=== PATIENT | male | born 1940 | race Caucasian/White ===

== ENCOUNTER 2016-06-26 15:36 | Emergency (ER) | payer MEDICARE, OTHER ==
[2016-06-26] MEDS ORDERED: IBUPROFEN 600 MG TABLET PO ONE (15:44)
[2016-06-26] MEDS ORDERED: HYDROCODONE/ACETAMINOPHEN 5-325 MG TABLET PO ONE (15:44)
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
== END 2016-06-26 17:30 | disposition home or self-care (01) ==
LOC: ER 15:36
DX: S51.811A Laceration without foreign body of right forearm, initial encounter (principal); T20.10XA Burn of first degree of head, face, and neck, unspecified site, initial encounter; X03.8XXA Other exposure to controlled fire, not in building or structure, initial encounter; Y93.G2 Activity, grilling and smoking food; F17.200 Nicotine dependence, unspecified, uncomplicated; I48.91 Unspecified atrial fibrillation; I25.10 Atherosclerotic heart disease of native coronary artery without angina pectoris; I10 Essential (primary) hypertension; J45.909 Unspecified asthma, uncomplicated; J44.9 Chronic obstructive pulmonary disease, unspecified; K21.9 Gastro-esophageal reflux disease without esophagitis; Z86.14 Personal history of Methicillin resistant Staphylococcus aureus infection; Z98.84 Bariatric surgery status; Z96.643 Presence of artificial hip joint, bilateral
CPT/HCPCS: 99283; A9270 ×2

== ENCOUNTER 2017-06-29 17:25 | Emergency (ER) | payer MEDICARE, OTHER ==
--- NOTE | 2017-06-29 18:13 | RADIOLOGY REPORT (SQ) ---
EXAM DESCRIPTION: HIP LEFT AP/LATERAL COMPLETED DATE/TIME: 06/29/2017 6:05 pm REASON FOR STUDY: pain COMPARISON: None. NUMBER OF VIEWS: Two views. TECHNIQUE: AP pelvis and additional frog-leg view of the left hip. LIMITATIONS: None. FINDINGS: MINERALIZATION: Normal. LEFT HIP: Left hip arthroplasty good position. No acute abnormality is seen. No evidence of looseni ng. RIGHT HIP: Right hip arthroplasty in good position. PUBIS AND ISCHIUM: No fracture. PELVIS: No fracture. SACRUM: No fracture or dislocation. No worrisome bone lesions. LOWER LUMBAR SPINE: No fracture or dislocation. No worrisome bone lesions. No significant disc disea se. SOFT TISSUES: No findings. OTHER: No other significant finding. IMPRESSION: NEGATIVE STUDY OF THE LEFT HIP AND PELVIS. NO RADIOGRAPHIC EVIDENCE OF ACUTE INJURY. TECHNICAL DOCUMENTATION: JOB ID: [id number] [employer]- All Rights Reserved Reading location - IP/workstation name: [email or web address]
[2017-06-29] MEDS ORDERED: FENTANYL CITRATE INJ/PF 100 MCG/2 ML AMPUL IV ONE ×3 (18:29→23:32)
--- NOTE | 2017-06-29 19:26 | ER Document Report ---
ED General - General Chief Complaint: Hip Pain Stated Complaint: LEFT HIP PAIN Time Seen by Provider: 06/29/17 18:04 Mode of Arrival: Medic Information source: Patient Notes: 76-year-old male with a history of coronary artery disease,Chronic back pain, Congestive heart failure bilateral hip replacements, obesity presents via EMS from home with complaint of left hip pain. Patient states pain started 4 days prior to arrival. He states he awoke and had significant pain in the left hip and has been unable to ambulate since that time. He denies any recent falls or injury. His hip replacement was in 2013.He does report a history of MRSA that complicated the replacement.Patient currently denies any fever, chills, nausea, vomiting, chest pain or shortness of breath.He reports that he has been eating and drinking normally.Patient was in pain management for hip and back pain but is no longer. Denies home pain medication. Denies fever, leg weakness, inability to urinate and fecal incontinence. TRAVEL OUTSIDE OF THE [place] IN LAST 30 DAYS: No - Related Data Allergies/Adverse Reactions: No Known Allergies Allergy (Verified 08/28/15 20:17) Past Medical History - General Information source: Patient, Emergency Med Personnel - Social History Smoking Status: Unknown if Ever Smoked Cigarette use (# per day): No Chew tobacco use (# tins/day): No Frequency of alcohol use: None Drug Abuse: None Lives with: Family Family History: Reviewed & Not Pertinent Patient has suicidal ideation: No Patient has homicidal ideation: No - Past Medical History Cardiac Medical History: Reports: Hx Atrial Fibrillation, Hx Coronary Artery Disease, Hx Hypertension Denies: Hx Heart Attack Pulmonary Medical History: Reports: Hx Asthma, Hx Bronchitis, Hx COPD Denies: Hx Pneumonia, Hx Tuberculosis Neurological Medical History: Denies: Hx Cerebrovascular Accident, Hx Seizures Renal/ Medical History: Denies: Hx Peritoneal Dialysis GI Medical History: Reports: Hx Gastroesophageal Reflux Disease Musculoskeltal Medical History: Reports Hx Arthritis Infectious Medical History: Reports: Hx MRSA Past Surgical History: Reports: Hx Cardiac Surgery - 2 stents, Hx Coronary Stent - x2, Hx Gastric Bypass Surgery, Hx Herniorrhaphy - Ventral hernia in 2000 , Hx Orthopedic Surgery - bilateral total hip replacement - Immunizations Immunizations up to date: No Hx Diphtheria, Pertussis, Tetanus Vaccination: Yes Hx Pneumococcal Vaccination: 04/18/13 Review of Systems - Review of Systems Constitutional: denies: Chills, Fever EENT: No symptoms reported Cardiovascular: denies: Chest pain, Palpitations Respiratory: denies: Short of breath Gastrointestinal: denies: Abdominal pain, Diarrhea, Nausea, Vomiting Genitourinary: denies: Burning, Dysuria, Flank pain Male Genitourinary: No symptoms reported Musculoskeletal: Back pain, Joint pain, Muscle pain Physical Exam - Vital signs Vitals: Temp Pulse Resp BP Pulse Ox 98.6 F 90 22 H 127/62 H 95 06/29/17 17:48 06/29/17 17:48 06/29/17 17:48 06/29/17 17:48 06/29/17 17:48 Interpretation: Normal. No: Hypotensive, Tachycardic, Febrile - General General appearance: Appears well, Alert, Other - Morbidly obese - HEENT Mucous membranes: Dry - Cardiovascular Rhythm: Regular. No: Tachycardia Heart sounds: Normal auscultation Murmur: No Pulses: Normal: Radial, Dorsalis pedis - Back Back: Nontender. No: CVA tenderness - pain over the left sciatic notch, Vertebra tenderness - Extremities General upper extremity: Normal inspection, Nontender, Normal color, Normal ROM , Normal temperature General lower extremity: Normal inspection, Nontender, Normal color, Normal ROM , Normal strength, Normal temperature, Normal weight bearing. No: Edema, Stormy' s sign Hip: Tender - Patient has tenderness to palpation over the left greater trochanter. There is no skin changes, ecchymosis or signs of infection.Patient does have full range of motion with pain., Pain with ROM, Unable to bear weight. No: Deformity, Dislocation, Ecchymosis, Instability Thigh: Normal. No: Deformity Knee: Normal. No: Deformity Calf: Normal - Psychological Associated symptoms: Normal affect, Normal mood Course - Re-evaluation Re-evalutation: 06/29/17 22:[address] Bey who is currently declining admission. 06/30/17 00:10 76-year-old male with a history of chronic back pain presents to the emergency department with complaint of left hip pain that started 4 days prior to arrival. Upon arrival vitals were reviewed. Patient is afebrile, normotensive. Exam is significant for pain over the left greater trochanter and left sciatic notch. Patient has full range of motion. No crepitus. No erythema. Patient has no red flag symptoms. He has normal sensation and strength. He denies any urinary retention or fecal incontinence.X-ray of the hip was negative for dislocation or fracture. Because of the patient's pain out of proportion a CAT scan of the pelvis was obtained and this was also within normal limits. Patient received fentanyl for pain. Laboratory findings do show a mild JOHN which he did receive fluids for. He is currently drinking fluids as well. cbc shows no leukocytosis or anemia. Lactate normal. Patient will require ambulance transport home. He states that his son is not able to pick him up until the morning and he is unable to get home any other way. Laboratory 06/29/17 06/29/17 06/29/17 19:30 19:30 19:30 WBC 5.4 RBC 4.01 L Hgb 12.4 L Hct 36.8 L MCV 92 MCH 30.8 MCHC 33.6 RDW 14.7 H Plt Count 178 Seg Neutrophils % 72.7 Lymphocytes % 8.9 L Monocytes % 15.4 H Eosinophils % 2.5 Basophils % 0.5 Absolute Neutrophils 4.0 Absolute Lymphocytes 0.5 Absolute Monocytes 0.8 Absolute Eosinophils 0.1 Absolute Basophils 0.0 Sodium 135.7 L Potassium 4.7 Chloride 99 Carbon Dioxide 27 Anion Gap 10 BUN 33 H Creatinine 1.47 H Est GFR ( Amer) 57 L Est GFR (Non-Af Amer) 47 L Glucose 117 H Lactic Acid Calcium 8.9 Total Bilirubin 1.2 Direct Bilirubin 0.6 H Neonat Total Bilirubin Not Reportable Neonat Direct Bilirubin Not Reportable Neonat Indirect Bili Not Reportable AST 38 ALT 54 Alkaline Phosphatase 67 Creatine Kinase 378 H Total Protein 6.4 Albumin 3.6 06/29/17 20:35 WBC RBC Hgb Hct MCV MCH MCHC RDW Plt Count Seg Neutrophils % Lymphocytes % Monocytes % Eosinophils % Basophils % Absolute Neutrophils Absolute Lymphocytes Absolute Monocytes Absolute Eosinophils Absolute Basophils Sodium Potassium Chloride Carbon Dioxide Anion Gap BUN Creatinine Est GFR ( Amer) Est GFR (Non-Af Amer) Glucose Lactic Acid 1.0 Calcium Total Bilirubin Direct Bilirubin Neonat Total Bilirubin Neonat Direct Bilirubin Neonat Indirect Bili AST ALT Alkaline Phosphatase Creatine Kinase Total Protein Albumin Hip X-Ray 06/29/17 17:34 IMPRESSION: NEGATIVE STUDY OF THE LEFT HIP AND PELVIS. NO RADIOGRAPHIC EVIDENCE OF ACUTE INJURY. Pelvis CT 06/29/17 18:35 IMPRESSION: BILATERAL HIP PROSTHESES WHICH HAVE SATISFACTORY APPEARANCE. NO ACUTE OR SIGNIFICANT FINDINGS. 06/30/17 01:01 No transport available due to patient's weight. Next available transport will be at 8:30 in the morning. Patient requesting BiPAP as he uses it at home and knows his settings. 06/30/17 01:33 06/30/17 03:26 - Vital Signs Vital signs: Temp Pulse Resp BP Pulse Ox 99.6 F 90 20 120/60 92 06/30/17 01:33 06/29/17 17:48 06/30/17 02:00 06/30/17 02:00 06/30/17 02:01 - Laboratory Result Diagrams: 06/29/17 19:30 06/29/17 19:30 Laboratory results interpreted by me: 06/29/17 06/29/17 06/29/17 19:30 19:30 19:30 RBC 4.01 L Hgb 12.4 L Hct 36.8 L RDW 14.7 H Lymphocytes % 8.9 L Monocytes % 15.4 H Sodium 135.7 L BUN 33 H Creatinine 1.47 H Est GFR ( Amer) 57 L Est GFR (Non-Af Amer) 47 L Glucose 117 H Direct Bilirubin 0.6 H Creatine Kinase 378 H Urine Blood 06/29/17 21:05 RBC Hgb Hct RDW Lymphocytes % Monocytes % Sodium BUN Creatinine Est GFR ( Amer) Est GFR (Non-Af Amer) Glucose Direct Bilirubin Creatine Kinase Urine Blood SMALL H Discharge - Discharge Clinical Impression: Left hip pain, Sciatic leg pain, Dehydration, mild Disposition: HOME, SELF-CARE Instructions: Leg Pain Nonspecific ([facility]), Sciatica ([facility]) Prescriptions: Oxycodone HCl/Acetaminophen [Percocet 5-325 mg Tablet] 1 tab PO Q4H PRN #10 tab PRN Reason: Pain Scale Of 4 Referrals: WAI MOULTON MD [Primary Care Provider] - Follow up tomorrow
[2017-06-29 19:53] LABS: ABSOLUTE EOSINOPHILS # (AUTO) 0.1 10^3/uL (0.0-0.6); ABSOLUTE LYMPHOCYTES (AUTO) 0.5 10^3/uL (0.5-4.7); ABSOLUTE MONOCYTES (AUTO) 0.8 10^3/uL (0.1-1.4); BASOPHILS % (AUTO) 0.5 % (0-2); EOSINOPHILS % (AUTO) 2.5 % (0-6); HEMATOCRIT 36.8 % (37.9-51.0); HEMOGLOBIN 12.4 g/dL (13.5-17.0); LYMPHOCYTES % (AUTO) 8.9 % (13-45); MEAN CORPUSCULAR HEMOGLOBIN 30.8 pg (27.0-33.4); MEAN CORPUSCULAR HGB CONC 33.6 g/dL (32.0-36.0); MEAN CORPUSCULAR VOLUME 92 fl (80-97); MONOCYTES % (AUTO) 15.4 % (3-13); PLATELET COUNT 178 10^3/uL (150-450); RED BLOOD COUNT 4.01 10^6/uL (4.35-5.55); RED CELL DISTRIBUTION WIDTH 14.7 % (11.5-14.0); SEGMENTED NEUTROPHILS % (AUTO) 72.7 % (42-78); TOTAL CELLS COUNTED % (AUTO) 100 %; WHITE BLOOD COUNT 5.4 10^3/uL (4.0-10.5)
[2017-06-29 20:15] LABS: ALANINE AMINOTRANSFERASE 54 U/L (21-72); ALBUMIN 3.6 g/dL (3.5-5.0); ALKALINE PHOSPHATASE 67 U/L (38-126); ANION GAP 10 (5-19); ASPARTATE AMINO TRANSFERASE 38 U/L (17-59); BILIRUBIN,DIRECT 0.6 mg/dL (0.0-0.4); BILIRUBIN,TOTAL 1.2 mg/dL (0.2-1.3); BLOOD UREA NITROGEN 33 mg/dL (7-20); CALCIUM 8.9 mg/dL (8.4-10.2); CARBON DIOXIDE 27 mmol/L (22-30); CHLORIDE 99 mmol/L (98-107); GLUCOSE 117 mg/dL (75-110); POTASSIUM 4.7 mmol/L (3.6-5.0); SODIUM 135.7 mmol/L (137-145); TOTAL PROTEIN 6.4 g/dL (6.3-8.2)
--- NOTE | 2017-06-29 21:15 | RADIOLOGY REPORT (SQ) ---
EXAM DESCRIPTION: CT PELVIS WITHOUT COMPLETED DATE/TIME: 06/29/2017 8:58 pm REASON FOR STUDY: left hip pain unable to walk MRSA history w replac COMPARISON: X-ray dated 06/29/2017. TECHNIQUE: CT scan of the pelvis performed without intravenous or oral contrast. Images reviewed wi th soft tissue and bone windows. Reconstructed coronal and sagittal MPR images reviewed. All images stored on PACS. All CT scanners at this facility use dose modulation, iterative reconstruction, and/or weight based d osing when appropriate to reduce radiation dose to as low as reasonably achievable (ALARA). [facility]: Dose Right [facility]: CareDose [facility]: Dose Right [facility]: Teradose 4D [facility]: Smart [employer] RADIATION DOSE: CT Rad equipment meets quality standard of care and radiation dose reduction techniq ues were employed. CTDIvol: 27.7 mGy. DLP: 1128 mGy-cm. mGy. LIMITATIONS: None. FINDINGS: PELVIC BONES: No acute fracture. No worrisome bone lesions. VISUALIZED SPINE: No acute findings. HIP(S): Bilateral hip prostheses. No abnormal appearance. No fracture of the existing bone. No worr isome bone lesions. PELVIC SOFT TISSUES: No significant findings. EXTRAPELVIC SOFT TISSUES: No significant findings. OTHER: No other significant finding. IMPRESSION: BILATERAL HIP PROSTHESES WHICH HAVE SATISFACTORY APPEARANCE. NO ACUTE OR SIGNIFICANT FI NDINGS. TECHNICAL DOCUMENTATION: JOB ID: [id number] Quality ID # [id number]: Final reports with documentation of one or more dose reduction techniques (e.g., Au tomated exposure control, adjustment of the mA and/or kV according to patient size, use of iterative reconstruction technique) 2010 [employer] All Rights Reserved Reading location - IP/workstation name: [email or web address]
[2017-06-29] MEDS ORDERED: NORMAL SALINE 500 ML IV ONE (22:10)
[2017-06-30] MEDS ORDERED: ACETAMINOPHEN 325 MG TABLET PO PRN (01:29)
[2017-06-30] MEDS ORDERED: FENTANYL CITRATE INJ/PF 100 MCG/2 ML AMPUL IV PRN (01:31)
[2017-06-30 02:38] LABS: APPEARANCE,URINE TURBID; BILIRUBIN,URINE NEGATIVE (NEGATIVE); COLOR,URINE YELLOW; GLUCOSE, URINE NEGATIVE (NEGATIVE); KETONES,URINE NEGATIVE (NEGATIVE); LEUKOCYTE ESTERASE,URINE NEGATIVE (NEGATIVE); NITRITE,URINE NEGATIVE (NEGATIVE); PROTEIN,URINE NEGATIVE (NEGATIVE); URINE SPECIFIC GRAVITY 1.017; UROBILINOGEN,URINE NEGATIVE mg/dL (<2.0)
[2017-06-30] MEDS ORDERED: ONDANSETRON 4 MG TAB.RAPDIS PO ONE (03:56)
[2017-06-30 07:59] VITALS: BP 113/47
== END 2017-06-30 07:30 | disposition home or self-care (01) ==
LOC: ER 17:25
DX: M25.552 Pain in left hip (principal); M54.32 Sciatica, left side; E86.0 Dehydration; Z96.643 Presence of artificial hip joint, bilateral; I48.91 Unspecified atrial fibrillation; I10 Essential (primary) hypertension; I25.10 Atherosclerotic heart disease of native coronary artery without angina pectoris; J44.9 Chronic obstructive pulmonary disease, unspecified; Z86.14 Personal history of Methicillin resistant Staphylococcus aureus infection; Z98.84 Bariatric surgery status
CPT/HCPCS: 96376; 99284; 96361; 96374; 36415; 82550; 83605; 85025; 80053; 81001; 73502; 72192; 94660; A9270; J3010 ×2; J7040; S0119

== ENCOUNTER → 2017-07-05 | Outpatient (CLI) | payer MEDICARE, OTHER | LOC: LAB 15:26 | PROVIDERS: ATTEND Internal Medicine | DX: T84.59XS Infection and inflammatory reaction due to other internal joint prosthesis, sequela (principal) | CPT/HCPCS: 87040 ==

== ENCOUNTER 2018-01-01 12:17 | Emergency (ER) | payer MEDICARE, OTHER ==
[2018-01-01 12:28] VITALS: BP 119/64
[2018-01-01] MEDS ORDERED: IPRATROPIUM/ALBUTEROL 0.5-2.5 MG/3 ML AMPUL NEB ONE (13:16)
--- NOTE | 2018-01-01 13:18 | ER Document Report ---
ED Medical Screen (RME) - General Chief Complaint: Shortness Of Breath Stated Complaint: BREATHING DIFFICULTY Time Seen by Provider: 01/01/18 13:04 Mode of Arrival: Wheelchair Information source: Patient Notes: Patient presents with gradual onset of shortness of breath which has gotten worse this morning. 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 He also complained of chest discomfort which started this morning. I have greeted and performed a rapid initial assessment of this patient. A comprehensive ED assessment and evaluation of the patient, analysis of test results and completion of the medical decision making process will be conducted by additional ED providers. TRAVEL OUTSIDE OF THE [place] IN LAST 30 DAYS: No - Related Data Allergies/Adverse Reactions: No Known Allergies Allergy (Verified 08/28/15 20:17) Past Medical History - Social History Chew tobacco use (# tins/day): No Frequency of alcohol use: None Drug Abuse: None - Past Medical History Cardiac Medical History: Reports: Hx Atrial Fibrillation, Hx Coronary Artery Disease, Hx Hypertension Denies: Hx Heart Attack Pulmonary Medical History: Reports: Hx Asthma, Hx Bronchitis, Hx COPD Denies: Hx Pneumonia, Hx Tuberculosis Neurological Medical History: Denies: Hx Cerebrovascular Accident, Hx Seizures Renal/ Medical History: Denies: Hx Peritoneal Dialysis GI Medical History: Reports: Hx Gastroesophageal Reflux Disease Musculoskeltal Medical History: Reports Hx Arthritis Infectious Medical History: Reports: Hx MRSA Past Surgical History: Reports: Hx Cardiac Surgery - 2 stents, Hx Coronary Stent - x2, Hx Gastric Bypass Surgery, Hx Herniorrhaphy - Ventral hernia in 2000 , Hx Orthopedic Surgery - bilateral total hip replacement - Immunizations Immunizations up to date: No Hx Diphtheria, Pertussis, Tetanus Vaccination: Yes Physical Exam - Vital signs Vitals: Temp Pulse Resp BP Pulse Ox 98.0 F 85 14 119/64 96 01/01/18 12:26 01/01/18 12:26 01/01/18 12:01/01/18 12:01/01/18 12:26 Course - Vital Signs Vital signs: Temp Pulse Resp BP Pulse Ox 98.0 F 85 14 119/64 96 01/01/18 12:26 01/01/18 12:26 01/01/18 12:01/01/18 12:01/01/18 12:26 Doctor's Discharge - Discharge Referrals: WAI MOULTON MD [Primary Care Provider] - Follow up as needed
[2018-01-01] MEDS ORDERED: ASPIRIN 325 MG TABLET PO ONE (13:30)
--- NOTE | 2018-01-01 14:12 | RADIOLOGY REPORT (SQ) ---
EXAM DESCRIPTION: CHEST SINGLE VIEW COMPLETED DATE/TIME: 01/01/2018 1:55 pm REASON FOR STUDY: Shortness of breath COMPARISON: 08/28/2015 EXAM PARAMETERS: NUMBER OF VIEWS: One view. TECHNIQUE: Single frontal radiographic view of the chest acquired. RADIATION DOSE: NA LIMITATIONS: Obese patient, portable technique FINDINGS: LUNGS AND PLEURA: No opacities, masses or pneumothorax. No pleural effusion. MEDIASTINUM AND HILAR STRUCTURES: No masses. Contour normal. HEART AND VASCULAR STRUCTURES: Heart normal in size. Normal vasculature. BONES: No acute findings. HARDWARE: None in the chest. OTHER: No other significant finding. IMPRESSION: NO ACUTE RADIOGRAPHIC FINDING IN THE CHEST. TECHNICAL DOCUMENTATION: JOB ID: [id number] [employer]- All Rights Reserved Reading location - IP/workstation name: [email or web address]
[2018-01-01 14:34] LABS: ABSOLUTE EOSINOPHILS # (AUTO) 0.2 10^3/uL (0.0-0.6); ABSOLUTE LYMPHOCYTES (AUTO) 0.8 10^3/uL (0.5-4.7); ABSOLUTE MONOCYTES (AUTO) 0.5 10^3/uL (0.1-1.4); ABSOLUTE NEUT (AUTO) 2.7 10^3/uL (1.7-8.2); BASOPHILS % (AUTO) 0.8 % (0-2); EOSINOPHILS % (AUTO) 4.9 % (0-6); HEMATOCRIT 36.8 % (37.9-51.0); HEMOGLOBIN 12.5 g/dL (13.5-17.0); MEAN CORPUSCULAR HEMOGLOBIN 29.4 pg (27.0-33.4); MEAN CORPUSCULAR HGB CONC 33.9 g/dL (32.0-36.0); MEAN CORPUSCULAR VOLUME 87 fl (80-97); MONOCYTES % (AUTO) 12.5 % (3-13); PLATELET COUNT 191 10^3/uL (150-450); RED BLOOD COUNT 4.23 10^6/uL (4.35-5.55); RED CELL DISTRIBUTION WIDTH 16.4 % (11.5-14.0); SEGMENTED NEUTROPHILS % (AUTO) 63.8 % (42-78); TOTAL CELLS COUNTED % (AUTO) 100 %; WHITE BLOOD COUNT 4.2 10^3/uL (4.0-10.5)
[2018-01-01 14:46] LABS: ALANINE AMINOTRANSFERASE 56 U/L (21-72); ALBUMIN 3.6 g/dL (3.5-5.0); ALKALINE PHOSPHATASE 98 U/L (38-126); ANION GAP 11 (5-19); ASPARTATE AMINO TRANSFERASE 65 U/L (17-59); BILIRUBIN,DIRECT 0.5 mg/dL (0.0-0.4); BILIRUBIN,TOTAL 0.7 mg/dL (0.2-1.3); BLOOD UREA NITROGEN 26 mg/dL (7-20); CALCIUM 8.9 mg/dL (8.4-10.2); CARBON DIOXIDE 28 mmol/L (22-30); CHLORIDE 97 mmol/L (98-107); CREATINE KINASE 71 U/L (55-170); GLUCOSE 233 mg/dL (75-110); POTASSIUM 4.5 mmol/L (3.6-5.0); SODIUM 135.5 mmol/L (137-145); TOTAL PROTEIN 6.7 g/dL (6.3-8.2)
[2018-01-01 14:52] LABS: APPEARANCE,URINE CLEAR; BILIRUBIN,URINE NEGATIVE (NEGATIVE); COLOR,URINE YELLOW; GLUCOSE, URINE 500 mg/dL (NEGATIVE); KETONES,URINE NEGATIVE (NEGATIVE); LEUKOCYTE ESTERASE,URINE NEGATIVE (NEGATIVE); NITRITE,URINE NEGATIVE (NEGATIVE); PROTEIN,URINE NEGATIVE (NEGATIVE); URINE SPECIFIC GRAVITY 1.022
[2018-01-01 14:58] LABS: CREATINE KINASE MB 0.92 ng/mL (<4.55); NT PRO BNP 72 pg/mL (<450)
[2018-01-01 14:59] LABS: TROPONIN I < 0.012 ng/mL
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
--- NOTE | 2018-01-02 05:18 | EKG REPORT ---
SEVERITY:- NORMAL ECG - SINUS RHYTHM : Confirmed by: Oriana Musa 02-Jan-2018 05:18:00
== END 2018-01-01 20:10 | disposition home or self-care (01) ==
LOC: ER 12:17
DX: R06.02 Shortness of breath (principal); I10 Essential (primary) hypertension; E78.5 Hyperlipidemia, unspecified; J44.9 Chronic obstructive pulmonary disease, unspecified; Z99.81 Dependence on supplemental oxygen; I25.10 Atherosclerotic heart disease of native coronary artery without angina pectoris; K21.9 Gastro-esophageal reflux disease without esophagitis; M19.90 Unspecified osteoarthritis, unspecified site; Z86.14 Personal history of Methicillin resistant Staphylococcus aureus infection; Z95.5 Presence of coronary angioplasty implant and graft; Z98.84 Bariatric surgery status; Z96.643 Presence of artificial hip joint, bilateral; Z65.5 Exposure to disaster, war and other hostilities; E66.01 Morbid (severe) obesity due to excess calories; Z68.43 Body mass index [BMI] 50.0-59.9, adult
CPT/HCPCS: 93005; 94640; 99285; 36415; 82553; 82550; 85025; 80053; 81001; 84484; 83880; 71045; 93010; A9270 ×2; J7620

== ENCOUNTER 2018-05-18 18:21 | Emergency (ER) | payer MEDICARE, OTHER ==
--- NOTE | 2018-05-18 18:39 | ER Document Report ---
ED Medical Screen (RME) - General Chief Complaint: Abdominal Pain Stated Complaint: ABDOMINAL PAIN Primary Care Provider: WAI MOULTON MD [Primary Care Provider] - Follow up as needed TRAVEL OUTSIDE OF THE [place] IN LAST 30 DAYS: No - HPI Notes: 05/18/18 18:38 Coughing obese with right chest wall pain - Related Data Allergies/Adverse Reactions: No Known Allergies Allergy (Verified 08/28/15 20:17) Past Medical History - Past Medical History Cardiac Medical History: Reports: Hx Atrial Fibrillation, Hx Coronary Artery Disease, Hx Hypertension Denies: Hx Heart Attack Pulmonary Medical History: Reports: Hx Asthma, Hx Bronchitis, Hx COPD Denies: Hx Pneumonia, Hx Tuberculosis Neurological Medical History: Denies: Hx Cerebrovascular Accident, Hx Seizures Renal/ Medical History: Denies: Hx Peritoneal Dialysis GI Medical History: Reports: Hx Gastroesophageal Reflux Disease Musculoskeltal Medical History: Reports Hx Arthritis Infectious Medical History: Reports: Hx MRSA Past Surgical History: Reports: Hx Cardiac Surgery - 2 stents, Hx Coronary Stent - x2, Hx Gastric Bypass Surgery, Hx Herniorrhaphy - Ventral hernia in 2000, Hx Orthopedic Surgery - bilateral total hip replacement - Immunizations Immunizations up to date: No Hx Diphtheria, Pertussis, Tetanus Vaccination: Yes Review of Systems - Review of Systems Respiratory: Cough -: Yes All other systems reviewed and negative Physical Exam - Abdominal Inspection: Obese Doctor's Discharge - Discharge Referrals: WAI MOULTON MD [Primary Care Provider] - Follow up as needed
[2018-05-18 19:22] LABS: ABSOLUTE EOSINOPHILS # (AUTO) 0.1 10^3/uL (0.0-0.6); ABSOLUTE LYMPHOCYTES (AUTO) 0.6 10^3/uL (0.5-4.7); ABSOLUTE MONOCYTES (AUTO) 0.5 10^3/uL (0.1-1.4); ABSOLUTE NEUT (AUTO) 2.6 10^3/uL (1.7-8.2); BASOPHILS % (AUTO) 0.7 % (0-2); HEMATOCRIT 37.5 % (37.9-51.0); HEMOGLOBIN 12.7 g/dL (13.5-17.0); LYMPHOCYTES % (AUTO) 16.8 % (13-45); MEAN CORPUSCULAR HEMOGLOBIN 30.4 pg (27.0-33.4); MEAN CORPUSCULAR HGB CONC 33.9 g/dL (32.0-36.0); MEAN CORPUSCULAR VOLUME 90 fl (80-97); PLATELET COUNT 168 10^3/uL (150-450); RED BLOOD COUNT 4.18 10^6/uL (4.35-5.55); RED CELL DISTRIBUTION WIDTH 14.9 % (11.5-14.0); SEGMENTED NEUTROPHILS % (AUTO) 67.5 % (42-78); TOTAL CELLS COUNTED % (AUTO) 100 %; WHITE BLOOD COUNT 3.8 10^3/uL (4.0-10.5)
[2018-05-18 19:38] LABS: ANION GAP 11 (5-19); BLOOD UREA NITROGEN 26 mg/dL (7-20); CALCIUM 9.5 mg/dL (8.4-10.2); CARBON DIOXIDE 27 mmol/L (22-30); CHLORIDE 96 mmol/L (98-107); GLUCOSE 389 mg/dL (75-110); POTASSIUM 5.1 mmol/L (3.6-5.0); SODIUM 133.8 mmol/L (137-145)
--- NOTE | 2018-05-18 19:53 | EKG REPORT ---
SEVERITY:- BORDERLINE ECG - SINUS RHYTHM LOW VOLTAGE THROUGHOUT : Confirmed by: Elkin Gonzalez MD 18-May-2018 19:52:54
--- NOTE | 2018-05-18 20:05 | ER Document Report ---
ED General - General Chief Complaint: Abdominal Pain Stated Complaint: ABDOMINAL PAIN Time Seen by Provider: 05/18/18 18:51 Primary Care Provider: WAI MOULTON MD [Primary Care Provider] - Follow up as needed Notes: Patient is a 77-year-old male with a history of asthma/COPD with no smoking history (states he had environmental factors) that comes to the emergency department for approximately 1 week of a persistent cough with clear sputum production with sharp pain in his right lower chest with coughing. Denies abdominal pain, he does not have pain unless he is coughing, he denies fever or chills, nausea, and other areas of pain. Past medical history includes A. fib, CAD on Plavix, hypertension, gastric bypass, cholecystectomy. TRAVEL OUTSIDE OF THE [place] IN LAST 30 DAYS: No - Related Data Allergies/Adverse Reactions: No Known Allergies Allergy (Verified 08/28/15 20:17) Past Medical History - General Information source: Patient - Social History Smoking Status: Never Smoker Frequency of alcohol use: None Drug Abuse: None Lives with: Family Family History: Reviewed & Not Pertinent Patient has suicidal ideation: No Patient has homicidal ideation: No - Past Medical History Cardiac Medical History: Reports: Hx Atrial Fibrillation, Hx Coronary Artery Disease, Hx Hypertension Denies: Hx Heart Attack Pulmonary Medical History: Reports: Hx Asthma, Hx Bronchitis, Hx COPD Denies: Hx Pneumonia, Hx Tuberculosis Neurological Medical History: Denies: Hx Cerebrovascular Accident, Hx Seizures Renal/ Medical History: Denies: Hx Peritoneal Dialysis GI Medical History: Reports: Hx Gastroesophageal Reflux Disease Musculoskeletal Medical History: Reports Hx Arthritis Infectious Medical History: Reports: Hx MRSA Past Surgical History: Reports: Hx Cardiac Surgery - 2 stents, Hx Coronary Stent - x2, Hx Gastric Bypass Surgery, Hx Herniorrhaphy - Ventral hernia in 2000, Hx Orthopedic Surgery - bilateral total hip replacement - Immunizations Immunizations up to date: No Hx Diphtheria, Pertussis, Tetanus Vaccination: Yes Hx Pneumococcal Vaccination: 04/18/13 Review of Systems - Review of Systems Constitutional: No symptoms reported EENT: No symptoms reported Cardiovascular: No symptoms reported Respiratory: See HPI Gastrointestinal: No symptoms reported Genitourinary: No symptoms reported Male Genitourinary: No symptoms reported Musculoskeletal: No symptoms reported Skin: No symptoms reported Hematologic/Lymphatic: No symptoms reported Neurological/Psychological: No symptoms reported Physical Exam - Vital signs Vitals: Temp Pulse Resp BP Pulse Ox 97.4 F 84 19 123/86 H 100 05/18/18 21:48 05/18/18 21:48 05/18/18 21:48 05/18/18 21:48 05/18/18 21:48 - Notes Notes: GENERAL: Alert, interacts well. No acute distress. HEAD: Normocephalic, atraumatic. EYES: Pupils equal, round, and reactive to light. Extraocular movements intact. ENT: Oral mucosa moist, tongue midline. Oropharynx unremarkable. Airway patent. Nares patent, no nasal septal hematoma, TM's intact. NECK: Full range of motion. Supple. Trachea midline. LUNGS: Clear to auscultation bilaterally, no wheezes, rales, or rhonchi. No respiratory distress. Tender over the right ribs mainly, generally, not severely. No erythema or other concerning findings. Occasional painful cough but otherwise unremarkable respiratory exam. HEART: Regular rate and rhythm. No murmur ABDOMEN: Soft, non-tender. Non-distended. Bowel sounds present in all 4 quadr ants. GENITOURINARY: Deferred EXTREMITIES: Moves all 4 extremities spontaneously. No edema, normal radial and dorsalis pedis pulses bilaterally. No cyanosis. BACK: no cervical, thoracic, lumbar midline tenderness. No saddle anesthesia, normal distal neurovascular exam. NEUROLOGICAL: Alert and oriented x3. Normal speech. [cranial nerves II through XII grossly intact]. PSYCH: Normal affect, normal mood. SKIN: Warm, dry, normal turgor. No rashes or lesions noted. Course - Re-evaluation Re-evalutation: Patient is actually very well-appearing on my exam. He occasionally has a painful cough but this is infrequent. He is clear lungs, no hypoxia, speaks in full sentences, is very conversational and alert. Son is at bedside. CBC unremarkable. Chemistry shows elevated blood sugars but normal bicarbonate and anion gap. Borderline labs otherwise. Chest x-ray is unremarkable. I did offer patient IV fluids but this was declined. He states he is ready to go home, wanted to be checked if he had pneumonia. He is actually taking azithromycin now, has several doses left. I discussed prednisone for bronchitis but this was decided against because patient takes Janumet only for diabetes and will probably become very hyperglycemic with prednisone. He states his biggest problem is the cough and not being able to sleep because of the painful cough. I did discuss Hycodan, patient has been on this medication before with good results and no concerning abnormality. He also has an inhaler already with plenty of refills and albuterol treatments. He also has additional steroid inhaler. Discussed medication, precautions, follow-up, and strict return precautions with patient in detail. Patient and son state understanding and agreement with plan. - Vital Signs Vital signs: Temp Pulse Resp BP Pulse Ox 97.4 F 84 19 123/86 H 100 05/18/18 21:48 05/18/18 21:48 05/18/18 21:48 05/18/18 21:48 05/18/18 21:48 - Laboratory Result Diagrams: 05/18/18 19:12 05/18/18 19:12 Laboratory results interpreted by me: 05/18/18 05/18/18 19:12 19:12 WBC 3.8 L RBC 4.18 L Hgb 12.7 L Hct 37.5 L RDW 14.9 H Sodium 133.8 L Potassium 5.1 H Chloride 96 L BUN 26 H Glucose 389 H Discharge - Discharge Clinical Impression: Painful cough Upper respiratory infection Qualifiers: URI type: unspecified URI Qualified Code(s): J06.9 - Acute upper respiratory infection, unspecified Condition: Stable Disposition: HOME, SELF-CARE Additional Instructions: Your chest x-ray does not show pneumonia, your workup shows uncontrolled diabetes but is not concerning otherwise. Hydrate, take the provided medication for pain/cough, complete your antibiotic course. You will need close follow-up for management of your diabetes. Return if you worsen including difficulty breathing, passing out, developing fever, vomiting, or any other concerning or worsening symptoms. Prescriptions: Hydrocodone Bit/Homatropine [Hycodan Syrup 5-1.5 mg/5 ml Ud Cup] 5 ml PO Q4HP PRN #120 ml PRN Reason: Docusate Sodium [Colace 100 mg Capsule] 100 mg PO ASDIR PRN #30 capsule PRN Reason: Referrals: WAI MOULTON MD [Primary Care Provider] - Follow up as needed
--- NOTE | 2018-05-18 20:10 | RADIOLOGY REPORT (SQ) ---
EXAM DESCRIPTION: XR CHEST 1 VIEW COMPLETED DATE/TME: 05/18/2018 18:37 CLINICAL HISTORY: 77 years, Male, right chest wall pain cough COMPARISON: EXAM: 08/28/2015. CLINICAL INDICATION: Chest pain Cough SOB TECHNIQUE: Single view, AP portable chest was obtained. NUMBER OF VIEWS: One LIMITATIONS: The patient is rotated limiting evaluation. FINDINGS: Stable cardiac and mediastinal silhouette. Heart size is top normal. Cardiac silhouette is incompletely visualized secondary to low lung volumes. Low lung volumes grossly clear without focal opacity, pneumothorax or pleural effusions. The visualized bones reveal degenerative change. IMPRESSION: No acute cardiopulmonary abnormalities. copyright 2010 [facility] [employer]- All Rights Reserved
[2018-05-18] MEDS ORDERED: HYDROCODONE/ACETAMINOPHEN 5-325 MG (6 TAB/ER DISP) PO PRN (20:56)
[2018-05-18 21:49] VITALS: BP 123/86
== END 2018-05-18 21:49 | disposition home or self-care (01) ==
LOC: ER 18:21
DX: J06.9 Acute upper respiratory infection, unspecified (principal); J44.9 Chronic obstructive pulmonary disease, unspecified; R05 Cough; R07.9 Chest pain, unspecified; R73.9 Hyperglycemia, unspecified; I48.91 Unspecified atrial fibrillation; I25.10 Atherosclerotic heart disease of native coronary artery without angina pectoris; I10 Essential (primary) hypertension; Z79.02 Long term (current) use of antithrombotics/antiplatelets; Z98.84 Bariatric surgery status; Z95.5 Presence of coronary angioplasty implant and graft
CPT/HCPCS: 93005; 99284; 36415; 85025; 80048; 71045; 93010; A9270

== ENCOUNTER 2018-06-16 18:39 | Emergency (ER) | payer MEDICARE, OTHER ==
--- NOTE | 2018-06-16 19:07 | ER Document Report ---
ED Medical Screen (RME) - General Chief Complaint: Shortness Of Breath Stated Complaint: COUGH Time Seen by Provider: 06/16/18 18:59 Primary Care Provider: WAI MOULTON MD [Primary Care Provider] - Follow up as needed Notes: Patient says he has a history of COPD and he has been having progressive shortness of breath, cough, and difficulty breathing over the past week. He was admitted to the hospital for the same about a month ago. Has home nebulizers and also has oxygen to wear at bedtime and he uses a BiPAP machine for sleep. Says is been coughing so hard he vomited. He is complaining of pain in the right side of his chest which he thinks is due to coughing so much. Has not noted any fever. Did find some prednisone stuck away in his cabinet at home and started taking 6 pills yesterday and 5 today. Patient does have a history of stents and cardiac caths. He does not smoke and never smoked. TRAVEL OUTSIDE OF THE [place] IN LAST 30 DAYS: No - Related Data Allergies/Adverse Reactions: No Known Allergies Allergy (Verified 08/28/15 20:17) Past Medical History - Social History Cigarette use (# per day): No - Never smoked Family history: Reviewed & Not Pertinent - Past Medical History Cardiac Medical History: Reports: Hx Atrial Fibrillation, Hx Coronary Artery Disease, Hx Hypertension Denies: Hx Heart Attack Pulmonary Medical History: Reports: Hx Asthma, Hx Bronchitis, Hx COPD Denies: Hx Pneumonia, Hx Tuberculosis Neurological Medical History: Denies: Hx Cerebrovascular Accident, Hx Seizures GI Medical History: Reports: Hx Gastroesophageal Reflux Disease Musculoskeltal Medical History: Reports Hx Arthritis Infectious Medical History: Reports: Hx MRSA Past Surgical History: Reports: Hx Cardiac Surgery - 2 stents, Hx Coronary Stent - x2, Hx Gastric Bypass Surgery, Hx Herniorrhaphy - Ventral hernia in 2000, Hx Orthopedic Surgery - bilateral total hip replacement - Immunizations Immunizations up to date: No Hx Diphtheria, Pertussis, Tetanus Vaccination: Yes Review of Systems - Review of Systems Notes: REVIEW OF SYSTEMS: CONSTITUTIONAL : Denies fever. EENT: Denies eye, ear, nose or mouth or throat pain or other symptoms. CARDIOVASCULAR: Denies chest pain. Has pain in the right lower thoracic back area. Not tender. RESPIRATORY: See HPI. GASTROINTESTINAL: Denies abdominal pain or nausea, vomiting, or diarrhea. Very obese. GENITOURINARY: Denies difficulty or painful urinating, urinary frequency, blood in urine. MUSCULOSKELETAL: Denies back or neck pain. Denies joint pain or swelling. SKIN: Denies rash or skin lesions. NEUROLOGICAL: Denies LOC or altered mental status. Denies headache. Denies sensory loss or motor deficits. ALL OTHER SYSTEMS REVIEWED AND NEGATIVE. Physical Exam - Vital signs Vitals: Temp Pulse Resp BP Pulse Ox 97.6 F 75 20 148/69 H 95 06/16/18 18:41 06/16/18 18:41 06/16/18 18:41 06/16/18 18:41 06/16/18 18:41 Course - Vital Signs Vital signs: Temp Pulse Resp BP Pulse Ox 97.4 F 80 20 144/70 H 95 06/16/18 20:03 06/16/18 20:03 06/16/18 20:03 06/16/18 20:03 06/16/18 20:03 - Diagnostic Test Radiology results interpreted by me: 06/16/18 20:39 Chest x-ray was normal. No acute findings. Doctor's Discharge - Discharge Clinical Impression: Bronchitis Condition: Stable Disposition: HOME, SELF-CARE Additional Instructions: UPPER RESPIRATORY ILLNESS: You have a viral infection of the respiratory passages -- a "cold." This common infection causes nasal congestion, drainage, and often sore throat and cough. It is highly contagious. The disease usually lasts about 10 to 14 days. There is no "cure" for the viral infection -- it must run its course. If there is a complication, such as bacterial infection in the nose, sinuses, middle ear, or bronchial tubes, antibiotics may be required. The antibiotics won't affect the virus. Drink plenty of fluids. A humidifier may help. An expectorant medication or decongestant may make you more comfortable. Use acetaminophen or ibuprofen for fever or aches. See the doctor if fever persists over two days, if there is any significant worsening of your symptoms, or if you simply fail to improve as expected. BRONCHOSPASM: You have tightness in the bronchial tubes, called bronchospasm. This often occurs with bronchial infections. Allergies, inhaled chemicals, and polluted or cold air can also provoke bronchospasm. It's more likely in patients with asthma in the family. Emergency treatment of bronchospasm may include adrenaline shots or bronchodilator aerosol. You may feel lightheaded and have a rapid pulse for an hour or two. Rest and get plenty of fluids. At home, we'll treat you with a bronchodilator inhaler. Antibiotics and corticosteroids may be required for some patients. Until you recover, avoid chemical fumes, dusts, pollens, and exercising in very cold or dry air. If you smoke, stop now!! If you develop a fever, increased wheezing, chest pain, or severe shortness of breath, you should contact the doctor immediately. [place] which is the same thing as Vicodin, has the same medicine and that that prescription cough medications have in them. You can take 1 tablet every 4 hours as needed for cough. Do not take this medicine while driving. COUGH-SUPPRESSANT & EXPECTORANT MEDICATION: You are to use a cough medication as needed for relief of symptoms. This medicine is a combination of an expectorant (to make the mucous thinner and more easily "coughed up") and a cough suppressant (to reduce the frequency of coughing). The cough-suppressant medicine is related to narcotics. You may experience mild nausea and sleepiness. Some patients who are very sensitive to narcotics may have stomach pain from this medicine. Taking the medicine with food reduces these side effects. Do not drive or work with machinery until you know how this medicine affects you. The expectorant should have no side effects. Iodine-containing expectora nts (such as organidin) should not be taken by persons with active thyroid disease unless approved by your doctor. Call the doctor if you develop shortness of breath, hives, rash, itching, lightheadedness, or severe nausea and vomiting. You already have STEROID MEDICATION: You have been given an injection of or oral medicine of the cortisone/steroid class. This medication is used to control inflammation or allergy. Jonathan t is usually only given for a short period of time, until the acute process subsides. There are usually no side effects from short-term use of cortisone-like medications. Some persons feel an increased sense of well-being and are not sleepy at bedtime. Long-term use of cortisone medications is best avoided, unless required for a severe condition. If your condition does not remit, or relapses after the course of corticosteroid medication, you should consult your physician. Azithromycin Azithromycin (Zithromax) is a broad spectrum antibiotic in the same class as erythromycin. It can treat a variety of bacterial infections, but is most frequently used for respiratory infections. Azithromycin is extremely long-lasting. It accumulates in body tissues and continues to kill bacteria for many days. In order to improve absorption, Azithromycin should be taken at least one hour before or two hours after a meal. It does not have the same strong tendency to upset the stomach as erythromycin and is usually very well tolerated. Patients who have had a rash or other true allergic reactions to erythromycin should not take this medication. Call if you develop gastrointestinal distress, severe diarrhea, rash, hives, itching, or shortness of breath. FOLLOW-UP CARE: If you have been referred to a physician for follow-up care, call the physicians office for an appointment as you were instructed or within the next two days. If you experience worsening or a significant change in your symptoms, notify the physician immediately or return to the Emergency Department at any time for re-evaluation. Prescriptions: Hydrocodone/Acetaminophen [[place] 5-325 mg Tablet] 1 tab PO Q6HP PRN #15 tablet PRN Reason: Azithromycin [Zithromax 250 mg Tablet] 250 mg PO ASDIR PRN #6 tablet PRN Reason: Referrals: WAI MOULTON MD [Primary Care Provider] - Follow up as needed
[2018-06-16] MEDS ORDERED: HYDROCODONE/ACETAMINOPHEN 5-325 MG (6 TAB/ER DISP) PO PRN (19:46)
[2018-06-16] MEDS ORDERED: AZITHROMYCIN 250 MG TABLET PO ONE (19:46)
[2018-06-16 20:04] VITALS: BP 144/70
--- NOTE | 2018-06-16 20:12 | RADIOLOGY REPORT (SQ) ---
EXAM DESCRIPTION: XR CHEST 2 VIEWS COMPLETED DATE/TME: 06/16/2018 19:07 CLINICAL HISTORY: 77 years, Male, Cough, pain in right rib area, Hx COPD Comparison: May 18, 2018 FINDINGS: No focal lung consolidation. Is prominence of the pulmonary interstitium may be related to chronic lung disease versus edema. The lungs are hyperinflated consistent with COPD. No pleural effusion. No pneumothorax. Cardiac and mediastinal silhouette is unremarkable. No acute osseous abnormality. Soft tissues are unremarkable. IMPRESSION: No focal lung consolidation.
== END 2018-06-16 20:05 | disposition home or self-care (01) ==
LOC: ER 18:39
DX: J44.0 Chronic obstructive pulmonary disease with (acute) lower respiratory infection (principal); R06.02 Shortness of breath; R05 Cough; I25.10 Atherosclerotic heart disease of native coronary artery without angina pectoris; I10 Essential (primary) hypertension
CPT/HCPCS: 99283; 71046; A9270 ×2

== ENCOUNTER 2019-05-12 16:12 | Emergency (ER) | payer MEDICARE, OTHER ==
[2019-05-12] MEDS ORDERED: MORPHINE SULFATE 10 MG/ML INJ IM ONE (17:18)
--- NOTE | 2019-05-12 17:23 | ER Document Report ---
ED Medical Screen (RME) - General Chief Complaint: Back Pain Stated Complaint: BACK PAIN Time Seen by Provider: 05/12/19 17:14 Primary Care Provider: JAKUB FORREST PA [Primary Care Provider] - Follow up as needed TRAVEL OUTSIDE OF THE [place] IN LAST 30 DAYS: No - HPI Notes: 05/12/19 17:21 78 year old male to the ED via EMS with C/O severe back pain that has been getting worse for the past three days. He states that he has been hurting since he tried to get into his truck and tweaked his back. States that the pain runs down the back of the legs. States it is so severe he needed to call the medics. His gave him a Percocet which did help but his pain is still severe. States that he has not had any bladder/bowel incontinence, saddle paresthesias, fevers, or chills. He has some limited mobility at baseline, but he is not able to walk at all since this pain started. I have performed a brief medical screening exam on the patient and determined he needs further evaluation by mainside provider. I have placed initial orders to help expedite his care. - Related Data Allergies/Adverse Reactions: No Known Allergies Allergy (Verified 05/12/19 17:10) Home Medications: Albuterol neb, Clopidogril, Telmisartan, terazosin, potassium cl er, doxycycline, atorvastatin, ropinirole hcl, furosemide, montelukast, tamsulosin, zolpidem, prednisone, sosorbide, meloxicam, citalopram Past Medical History - Social History Frequency of alcohol use: None Drug Abuse: None Family history: Reviewed & Not Pertinent - Past Medical History Cardiac Medical History: Reports: Hx Atrial Fibrillation, Hx Coronary Artery Disease, Hx Hypertension Denies: Hx Heart Attack Pulmonary Medical History: Reports: Hx Asthma, Hx Bronchitis, Hx COPD Denies: Hx Pneumonia, Hx Tuberculosis Neurological Medical History: Denies: Hx Cerebrovascular Accident, Hx Seizures Renal/ Medical History: Denies: Hx Peritoneal Dialysis GI Medical History: Reports: Hx Gastroesophageal Reflux Disease Musculoskeltal Medical History: Reports Hx Arthritis Infectious Medical History: Reports: Hx MRSA Past Surgical History: Reports: Hx Cardiac Surgery - 2 stents, Hx Coronary Stent - x2, Hx Gastric Bypass Surgery, Hx Herniorrhaphy - Ventral hernia in 2000, Hx Orthopedic Surgery - bilateral total hip replacement - Immunizations Immunizations up to date: No Hx Diphtheria, Pertussis, Tetanus Vaccination: Yes Physical Exam - Vital signs Vitals: Temp Pulse Resp BP Pulse Ox 97.8 F 103 H 24 H 137/62 H 94 05/12/19 16:18 05/12/19 16:18 05/12/19 16:18 05/12/19 16:18 05/12/19 16:18 Course - Vital Signs Vital signs: Temp Pulse Resp BP Pulse Ox 97.8 F 103 H 24 H 137/62 H 94 05/12/19 16:18 05/12/19 16:18 05/12/19 16:18 05/12/19 16:18 05/12/19 16:18 Doctor's Discharge - Discharge Referrals: JAKUB FORREST PA [Primary Care Provider] - Follow up as needed
[2019-05-12] MEDS ORDERED: HYDROMORPHONE HCL INJ/PF 2 MG/ML AMPULE IV ONE ×2 (18:06→20:15)
[2019-05-12 18:41] LABS: HEMATOCRIT 38.2 % (37.9-51.0); HEMOGLOBIN 13.3 g/dL (13.5-17.0); MEAN CORPUSCULAR HEMOGLOBIN 30.1 pg (27.0-33.4); MEAN CORPUSCULAR HGB CONC 34.7 g/dL (32.0-36.0); MEAN CORPUSCULAR VOLUME 87 fl (80-97); PLATELET COUNT 192 10^3/uL (150-450); RED CELL DISTRIBUTION WIDTH 15.5 % (11.5-14.0); WHITE BLOOD COUNT 5.4 10^3/uL (4.0-10.5)
[2019-05-12 18:58] LABS: ALBUMIN 3.6 g/dL (3.5-5.0); ALKALINE PHOSPHATASE 100 U/L (38-126); ANION GAP 10 (5-19); ASPARTATE AMINO TRANSFERASE 28 U/L (17-59); BILIRUBIN,DIRECT 0.2 mg/dL (0.0-0.4); BLOOD UREA NITROGEN 33 mg/dL (7-20); CALCIUM 9.3 mg/dL (8.4-10.2); CARBON DIOXIDE 25 mmol/L (22-30); CHLORIDE 98 mmol/L (98-107); GLUCOSE 216 mg/dL (75-110); POTASSIUM 4.5 mmol/L (3.6-5.0); TOTAL PROTEIN 6.6 g/dL (6.3-8.2)
[2019-05-12 19:10] LABS: ABSOLUTE LYMPHOCYTES# (MANUAL) 0.5 10^3/uL (0.5-4.7); ABSOLUTE MONOCYTES # (MANUAL) 0.9 10^3/uL (0.1-1.4); ANISOCYTOSIS SLIGHT; BASOPHILS % (MANUAL) 0 % (0-2); EOSINOPHILS % (MANUAL) 3 % (0-6); LYMPHOCYTES % (MANUAL) 9 % (13-45); MONOCYTES % (MANUAL) 17 % (3-13); PLATELET COMMENT ADEQUATE; SEGMENTED NEUTROPHILS % (MAN) 71 % (42-78); TOTAL CELLS COUNTED 100
[2019-05-12 20:44] LABS: APPEARANCE,URINE SLIGHTLY-CLOUDY; BILIRUBIN,URINE NEGATIVE (NEGATIVE); COLOR,URINE YELLOW; GLUCOSE, URINE 50 mg/dL (NEGATIVE); KETONES,URINE TRACE mg/dL (NEGATIVE); PROTEIN,URINE 30 mg/dL (NEGATIVE); UROBILINOGEN,URINE NEGATIVE mg/dL (<2.0)
--- NOTE | 2019-05-12 21:10 | RADIOLOGY REPORT (SQ) ---
EXAM DESCRIPTION: CLINICAL HISTORY: 78 years Male; low back pain TECHNIQUE: Noncontrast lumbar spine CT with sagittal and coronal reconstructions. All CT scans at this facility use dose modulation, iterative reconstruction, and/or weight based dosing when appropriate to reduce radiation dose to as low as reasonably achievable. COMPARISON: None. FINDINGS: For the purpose of this dictation five nonrib-bearing lumbar vertebral bodies are assumed. Diffuse disc height narrowing is identified. Vacuum disks are seen at L1-2, L2-3 and L4-5. Endplate spondylosis is noted most pronounced at L1-2. Multilevel facet arthropathy is also seen. Limited visualization of the retroperitoneal structures demonstrates vascular calcifications. No obvious mass. T12-L1: Endplate spondylosis. L1-2: Vacuum disc is noted and there is a posterior bony bar. Degenerative facet arthropathy is seen. These findings result in spinal stenosis as well as bilateral neural foraminal narrowing. L2-3: Vacuum disc is present with facet arthropathy and endplate spondylosis. There is probable foraminal narrowing and spinal stenosis. L3-4: Bilateral degenerative facet arthropathy is seen and there is a symmetric disc bulge. Probable narrowing of the central spinal canal and the neural foramen L4-5: Degenerative facet arthropathy with endplate spondylosis and a vacuum disc. There appears to be foraminal narrowing and possible spinal stenosis. L5-S1: Degenerative facet arthropathy is seen resulting in bilateral foraminal narrowing IMPRESSION: Multilevel degenerative disc disease resulting in spinal stenosis and foraminal narrowing throughout the lumbar spine. No acute fracture.
[2019-05-12] MEDS ORDERED: NORMAL SALINE 1000 ML 1,000 ML IV ONE (22:04)
--- NOTE | 2019-05-12 22:26 | ER Document Report ---
ED General Pain - General Chief Complaint: Back Pain Stated Complaint: BACK PAIN Time Seen by Provider: 05/12/19 17:14 Primary Care Provider: WAI MOULTON MD [Primary Care Provider] - 05/14/19 Notes: Patient is a 80-year-old male with chronic medical conditions who presents to the emergency department with a chief complaint of left sciatic nerve pain. Patient states that he had tweaked his back a certain way when he was "scooching myself up in a seat." Patient states that this happened a couple days ago and his sciatic nerve pain has progressively gotten worse. She has been able to walk. Denies any loss of bladder function that is new. Denies falling. Patient was recently placed on doxycycline. He has one day left of his doxycycline. TRAVEL OUTSIDE OF THE [place] IN LAST 30 DAYS: No - Related Data Allergies/Adverse Reactions: No Known Allergies Allergy (Verified 05/12/19 17:10) Home Medications: Albuterol neb, Clopidogril, Telmisartan, terazosin, potassium cl er, doxycycline, atorvastatin, ropinirole hcl, furosemide, montelukast, tamsulosin, zolpidem, prednisone, sosorbide, meloxicam, citalopram Past Medical History - Social History Smoking Status: Never Smoker Frequency of alcohol use: None Drug Abuse: None Family History: Reviewed & Not Pertinent Patient has suicidal ideation: No Patient has homicidal ideation: No - Past Medical History Cardiac Medical History: Reports: Hx Atrial Fibrillation, Hx Coronary Artery Disease, Hx Hypertension Denies: Hx Heart Attack Pulmonary Medical History: Reports: Hx Asthma, Hx Bronchitis, Hx COPD Denies: Hx Pneumonia, Hx Tuberculosis Neurological Medical History: Denies: Hx Cerebrovascular Accident, Hx Seizures Renal/ Medical History: Denies: Hx Peritoneal Dialysis GI Medical History: Reports: Hx Gastroesophageal Reflux Disease Musculoskeletal Medical History: Reports Hx Arthritis Infectious Medical History: Reports: Hx MRSA Past Surgical History: Reports: Hx Cardiac Surgery - 2 stents, Hx Coronary Stent - x2, Hx Gastric Bypass Surgery, Hx Herniorrhaphy - Ventral hernia in 2000, Hx Orthopedic Surgery - bilateral total hip replacement - Immunizations Immunizations up to date: No Hx Diphtheria, Pertussis, Tetanus Vaccination: Yes Hx Pneumococcal Vaccination: 04/18/13 Review of Systems - Review of Systems Notes: REVIEW OF SYSTEMS: CONSTITUTIONAL : Denies recent illness. Denies recent unintentional weight loss. Denies fever, chills, or sweats. EENT: Denies eye, ear, throat, or mouth pain, discharge, or symptoms. Denies nasal or sinus congestion. CARDIOVASCULAR: Denies chest pain. RESPIRATORY: Denies shortness of breath, cough, congestion, difficulty cari thing, or wheezing. GASTROINTESTINAL: Denies nausea, vomiting, and diarrhea. Denies abdominal pain. Denies constipation. GENITOURINARY: Denies difficulty urinating, burning, blood in urine, urgency or frequency. MUSCULOSKELETAL: See HPI. Denies joint pain or swelling. SKIN: Denies rash, itchiness, or lesions HEMATOLOGIC : Denies easy bruising or bleeding. LYMPHATIC: Denies swollen, painful, enlarged glands. NEUROLOGICAL: Denies no numbness or tingling denies weakness. Denies headache. Denies altered mental status. Denies alteration in speech. PSYCHIATRIC: Denies stress, anxiety, alteration in sleep patterns, or depression. All other systems reviewed and negative. Physical Exam - Vital signs Vitals: Temp Pulse Resp BP Pulse Ox 97.8 F 103 H 24 H 137/62 H 94 05/12/19 16:18 05/12/19 16:18 05/12/19 16:18 05/12/19 16:18 05/12/19 16:18 - Notes Notes: PHYSICAL EXAMINATION: GENERAL: Appears chronically ill, obese, no acute distress. HEAD: Normocephalic, atraumatic. EYES: PERRL, conjunctiva normal, all extraocular movements intact, sclera n onicteric ENT: Moist mucous membranes. NECK: Supple, no noticeable swelling, redness, rash. Normal range of motion. LUNGS: Equal breath sounds bilaterally and clear to auscultation. No wheezes rales or rhonchi. CARDIOVASCULAR: S1-S2, regular rate, regular rhythm. Radial pulses 2+, normal. ABDOMEN: Normoactive bowel sounds. Soft, nontender, no guarding, no rebound tenderness, and no masses palpated. EXTREMITIES: Normal strength and range of motion, no pitting or edema. No cyanosis. NEUROLOGICAL: Moves all extremities upon command. Strength 5/5 in all extremities. PSYCH: Normal mood, normal affect. SKIN: Warm, dry. No rash, lesions, ulcerations noted. Normal skin turgor. Course - Re-evaluation Re-evalutation: 05/12/19 22:30 CT of the lumbar spine shows degenerative disc disease in multiple areas. Natali castañeda denies any numbness or tingling. Patient states that he feels better after receiving pain medication. He will be sent home with Elbert. Chemistries show mildly elevated creatinine of 1.45. Patient received a liter of fluids. Patient has 3+ bacteria noted in his urinalysis. His urine will be sent for culture and I will start him on Keflex. Hematology is unremarkable. Patient will follow-up with his primary care provider and have his labs redrawn. He is in agreement with this plan. Follow-up precautions were given. Verbal discharge instructions were given to the patient. They verbalized understanding. They are stable for discharge. - Vital Signs Vital signs: Temp Pulse Resp BP Pulse Ox 97.5 F 93 20 137/72 H 93 05/12/19 23:40 05/12/19 23:40 05/12/19 23:40 05/12/19 23:40 05/12/19 23:40 - Laboratory Result Diagrams: 05/12/19 18:30 05/12/19 18:30 Laboratory results interpreted by me: 05/12/19 05/12/19 05/12/19 18:30 18:30 20:31 Hgb 13.3 L RDW 15.5 H Lymphocytes % (Manual) 9 L Monocytes % (Manual) 17 H Sodium 133.4 L BUN 33 H Creatinine 1.45 H Est GFR ( Amer) 57 L Est GFR (MDRD) Non-Af 47 L Glucose 216 H Urine Protein 30 H Urine Glucose (UA) 50 H Urine Ketones TRACE H Urine Blood SMALL H Urine Nitrite (Reflex) POSITIVE H Leukocyte Esterase Rfl SMALL H Discharge - Discharge Clinical Impression: Sciatic nerve pain Qualifiers: Laterality: left Qualified Code(s): M54.32 - Sciatica, left side Urinary tract infection Qualifiers: Urinary tract infection type: acute cystitis Hematuria presence: with hematuria Qualified Code(s): N30.01 - Acute cystitis with hematuria Condition: Stable Disposition: HOME, SELF-CARE Instructions: Cephalexin ([facility]), Urinary Tract Infection ([facility]) Additional Instructions: You were seen today in the emergency department for back pain. You are being sent home with pain medication. It was sent to the [facility] on [address]. Please pick them up tomorrow. You are also being sent home with pain medication. You can take 1-2 tabs every 4-6 hours as needed for your pain. You are also being started on Keflex, and antibiotic. This is for a urinary tract infection. Your urine was also sent for culture. Follow-up with your primary care provider and have them redraw your labs, as you were dehydrated and your kidney function was mildly elevated here in the emergency department. Prescriptions: Cephalexin [Keflex] 500 mg PO BID #14 capsule Hydrocodone/Acetaminophen [Elbert 7.5-325 mg Tablet] 1 tab PO ASDIR PRN #10 tablet PRN Reason: Referrals: WAI MOULTON MD [Primary Care Provider] - 05/14/19
[2019-05-12] MEDS ORDERED: CEFTRIAXONE 1 GM/D5W RTU 1 GM/50 ML RTUPB IV ONE (22:30)
[2019-05-12] MEDS ORDERED: HYDROCODONE/ACETAMINOPHEN 5-325 MG (6 TAB/ER DISP) PO PRN (22:37)
[2019-05-13 00:20] VITALS: BP 137/72
== END 2019-05-12 23:40 | disposition home or self-care (01) ==
LOC: ER 16:12
DX: M54.32 Sciatica, left side (principal); N30.01 Acute cystitis with hematuria; I48.91 Unspecified atrial fibrillation; I25.10 Atherosclerotic heart disease of native coronary artery without angina pectoris; I10 Essential (primary) hypertension; J44.9 Chronic obstructive pulmonary disease, unspecified; Z86.14 Personal history of Methicillin resistant Staphylococcus aureus infection; Z98.84 Bariatric surgery status; Z96.643 Presence of artificial hip joint, bilateral
CPT/HCPCS: 96376; 99284; 96372; 96375; 96365; 36415; 87086; 85025; 87088; 80053; 81001; 87186; 72131; J2270; J1170; J7030; J0696; A9270

== ENCOUNTER 2019-08-20 15:50 | Inpatient (IN) | payer MEDICARE, OTHER ==
[2019-08-20] MEDS ORDERED: ASPIRIN 81 MG TABLET, CHEWABLE PO ONE (16:34)
--- NOTE | 2019-08-20 16:37 | ER Document Report ---
ED Medical Screen (RME) - General Chief Complaint: Chest Pain Stated Complaint: CHEST PAIN Time Seen by Provider: 08/20/19 16:33 Primary Care Provider: WAI MOULTON MD [Primary Care Provider] - Follow up as needed Mode of Arrival: Wheelchair Information source: Patient Notes: 78-year-old male presented to ED for complaint of chest pain was fluttering in his chest and pain all over stiff neck and joint hip x2 weeks. He states he has arthritis he has a history of heart problems he has a history of asthma blood pressure cholesterol. He states he has had pain all over pain in his joints his hip and neck x2 weeks with a little bit of cough. He states this pain is not like anything he is ever had before. He states he does have arthritis he has history of both hip surgeries and arthritis but this is different than he is ever had before. I have greeted and performed a rapid initial assessment of this patient. A comprehensive ED assessment and evaluation of the patient, analysis of test results and completion of medical decision making process will be conducted by an additional ED providers. TRAVEL OUTSIDE OF THE [place] IN LAST 30 DAYS: No - Related Data Allergies/Adverse Reactions: No Known Allergies Allergy (Verified 08/20/19 16:28) Past Medical History - Social History Family history: Reviewed & Not Pertinent - Past Medical History Cardiac Medical History: Reports: Hx Atrial Fibrillation, Hx Coronary Artery Disease, Hx Hypertension Denies: Hx Heart Attack Pulmonary Medical History: Reports: Hx Asthma, Hx Bronchitis, Hx COPD Denies: Hx Pneumonia, Hx Tuberculosis Neurological Medical History: Denies: Hx Cerebrovascular Accident, Hx Seizures Renal/ Medical History: Denies: Hx Peritoneal Dialysis GI Medical History: Reports: Hx Gastroesophageal Reflux Disease Musculoskeltal Medical History: Reports Hx Arthritis Infectious Medical History: Reports: Hx MRSA Past Surgical History: Reports: Hx Cardiac Surgery - 2 stents, Hx Coronary Stent - x2, Hx Gastric Bypass Surgery, Hx Herniorrhaphy - Ventral hernia in 2000, Hx Orthopedic Surgery - bilateral total hip replacement - Immunizations Immunizations up to date: No Hx Diphtheria, Pertussis, Tetanus Vaccination: Yes Physical Exam - Vital signs Vitals: Temp Pulse Resp BP Pulse Ox 97.4 F 83 18 103/68 96 08/20/19 16:03 08/20/19 16:03 08/20/19 16:03 08/20/19 16:03 08/20/19 16:03 Course - Vital Signs Vital signs: Temp Pulse Resp BP Pulse Ox 97.4 F 83 18 103/68 96 08/20/19 16:03 08/20/19 16:03 08/20/19 16:03 08/20/19 16:03 08/20/19 16:03 Doctor's Discharge - Discharge Referrals: WAI MOULTON MD [Primary Care Provider] - Follow up as needed
[2019-08-20] MEDS ORDERED: NITROGLYCERIN 2% OINTMENT 1 GM PACKET TP ONE (17:15)
[2019-08-20 17:16] LABS: ABSOLUTE EOSINOPHILS # (AUTO) 0.1 10^3/uL (0.0-0.6); ABSOLUTE LYMPHOCYTES (AUTO) 0.9 10^3/uL (0.5-4.7); ABSOLUTE MONOCYTES (AUTO) 0.7 10^3/uL (0.1-1.4); ABSOLUTE NEUT (AUTO) 3.4 10^3/uL (1.7-8.2); BASOPHILS % (AUTO) 0.7 % (0-2); HEMATOCRIT 31.7 % (37.9-51.0); HEMOGLOBIN 10.9 g/dL (13.5-17.0); LYMPHOCYTES % (AUTO) 18.1 % (13-45); MEAN CORPUSCULAR HEMOGLOBIN 30.8 pg (27.0-33.4); MEAN CORPUSCULAR HGB CONC 34.4 g/dL (32.0-36.0); MEAN CORPUSCULAR VOLUME 89 fl (80-97); MONOCYTES % (AUTO) 13.1 % (3-13); PLATELET COUNT 239 10^3/uL (150-450); RED BLOOD COUNT 3.55 10^6/uL (4.35-5.55); RED CELL DISTRIBUTION WIDTH 16.6 % (11.5-14.0); SEGMENTED NEUTROPHILS % (AUTO) 67.1 % (42-78); TOTAL CELLS COUNTED % (AUTO) 100 %; WHITE BLOOD COUNT 5.1 10^3/uL (4.0-10.5)
--- NOTE | 2019-08-20 17:29 | RADIOLOGY REPORT (SQ) ---
EXAM DESCRIPTION: CHEST SINGLE VIEW IMAGES COMPLETED DATE/TIME: 08/20/2019 5:14 pm REASON FOR STUDY: Chest pain COMPARISON: 06/16/2018 NUMBER OF VIEWS: One view. TECHNIQUE: Single frontal radiographic view of the chest acquired. LIMITATIONS: None. FINDINGS: LUNGS AND PLEURA: No opacities, masses or pneumothorax. No pleural effusion. MEDIASTINUM AND HILAR STRUCTURES: No masses or contour abnormality. HEART AND VASCULATURE: Cardiac enlargement. Vascular congestion. BONES: No acute findings. HARDWARE: None in the chest. OTHER: No other significant finding. IMPRESSION: CARDIAC ENLARGEMENT. VASCULAR CONGESTION. TECHNICAL DOCUMENTATION: JOB ID: [id number] 2010 [employer]- All Rights Reserved Reading location - IP/workstation name: [email or web address]
[2019-08-20 17:35] LABS: INTERNATIONAL RATION (INR) 1.13; PROTHROMBIN TIME 14.6 SEC (11.4-15.4)
[2019-08-20 17:36] LABS: ALBUMIN 3.5 g/dL (3.5-5.0); ALKALINE PHOSPHATASE 78 U/L (38-126); ANION GAP 12 (5-19); ASPARTATE AMINO TRANSFERASE 23 U/L (17-59); BILIRUBIN,DIRECT 0.1 mg/dL (0.0-0.4); BLOOD UREA NITROGEN 83 mg/dL (7-20); CALCIUM 8.9 mg/dL (8.4-10.2); CARBON DIOXIDE 24 mmol/L (22-30); CHLORIDE 99 mmol/L (98-107); GLUCOSE 148 mg/dL (75-110); TOTAL PROTEIN 6.5 g/dL (6.3-8.2)
--- NOTE | 2019-08-20 18:52 | ER Document Report ---
ED Cardiac - General Chief Complaint: Pain All Over Stated Complaint: CHEST PAIN Time Seen by Provider: 08/20/19 16:33 Primary Care Provider: WAI MOULTON MD [Primary Care Provider] - Follow up as needed Mode of Arrival: Wheelchair Information source: Patient TRAVEL OUTSIDE OF THE [place] IN LAST 30 DAYS: No - HPI Notes: Patient presents with pain all over and shortness of breath. Patient states he has had the symptoms for several days. He has had some trouble sleeping. He states he is chronically on 2 L of oxygen and has tried increasing this to 3 L but this was also uncomfortable so he decreased it back to 2. He states that his Lasix has recently been increased so he does not feel that he is swelling more than usual. He denies any cough or cold symptoms. No fevers or rashes. No known exposures to coronavirus that he knows of. He has had some chest discomfort. It is been intermittent. Nothing makes it better or worse. No known radiation of the symptoms. Patient denies any recent trauma - Related Data Allergies/Adverse Reactions: No Known Allergies Allergy (Verified 08/20/19 16:28) Past Medical History - General Information source: Patient - Social History Smoking Status: Never Smoker Chew tobacco use (# tins/day): No Frequency of alcohol use: None Drug Abuse: None Family History: Reviewed & Not Pertinent Patient has homicidal ideation: No - Past Medical History Cardiac Medical History: Reports: Hx Atrial Fibrillation, Hx Coronary Artery Disease, Hx Hypertension Denies: Hx Heart Attack Pulmonary Medical History: Reports: Hx Asthma, Hx Bronchitis, Hx COPD Denies: Hx Pneumonia, Hx Tuberculosis Neurological Medical History: Denies: Hx Cerebrovascular Accident, Hx Seizures Renal/ Medical History: Denies: Hx Peritoneal Dialysis GI Medical History: Reports: Hx Gastroesophageal Reflux Disease Musculoskeletal Medical History: Reports Hx Arthritis Infectious Medical History: Reports: Hx MRSA Past Surgical History: Reports: Hx Cardiac Surgery - 2 stents, Hx Coronary Stent - x2, Hx Gastric Bypass Surgery, Hx Herniorrhaphy - Ventral hernia in 2000, Hx Orthopedic Surgery - bilateral total hip replacement - Immunizations Immunizations up to date: No Hx Diphtheria, Pertussis, Tetanus Vaccination: Yes Hx Pneumococcal Vaccination: 04/18/13 Review of Systems - Review of Systems Constitutional: denies: Chills, Fever Cardiovascular: Chest pain. denies: Palpitations Respiratory: Short of breath. denies: Cough -: Yes All other systems reviewed and negative Physical Exam - Vital signs Vitals: Temp Pulse Resp BP Pulse Ox 97.4 F 83 18 103/68 96 08/20/19 16:03 08/20/19 16:03 08/20/19 16:03 08/20/19 16:03 08/20/19 16:03 Interpretation: Normal - General General appearance: Appears well, Alert In distress: None - HEENT Head: Normocephalic, Atraumatic Eyes: Normal Pupils: PERRL - Respiratory Respiratory status: No respiratory distress Chest status: Nontender Breath sounds: Decreased air movement Chest palpation: Normal - Cardiovascular Rhythm: Regular Heart sounds: Normal auscultation Murmur: No - Abdominal Inspection: Normal Distension: No distension Bowel sounds: Normal Tenderness: Nontender Organomegaly: No organomegaly - Back Back: Normal, Nontender - Extremities General upper extremity: Normal inspection, Nontender, Normal color, Normal ROM, Normal temperature General lower extremity: Edema - 2+ bilat, Normal color, Normal temperature. No: Stormy's sign - Neurological Neuro grossly intact: Yes Cognition: Normal Orientation: AAOx4 [place] Coma Scale Eye Opening: Spontaneous [place] Coma Scale Verbal: Oriented [place] Coma Scale Motor: Obeys Commands [place] Coma Scale Total: 15 Speech: Normal Motor strength normal: LUE, RUE, LLE, RLE Sensory: Normal - Psychological Associated symptoms: Normal affect, Normal mood - Skin Skin Temperature: Warm Skin Moisture: Dry Skin Color: Normal Course - Re-evaluation Re-evalutation: 08/20/19 20:13 Patient presents with some generalized body pain as well as chest pain and also shortness of breath. He is also noticed to have an elevated creatinine from baseline. Although he appears to have some vascular congestion on x-ray his BNP is normal. Patient also was noticed to have elevated blood pressure on arrival. Nitropaste was placed and patient became somewhat hypotensive so that Nitropaste was removed. Patient has significant risk factors for coronary artery disease with a heart score of 4. It seems prudent that patient would be admitted for further evaluation. - Vital Signs Vital signs: Temp Pulse Resp BP Pulse Ox 97.4 F 83 13 110/60 92 08/20/19 16:28 08/20/19 16:03 08/20/19 19:00 08/20/19 19:15 08/20/19 17:00 - Laboratory Result Diagrams: 08/20/19 17:00 08/20/19 17:00 Laboratory results interpreted by me: 08/20/19 08/20/19 17:00 17:00 RBC 3.55 L Hgb 10.9 L Hct 31.7 L RDW 16.6 H [place] % (Auto) 13.1 H Sodium 134.8 L BUN 83 H Creatinine 3.25 H Est GFR ( Amer) 23 L Est GFR (MDRD) Non-Af 19 L Glucose 148 H - Diagnostic Test Radiology reviewed: Image reviewed, Reports reviewed - EKG Interpretation by Me EKG shows normal: Sinus rhythm Rate: Normal - 83 Rhythm: NSR [place]/QRS: Left axis deviation Discharge - Discharge Clinical Impression: Renal insufficiency Chest pain Qualifiers: Chest pain type: unspecified Qualified Code(s): R07.9 - Chest pain, unspecified Condition: Serious Disposition: ADMITTED INPATIENT Admitting Provider: Paula (Hospitalist) Unit Admitted: IMCU Referrals: WAI MOULTON MD [Primary Care Provider] - Follow up as needed
[2019-08-20] MEDS ORDERED: ASPIRIN 325 MG TABLET PO ONE (20:15)
[2019-08-20] MEDS ORDERED: NORMAL SALINE 1000 ML 1,000 ML IV ONE (20:18)
--- NOTE | 2019-08-20 20:27 | RADIOLOGY REPORT (SQ) ---
EXAM DESCRIPTION: CT CHEST WITHOUT IV CONTRAST COMPLETED DATE/TME: 08/20/2019 18:37 CLINICAL HISTORY: 78 years, Male, chest pain/dyspnea COMPARISON: Prior chest radiograph from earlier the same day TECHNIQUE: Noncontrast CT chest was acquired. Coronal and sagittal reformations were created. Images stored on PACS. All CT scanners at this facility use dose modulation, iterative reconstruction, and/or weight based dosing when appropriate to reduce radiation dose to as low as reasonably achievable (ALARA). [facility]: Dose Right [facility]: CareDose [facility]: Dose Right [facility]: Teradose 4D [facility]: [place] LIMITATIONS: The study is somewhat limited by excessive motion artifact. FINDINGS: Central airways are overall patent. Bands of opacity are noted about both lungs, indicating areas of atelectasis and/or scar. Lungs are otherwise clear. No pleural effusion or pneumothorax. Mediastinal windows show a mildly enlarged subcarinal lymph node measuring 1.8 x 3.5 cm in size on image 30 of series 3. Calcifications are evident about the coronary vessels and thoracic aorta. There is a tiny hiatal hernia. Limited evaluation of the upper abdomen reveals postoperative changes of cholecystectomy. No additional suspicious findings are evident within the imaged upper abdomen. Bone windows show severe left glenohumeral joint arthrosis. A few old right-sided rib fracture deformities are noted. IMPRESSION: No acute abnormality within the chest. Enlarged subcarinal lymph node measuring 1.8 x 3.5 cm in size, indeterminate/nonspecific. TECHNICAL DOCUMENTATION: Quality ID # [id number]: Final reports with documentation of one or more dose reduction techniques (e.g., Automated exposure control, adjustment of the mA and/or kV according to patient size, use of iterative reconstruction technique) copyright 2011 [employer]- All Rights Reserved
[2019-08-20] MEDS ORDERED: RINGERS SOLUTION,LACTATED 1,000 ML IV PRN (21:33)
[2019-08-20] MEDS ORDERED: MAG HYDROX/AL HYDROX/SIMETH SUSP 30 ML UDCUP PO PRN (21:33)
[2019-08-20] MEDS ORDERED: ONDANSETRON HCL INJ/PF 4 MG/2 ML SDV IV PRN (21:33)
[2019-08-20] MEDS ORDERED: MAGNESIUM HYDROXIDE SUSP 30 ML UDCUP PO PRN (21:33)
[2019-08-20] MEDS ORDERED: LORAZEPAM INJ 2 MG/1 ML VIAL IV PRN (21:40)
[2019-08-20] MEDS ORDERED: HYDRALAZINE HCL INJ/PF 20 MG/1 ML SDV IV PRN (21:40)
[2019-08-20] MEDS ORDERED: MORPHINE SULFATE 10 MG/ML INJ IV PRN (21:40)
[2019-08-20] MEDS ORDERED: METOPROLOL TARTRATE PF/INJ 5 MG/5 ML SDV IV PRN (21:40)
[2019-08-20] MEDS ORDERED: GUAIFENESIN SYRP 200 MG/10 ML UDC PO PRN (21:40)
[2019-08-20] MEDS ORDERED: LEVALBUTEROL HCL NEB 0.63 MG/3 ML AMPUL NEB PRN (21:43)
[2019-08-20] MEDS: HEPARIN SOD (PORCINE) 5,000 UNIT/ML 1 ML VIAL SUBCUT SCH (22:55)
[2019-08-20] MEDS: IPRATROPIUM BROMIDE 0.02% NEB 0.5 MG/2.5 ML AMPUL NEB SCH (23:41)
[2019-08-20] MEDS: LEVALBUTEROL HCL NEB 1.25 MG/3 ML AMPUL NEB SCH (23:41)
--- NOTE | 2019-08-20 23:56 | PDOC H&P ---
History of Present Illness Admission Date/PCP: 08/20/2019 19:55 WAI MOULTON MD Patient complains of: Chest pain History of Present Illness: ERIBERTO RAMIREZ is a 78 year old male who presents to the emergency room with a 4-day history of chest pain. He admits the intermittent presence of moderate nonradiating central chest pressure accompanied by fluttering palpitations, dyspnea worsened with exertion and orthopnea. His chest pain/pressure has been associated with generalized "pain all over my body". He admits a recent quadrupling of his Lasix dose for treatment of his chronic lower leg dependent edema due to venous stasis. He denies other associated or accompanying signs and symptoms. He denies prior similar episodes. He has not identified any additional aggravating or ameliorating factors for his chest pain. In the emergency room he was found to have a creatinine of 3.25 and was initially hypertensive. His cardiac enzymes and EKG showed no evidence of acute myocardial ischemia or injury. Patient was subsequently admitted to the hospital for further evaluation and treatment. Past Medical History Cardiac Medical History: Reports: Atrial Fibrillation, Coronary Artery Disease, Hyperlipidema, Hypertension Denies: Congestive Heart Failure, DVT, Myocardial Infarction, Peripheral Vascular Disease, Pulmonary Embolism Pulmonary Medical History: Reports: Asthma, Bronchitis, Chronic Obstructive Pulmonary Disease (COPD), Respiratory Failure - Chronic respiratory failure with hypoxia, Sleep Apnea, Other - Chronic venous stasis, chronic dependent edema of lower extremities Denies: Pneumonia, Tuberculosis EENT Medical History: Denies: Cataracts, Ears - Hearing aids Neurological Medical History: Denies: Hemorrhagic CVA, Ischemic CVA, Seizures Endocrine Medical History: Reports: Obesity Denies: Diabetes Mellitus Type 1, Diabetes Mellitus Type 2, Hyperthyroidism, Hypothyroidism Renal/ Medical History: Reports: Chronic Kidney Disease, Other - Benign prostatic hyperplasia Denies: Nephrolithiasis Malignancy Medical History: Reports: None GI Medical History: Reports: Gastroesophageal Reflux Disease, Other - Diverticulosis Denies: Cirrhosis, Crohn's Disease, Hepatitis, Peptic Ulcer Disease, Ulcerative Colitis Musculoskeltal Medical History: Reports: Arthritis Denies: Gout Skin Medical History: Reports: Other - Venous stasis changes of bilateral lower legs Denies: Eczema, Psoriasis Psychiatric Medical History: Denies: Alcohol Dependency, Substance Abuse, Tobacco Dependency Traumatic Medical History: Reports: None Hematology: Reports: Anemia - Recently diagnosed Denies: Bleeding Tendencies Infectious Medical History: Reports: Methicillin-Resistant Staph Aureus Past Surgical History Past Surgical History: Reports: Cardiac Catheterization, Cholecystectomy, Coronary Stent - x2, Gastric Bypass Surgery, Herniorrhaphy - Ventral hernia in 2000, Hip Replacement, Orthopedic Surgery - bilateral hip arthroplasties, revision of right hip arthroplasty Social History Information Source: Patient Lives with: Spouse/Significant other Smoking Status: Never Smoker Electronic Cigarette use?: No Frequency of Alcohol Use: None Hx Recreational Drug Use: No Drugs: None Hx Prescription Drug Abuse: No - Advance Directive Resuscitation Status: Full Code Surrogate healthcare decision maker:: Retanel Ramirez Family History Family History: CAD, COPD, Hypertension, Other - Congestive heart failure. denies: DM, Malignancy Parental Family History Reviewed: Yes Children Family History Reviewed: No Sibling(s) Family History Reviewed.: Yes Medication/Allergy Home Medications: Aspirin [Aspirin 81 mg Chewable Tablet] 1 tab PO DAILY 10/08/13 Budesonide/Formoterol Fumarate [Symbicort HFA 160-4.5 mcg Inhaler 6 gm] PRN 10/08/13 Citalopram Hydrobromide [Citalopram HBr] 1 tab PO DAILY 10/08/13 Clopidogrel Bisulfate [Plavix] 1 tab PO DAILY 10/08/13 Diclofenac Sodium [Voltaren] 1 tab PO BID 10/08/13 Ferrous Sulfate [Iron] 1 tab PO DAILY 10/08/13 Losartan Potassium 1 tab PO DAILY 10/08/13 Montelukast Sodium 1 tab PO HSP 10/08/13 Pravastatin Sodium [Pravachol] 1 tab PO DAILY 10/08/13 Terazosin HCl 1 tab PO DAILY 10/08/13 Verapamil HCl [Verapamil ER] 1 tab PO DAILY 10/08/13 Zolpidem Tartrate 1 tab PO HSP 10/08/13 Ciprofloxacin HCl/Dexameth [Ciprodex Otic Suspension 7.5 ml Bottle] 4 drop AD BID #1 bottle 10/30/15 Hydrocodone/Acetaminophen [[place] 5-325 Tablet] 1 each PO Q6 #15 tablet 10/30/15 Oxycodone HCl/Acetaminophen [Percocet 5-325 mg Tablet] 1 tab PO Q4H PRN #10 tab 06/29/17 Docusate Sodium [Colace 100 mg Capsule] 100 mg PO ASDIR PRN #30 capsule 05/18/18 Hydrocodone Bit/Homatropine [Hycodan Syrup 5-1.5 mg/5 ml Ud Cup] 5 ml PO Q4HP PRN #120 ml 05/18/18 Azithromycin [Zithromax 250 mg Tablet] 250 mg PO ASDIR PRN #6 tablet 06/16/18 Hydrocodone/Acetaminophen [[place] 5-325 mg Tablet] 1 tab PO Q6HP PRN #15 tablet 06/16/18 Cephalexin [Keflex] 500 mg PO BID #14 capsule 05/12/19 Hydrocodone/Acetaminophen [[place] 7.5-325 mg Tablet] 1 tab PO ASDIR PRN #10 tablet 05/12/19 Allergies/Adverse Reactions: No Known Allergies Allergy (Verified 08/20/19 16:28) Review of Systems Constitutional: PRESENT: other - "Pain all over". ABSENT: chills, fever(s) Eyes: ABSENT: visual disturbances, other - Eye pain Ears: ABSENT: hearing changes, other - Ear pain Nose, Mouth, and Throat: ABSENT: headache(s), sore throat Cardiovascular: PRESENT: as per HPI, chest pain, dyspnea on exertion, orthropnea, palpitations Respiratory: PRESENT: dyspnea. ABSENT: cough Gastrointestinal: ABSENT: abdominal pain, constipation, diarrhea, nausea, vomiting Genitourinary: ABSENT: difficulty urinating, dysuria, hematuria Musculoskeletal: PRESENT: as per HPI, other - Generalized pain. ABSENT: joint swelling Integumentary: PRESENT: other - Venous stasis changes of bilateral lower extremities. ABSENT: pruritus, rash Neurological: ABSENT: confusion, convulsions, focal weakness, memory loss, syncope Psychiatric: ABSENT: anxiety, depression Endocrine: ABSENT: cold intolerance, heat intolerance, polydipsia, polyphagia, polyuria Hematologic/Lymphatic: ABSENT: easy bleeding, easy bruising Allergic/Immunologic: ABSENT: seasonal rhinorrhea Physical Exam Vital Signs: Temp Pulse Resp BP Pulse Ox 97.4 F 83 13 110/60 92 08/20/19 16:28 08/20/19 16:03 08/20/19 19:00 08/20/19 19:15 08/20/19 17:00 Intake & Output 08/18/19 08/19/19 08/20/19 23:59 23:59 23:59 Weight 140.614 kg General appearance: PRESENT: cooperative, mild distress - Secondary to pain, morbidly obese Head exam: PRESENT: atraumatic, normocephalic Eye exam: PRESENT: conjunctiva pink. ABSENT: conjunctival injection, scleral icterus Ear exam: PRESENT: normal external ear exam. ABSENT: bleeding, drainage Mouth exam: PRESENT: dry mucosa, neck supple, tongue midline Teeth exam: PRESENT: poor dentation Neck exam: ABSENT: JVD, thyromegaly, tracheal deviation Respiratory exam: PRESENT: clear to auscultation darrius, symmetrical, unlabored Cardiovascular exam: PRESENT: RRR. ABSENT: clicks, gallop, rubs Pulses: PRESENT: normal carotid pulses, normal radial pulses Vascular exam: PRESENT: normal capillary refill. ABSENT: pallor GI/Abdominal exam: PRESENT: normal bowel sounds, soft Rectal exam: PRESENT: deferred Extremities exam: PRESENT: pedal edema - Minimal, other - Minimal bilateral pretibial edema. ABSENT: joint swelling Musculoskeletal exam: PRESENT: tenderness - Generalized pain to palpation in all extremities and torso.. ABSENT: deformity, dislocation Neurological exam: PRESENT: alert, oriented to person, oriented to place, oriented to time, oriented to situation, CN II-XII grossly intact. ABSENT: motor sensory deficit Psychiatric exam: PRESENT: appropriate affect, normal mood Skin exam: PRESENT: dry, intact, warm, other - Venous stasis skin changes of bilateral lower extremities, poor skin turgor consistent with 5-10% dehydration. ABSENT: jaundice, rash, urticaria Results Laboratory Results: 08/20/19 17:00 08/20/19 17:00 08/20/19 08/20/19 17:00 17:00 WBC 5.1 RBC 3.55 L Hgb 10.9 L Hct 31.7 L MCV 89 MCH 30.8 MCHC 34.4 RDW 16.6 H Plt Count 239 Seg Neutrophils % 67.1 Sodium 134.8 L Potassium 5.0 Chloride 99 Carbon Dioxide 24 Anion Gap 12 BUN 83 H Creatinine 3.25 H Est GFR ( Amer) 23 L Glucose 148 H Calcium 8.9 Magnesium 1.8 Total Bilirubin 1.0 AST 23 Alkaline Phosphatase 78 Total Protein 6.5 Albumin 3.5 08/20/19 08/20/19 17:00 17:00 Troponin I < 0.012 NT-Pro-B Natriuret Pep 77 Impressions: Chest X-Ray 08/20/19 16:34 IMPRESSION: CARDIAC ENLARGEMENT. VASCULAR CONGESTION. Assessment and Plan - Diagnosis (1) Acute kidney injury (nontraumatic) Is this a current diagnosis for this admission?: Yes (2) Dehydration Is this a current diagnosis for this admission?: Yes (3) Generalized pain Is this a current diagnosis for this admission?: Yes (4) Chest pain Qualifiers: Chest pain type: unspecified Qualified Code(s): R07.9 - Chest pain, unspecified Is this a current diagnosis for this admission?: Yes (5) Benign prostatic hyperplasia Qualifiers: Lower urinary tract symptom presence: unspecified whether lower urinary tract symptoms present Qualified Code(s): N40.0 - Benign prostatic hyperplasia without lower urinary tract symptoms Is this a current diagnosis for this admission?: Yes (6) Coronary artery disease Qualifiers: Coronary Disease-Associated Artery/Lesion type: [place] artery [place] vs. transplanted heart: [place] heart Associated angina: angina presence unspecified Qualified Code(s): I25.10 - Atherosclerotic heart disease of [place] coronary artery without angina pectoris Is this a current diagnosis for this admission?: Yes (7) Essential hypertension Is this a current diagnosis for this admission?: Yes (8) Hyperlipidemia Qualifiers: Hyperlipidemia type: unspecified Qualified Code(s): E78.5 - Hyperlipidemia, unspecified Is this a current diagnosis for this admission?: Yes (9) Gastroesophageal reflux disease with esophagitis Is this a current diagnosis for this admission?: Yes (10) Obstructive sleep apnea Is this a current diagnosis for this admission?: Yes (11) Morbid obesity Is this a current diagnosis for this admission?: Yes (12) Osteoarthritis involving multiple joints on both sides of body Is this a current diagnosis for this admission?: Yes - Plan Summary Summary: Patient will be admitted to [facility] where he will receive routine supportive and symptomatic cares. He will be treated with IV fluid and his renal functions and electrolytes will be followed closely. He will be continued on supplemental oxygen per the oxygen protocol during the day and CPAP at night and PRN. He will receive morphine sulfate 2 to 4 mg IV every 2 hours as needed for pain using a sliding scale for dosage. He will receive Ativan 1 mg IV every 4 hours as needed anxiety or restlessness. Serial cardiac enzymes will be obtained. He will be on a cardiac diet. CBCs, metabolic profiles, magnesium levels and a dditional radiography will be obtained as appropriate. Nephrology consultation will be obtained as appropriate. Patient will be continued on his usual home medications, as appropriate, once his medication list has been verified and reconciled. - Time Time Spent with patient: 25-34 minutes Medications reviewed and adjusted accordingly: Yes Anticipated discharge: Home - Inpatient Certification Based on my medical assessment, after consideration of the patient's comorbidities, presenting symptoms, or acuity I expect that the services needed warrant INPATIENT care.: Yes I certify that my determination is in accordance with my understanding of Medicare's requirements for reasonable and necessary INPATIENT services [42 CFR 412.3e].: Yes Medical Necessity: Significant Comorbidiites Make Outpatient Treatment Too Risk y, Need Close Monitoring Due to Risk of Patient Decompensation, Need For IV Fluids, Need For Continuous Telemetry Monitoring, Need for Pain Control, Risk of Complication if Not Cared For in Hospital, Risk of Diagnosis Which Will Require Inpatient Eval/Care/Monitoring
[2019-08-21] MEDS ORDERED: ZOLPIDEM TARTRATE 5 MG TABLET PO PRN (02:31)
[2019-08-21 02:56] LABS: CREATINE KINASE MB 1.35 ng/mL (<4.55)
[2019-08-21 02:58] LABS: TROPONIN I < 0.012 ng/mL
[2019-08-21] MEDS: ROPINIROLE HCL 1 MG TABLET PO SCH ×2 (03:16→22:00)
[2019-08-21] MEDS: MORPHINE SULFATE 10 MG/ML INJ IV PRN ×2 (03:25→06:16)
[2019-08-21 05:22] LABS: APPEARANCE,URINE SLIGHTLY-CLOUDY; BILIRUBIN,URINE NEGATIVE (NEGATIVE); COLOR,URINE STRAW; GLUCOSE, URINE NEGATIVE (NEGATIVE); KETONES,URINE NEGATIVE (NEGATIVE); PROTEIN,URINE NEGATIVE (NEGATIVE); URINE SPECIFIC GRAVITY 1.009; UROBILINOGEN,URINE NEGATIVE mg/dL (<2.0)
[2019-08-21] MEDS: HEPARIN SOD (PORCINE) 5,000 UNIT/ML 1 ML VIAL SUBCUT SCH ×3 (06:15→22:00)
[2019-08-21] MEDS: PANTOPRAZOLE SODIUM 40 MG TABLET.DR PO SCH (06:15)
[2019-08-21] MEDS: LEVALBUTEROL HCL NEB 1.25 MG/3 ML AMPUL NEB SCH ×3 (08:32→23:51)
[2019-08-21] MEDS: IPRATROPIUM BROMIDE 0.02% NEB 0.5 MG/2.5 ML AMPUL NEB SCH ×3 (08:32→23:51)
[2019-08-21 08:39] LABS: ABSOLUTE LYMPHOCYTES (AUTO) 0.7 10^3/uL (0.5-4.7); ABSOLUTE MONOCYTES (AUTO) 0.6 10^3/uL (0.1-1.4); BASOPHILS % (AUTO) 0.7 % (0-2); HEMATOCRIT 28.9 % (37.9-51.0); HEMOGLOBIN 10.1 g/dL (13.5-17.0); TOTAL CELLS COUNTED % (AUTO) 100 %
[2019-08-21 08:45] LABS: ABSOLUTE NEUT (AUTO) 2.8 10^3/uL (1.7-8.2); EOSINOPHILS % (AUTO) 1.1 % (0-6); LYMPHOCYTES % (AUTO) 16.9 % (13-45); MEAN CORPUSCULAR HEMOGLOBIN 30.8 pg (27.0-33.4); MEAN CORPUSCULAR VOLUME 88 fl (80-97); MONOCYTES % (AUTO) 14.3 % (3-13); PLATELET COUNT 258 10^3/uL (150-450); RED BLOOD COUNT 3.28 10^6/uL (4.35-5.55); RED CELL DISTRIBUTION WIDTH 16.5 % (11.5-14.0); WHITE BLOOD COUNT 4.2 10^3/uL (4.0-10.5)
[2019-08-21 09:06] LABS: CHOLESTEROL 89.92 mg/dL (0-200); TRIGLYCERIDES 201 mg/dL (<150)
[2019-08-21 09:07] LABS: ALBUMIN 3.1 g/dL (3.5-5.0); ALKALINE PHOSPHATASE 71 U/L (38-126); ANION GAP 9 (5-19); ASPARTATE AMINO TRANSFERASE 21 U/L (17-59); BILIRUBIN,DIRECT 0.1 mg/dL (0.0-0.4); BILIRUBIN,TOTAL 0.9 mg/dL (0.2-1.3); BLOOD UREA NITROGEN 70 mg/dL (7-20); CALCIUM 8.6 mg/dL (8.4-10.2); CARBON DIOXIDE 23 mmol/L (22-30); CHLORIDE 103 mmol/L (98-107); GLUCOSE 145 mg/dL (75-110); POTASSIUM 4.8 mmol/L (3.6-5.0); TOTAL PROTEIN 5.9 g/dL (6.3-8.2)
[2019-08-21 09:18] LABS: TROPONIN I < 0.012 ng/mL
[2019-08-21 09:19] LABS: DIRECT LDL 39 mg/dL (<100)
[2019-08-21 09:22] LABS: VLDL CHOLESTEROL 40.2 mg/dL (10-31)
[2019-08-21] MEDS ORDERED: ZOLPIDEM TARTRATE 5 MG PO PRN (09:27)
[2019-08-21] MEDS ORDERED: (PENDING PHARMACY ID) (Fluticasone Propionate [Flonase Allergy Relief] 9.9 ML) NS PRN (09:27)
[2019-08-21] MEDS ORDERED: CETIRIZINE 5 MG TABLET PO PRN (09:27)
[2019-08-21 09:29] LABS: FREE T3 3.57 pg/mL (2.77-5.27)
--- NOTE | 2019-08-21 09:36 | PDOC PROGRESS REPORT ---
Subjective Progress Note for:: 08/21/19 Subjective:: 78 year old male who presents to the emergency room with a 4-day history of chest pain. He admits the intermittent presence of moderate nonradiating central chest pressure accompanied by fluttering palpitations, dyspnea worsened with exertion and orthopnea. His chest pain/pressure has been associated with generalized "pain all over my body". He admits a recent quadrupling of his Lasix dose for treatment of his chronic lower leg dependent edema due to venous stasis. He denies other associated or accompanying signs and symptoms. He denies prior similar episodes. He has not identified any additional aggravating or ameliorating factors for his chest pain. In the emergency room he was found to have a creatinine of 3.25 and was initially hypertensive. His cardiac enzymes and EKG showed no evidence of acute myocardial ischemia or injury. Patient was subsequently admitted to the hospital for further evaluation and treatment. 08/21/2019-morbidly obese male comfortably in the bed on CPAP. Denies any chest pains. Blood pressures are fluctuating. 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 Villanueva is his employee representative. Creatinine improved from 3.25-2.69 and his baseline creatinine is around 1.45. And is presently on IV fluids at 165 cc/h plan is to decrease the fluids to 50 cc/h. Reason For Visit: ACUTE KIDNEY INJURY,CHEST PAIN,PALPITATIONS,CHRONI Physical Exam Vital Signs: Temp Pulse Resp BP Pulse Ox 98.1 F 98 18 114/49 L 96 08/21/19 03:25 08/21/19 08:38 08/21/19 08:38 08/21/19 03:25 08/21/19 08:38 Intake & Output 08/20/19 08/21/19 08/22/19 06:59 06:59 06:59 Intake Total 444 Output Total 900 Balance -456 Weight 148.3 kg General appearance: PRESENT: mild distress, morbidly obese Head exam: PRESENT: atraumatic Eye exam: PRESENT: PERRLA Mouth exam: PRESENT: moist, tongue midline Teeth exam: PRESENT: poor dentation Neck exam: ABSENT: carotid bruit, JVD, lymphadenopathy, thyromegaly Respiratory exam: PRESENT: decreased breath sounds Cardiovascular exam: PRESENT: tachycardia GI/Abdominal exam: PRESENT: normal bowel sounds, soft. ABSENT: distended, guarding, mass, organolmegaly, rebound, tenderness Rectal exam: PRESENT: deferred Extremities exam: PRESENT: full ROM. ABSENT: calf tenderness, clubbing, pedal edema Neurological exam: PRESENT: alert, awake, oriented to person, oriented to place, oriented to time, oriented to situation, CN II-XII grossly intact. ABSENT: motor sensory deficit Psychiatric exam: PRESENT: appropriate affect, normal mood. ABSENT: homicidal ideation, suicidal ideation Results Laboratory Results: 08/21/19 07:37 08/21/19 07:37 08/20/19 08/20/19 08/20/19 17:00 17:00 23:39 WBC 5.1 RBC 3.55 L Hgb 10.9 L Hct 31.7 L MCV 89 MCH 30.8 MCHC 34.4 RDW 16.6 H Plt Count 239 Seg Neutrophils % 67.1 Sodium 134.8 L Potassium 5.0 Chloride 99 Carbon Dioxide 24 Anion Gap 12 BUN 83 H Creatinine 3.25 H Est GFR ( Amer) 23 L Est GFR (Non-Af Amer) Glucose 148 H Calcium 8.9 Magnesium 1.8 Total Bilirubin 1.0 AST 23 Alkaline Phosphatase 78 Total Protein 6.5 Albumin 3.5 Triglycerides Cholesterol LDL Cholesterol Direct VLDL Cholesterol HDL Cholesterol Urine Color STRAW Urine Appearance SLIGHTLY-CLOUDY Urine pH 5.0 Ur Specific [place] 1.009 Urine Protein NEGATIVE Urine Glucose (UA) NEGATIVE Urine Ketones NEGATIVE Urine Blood SMALL H Urine RBC (Auto) 0 08/21/19 08/21/19 08/21/19 07:37 07:37 07:37 WBC 4.2 RBC 3.28 L Hgb 10.1 L Hct 28.9 L MCV 88 MCH 30.8 MCHC 35.0 RDW 16.5 H Plt Count 258 Seg Neutrophils % 67.0 Sodium Cancelled 135.4 L Potassium Cancelled 4.8 Chloride Cancelled 103 Carbon Dioxide Cancelled 23 Anion Gap Cancelled 9 BUN Cancelled 70 H Creatinine Cancelled 2.69 H Est GFR ( Amer) Cancelled 28 L Est GFR (Non-Af Amer) Cancelled Glucose Cancelled 145 H Calcium Cancelled 8.6 Magnesium 1.8 Total Bilirubin 0.9 AST 21 Alkaline Phosphatase 71 Total Protein 5.9 L Albumin 3.1 L Triglycerides 201 H Cholesterol 89.92 LDL Cholesterol Direct 39 VLDL Cholesterol 40.2 H HDL Cholesterol 20 L Urine Color Urine Appearance Urine pH Ur Specific [place] Urine Protein Urine Glucose (UA) Urine Ketones Urine Blood Urine RBC (Auto) 08/20/19 08/20/19 08/20/19 17:00 17:00 23:09 Creatine Kinase 91 CK-MB (CK-2) Troponin I < 0.012 NT-Pro-B Natriuret Pep 77 08/20/19 08/21/19 08/21/19 23:09 01:16 07:37 Creatine Kinase 78 CK-MB (CK-2) Cancelled 1.35 Troponin I Cancelled < 0.012 NT-Pro-B Natriuret Pep 08/21/19 07:37 Creatine Kinase CK-MB (CK-2) 1.00 Troponin I < 0.012 NT-Pro-B Natriuret Pep Impressions: Chest X-Ray 08/20/19 16:34 IMPRESSION: CARDIAC ENLARGEMENT. VASCULAR CONGESTION. Chest CT 08/20/19 18:37 IMPRESSION: No acute abnormality within the chest. Enlarged subcarinal lymph node measuring 1.8 x 3.5 cm in size, indeterminate/nonspecific. TECHNICAL DOCUMENTATION: Quality ID # 436: Final reports with documentation of one or more dose reduction techniques (e.g., Automated exposure control, adjustment of the mA and/or kV according to patient size, use of iterative reconstruction technique) copyright 2011 [employer]- All Rights Reserved Assessment and Plan - Diagnosis (1) Acute kidney injury (nontraumatic) Is this a current diagnosis for this admission?: Yes Plan: 08/21/2019-patient admitted with acute kidney injury most likely secondary to medications. Baseline creatinine is around 1.45, on admission creatinine is 3.25 with IV fluids improved to 2.69. Plan is to continue the IV fluids at the rate of 50 cc/h. Renal ultrasound is requested. Lasix, telmisartan on hold. p fantasma is to repeat the labs tomorrow. (2) Essential hypertension Is this a current diagnosis for this admission?: No Plan: 08/21/2019-patient has history of chronic essential hypertension blood pressure is fluctuating. Latest blood pressure is 114/60. Stable. Presently on IV fluids at 50 cc/h. (3) Morbid obesity Is this a current diagnosis for this admission?: No Plan: 08/21/2019-patient's BMI is more than 49 diet exercise weight loss lifestyle modifications discussed with the patient. (4) Obstructive sleep apnea Is this a current diagnosis for this admission?: No Plan: 08/21/2019-patient has history of obstructive sleep apnea using CPAP at home during the night. CPAP order is in place. (5) Coronary artery disease Qualifiers: Coronary Disease-Associated Artery/Lesion type: [place] artery [place] vs. transplanted heart: [place] heart Associated angina: angina presence unspecified Qualified Code(s): I25.10 - Atherosclerotic heart disease of [place] coronary artery without angina pectoris Is this a current diagnosis for this admission?: No Plan: 08/21/2019-patient has history of coronary artery disease came in with chest pains and troponins or EKGs are negative. Cardiology consult was placed. - Plan Summary Summary: Patient will be admitted to [facility] where he will receive routine supportive and symptomatic cares. He will be treated with IV fluid and his renal functions and electrolytes will be followed closely. He will be continued on supplemental oxygen per the oxygen protocol during the day and CPAP at night and PRN. He will receive morphine sulfate 2 to 4 mg IV every 2 hours as needed for pain using a sliding scale for dosage. He will receive Ativan 1 mg IV every 4 hours as needed anxiety or restlessness. Serial cardiac enzymes will be obtained. He will be on a cardiac diet. CBCs, metabolic profiles, magnesium levels and additional radiography will be obtained as appropriate. Nephrology consultation will be obtained as appropriate. Patient will be continued on his usual home medications, as appropriate, once his medication list has been verified and reconciled.
[2019-08-21] MEDS ORDERED: GLUCAGON,HUMAN RECOMB 1 MG INJ IM PRN (09:40)
[2019-08-21] MEDS ORDERED: DEXTROSE 50%-WATER 25 GM/50 ML DISP.SYRIN IV PRN ×2 (09:40)
[2019-08-21] MEDS ORDERED: DEXTROSE 40% GEL 15 GM TUBE PO PRN ×2 (09:40)
[2019-08-21 09:43] LABS: THYROID STIMULATING HORMONE 4.61 uIU/mL (0.47-4.68)
[2019-08-21] MEDS ORDERED: (PENDING PHARMACY ID) (Terazosin Hcl [Terazosin Hcl] 1 MG) PO SCH (10:00)
[2019-08-21] MEDS ORDERED: (PENDING PHARMACY ID) (Ferrous Sulfate [Slow Fe] 142 MG) PO SCH (10:00)
[2019-08-21] MEDS ORDERED: FLUTICASONE NASAL SPRAY 50 MCG/SPRY 120 SPRAY/16 GM NASL PRN (10:06)
[2019-08-21] MEDS: MONTELUKAST SODIUM 10 MG TABLET PO SCH (10:50)
[2019-08-21] MEDS: CLOPIDOGREL BISULFATE 75 MG TABLET PO SCH (10:51)
[2019-08-21] MEDS: DOCUSATE SODIUM 100 MG CAPSULE PO SCH ×2 (10:51→17:23)
[2019-08-21] MEDS: CITALOPRAM HYDROBROMIDE 20 MG TABLET PO SCH (10:51)
[2019-08-21] MEDS: FERROUS SULFATE LIQUID 300 MG/5 ML UDC PO SCH (10:52)
[2019-08-21] MEDS: ISOSORBIDE MONONITRATE 60 MG TAB.ER.24H PO SCH (10:52)
[2019-08-21] MEDS: MELOXICAM 7.5 MG TABLET PO SCH ×2 (10:52→17:23)
[2019-08-21] MEDS: INSULIN REG, HUMAN 100 UNIT/ML 3 ML VIAL (PYX) SUBCUT SCH ×3 (12:22→22:00)
--- NOTE | 2019-08-21 13:13 | PDOC CONSULTATION ---
Consultation Consult Date: 08/21/19 Provider Consulted: JULIO WEI Consult reason:: Congestive heart failure History of Present Illness Admission Date/PCP: 08/20/19 20:24 WAI MOULTON MD Patient complains of: Chest pain History of Present Illness: ERIBERTO RAMIREZ is a 78 year old male With the following active problems 1. Obesity 2. Congestive heart failure 3. Chronic kidney disease Presented with complaints of chest pain. However he was found to be in acute kidney injury. There has been recent increase in diuretic usage to relieve pedal edema probably due to venous insufficiency. At the time of my evaluation patient is on noninvasive respiratory support. Past Medical History Cardiac Medical History: Reports: Atrial Fibrillation, Coronary Artery Disease, Hyperlipidema, Hypertension Denies: Congestive Heart Failure, DVT, Myocardial Infarction, Peripheral Vascular Disease, Pulmonary Embolism Pulmonary Medical History: Reports: Asthma, Bronchitis, Chronic Obstructive Pulmonary Disease (COPD), Respiratory Failure - Chronic respiratory failure with hypoxia, Sleep Apnea, Other - Chronic venous stasis, chronic dependent edema of lower extremities Denies: Pneumonia, Tuberculosis EENT Medical History: Denies: Cataracts, Ears - Hearing aids Neurological Medical History: Denies: Hemorrhagic CVA, Ischemic CVA, Seizures Endocrine Medical History: Reports: Obesity Denies: Diabetes Mellitus Type 1, Diabetes Mellitus Type 2, Hyperthyroidism, Hypothyroidism Renal/ Medical History: Reports: Chronic Kidney Disease, Other - Benign prostatic hyperplasia Denies: Nephrolithiasis Malignancy Medical History: Reports: None GI Medical History: Reports: Gastroesophageal Reflux Disease, Other - Diverticulosis Denies: Cirrhosis, Crohn's Disease, Hepatitis, Peptic Ulcer Disease, Ulcerative Colitis Musculoskeltal Medical History: Reports: Arthritis, Other - Chronic pain syndrome Denies: Gout Skin Medical History: Reports: Other - Venous stasis changes of bilateral lower legs Denies: Eczema, Psoriasis Psychiatric Medical History: Denies: Alcohol Dependency, Depression, Substance Abuse, Tobacco Dependency Traumatic Medical History: Reports: None Hematology: Reports: Anemia - Recently diagnosed Denies: Bleeding Tendencies Infectious Medical History: Reports: Methicillin-Resistant Staph Aureus Past Surgical History Past Surgical History: Reports: Cardiac Catheterization, Cholecystectomy, Coronary Stent - x2, Gastric Bypass Surgery, Herniorrhaphy - Ventral hernia in 2000, Hip Replacement, Orthopedic Surgery - bilateral hip arthroplasties, revision of right hip arthroplasty Social History Lives with: Spouse/Significant other Smoking Status: Never Smoker Electronic Cigarette use?: No Frequency of Alcohol Use: None Hx Recreational Drug Use: No Drugs: None Hx Prescription Drug Abuse: No - Advance Directive Resuscitation Status: Full Code Family History Family History: CAD, COPD, Hypertension, Other - Congestive heart failure. denies: DM, Malignancy Parental Family History Reviewed: No - No familial illnesses chronical Children Family History Reviewed: NA Sibling(s) Family History Reviewed.: NA Medication/Allergy Home Medications: Clopidogrel Bisulfate [Plavix] 75 mg PO DAILY 10/08/13 Montelukast Sodium 10 mg PO DAILY 10/08/13 Terazosin HCl 1 mg PO DAILY 10/08/13 Zolpidem Tartrate 5 mg PO HSP PRN 10/08/13 Atorvastatin Calcium [Lipitor 20 mg Tablet] 20 mg PO QHS 08/21/19 Cetirizine HCl [Cetirizine 5 mg Tablet] 5 mg PO DAILYP PRN 08/21/19 Citalopram Hydrobromide [Celexa 20 mg Tablet] 20 mg PO DAILY 08/21/19 Ferrous Sulfate [Slow Fe] 142 mg PO DAILY 08/21/19 Fluticasone Propionate [Flonase Allergy Relief] 9.9 ml NS BIDP PRN 08/21/19 Furosemide [Lasix 20 mg Tablet] 20 mg PO DAILY 08/21/19 Ibuprofen/Diphenhydramine HCl [Advil Pm Liqui-Gels] 1 each PO HSP PRN 08/21/19 Insulin Degludec [Tresiba Flextouch U-100] 30 units SUBCUT QHS 08/21/19 Isosorbide Mononitrate [Imdur 60 mg Tablet.er] 60 mg PO DAILY 08/21/19 Meloxicam [Mobic 7.5 mg Tablet] 7.5 mg PO BID 08/21/19 Potassium Chloride [Klor-Con 10 Meq Tablet ER] 10 meq PO Q12 08/21/19 Ropinirole HCl 1 mg PO QHS 08/21/19 Tamsulosin HCl [Flomax 0.4 mg Cap.sr] 0.4 mg PO DAILY 08/21/19 Telmisartan 80 mg PO DAILY 08/21/19 Allergies/Adverse Reactions: No Known Allergies Allergy (Verified 08/20/19 16:28) Physical Exam Vital Signs: Temp Pulse Resp BP Pulse Ox 98.4 F 88 20 133/94 H 89 L 08/21/19 11:50 08/21/19 11:50 08/21/19 11:50 08/21/19 11:50 08/21/19 11:50 Intake & Output 08/20/19 08/21/19 08/22/19 06:59 06:59 06:59 Intake Total 444 Output Total 900 Balance -456 Weight 148.3 kg General appearance: PRESENT: no acute distress, cooperative, morbidly obese Head exam: PRESENT: atraumatic, normocephalic Eye exam: PRESENT: conjunctiva pink, EOMI Respiratory exam: PRESENT: crackles, decreased breath sounds, prolonged expiratory phas, symmetrical Cardiovascular exam: PRESENT: RRR, +S1, +S2 Pulses: PRESENT: normal radial pulses GI/Abdominal exam: PRESENT: distended Rectal exam: PRESENT: deferred Skin exam: PRESENT: dry, intact, normal color Results Laboratory Results: 08/21/19 07:37 08/21/19 07:37 08/20/19 08/20/19 08/20/19 17:00 17:00 23:39 WBC 5.1 RBC 3.55 L Hgb 10.9 L Hct 31.7 L MCV 89 MCH 30.8 MCHC 34.4 RDW 16.6 H Plt Count 239 Seg Neutrophils % 67.1 Sodium 134.8 L Potassium 5.0 Chloride 99 Carbon Dioxide 24 Anion Gap 12 BUN 83 H Creatinine 3.25 H Est GFR ( Amer) 23 L Est GFR (Non-Af Amer) Glucose 148 H Calcium 8.9 Magnesium 1.8 Total Bilirubin 1.0 AST 23 Alkaline Phosphatase 78 Total Protein 6.5 Albumin 3.5 Triglycerides Cholesterol LDL Cholesterol Direct VLDL Cholesterol HDL Cholesterol TSH Free T3 pg/mL Urine Color STRAW Urine Appearance SLIGHTLY-CLOUDY Urine pH 5.0 Ur Specific [place] 1.009 Urine Protein NEGATIVE Urine Glucose (UA) NEGATIVE Urine Ketones NEGATIVE Urine Blood SMALL H Urine RBC (Auto) 0 08/21/19 08/21/19 08/21/19 07:37 07:37 07:37 WBC 4.2 RBC 3.28 L Hgb 10.1 L Hct 28.9 L MCV 88 MCH 30.8 MCHC 35.0 RDW 16.5 H Plt Count 258 Seg Neutrophils % 67.0 Sodium Cancelled Potassium Cancelled Chloride Cancelled Carbon Dioxide Cancelled Anion Gap Cancelled BUN Cancelled Creatinine Cancelled Est GFR ( Amer) Cancelled Est GFR (Non-Af Amer) Cancelled Glucose Cancelled Calcium Cancelled Magnesium 1.8 Total Bilirubin AST Alkaline Phosphatase Total Protein Albumin Triglycerides 201 H Cholesterol 89.92 LDL Cholesterol Direct 39 VLDL Cholesterol 40.2 H HDL Cholesterol 20 L TSH 4.61 Free T3 pg/mL 3.57 Urine Color Urine Appearance Urine pH Ur Specific [place] Urine Protein Urine Glucose (UA) Urine Ketones Urine Blood Urine RBC (Auto) 08/21/19 07:37 WBC RBC Hgb Hct MCV MCH MCHC RDW Plt Count Seg Neutrophils % Sodium 135.4 L Potassium 4.8 Chloride 103 Carbon Dioxide 23 Anion Gap 9 BUN 70 H Creatinine 2.69 H Est GFR ( Amer) 28 L Est GFR (Non-Af Amer) Glucose 145 H Calcium 8.6 Magnesium Total Bilirubin 0.9 AST 21 Alkaline Phosphatase 71 Total Protein 5.9 L Albumin 3.1 L Triglycerides Cholesterol LDL Cholesterol Direct VLDL Cholesterol HDL Cholesterol TSH Free T3 pg/mL Urine Color Urine Appearance Urine pH Ur Specific [place] Urine Protein Urine Glucose (UA) Urine Ketones Urine Blood Urine RBC (Auto) 08/20/19 08/20/19 08/20/19 17:00 17:00 23:09 Creatine Kinase 91 CK-MB (CK-2) Troponin I < 0.012 NT-Pro-B Natriuret Pep 77 08/20/19 08/21/19 08/21/19 23:09 01:16 07:37 Creatine Kinase 78 CK-MB (CK-2) Cancelled 1.35 Troponin I Cancelled < 0.012 NT-Pro-B Natriuret Pep 08/21/19 07:37 Creatine Kinase CK-MB (CK-2) 1.00 Troponin I < 0.012 NT-Pro-B Natriuret Pep Impressions: Chest X-Ray 08/20/19 16:34 IMPRESSION: CARDIAC ENLARGEMENT. VASCULAR CONGESTION. Chest CT 08/20/19 18:37 IMPRESSION: No acute abnormality within the chest. Enlarged subcarinal lymph node measuring 1.8 x 3.5 cm in size, indeterminate/nonspecific. TECHNICAL DOCUMENTATION: Quality ID # 436: Final reports with documentation of one or more dose reduction techniques (e.g., Automated exposure control, adjustment of the mA and/or kV according to patient size, use of iterative reconstruction technique) copyright 2011 [employer]- All Rights Reserved Assessment & Plan - Diagnosis (1) Acute kidney injury (nontraumatic) Is this a current diagnosis for this admission?: Yes Plan: Kidney injury with elevation of creatinine probably secondary to overdiuresis Hold off on diuretic therapy at the moment Agree with gentle fluid resuscitation (2) Chest pain Qualifiers: Chest pain type: unspecified Qualified Code(s): R07.9 - Chest pain, unspecified Is this a current diagnosis for this admission?: Yes Plan: Presently does not complain of chest pain. EKG not available for review (3) Essential hypertension Is this a current diagnosis for this admission?: No Plan: Continue present therapy Continue hydralazine as needed Watch blood pressure as we continue to infuse saline. (4) Obstructive sleep apnea Is this a current diagnosis for this admission?: No Plan: Noninvasive ventilatory support is being provided. Presentation does not suggest ongoing congestive heart failure especially with JOHN.
[2019-08-21 14:10] LABS: CREATINE KINASE MB 0.91 ng/mL (<4.55)
[2019-08-21 14:12] LABS: TROPONIN I < 0.012 ng/mL
[2019-08-21] MEDS: DOXAZOSIN MESYLATE 1 MG TABLET PO SCH (14:21)
--- NOTE | 2019-08-21 15:40 | RADIOLOGY REPORT (SQ) ---
EXAM DESCRIPTION: U/S RETROPERITON (RENAL/AORTA) IMAGES COMPLETED DATE/TIME: 08/21/2019 3:22 pm REASON FOR STUDY: griselda COMPARISON: None. TECHNIQUE: Dynamic and static grayscale images acquired of the kidneys and bladder and recorded on P ACS. Additional selected color Doppler and spectral images recorded. LIMITATIONS: Evaluation is limited due to the patient's body habitus. FINDINGS: RIGHT KIDNEY: Evaluation of the right kidney is limited for reasons stated above. The rig ht kidney measures 10.1 cm in length. There is no hydronephrosis. LEFT KIDNEY: The left kidney is obscured by overlying bowel. BLADDER: Unable to visualize the urinary bladder. OTHER FINDINGS: No other finding. IMPRESSION: Limited ultrasound of the kidneys and urinary bladder due to the patient's body habitus. The left kidney and urinary bladder were not visualized. There is no right-sided hydronephrosis. TECHNICAL DOCUMENTATION: JOB ID: [id number] 2010 [employer]- All Rights Reserved Reading location - IP/workstation name: [email or web address]
[2019-08-21] MEDS: TAMSULOSIN HCL 0.4 MG CAP.SR.24H PO SCH (17:23)
[2019-08-21] MEDS: RINGERS SOLUTION,LACTATED 1,000 ML IV PRN (20:50)
[2019-08-21] MEDS: ATORVASTATIN CALCIUM 20 MG TABLET PO SCH (22:00)
[2019-08-21] MEDS ORDERED: INSULIN DEGLUDEC 30 UNIT SUBCUT SCH (22:00)
[2019-08-22] MEDS ORDERED: NORMAL SALINE 500 ML IV ONE ×2 (05:00→06:15)
[2019-08-22] MEDS: HEPARIN SOD (PORCINE) 5,000 UNIT/ML 1 ML VIAL SUBCUT SCH ×3 (05:57→21:30)
[2019-08-22] MEDS: PANTOPRAZOLE SODIUM 40 MG TABLET.DR PO SCH (05:57)
[2019-08-22 06:55] LABS: HEMATOCRIT 27.9 % (37.9-51.0); HEMOGLOBIN 9.7 g/dL (13.5-17.0); MEAN CORPUSCULAR HEMOGLOBIN 30.5 pg (27.0-33.4); MEAN CORPUSCULAR HGB CONC 34.9 g/dL (32.0-36.0); MEAN CORPUSCULAR VOLUME 87 fl (80-97); PLATELET COUNT 229 10^3/uL (150-450); RED CELL DISTRIBUTION WIDTH 16.8 % (11.5-14.0); WHITE BLOOD COUNT 4.9 10^3/uL (4.0-10.5)
[2019-08-22 07:08] LABS: ALBUMIN 3.2 g/dL (3.5-5.0); ALKALINE PHOSPHATASE 73 U/L (38-126); ANION GAP 10 (5-19); ASPARTATE AMINO TRANSFERASE 25 U/L (17-59); BILIRUBIN,DIRECT 0.2 mg/dL (0.0-0.4); BILIRUBIN,TOTAL 1.2 mg/dL (0.2-1.3); BLOOD UREA NITROGEN 72 mg/dL (7-20); CALCIUM 8.2 mg/dL (8.4-10.2); CARBON DIOXIDE 21 mmol/L (22-30); CHLORIDE 102 mmol/L (98-107); GLUCOSE 141 mg/dL (75-110); POTASSIUM 4.4 mmol/L (3.6-5.0); TOTAL PROTEIN 6.4 g/dL (6.3-8.2)
[2019-08-22] MEDS: INSULIN REG, HUMAN 100 UNIT/ML 3 ML VIAL (PYX) SUBCUT SCH ×4 (08:02→21:30)
[2019-08-22] MEDS: IPRATROPIUM BROMIDE 0.02% NEB 0.5 MG/2.5 ML AMPUL NEB SCH ×2 (08:20→15:27)
[2019-08-22] MEDS: LEVALBUTEROL HCL NEB 1.25 MG/3 ML AMPUL NEB SCH ×2 (08:20→15:27)
--- NOTE | 2019-08-22 08:53 | PDOC PROGRESS REPORT ---
Subjective Progress Note for:: 08/22/19 Subjective:: 78 year old male who presents to the emergency room with a 4-day history of chest pain. He admits the intermittent presence of moderate nonradiating central chest pressure accompanied by fluttering palpitations, dyspnea worsened with exertion and orthopnea. His chest pain/pressure has been associated with generalized "pain all over my body". He admits a recent quadrupling of his Lasix dose for treatment of his chronic lower leg dependent edema due to venous stasis. He denies other associated or accompanying signs and symptoms. He denies prior similar episodes. He has not identified any additional aggravating or ameliorating factors for his chest pain. In the emergency room he was found to have a creatinine of 3.25 and was initially hypertensive. His cardiac enzymes and EKG showed no evidence of acute myocardial ischemia or injury. Patient was subsequently admitted to the hospital for further evaluation and treatment. 08/21/2019-morbidly obese male comfortably in the bed on CPAP. Denies any chest pains. Blood pressures are fluctuating. 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 Creatinine improved from 3.25-2.69 and his baseline creatinine is around 1.45. And is presently on IV fluids at 165 cc/h plan is to decrease the fluids to 50 cc/h. 08/22/2019-patient became hypotensive last night systolic blood pressure in the 70s 1 L of IV fluids was given blood pressure came up to 110/60. Patient is not on antihypertensive medications except for metoprolol. Comfortably in the bed communicating well complaining of right hip pain requesting pain medication. Is on IV morphine sliding scale. Plan is to increase the IV fluids 200 cc/h to watch for the fluid overload. P the labs tomorrow. Creatinine worsened from 2.69 to 3.24 today. Reason For Visit: ACUTE KIDNEY INJURY,CHEST PAIN,PALPITATIONS,CHRONI Physical Exam Vital Signs: Temp Pulse Resp BP Pulse Ox 98.1 F 86 18 119/61 93 08/22/19 07:42 08/22/19 08:20 08/22/19 08:20 08/22/19 07:42 08/22/19 08:20 Intake & Output 08/21/19 08/22/19 08/23/19 06:59 06:59 06:59 Intake Total 444 4260 Output Total 900 725 Balance -456 3535 Weight 148.3 kg 151.3 kg General appearance: PRESENT: morbidly obese Head exam: PRESENT: atraumatic Eye exam: PRESENT: PERRLA Mouth exam: PRESENT: moist, tongue midline Teeth exam: PRESENT: poor dentation Neck exam: ABSENT: carotid bruit, JVD, lymphadenopathy, thyromegaly Respiratory exam: PRESENT: decreased breath sounds Cardiovascular exam: PRESENT: RRR. ABSENT: diastolic murmur, rubs, systolic murmur Vascular exam: PRESENT: normal capillary refill GI/Abdominal exam: PRESENT: normal bowel sounds, soft. ABSENT: distended, guarding, mass, organolmegaly, rebound, tenderness Rectal exam: PRESENT: deferred Extremities exam: PRESENT: +2 edema Neurological exam: PRESENT: alert, awake, oriented to person, oriented to place, oriented to time, oriented to situation, CN II-XII grossly intact. ABSENT: motor sensory deficit Psychiatric exam: PRESENT: appropriate affect, normal mood. ABSENT: homicidal ideation, suicidal ideation Results Laboratory Results: 08/22/19 06:12 08/22/19 06:12 08/21/19 08/21/19 08/21/19 07:37 07:37 07:37 WBC RBC Hgb Hct MCV MCH MCHC RDW Plt Count Sodium Cancelled 135.4 L Potassium Cancelled 4.8 Chloride Cancelled 103 Carbon Dioxide Cancelled 23 Anion Gap Cancelled 9 BUN Cancelled 70 H Creatinine Cancelled 2.69 H Est GFR ( Amer) Cancelled 28 L Est GFR (Non-Af Amer) Cancelled Glucose Cancelled 145 H Calcium Cancelled 8.6 Magnesium 1.8 Total Bilirubin 0.9 AST 21 Alkaline Phosphatase 71 Total Protein 5.9 L Albumin 3.1 L Triglycerides 201 H Cholesterol 89.92 LDL Cholesterol Direct 39 VLDL Cholesterol 40.2 H HDL Cholesterol 20 L TSH 4.61 Free T3 pg/mL 3.57 08/22/19 08/22/19 06:12 06:12 WBC 4.9 RBC 3.20 L Hgb 9.7 L Hct 27.9 L MCV 87 MCH 30.5 MCHC 34.9 RDW 16.8 H Plt Count 229 Sodium 132.5 L Potassium 4.4 Chloride 102 Carbon Dioxide 21 L Anion Gap 10 BUN 72 H Creatinine 3.24 H Est GFR ( Amer) 23 L Est GFR (Non-Af Amer) Glucose 141 H Calcium 8.2 L Magnesium 1.6 Total Bilirubin 1.2 AST 25 Alkaline Phosphatase 73 Total Protein 6.4 Albumin 3.2 L Triglycerides Cholesterol LDL Cholesterol Direct VLDL Cholesterol HDL Cholesterol TSH Free T3 pg/mL 08/20/19 08/20/19 08/20/19 17:00 17:00 23:09 Creatine Kinase 91 CK-MB (CK-2) Troponin I < 0.012 NT-Pro-B Natriuret Pep 77 08/20/19 08/21/19 08/21/19 23:09 01:16 07:37 Creatine Kinase 78 CK-MB (CK-2) Cancelled 1.35 Troponin I Cancelled < 0.012 NT-Pro-B Natriuret Pep 08/21/19 08/21/19 08/21/19 07:37 13:12 13:12 Creatine Kinase 75 CK-MB (CK-2) 1.00 0.91 Troponin I < 0.012 < 0.012 NT-Pro-B Natriuret Pep Impressions: Chest X-Ray 08/20/19 16:34 IMPRESSION: CARDIAC ENLARGEMENT. VASCULAR CONGESTION. Chest CT 08/20/19 18:37 IMPRESSION: No acute abnormality within the chest. Enlarged subcarinal lymph node measuring 1.8 x 3.5 cm in size, indeterminate/nonspecific. TECHNICAL DOCUMENTATION: Quality ID # 436: Final reports with documentation of one or more dose reduction techniques (e.g., Automated exposure control, adjustment of the mA and/or kV according to patient size, use of iterative reconstruction technique) copyright 2011 [employer]- All Rights Reserved Renal Ultrasound 08/21/19 00:00 IMPRESSION: Limited ultrasound of the kidneys and urinary bladder due to the patient's body habitus. The left kidney and urinary bladder were not visualized. There is no right-sided hydronephrosis. Assessment and Plan - Diagnosis (1) Acute kidney injury (nontraumatic) Is this a current diagnosis for this admission?: Yes Plan: 08/21/2019-patient admitted with acute kidney injury most likely secondary to medications. Baseline creatinine is around 1.45, on admission creatinine is 3.25 with IV fluids improved to 2.69. Plan is to continue the IV fluids at the rate of 50 cc/h. Renal ultrasound is requested. Lasix, telmisartan on hold. plan is to repeat the labs tomorrow. 08/22/19-patient admitted with acute kidney injury creatinine at the time of admission is 3.25 with IV fluids it improved to 2.69 but it is back up to 3.24 today. Renal ultrasound was done is suboptimal study. (2) Essential hypertension Is this a current diagnosis for this admission?: No Plan: 08/21/2019-patient has history of chronic essential hypertension blood pressure is fluctuating. Latest blood pressure is 114/60. Stable. Presently on IV fluids at 50 cc/h. 08/22/19-blood pressure today is 110/60. Presently on IV fluids normal saline 100 cc/h. (3) Morbid obesity Is this a current diagnosis for this admission?: No (4) Obstructive sleep apnea Is this a current diagnosis for this admission?: No (5) Coronary artery disease Qualifiers: Coronary Disease-Associated Artery/Lesion type: [place] artery [place] vs. transplanted heart: [place] heart Associated angina: angina presence unspecified Qualified Code(s): I25.10 - Atherosclerotic heart disease of [place] coronary artery without angina pectoris Is this a current diagnosis for this admission?: No - Plan Summary Summary: Patient will be admitted to [facility] where he will receive routine supportive and symptomatic cares. He will be treated with IV fluid and his renal functions and electrolytes will be followed closely. He will be continued on supplemental oxygen per the oxygen protocol during the day and CPAP at night and PRN. He will receive morphine sulfate 2 to 4 mg IV every 2 hours as needed for pain using a sliding scale for dosage. He will receive Ativan 1 mg IV every 4 hours as needed anxiety or restlessness. Serial cardiac enzymes will be obtained. He will be on a cardiac diet. CBCs, metabolic profiles, magnesium levels and additional radiography will be obtained as appropriate. Nephrology consultation will be obtained as appropriate. Patient will be continued on his usual home medications, as appropriate, once his medication list has been verified and reconciled.
[2019-08-22] MEDS: MELOXICAM 7.5 MG TABLET PO SCH ×2 (10:27→18:34)
[2019-08-22] MEDS: DOCUSATE SODIUM 100 MG CAPSULE PO SCH ×2 (10:27→18:34)
[2019-08-22] MEDS: FERROUS SULFATE LIQUID 300 MG/5 ML UDC PO SCH (10:27)
[2019-08-22] MEDS: MONTELUKAST SODIUM 10 MG TABLET PO SCH (10:27)
[2019-08-22] MEDS: CITALOPRAM HYDROBROMIDE 20 MG TABLET PO SCH (10:27)
[2019-08-22] MEDS: CLOPIDOGREL BISULFATE 75 MG TABLET PO SCH (10:27)
[2019-08-22] MEDS: DOXAZOSIN MESYLATE 1 MG TABLET PO SCH (10:28)
[2019-08-22] MEDS: ISOSORBIDE MONONITRATE 60 MG TAB.ER.24H PO SCH (10:30)
[2019-08-22] MEDS: MORPHINE SULFATE 10 MG/ML INJ IV PRN ×2 (10:31→18:34)
--- NOTE | 2019-08-22 12:36 | XCELERA REPORT ---
[address] [address] Transthoracic Echocardiogram Report Name: ERIBERTO RAMIREZ Age: 78 yrs Gender: Male : 1940 Patient Status: Inpatient Patient Location: [address] [place] [address] Study Date: 08/22/2019 08:48 AM History: CHF Height: 68 in Weight: 304 lb BSA: 2.4 m2 Procedure: A complete two-dimensional transthoracic echocardiogram was performed (2D, M-mode, spectral and color flow Doppler). The study was non- diagnostic in quality. No definitive statements could be made about this study due to extremely poor acoustic windows. Reason For Study: chf Previous Evaluation: No previous studies were available. History: Shortness of breath. CHF. HTN. Obesity. Ordering Physician: KARL FERNÁNDEZ Performed By: Kathy Cummins Interpretation Summary The study was non-diagnostic in quality. No definitive statements could be made about this study due to extremely poor acoustic windows. Due to the poor quality of the echocardiogram, an assessment of left ventricular ejection fraction cannot be made. Unable to comment on valve lesion Doppler data do not suggest the presense of aortic stenois. Doppler Measurements & Calculations MV E max kam: MV dec slope: Ao V2 max: LV V1 max P.7 cm/sec 255.9 cm/sec2 124.6 cm/sec 5.2 mmHg MV A max kam: MV dec time: 0.22 secAo max PG: LV V1 max: 85.6 cm/sec 6.3 mmHg 114.4 cm/sec MV E/A: 0.65 PA V2 max: 116.2 cm/sec PA max P.4 mmHg Left Ventricle The left ventricle is not well visualized. Due to the poor quality of the echocardiogram, an assessment of left ventricular ejection fraction cannot be made. In limited views EF seems to be low normal visually. However clinical correlation or BINA is required for confirmation. Doppler measurements suggest impaired left ventricular relaxation, which is associated with grade I/IV or mild diastolic dysfunction. Wall motion cannot be accurately commented on, but no definite regional wall motion abnormalities noted. Right Ventricle The right ventricle is not well visualized secondary to technical limitations. Probable normal RV function. Atria Right atrium not well visualized secondary to technical limitations. The left atrium is not well visualized secondary to technical limitations. Mitral Valve The mitral valve is not well visualized. Aortic Valve The aortic valve is not well visualized secondary to technical limitations. Doppler data do not suggest aortic stenosis. Tricuspid Valve The tricuspid valve is not well visualized secondary to technical limitations. Pulmonic Valve The pulmonic valve is not well visualized. Great Vessels The aortic root is not well visualized. The inferior vena cava appeared normal. Effusions Unable to comment. : KARL FERNÁNDEZ Anil
[2019-08-22] MEDS: RINGERS SOLUTION,LACTATED 1,000 ML IV PRN (14:14)
[2019-08-22] MEDS: TAMSULOSIN HCL 0.4 MG CAP.SR.24H PO SCH (18:34)
[2019-08-22] MEDS: ROPINIROLE HCL 1 MG TABLET PO SCH (21:30)
[2019-08-22] MEDS: ATORVASTATIN CALCIUM 20 MG TABLET PO SCH (21:30)
[2019-08-23] MEDS: ACETAMINOPHEN 325 MG TABLET PO PRN (00:16)
[2019-08-23] MEDS: IPRATROPIUM BROMIDE 0.02% NEB 0.5 MG/2.5 ML AMPUL NEB SCH ×3 (00:19→16:17)
[2019-08-23] MEDS: LEVALBUTEROL HCL NEB 1.25 MG/3 ML AMPUL NEB SCH ×3 (00:19→16:17)
[2019-08-23] MEDS: RINGERS SOLUTION,LACTATED 1,000 ML IV PRN (00:20)
[2019-08-23] MEDS ORDERED: NORMAL SALINE 1000 ML 1,000 ML IV ONE ×2 (02:15→02:58)
[2019-08-23 02:28] LABS: ARTERIAL BLOOD BASE EXCESS -5.3 mmol/L; ARTERIAL BLOOD H2CO3 1.22 mmol/L (1.05-1.35); ARTERIAL BLOOD HCO3 20.4 mmol/L (20-24); ARTERIAL BLOOD O2 SATURATION 92.2 % (94-98); ARTERIAL BLOOD PCO2 40.4 mmHg (35-45); ARTERIAL BLOOD PH 7.32 (7.35-7.45); ARTERIAL BLOOD PO2 67.8 mmHg (80-100); ARTERIAL BLOOD TOTAL CO2 21.6 mmol/L (23-27)
[2019-08-23 02:30] LABS: ARTERIAL BLOOD FIO2 30%
[2019-08-23] MEDS ORDERED: CEFEPIME 1 GM/D5W RTU 1 GM/50 ML RTUPB IV SCH ×2 (02:30→10:00)
[2019-08-23 02:38] LABS: ABSOLUTE LYMPHOCYTES (AUTO) 0.6 10^3/uL (0.5-4.7); ABSOLUTE MONOCYTES (AUTO) 0.9 10^3/uL (0.1-1.4); ABSOLUTE NEUT (AUTO) 4.3 10^3/uL (1.7-8.2); BASOPHILS % (AUTO) 0.4 % (0-2); EOSINOPHILS % (AUTO) 0.2 % (0-6); HEMATOCRIT 28.1 % (37.9-51.0); HEMOGLOBIN 9.8 g/dL (13.5-17.0); LYMPHOCYTES % (AUTO) 9.6 % (13-45); MEAN CORPUSCULAR HEMOGLOBIN 31.2 pg (27.0-33.4); MEAN CORPUSCULAR VOLUME 89 fl (80-97); MONOCYTES % (AUTO) 15.1 % (3-13); PLATELET COUNT 213 10^3/uL (150-450); RED BLOOD COUNT 3.15 10^6/uL (4.35-5.55); RED CELL DISTRIBUTION WIDTH 17.1 % (11.5-14.0); SEGMENTED NEUTROPHILS % (AUTO) 74.7 % (42-78); TOTAL CELLS COUNTED % (AUTO) 100 %; WHITE BLOOD COUNT 5.8 10^3/uL (4.0-10.5)
[2019-08-23 02:47] LABS: ALBUMIN 2.8 g/dL (3.5-5.0); ALKALINE PHOSPHATASE 71 U/L (38-126); ANION GAP 8 (5-19); ASPARTATE AMINO TRANSFERASE 27 U/L (17-59); BILIRUBIN,DIRECT 0.2 mg/dL (0.0-0.4); BILIRUBIN,TOTAL 1.5 mg/dL (0.2-1.3); BLOOD UREA NITROGEN 68 mg/dL (7-20); CALCIUM 8.1 mg/dL (8.4-10.2); CARBON DIOXIDE 21 mmol/L (22-30); CHLORIDE 102 mmol/L (98-107); CREATINE KINASE 357 U/L (55-170); GLUCOSE 146 mg/dL (75-110); PHOSPHORUS 3.2 mg/dL (2.5-4.5); POTASSIUM 4.7 mmol/L (3.6-5.0); TOTAL PROTEIN 5.8 g/dL (6.3-8.2)
[2019-08-23] MEDS ORDERED: MAGNESIUM SULFATE/D5W 1 GM/100 ML RTUPB IV ONE (03:00)
[2019-08-23] MEDS: MAGNESIUM SULFATE/D5W 1 GM/100 ML RTUPB IV SCH ×4 (03:13→06:07)
[2019-08-23 03:18] LABS: CREATINE KINASE MB 0.75 ng/mL (<4.55)
[2019-08-23 03:22] LABS: TROPONIN I < 0.012 ng/mL
[2019-08-23] MEDS ORDERED: RINGERS SOLUTION,LACTATED 1,000 ML IV PRN (04:01)
[2019-08-23] MEDS ORDERED: VANCOMYCIN HCL 2,000 MG in DEXTROSE 5%-WATER 500 ML IV ONE (05:00)
[2019-08-23] MEDS ORDERED: VASOPRESSIN INJ 20 UNIT/1 ML VIAL ONE (05:19)
[2019-08-23] MEDS ORDERED: DEXTROSE 5%-WATER 250 ML with VASOPRESSIN 100 UNIT IV PRN ×4 (05:25→05:30)
[2019-08-23] MEDS ORDERED: DEXTROSE 5%-WATER 250 ML with PHENYLEPHRINE HCL 40 MG IV PRN ×4 (05:28→05:33)
[2019-08-23] MEDS ORDERED: MORPHINE SULFATE 10 MG/ML INJ IV PRN (05:30)
[2019-08-23] MEDS ORDERED: VANCOMYCIN HCL INJ 1000 MG VIAL ONE (05:43)
[2019-08-23] MEDS: HEPARIN SOD (PORCINE) 5,000 UNIT/ML 1 ML VIAL SUBCUT SCH ×3 (06:03→22:21)
[2019-08-23] MEDS: PANTOPRAZOLE SODIUM 40 MG TABLET.DR PO SCH (06:15)
[2019-08-23 06:42] LABS: ANION GAP 6 (5-19); BLOOD UREA NITROGEN 63 mg/dL (7-20); CALCIUM 7.6 mg/dL (8.4-10.2); CARBON DIOXIDE 20 mmol/L (22-30); CHLORIDE 105 mmol/L (98-107); GLUCOSE 171 mg/dL (75-110); POTASSIUM 4.9 mmol/L (3.6-5.0)
--- NOTE | 2019-08-23 06:56 | Operative Report ---
Bedside Procedure - History of Present Illness History of Present Illness: Mr. Morrow is a 78-year-old male with a past medical history significant for atrial fibrillation, CAD, HLD, HTN, asthma, chronic bronchitis, BPH, GERD, CKD who presented to [facility] with acute on chronic kidney injury and chest pain which reportedly improved with IV fluids. He was noted to have a UTI for which antibiotics had not yet been started and was on 50-100 mls/hr of maintenance IV fluid when ICU was consulted for hypotension on the floor reportedly with a Doppler SBP in the 70s. To note, a non-invasive automated BP reads SBP 160-180s, but manual BP performed by myself on both arms is SBP <80. Mr Morrow was finishing up 1L of NS bolus when I arrived to evaluate him. POCUS demonstrated profound hypovolemia for which a second liter of crystalloid solution was ordered. No improvement in his BP despite hydration, therefore decision made to transfer to ICU for arterial line placement to determine actual BP. To note, patient morbidly obese making NIBP difficult. Procedure: Arterial line Proceduralist: MILES Mueller Anesthesia: 3 mL of 1% lidocaine Complications: I was unable to thread the guide wire on first attempt for which the needle was removed, resulting in a small hematoma for which manual pressure was held x5 minutes. I anticipate there will be a bruise at the site later this morning. EBL: 5 mL Verbal informed consent obtained from Sean Morrow and witnessed by Ryanne Elias RN. Patient placed in proper procedural position followed by prepping and draping in usual sterile fashion. Utilizing ultrasound with a sterile probe cover, the left radial artery was identified. 3 mL of 1% lidocaine was utilized to anesthetize the site. A 20-gauge introducer needle was visualized entering the left radial artery with a return of pulsatile blood. A guide wire was then advanced through the introducer needle into the left radial artery and the needle was removed. The wire was confirmed to be in the left radial artery in 2 views utilizing ultrasound. A small skin stab incision was made to prepare for passage of the catheter. An 18-gauge 16 cm catheter was advanced over the wire into the left radial artery and the wire was removed, again noting pulsatile blood from the catheter. Catheter was sutured into place, connected to transducer tubing in usual fashion, and a sterile occlusive transparent dressing was applied. Patient tolerated procedure well. It is important to note that a longer catheter of 16 cm was selected for the radial arterial line given the patient's body habitus and amount of subcutaneous tissue. Our standard 4.45 cm catheter would barely reach the left radial artery and most definitely would not stay in the vascular space for very long with movement of his arm and the loss of elasticity in his tissue. Indication for Procedure: Refractory Hypotension Date: 08/23/19 Provider: LEORA OLIVO
--- NOTE | 2019-08-23 07:10 | EKG REPORT ---
SEVERITY:- BORDERLINE ECG - SINUS TACHYCARDIA LOW VOLTAGE THROUGHOUT : Confirmed by: Elkin Gonzalez MD 23-Aug-2019 07:09:22
[2019-08-23] MEDS: HYDROCORTISONE SOD SUCCINATE INJ/PF 100 MG/2 ML SDV IV SCH ×3 (08:14→22:23)
[2019-08-23] MEDS: INSULIN REG, HUMAN 100 UNIT/ML 3 ML VIAL (PYX) SUBCUT SCH ×4 (08:14→22:21)
[2019-08-23] MEDS: FERROUS SULFATE LIQUID 300 MG/5 ML UDC PO SCH (10:16)
[2019-08-23] MEDS: CLOPIDOGREL BISULFATE 75 MG TABLET PO SCH (10:16)
[2019-08-23] MEDS: CITALOPRAM HYDROBROMIDE 20 MG TABLET PO SCH (10:16)
[2019-08-23] MEDS: DOCUSATE SODIUM 100 MG CAPSULE PO SCH ×2 (10:16→17:00)
[2019-08-23] MEDS: MONTELUKAST SODIUM 10 MG TABLET PO SCH (10:16)
[2019-08-23] MEDS: NORMAL SALINE 1000 ML 1,000 ML IV PRN ×3 (12:21→20:40)
[2019-08-23] MEDS ORDERED: ALBUMIN HUMAN 500 ML IV ONE (12:30)
--- NOTE | 2019-08-23 13:50 | Operative Report ---
Bedside Procedure - History of Present Illness History of Present Illness: Mr. Morrow is a 78-year-old male with a past medical history significant for atrial fibrillation, CAD, HLD, HTN, asthma, chronic bronchitis, BPH, GERD, CKD who [facility] acute on chronic kidney injury and 4 day history of chest pain which reportedly improved with IV fluids. I was informed by the nurse that Mr Morrow reportedly was "quadrupling" on his Lasix due to chronic lower leg dependent edema due to venous stasis prior to admission. His cardiac enzymes and EKG showed no evidence of acute myocardial ischemia or injury. He was noted to have a UTI for which antibiotics had not yet been started and was on 50-100 mls/hr of maintenance IV fluid when ICU was consulted for hypotension on the floor reportedly with a Doppler SBP in the 70s. To note, a non-invasive automated BP reads SBP 160-180s, but manual BP performed by myself on both arms is SBP <80. Mr Morrow was finishing up 1L of NS bolus when I arrived to evaluate him. Lungs sounds are CTA bilaterally on his home CPAP with minimal 30% FiO2, RR mid-20's, no pedal edema, trace at most hand edema, unable to determine JVD given habitus. POCUS demonstrated profound hypovolemia for which a second liter of crystalloid solution was ordered. No improvement in his BP despite hydration, therefore decision made to transfer to ICU for arterial line placement to determine actual BP. To note, patient morbidly obese making NIBP difficult. An echocardiogram and renal ultrasound have both been performed with very limited windows due to habitus. Indication for Procedure: shock Date: 08/23/19 Provider: ROSAURA VELAZQUEZ - Central Line Right Internal jugular Time completed: 13:47 Consent obtained: Yes Central line pre-insertion: Sterile PPE donned, Chloraprep applied, Sterile drapes applied Central line lumen type: Triple Anesthetic type: 1% Lidocaine mL's of anesthesia: 5 Ultrasound guided: Yes CM at insertion site: 19 Line secured with sutures: Yes Central line post-insertion: Blood return from lumens, Biopatch applied, Sutured, Sterile dressing applied, Position confirmed w/ CXR Number of attempts: 1 Complications: No
--- NOTE | 2019-08-23 14:36 | RADIOLOGY REPORT (SQ) ---
EXAM DESCRIPTION: CHEST SINGLE VIEW IMAGES COMPLETED DATE/TIME: 08/23/2019 1:53 pm REASON FOR STUDY: cenrtal line placement COMPARISON: 08/20/2019 EXAM PARAMETERS: NUMBER OF VIEWS: One view. TECHNIQUE: Single frontal radiographic view of the chest acquired. RADIATION DOSE: NA LIMITATIONS: None. FINDINGS: LUNGS AND PLEURA: Right-sided central line has been placed. Tip overlies the SVC. No pne umothorax. Blunting of the right costophrenic angle most likely pleural thickening. No consolidatio n. MEDIASTINUM AND HILAR STRUCTURES: No masses. Contour normal. HEART AND VASCULAR STRUCTURES: Stable in appearance. BONES: No acute findings. HARDWARE: None in the chest. OTHER: No other significant finding. IMPRESSION: Interval placement a right-sided central line. No pneumothorax. Catheter tip overlies the SVC. TECHNICAL DOCUMENTATION: JOB ID: [id number] 2010 [employer]- All Rights Reserved Reading location - IP/workstation name: [email or web address]
--- NOTE | 2019-08-23 15:45 | RADIOLOGY REPORT (SQ) ---
EXAM DESCRIPTION: CT ABD/PELVIS NO ORAL OR IV IMAGES COMPLETED DATE/TIME: 08/23/2019 3:21 pm REASON FOR STUDY: r/o pyelo or hydronephrosis COMPARISON: None. TECHNIQUE: CT scan of the abdomen and pelvis performed without intravenous or oral contrast. Images reviewed with lung, soft tissue, and bone windows. Reconstructed coronal and sagittal MPR images revi ewed. All images stored on PACS. All CT scanners at this facility use dose modulation, iterative reconstruction, and/or weight based d osing when appropriate to reduce radiation dose to as low as reasonably achievable (ALARA). [facility]: Dose Right [facility]: CareDose [facility]: Dose Right [facility]: Teradose 4D [facility]: Smart Anafore RADIATION DOSE: CT Rad equipment meets quality standard of care and radiation dose reduction techniq ues were employed. CTDIvol: 31.6 mGy. DLP: 1769 mGy-cm.mGy. LIMITATIONS: Motion. Positioning. Body habitus. FINDINGS: LOWER CHEST: Right basilar atelectasis. NON-CONTRASTED LIVER, SPLEEN, ADRENALS: Evaluation limited by lack of IV contrast. No identified sign ificant masses. PANCREAS: No masses. No peripancreatic inflammatory changes. GALLBLADDER: Surgically absent. RIGHT KIDNEY AND URETER: No suspicious masses. Assessment limited by lack of IV contrast. No signif icant calcifications. No hydronephrosis or hydroureter. LEFT KIDNEY AND URETER: No suspicious masses. Assessment limited by lack of IV contrast. No signifi cant calcifications. No hydronephrosis or hydroureter. AORTA AND RETROPERITONEUM: No aneurysm. No retroperitoneal masses or adenopathy. BOWEL AND PERITONEAL CAVITY: No obvious masses or inflammatory changes. No free fluid. APPENDIX: Not visualized. PELVIS, BLADDER, AND ABDOMINAL WALL:Considerable artifact from bilateral hip arthroplasty. Prior ant erior abdominal hernia repair. No obvious abnormality. BONES: Nothing acute. OTHER: No other significant finding. IMPRESSION: No acute findings. COMMENT: Quality ID # 436: Final reports with documentation of one or more dose reduction techniques (e.g., Automated exposure control, adjustment of the mA and/or kV according to patient size, use of iterative reconstruction technique) TECHNICAL DOCUMENTATION: JOB ID: [id number] 2010 [employer]- All Rights Reserved Reading location - IP/workstation name: [email or web address]
[2019-08-23] MEDS: TAMSULOSIN HCL 0.4 MG CAP.SR.24H PO SCH (17:00)
[2019-08-23] MEDS: PIPERACILLIN SODIUM/TAZOBACTAM 2.25 GM in NORMAL SALINE 50 ML IV SCH (20:40)
[2019-08-23] MEDS: INSULIN GLARGINE,HUM.REC.ANLOG 1,000 UNIT/10 ML VIAL SUBCUT SCH (22:23)
[2019-08-23] MEDS: ATORVASTATIN CALCIUM 20 MG TABLET PO SCH (22:23)
[2019-08-23] MEDS: ROPINIROLE HCL 1 MG TABLET PO SCH (22:23)
--- NOTE | 2019-08-23 22:59 | CRITICAL CARE ADMISSION REPORT ---
HPI Date:: 08/23/19 Time:: 04:00 Reason for ICU Reason:: Refractory Hypotension HPI: Mr. Morrow is a 78-year-old male with a past medical history significant for atrial fibrillation, CAD, HLD, HTN, asthma, chronic bronchitis, BPH, GERD, CKD who presented to [facility] with acute on chronic kidney injury and 4 day history of chest pain which reportedly improved with IV fluids. I was informed by the nurse that Mr Morrow reportedly was "quadrupling" on his Lasix due to chronic lower leg dependent edema due to venous stasis prior to admission. His cardiac enzymes and EKG showed no evidence of acute myocardial ischemia or injury. He was noted to have a UTI for which antibiotics had not yet been started and was on 50-100 mls/hr of maintenance IV fluid when ICU was consulted for hypotension on the floor reportedly with a Doppler SBP in the 70s. To note, a non-invasive automated BP reads SBP 160-180s, but manual BP performed by myself on both arms is SBP <80. Mr Morrow was finishing up 1L of NS bolus when I arrived to evaluate him. Lungs sounds are CTA bilaterally on his home CPAP with minimal 30% FiO2, RR mid-20's, no pedal edema, trace at most hand edema, unable to determine JVD given habitus. POCUS demonstrated profound hypovolemia for which a second liter of crystalloid solution was ordered. No improvement in his BP despite hydration, therefore decision made to transfer to ICU for arterial line placement to determine actual BP. To note, patient morbidly obese making NIBP difficult. An echocardiogram and renal ultrasound have both been performed with very limited windows due to habitus. History obtained from:: medical record, RN on the dooley, Dr Bey - Diagnosis/Plan (1) Hypotension (arterial) Qualifiers: Hypotension type: unspecified hypotension type Qualified Code(s): I95.9 - Hypotension, unspecified Is this a current diagnosis for this admission?: Yes Plan: Concern for adrenal insufficiency and/or sepsis, though there is no leukocytosis. Start Vasopressin infusion IV. If need further escalation, will consider Phenylephrine infusion. Check cortisol level. May need central venous access which was briefly discussed with patient, though informed consent has not been fully obtained. EKG to r/o cardiac ischemia/infarction. (2) [place] kidney injury Qualifiers: Acute renal failure type: unspecified Chronic kidney disease stage: unspecified stage Qualified Code(s): N17.9 - Acute kidney failure, unspecified; N18.9 - Chronic kidney disease, unspecified Is this a current diagnosis for this admission?: Yes Plan: Hydration with IV fluids utilizing body weight for maintenance fluids. Wt 148 kg per bedside dooley RN. Monitor need to decrease later today. Repeat BMP this morning and daily monitoring renal function. (3) Coronary artery disease Qualifiers: Coronary Disease-Associated Artery/Lesion type: [place] artery [place] vs. transplanted heart: [place] heart Associated angina: angina presence uns pecified Qualified Code(s): I25.10 - Atherosclerotic heart disease of [place] coronary artery without angina pectoris Is this a current diagnosis for this admission?: Yes Plan: Chest pain on admission resolved with administration of IV fluids. Suspect was due to underlying CAD in setting of "quadrupling" of lasix causing hypovolemia. Continue statin, resume anti-HTN meds when clinically appropriate. Keep HR contr olled once hydrated. Continue Clopidogrel. (4) History of atrial fibrillation Is this a current diagnosis for this admission?: No Plan: not presently in a-fib not on anticoagulation according to med list standard dvt prophylaxis for now, no indication to anticoagulate (5) Asthma Qualifiers: Asthma severity: unspecified severity Asthma persistence: unspecified Asthma complication type: unspecified Qualified Code(s): J45.909 - Unspecified asthma, uncomplicated Is this a current diagnosis for this admission?: Yes Plan: prn nebs (6) Obstructive sleep apnea Is this a current diagnosis for this admission?: Yes Plan: home CPAP at night; O2 via nasal cannula during the day (pt reportedly on 2L NC at home during day) (7) Essential hypertension Is this a current diagnosis for this admission?: Yes Plan: hold anti-HTN meds for now due to hypotension; resume when clinically improved (8) Hyperlipidemia Qualifiers: Hyperlipidemia type: unspecified Qualified Code(s): E78.5 - Hyperlipidemia, unspecified Is this a current diagnosis for this admission?: Yes Plan: continue statin given CAD (9) History of diverticulosis Is this a current diagnosis for this admission?: No Plan: Agree with non-contrast CT abdomen/pelvis pending given RUQ pain once hemodynamically stable; hopefully will determine if has diverticulitis or intra- abdominal process. (10) Diabetes mellitus with hyperglycemia Qualifiers: Diabetes mellitus type: type 2 Diabetes mellitus retirement insulin use: with intermediate accountant use Qualified Code(s): E11.65 - Type 2 diabetes mellitus with hyperglycemia; Z79.4 - USP (current) use of insulin Is this a current diagnosis for this admission?: Yes Plan: continue ISS coverage prn and long-acting insulin (11) Benign prostatic hyperplasia Qualifiers: Lower urinary tract symptom presence: unspecified whether lower urinary tract symptoms present Qualified Code(s): N40.0 - Benign prostatic hyperplasia without lower urinary tract symptoms Is this a current diagnosis for this admission?: Yes Plan: continue Tamsulosin (12) Urinary tract infection with pyuria Is this a current diagnosis for this admission?: Yes Plan: Empiric treatment of UTI; follow up Cx. Though strict I&O is ideal in setting of hypotension and JOHN, will hold off on aj placement for now given UTI and will assess next serum Cr. If increasing, will place aj. If downtrending, will hold off and defer to Cylinder Machine Operator. (13) GERD (gastroesophageal reflux disease) Qualifiers: Esophagitis presence: esophagitis presence not specified Qualified Code(s): K21.9 - Gastro-esophageal reflux disease without esophagitis Is this a current diagnosis for this admission?: Yes Plan: Continue PPI daily (14) Arthritis Is this a current diagnosis for this admission?: Yes Plan: Hold Mobic for now given JOHN. Order prn pain meds when BP improved. (15) Restless leg syndrome Is this a current diagnosis for this admission?: Yes Plan: Continue Requip (16) Morbid obesity Is this a current diagnosis for this admission?: Yes Plan: Instruct importance in diet, exercise, and weight loss before discharge. Will defer to hospitalist service. Past Medical History Cardiac Medical History: Reports: Atrial Fibrillation, Coronary Artery Disease, Hyperlipidema, Hypertension Denies: Congestive Heart Failure, DVT, Myocardial Infarction, Peripheral Vascular Disease, Pulmonary Embolism Pulmonary Medical History: Reports: Asthma, Bronchitis, Chronic Obstructive Pulmonary Disease (COPD), Respiratory Failure - Chronic respiratory failure with hypoxia, Sleep Apnea, Other - Chronic venous stasis, chronic dependent edema of lower extremities Denies: Pneumonia, Tuberculosis EENT Medical History: Denies: Cataracts, Ears - Hearing aids Neurological Medical History: Denies: Hemorrhagic CVA, Ischemic CVA, Seizures Endocrine Medical History: Reports: Obesity Denies: Diabetes Mellitus Type 1, Diabetes Mellitus Type 2, Hyperthyroidism, Hypothyroidism Renal/ Medical History: Reports: Chronic Kidney Disease, Other - Benign prostatic hyperplasia Denies: Nephrolithiasis Malignancy Medical History: Reports: None GI Medical History: Reports: Gastroesophageal Reflux Disease, Other - Diverticulosis Denies: Cirrhosis, Crohn's Disease, Hepatitis, Peptic Ulcer Disease, Ulcerative Colitis Musculoskeltal Medical History: Reports: Arthritis - hands and feet, Other - Chronic pain syndrome Denies: Gout Skin Medical History: Reports: Other - Venous stasis changes of bilateral lower legs Denies: Eczema, Psoriasis Psychiatric Medical History: Denies: Alcohol Dependency, Depression, Substance Abuse, Tobacco Dependency Traumatic Medical History: Reports: None Hematology: Reports: Anemia - Recently diagnosed Denies: Bleeding Tendencies Infectious Medical History: Reports: Methicillin-Resistant Staph Aureus Past Surgical History Past Surgical History: Reports: Cardiac Catheterization, Cholecystectomy, Coronary Stent - x2, Gastric Bypass Surgery, Herniorrhaphy - Ventral hernia in 2000, Hip Replacement, Orthopedic Surgery - bilateral hip arthroplasties, r evision of right hip arthroplasty Social/Family History - Social History Lives with: Spouse/Significant other Smoking Status: Never Smoker Frequency of Alcohol Use: None Hx Recreational Drug Use: No Drugs: None Hx Prescription Drug Abuse: No - Family History Family History: DM, Hypertension - Medication/Allergies Home Medications: Clopidogrel Bisulfate [Plavix] 75 mg PO DAILY 10/08/13 Montelukast Sodium 10 mg PO DAILY 10/08/13 Terazosin HCl 1 mg PO DAILY 10/08/13 Zolpidem Tartrate 5 mg PO HSP PRN 10/08/13 Atorvastatin Calcium [Lipitor 20 mg Tablet] 20 mg PO QHS 08/21/19 Cetirizine HCl [Cetirizine 5 mg Tablet] 5 mg PO DAILYP PRN 08/21/19 Citalopram Hydrobromide [Celexa 20 mg Tablet] 20 mg PO DAILY 08/21/19 Ferrous Sulfate [Slow Fe] 142 mg PO DAILY 08/21/19 Fluticasone Propionate [Flonase Allergy Relief] 9.9 ml NS BIDP PRN 08/21/19 Furosemide [Lasix 20 mg Tablet] 20 mg PO DAILY 08/21/19 Ibuprofen/Diphenhydramine HCl [Advil Pm Liqui-Gels] 1 each PO HSP PRN 08/21/19 Insulin Degludec [Tresiba Flextouch U-100] 30 units SUBCUT QHS 08/21/19 Isosorbide Mononitrate [Imdur 60 mg Tablet.er] 60 mg PO DAILY 08/21/19 Meloxicam [Mobic 7.5 mg Tablet] 7.5 mg PO BID 08/21/19 Potassium Chloride [Klor-Con 10 Meq Tablet ER] 10 meq PO Q12 08/21/19 Ropinirole HCl 1 mg PO QHS 08/21/19 Tamsulosin HCl [Flomax 0.4 mg Cap.sr] 0.4 mg PO DAILY 08/21/19 Telmisartan 80 mg PO DAILY 08/21/19 Allergies/Adverse Reactions: No Known Allergies Allergy (Verified 08/20/19 16:28) Review of Systems Constitutional: ABSENT: chills, fatigue, headache(s), night sweats, weakness Eyes: PRESENT: other - denies eye pain/discharge. ABSENT: visual disturbances Ears: PRESENT: other - denies ear pain/discharge. ABSENT: hearing changes Nose, Mouth, and Throat: ABSENT: headache(s), mouth pain, sore throat Breasts: PRESENT: other - denies pain with palpation Cardiovascular: ABSENT: chest pain, edema, palpitations Respiratory: PRESENT: dyspnea. ABSENT: cough, hemoptysis Gastrointestinal: PRESENT: abdominal pain - denied prior to palpation during his exam reveals RUQ abdominal pain. ABSENT: coffee ground emesis, diarrhea, dysphagia, hematemesis, nausea, vomiting Genitourinary: ABSENT: difficulty urinating, dysuria, hematuria Musculoskeletal: PRESENT: other - bilateral hand, wrist, forearm, foot pain for which patient states it is due to arthritis. ABSENT: joint swelling Integumentary: PRESENT: other - venous stasis color changes of BLE's. ABSENT: pruritus, rash Neurological: PRESENT: restless legs. ABSENT: confusion, convulsions, dizziness, focal weakness, memory loss, syncope Psychiatric: ABSENT: anxiety, depression, hallucinations Endocrine: ABSENT: cold intolerance, flushing, heat intolerance, polydipsia, polyphagia, polyuria Hematologic/Lymphatic: ABSENT: easy bleeding, easy bruising, lymphadenopathy Allergic/Immunologic: ABSENT: seasonal rhinorrhea Physical Exam Vital Signs: Temp Pulse Resp BP Pulse Ox 99.4 F 111 H 25 H 164/131 H 97 08/23/19 03:30 08/23/19 00:20 08/23/19 04:04 08/23/19 04:04 08/23/19 04:04 Intake & Output 08/21/19 08/22/19 08/23/19 06:59 06:59 06:59 Intake Total 444 4260 4549 Output Total 900 725 635 Balance -456 3535 3914 Weight 148.3 kg 151.3 kg 161.7 kg Weight/Height Weight 161.7 kg Height 5 ft 8 in General appearance: PRESENT: no acute distress, cooperative, morbidly obese, well-nourished Head exam: PRESENT: atraumatic, normocephalic Eye exam: PRESENT: conjunctiva pink, EOMI, PERRLA. ABSENT: periorbital swelling, scleral icterus Ear exam: PRESENT: normal external ear exam Mouth exam: PRESENT: moist, neck supple, tongue midline Neck exam: ABSENT: JVD - unable to assess given habitus, lymphadenopathy, tenderness, tracheal deviation Respiratory exam: PRESENT: clear to auscultation darrius, symmetrical, tachypnea, unlabored. ABSENT: accessory muscle use, wheezes Cardiovascular exam: PRESENT: RRR - sinus tachycardia on telemetry, +S1, +S2. ABSENT: gallop, rubs, systolic murmur Pulses: PRESENT: +1 pedal pulses bilateral, other - 1+ radial pulses bilateral Vascular exam: PRESENT: normal capillary refill GI/Abdominal exam: PRESENT: hypoactive bowel sounds, soft, tenderness - RUQ to palpation-Hx cholecystectomy. ABSENT: distended, guarding, Torres's sign - no gallbladder per patient report Rectal exam: PRESENT: deferred Extremities exam: ABSENT: pedal edema Musculoskeletal exam: PRESENT: tenderness - arthritis in bilateral hands causing tenderness to palpation. ABSENT: deformity Neurological exam: PRESENT: awake, oriented to person, oriented to place, oriented to time, oriented to situation, CN II-XII grossly intact Skin exam: PRESENT: dry, intact, warm. ABSENT: jaundice Laboratory/Radiographs Laboratory Results: 08/23/19 02:24 08/23/19 02:24 08/22/19 08/22/19 08/23/19 06:12 06:12 02:18 WBC 4.9 RBC 3.20 L Hgb 9.7 L Hct 27.9 L MCV 87 MCH 30.5 MCHC 34.9 RDW 16.8 H Plt Count 229 Seg Neutrophils % Carbonic Acid 1.22 HCO3/H2CO3 Ratio 16:1 ABG pH 7.32 L ABG pCO2 40.4 ABG pO2 67.8 L ABG HCO3 20.4 ABG O2 Saturation 92.2 L ABG Base Excess -5.3 FiO2 30% Sodium 132.5 L Potassium 4.4 Chloride 102 Carbon Dioxide 21 L Anion Gap 10 BUN 72 H Creatinine 3.24 H Est GFR ( Amer) 23 L Glucose 141 H Lactic Acid Calcium 8.2 L Ionized Calcium [place] Phosphorus Magnesium 1.6 Total Bilirubin 1.2 AST 25 Alkaline Phosphatase 73 Total Protein 6.4 Albumin 3.2 L 08/23/19 08/23/19 08/23/19 02:24 02:24 02:24 WBC 5.8 RBC 3.15 L Hgb 9.8 L Hct 28.1 L MCV 89 MCH 31.2 MCHC 35.0 RDW 17.1 H Plt Count 213 Seg Neutrophils % 74.7 Carbonic Acid HCO3/H2CO3 Ratio ABG pH ABG pCO2 ABG pO2 ABG HCO3 ABG O2 Saturation ABG Base Excess FiO2 Sodium 130.9 L Potassium 4.7 Chloride 102 Carbon Dioxide 21 L Anion Gap 8 BUN 68 H Creatinine 2.63 H Est GFR ( Amer) 29 L Glucose 146 H Lactic Acid 0.9 Calcium 8.1 L Ionized Calcium [place] Phosphorus 3.2 Magnesium 1.4 L Total Bilirubin 1.5 H AST 27 Alkaline Phosphatase 71 Total Protein 5.8 L Albumin 2.8 L 08/23/19 02:24 WBC RBC Hgb Hct MCV MCH MCHC RDW Plt Count Seg Neutrophils % Carbonic Acid HCO3/H2CO3 Ratio ABG pH ABG pCO2 ABG pO2 ABG HCO3 ABG O2 Saturation ABG Base Excess FiO2 Sodium Potassium Chloride Carbon Dioxide Anion Gap BUN Creatinine Est GFR ( Amer) Glucose Lactic Acid Calcium Ionized Calcium [place] 1.03 L Phosphorus Magnesium Total Bilirubin AST Alkaline Phosphatase Total Protein Albumin 08/20/19 08/20/19 08/20/19 17:00 17:00 23:09 Creatine Kinase 91 CK-MB (CK-2) Troponin I < 0.012 NT-Pro-B Natriuret Pep 77 08/20/19 08/21/19 08/21/19 23:09 01:16 07:37 Creatine Kinase 78 CK-MB (CK-2) Cancelled 1.35 Troponin I Cancelled < 0.012 NT-Pro-B Natriuret Pep 08/21/19 08/21/19 08/21/19 07:37 13:12 13:12 Creatine Kinase 75 CK-MB (CK-2) 1.00 0.91 Troponin I < 0.012 < 0.012 NT-Pro-B Natriuret Pep 08/23/19 08/23/19 02:24 02:48 Creatine Kinase 357 H CK-MB (CK-2) 0.75 Troponin I < 0.012 NT-Pro-B Natriuret Pep Impressions: Chest X-Ray 08/20/19 16:34 IMPRESSION: CARDIAC ENLARGEMENT. VASCULAR CONGESTION. Chest CT 08/20/19 18:37 IMPRESSION: No acute abnormality within the chest. Enlarged subcarinal lymph node measuring 1.8 x 3.5 cm in size, indeterminate/nonspecific. TECHNICAL DOCUMENTATION: Quality ID # [id number]: Final reports with documentation of one or more dose reduction techniques (e.g., Automated exposure control, adjustment of the mA and/or kV according to patient size, use of iterative reconstruction technique) copyright 2011 [employer]- All Rights Reserved Renal Ultrasound 08/21/19 00:00 IMPRESSION: Limited ultrasound of the kidneys and urinary bladder due to the patient's body habitus. The left kidney and urinary bladder were not visualized. There is no right-sided hydronephrosis. All labs, radiographs, diagnostic studies and EKGs were personally reviewed: Yes In addition, reports of radiographic and diagnostic studies were read: Yes Critical Time Critical Time (minutes): 85 -: The care of a critically ill patient is dynamic. This note represents a static moment in the admission process. Orders and treatments may be given simultaneously and urgently, and time is not ict sales representative of the treatment process. This patient requires Critical Care secondary to life threatening organ or limb dysfunction. Without Critical Care services, the patient is at risk for increased mortality and morbidity.
[2019-08-23] MEDS: ZOLPIDEM TARTRATE 5 MG TABLET PO PRN (23:29)
[2019-08-24] MEDS: IPRATROPIUM BROMIDE 0.02% NEB 0.5 MG/2.5 ML AMPUL NEB SCH ×3 (00:09→16:02)
[2019-08-24] MEDS: LEVALBUTEROL HCL NEB 1.25 MG/3 ML AMPUL NEB SCH ×3 (00:09→16:02)
[2019-08-24] MEDS: NORMAL SALINE 1000 ML 1,000 ML IV PRN (01:34)
[2019-08-24] MEDS: PIPERACILLIN SODIUM/TAZOBACTAM 2.25 GM in NORMAL SALINE 50 ML IV SCH ×2 (03:10→09:20)
[2019-08-24] MEDS ORDERED: VANCOMYCIN HCL INJ 1000 MG VIAL ONE (05:49)
[2019-08-24] MEDS ORDERED: VANCOMYCIN HCL INJ 500 MG VIAL ONE (05:49)
[2019-08-24] MEDS ORDERED: VANCOMYCIN HCL 1,500 MG in DEXTROSE 5%-WATER 250 ML IV SCH (06:00)
[2019-08-24] MEDS: HYDROCORTISONE SOD SUCCINATE INJ/PF 100 MG/2 ML SDV IV SCH ×3 (06:13→23:02)
[2019-08-24] MEDS: PANTOPRAZOLE SODIUM 40 MG TABLET.DR PO SCH (06:15)
[2019-08-24] MEDS: HEPARIN SOD (PORCINE) 5,000 UNIT/ML 1 ML VIAL SUBCUT SCH ×3 (06:16→23:12)
[2019-08-24 06:45] LABS: ANION GAP 7 (5-19); CALCIUM 7.7 mg/dL (8.4-10.2); CARBON DIOXIDE 21 mmol/L (22-30); CHLORIDE 108 mmol/L (98-107); GLUCOSE 159 mg/dL (75-110); PHOSPHORUS 2.8 mg/dL (2.5-4.5); POTASSIUM 4.7 mmol/L (3.6-5.0)
[2019-08-24 07:08] LABS: BLOOD UREA NITROGEN 42 mg/dL (7-20)
[2019-08-24] MEDS: INSULIN REG, HUMAN 100 UNIT/ML 3 ML VIAL (PYX) SUBCUT SCH ×4 (08:36→23:04)
[2019-08-24] MEDS: CLOPIDOGREL BISULFATE 75 MG TABLET PO SCH (10:43)
[2019-08-24] MEDS: MONTELUKAST SODIUM 10 MG TABLET PO SCH (10:43)
[2019-08-24] MEDS: CITALOPRAM HYDROBROMIDE 20 MG TABLET PO SCH (10:43)
[2019-08-24] MEDS: FERROUS SULFATE LIQUID 300 MG/5 ML UDC PO SCH (10:44)
[2019-08-24] MEDS: DOCUSATE SODIUM 100 MG CAPSULE PO SCH ×2 (10:44→18:25)
--- NOTE | 2019-08-24 12:43 | PDOC CRITICAL CARE PROG REPORT ---
General Date:: 08/24/19 ICU Day:: 2 Hospital Day:: 5 Resuscitation Status: Full Code Events in the past 12 to 24 Hours:: This morbidly obese 78-year-old male was admitted to [facility] with complaints of chest pain, which resolved with intravenous fluid administration. Indeed, the patient had reported "quadrupling "on his Lasix for treatment of chronic lower extremity edema, suspected to be due to venous stasis. He was admitted to the floor, where the care team struggled with erroneous blood pressure measurements. He was suspected to be hypotensive based on Doppler monitoring during blood pressure measurement. This was confirmed after he was transferred to the ICU and underwent arterial cannulation. Clinically, he was assessed to be hypotensive secondary to dehydration along with a systemic inflammatory response to urinary tract infection. He has been treated with intravenous hydration. His lactate level was normal but had even been started on vasopressin infusion. He was also provided 5% albumin infusion. Consequently, he has had improvement in his blood pressure. 08/23: Had central line placement and arterial line placement in the ICU yesterday. Steady blood pressure improvement with volume expansion. Was started on cefepime/vancomycin just prior to transfer to ICU. Cefepime was changed to Zosyn yesterday when the lab reported that he had anaerobes in blood culture; however, this report has been changed to GNR in the interim. He has been off blood pressure support (vasopressin) since yesterday. Review of systems relevant to events:: Cardiovascular: hypotension, dehydration Genitourinary: UTI Reason for ICU Addmission:: Refractory Hypotension - Medications: Medications reviewed and adjusted accordingly: Yes Physical Exam Vital Signs: Temp Pulse Resp BP Pulse Ox 97.6 F 95 17 135/55 H 100 08/24/19 10:00 08/24/19 10:00 08/24/19 10:00 08/24/19 10:00 08/24/19 10:00 Intake & Output 08/23/19 08/24/19 08/25/19 06:59 06:59 06:59 Intake Total 7393 4915 1650 Output Total 345 5165 239 Balance 4020 3087 1175 Weight 161.7 kg 159.1 kg Weight/Height Weight 159.1 kg Height 1.73 m General appearance: PRESENT: no acute distress, morbidly obese, well-nourished Head exam: PRESENT: atraumatic, normocephalic Eye exam: PRESENT: conjunctiva pink, EOMI, PERRLA. ABSENT: scleral icterus Respiratory exam: PRESENT: crackles. ABSENT: rhonchi, wheezes Cardiovascular exam: PRESENT: RRR. ABSENT: diastolic murmur, rubs, systolic murmur Pulses: PRESENT: normal carotid pulses, normal radial pulses GI/Abdominal exam: PRESENT: normal bowel sounds, soft. ABSENT: distended, guarding, mass, organolmegaly, rebound, tenderness Extremities exam: PRESENT: full ROM, +1 edema. ABSENT: calf tenderness, clubbing Neurological exam: PRESENT: alert, awake, oriented to person, oriented to place, oriented to time, oriented to situation, CN II-XII grossly intact. ABSENT: motor sensory deficit Skin exam: PRESENT: other - skin tear L forearm Laboratory/Radiographs Laboratory Results: 08/23/19 02:24 08/24/19 05:45 08/24/19 05:45 Sodium 135.7 L Potassium 4.7 Chloride 108 H Carbon Dioxide 21 L Anion Gap 7 BUN 42 H D Creatinine 1.30 H Est GFR ( Amer) > 60 Glucose 159 H Calcium 7.7 L Phosphorus 2.8 Magnesium 2.1 08/20/19 08/20/19 08/20/19 17:00 17:00 23:09 Creatine Kinase 91 CK-MB (CK-2) Troponin I < 0.012 NT-Pro-B Natriuret Pep 77 08/20/19 08/21/19 08/21/19 23:09 01:16 07:37 Creatine Kinase 78 CK-MB (CK-2) Cancelled 1.35 Troponin I Cancelled < 0.012 NT-Pro-B Natriuret Pep 08/21/19 08/21/19 08/21/19 07:37 13:12 13:12 Creatine Kinase 75 CK-MB (CK-2) 1.00 0.91 Troponin I < 0.012 < 0.012 NT-Pro-B Natriuret Pep 08/23/19 08/23/19 02:24 02:48 Creatine Kinase 357 H CK-MB (CK-2) 0.75 Troponin I < 0.012 NT-Pro-B Natriuret Pep Impressions: Chest CT 08/20/19 18:37 IMPRESSION: No acute abnormality within the chest. Enlarged subcarinal lymph node measuring 1.8 x 3.5 cm in size, indeterminate/nonspecific. TECHNICAL DOCUMENTATION: Quality ID # 436: Final reports with documentation of one or more dose reduction techniques (e.g., Automated exposure control, adjustment of the mA and/or kV according to patient size, use of iterative reconstruction technique) copyright 2011 [employer]- All Rights Reserved Renal Ultrasound 08/21/19 00:00 IMPRESSION: Limited ultrasound of the kidneys and urinary bladder due to the patient's body habitus. The left kidney and urinary bladder were not visualized. There is no right-sided hydronephrosis. Chest X-Ray 08/23/19 00:00 IMPRESSION: Interval placement a right-sided central line. No pneumothorax. Catheter tip overlies the SVC. Abdomen/Pelvis CT 08/23/19 02:08 IMPRESSION: No acute findings. All labs, radiographs, diagnostic studies and EKGs were personally reviewed: Yes In addition, reports of radiographic and diagnostic studies were read: Yes Assessment and Plan - Diagnosis (1) Hypotension Is this a current diagnosis for this admission?: Yes Plan: Resolved (2) Urinary tract infection with pyuria Is this a current diagnosis for this admission?: Yes Plan: Continue cefepime. Stop vancomycin. (3) Iseuv-li-mnskkrj kidney injury Qualifiers: Acute renal failure type: unspecified Chronic kidney disease stage: unspecified stage Qualified Code(s): N17.9 - Acute kidney failure, u nspecified; N18.9 - Chronic kidney disease, unspecified Is this a current diagnosis for this admission?: Yes Plan: Improving. Avoid nephrotoxic drugs. Renal dosing of medications. (4) Obstructive sleep apnea Is this a current diagnosis for this admission?: Yes Plan: The patient has his home CPAP device at his bedside. It should be used during any sleep and PRN. (5) Restless leg syndrome Is this a current diagnosis for this admission?: Yes (6) Coronary artery disease Qualifiers: Coronary Disease-Associated Artery/Lesion type: [place] artery [place] vs. transplanted heart: [place] heart Associated angina: angina presence unspecifi ed Qualified Code(s): I25.10 - Atherosclerotic heart disease of [place] co ronary artery without angina pectoris Is this a current diagnosis for this admission?: Yes (7) Essential hypertension Is this a current diagnosis for this admission?: Yes (8) Diabetes mellitus with hyperglycemia Qualifiers: Diabetes mellitus type: type 2 Diabetes mellitus termite control representative insulin use: with termite control representative use Qualified Code(s): E11.65 - Type 2 diabetes mellitus with hyperglycemia; Z79.4 - parts counterman (current) use of insulin Is this a current diagnosis for this admission?: Yes (9) Morbid obesity Is this a current diagnosis for this admission?: Yes Critical Time Critical Time (minutes): 45 Level of Care: ICU -: 1. The care of a critical patient is a dynamic process. This note is a plastic products sales representative synopsis but static in nature. The timeframe for treatments given in order is not necessarily the actual time these treatments may have been done. 2. This patient requires critical care secondary to ongoing requirements for therapy not offered or safe outside the critical care environment. Transfer to a lower level of care will result in altered life or limb morbidity and mortality. 3. Multidisciplinary rounds completed. 4. ABCDE bundle addressed.
[2019-08-24] MEDS ORDERED: NORMAL SALINE 1000 ML 1,000 ML IV PRN (15:34)
--- NOTE | 2019-08-24 16:06 | PDOC PROGRESS REPORT ---
Subjective Progress Note for:: 08/24/19 Subjective:: 78 year old male who presents to the emergency room with a 4-day history of chest pain. He admits the intermittent presence of moderate nonradiating central chest pressure accompanied by fluttering palpitations, dyspnea worsened with exertion and orthopnea. His chest pain/pressure has been associated with generalized "pain all over my body". He admits a recent quadrupling of his Lasix dose for treatment of his chronic lower leg dependent edema due to venous stasis. He denies other associated or accompanying signs and symptoms. He denies prior similar episodes. He has not identified any additional aggravating or ameliorating factors for his chest pain. In the emergency room he was found to have a creatinine of 3.25 and was initially hypertensive. His cardiac enzymes and EKG showed no evidence of acute myocardial ischemia or injury. Patient was subsequently admitted to the hospital for further evaluation and treatment. 08/21/2019-morbidly obese male comfortably in the bed on CPAP. Denies any chest pains. Blood pressures are fluctuating. 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 Creatinine improved from 3.25-2.69 and his baseline creatinine is around 1.45. And is presently on IV fluids at 165 cc/h plan is to decrease the fluids to 50 cc/h. 08/22/2019-patient became hypotensive last night systolic blood pressure in the 70s 1 L of IV fluids was given blood pressure came up to 110/60. Patient is not on antihypertensive medications except for metoprolol. Comfortably in the bed communicating well complaining of right hip pain requesting pain medication. Is on IV morphine sliding scale. Plan is to increase the IV fluids 200 cc/h to watch for the fluid overload. P the labs tomorrow. Creatinine worsened from 2.69 to 3.24 today. 08/24/19-morbidly obese male comfortably in the bed communicating reasonably. Patient was transferred from medical floor to the ICU 2 days ago with hypotension. A-line confirmed that patient has hypotension. Patient is initially on vasopressin and IV fluids. Urine culture came back positive for E. coli and blood cultures are positive for gram-negative rods. Patient is presently on cefepime, afebrile. Patient is stable to go to the medical floor today. Reason For Visit: ACUTE KIDNEY INJURY,CHEST PAIN,PALPITATIONS,CHRONI Physical Exam Vital Signs: Temp Pulse Resp BP Pulse Ox 97.6 F 94 19 113/59 L 99 08/24/19 12:00 08/24/19 12:00 08/24/19 14:29 08/24/19 14:29 08/24/19 14:29 Intake & Output 08/23/19 08/24/19 08/25/19 06:59 06:59 06:59 Intake Total 4655 5187 1950 Output Total 635 2100 925 Balance 4020 3087 1025 Weight 161.7 kg 159.1 kg General appearance: PRESENT: no acute distress, morbidly obese Head exam: PRESENT: atraumatic Eye exam: PRESENT: PERRLA Mouth exam: PRESENT: neck supple Teeth exam: PRESENT: poor dentation Neck exam: ABSENT: carotid bruit, JVD, lymphadenopathy, thyromegaly Respiratory exam: PRESENT: crackles, decreased breath sounds Cardiovascular exam: PRESENT: RRR. ABSENT: diastolic murmur, rubs, systolic murmur GI/Abdominal exam: PRESENT: other - Obese abdomen bowel sounds are present. Rectal exam: PRESENT: deferred Extremities exam: PRESENT: +1 edema Neurological exam: PRESENT: alert, awake, oriented to person, oriented to place, oriented to time, oriented to situation, CN II-XII grossly intact. ABSENT: motor sensory deficit Skin exam: PRESENT: other - Skin tear present on the right arm with woozing. Results Laboratory Results: 08/23/19 02:24 08/24/19 05:45 08/24/19 05:45 Sodium 135.7 L Potassium 4.7 Chloride 108 H Carbon Dioxide 21 L Anion Gap 7 BUN 42 H D Creatinine 1.30 H Est GFR ( Amer) > 60 Glucose 159 H Calcium 7.7 L Phosphorus 2.8 Magnesium 2.1 08/20/19 08/20/19 08/20/19 17:00 17:00 23:09 Creatine Kinase 91 CK-MB (CK-2) Troponin I < 0.012 NT-Pro-B Natriuret Pep 77 08/20/19 08/21/19 08/21/19 23:09 01:16 07:37 Creatine Kinase 78 CK-MB (CK-2) Cancelled 1.35 Troponin I Cancelled < 0.012 NT-Pro-B Natriuret Pep 08/21/19 08/21/19 08/21/19 07:37 13:12 13:12 Creatine Kinase 75 CK-MB (CK-2) 1.00 0.91 Troponin I < 0.012 < 0.012 NT-Pro-B Natriuret Pep 08/23/19 08/23/19 02:24 02:48 Creatine Kinase 357 H CK-MB (CK-2) 0.75 Troponin I < 0.012 NT-Pro-B Natriuret Pep Impressions: Chest CT 08/20/19 18:37 IMPRESSION: No acute abnormality within the chest. Enlarged subcarinal lymph node measuring 1.8 x 3.5 cm in size, indeterminate/nonspecific. TECHNICAL DOCUMENTATION: Quality ID # 436: Final reports with documentation of one or more dose reduction techniques (e.g., Automated exposure control, adjustment of the mA and/or kV according to patient size, use of iterative reconstruction technique) copyright 2011 [employer]- All Rights Reserved Renal Ultrasound 08/21/19 00:00 IMPRESSION: Limited ultrasound of the kidneys and urinary bladder due to the patient's body habitus. The left kidney and urinary bladder were not visualized. There is no right-sided hydronephrosis. Chest X-Ray 08/23/19 00:00 IMPRESSION: Interval placement a right-sided central line. No pneumothorax. Catheter tip overlies the SVC. Abdomen/Pelvis CT 08/23/19 02:08 IMPRESSION: No acute findings. Assessment and Plan - Diagnosis (1) Acute kidney injury (nontraumatic) Is this a current diagnosis for this admission?: Yes Plan: 08/21/2019-patient admitted with acute kidney injury most likely secondary to medications. Baseline creatinine is around 1.45, on admission creatinine is 3.25 with IV fluids improved to 2.69. Plan is to continue the IV fluids at the rate of 50 cc/h. Renal ultrasound is requested. Lasix, telmisartan on hold. plan is to repeat the labs tomorrow. 08/22/19-patient admitted with acute kidney injury creatinine at the time of admission is 3.25 with IV fluids it improved to 2.69 but it is back up to 3.24 today. Renal ultrasound was done is suboptimal study. 08/24/2019-serum creatinine today is 1.3 acute kidney injury resolving. (2) Essential hypertension Is this a current diagnosis for this admission?: Yes Plan: 08/21/2019-patient has history of chronic essential hypertension blood pressure is fluctuating. Latest blood pressure is 114/60. Stable. Presently on IV fluids at 50 cc/h. 08/22/19-blood pressure today is 110/60. Presently on IV fluids normal saline 100 cc/h. 08/24/2019-blood pressure today is 113/60 with heart rate of 89. Stable. Presently patient is off the IV fluids. (3) Morbid obesity Is this a current diagnosis for this admission?: Yes Plan: 08/21/2019-patient's BMI is more than 49 diet exercise weight loss lifestyle m odifications discussed with the patient. (4) Obstructive sleep apnea Is this a current diagnosis for this admission?: Yes Plan: The patient has his home CPAP device at his bedside. It should be used during any sleep and PRN. (5) Coronary artery disease Qualifiers: Coronary Disease-Associated Artery/Lesion type: [place] artery [place] vs. transplanted heart: [place] heart Associated angina: angina presence unspecified Qualified Code(s): I25.10 - Atherosclerotic heart disease of [place] coronary artery without angina pectoris Is this a current diagnosis for this admission?: Yes Plan: 08/21/2019-patient has history of coronary artery disease came in with chest pains and troponins or EKGs are negative. Cardiology consult was placed. (6) Sepsis Is this a current diagnosis for this admission?: Yes Plan: 08/24/2019-patient came in with acute kidney injury, became hypotensive requiring pressors in the ICU, urine culture is positive for E. coli and blood cultures are positive for gram-negative rods and the patient is on cephapirin. Meet the criteria for a sepsis. - Plan Summary Summary: Patient will be admitted to [facility] where he will receive routine supportive and symptomatic cares. He will be treated with IV fluid and his renal functions and electrolytes will be followed closely. He will be continued on supplemental oxygen per the oxygen protocol during the day and CPAP at night and PRN. He will receive morphine sulfate 2 to 4 mg IV every 2 hours as needed for pain using a sliding scale for dosage. He will receive Ativan 1 mg IV every 4 hours as needed anxiety or restlessness. Serial cardiac enzymes will be obtained. He will be on a cardiac diet. CBCs, metabolic profiles, magnesium levels and additional radiography will be obtained as appropriate. Nephrology consultation will be obtained as appropriate. Patient will be continued on his usual home medications, as appropriate, once his medication list has been verified and reconciled.
[2019-08-24] MEDS: TAMSULOSIN HCL 0.4 MG CAP.SR.24H PO SCH (18:25)
[2019-08-24] MEDS: CEFEPIME 1 GM/D5W RTU 1 GM/50 ML RTUPB IV SCH (18:33)
[2019-08-24] MEDS: INSULIN GLARGINE,HUM.REC.ANLOG 1,000 UNIT/10 ML VIAL SUBCUT SCH (23:05)
[2019-08-24] MEDS: ZOLPIDEM TARTRATE 5 MG TABLET PO PRN (23:12)
[2019-08-24] MEDS: ATORVASTATIN CALCIUM 20 MG TABLET PO SCH (23:12)
[2019-08-24] MEDS: ROPINIROLE HCL 1 MG TABLET PO SCH (23:13)
[2019-08-25] MEDS: IPRATROPIUM BROMIDE 0.02% NEB 0.5 MG/2.5 ML AMPUL NEB SCH ×4 (00:23→23:36)
[2019-08-25] MEDS: LEVALBUTEROL HCL NEB 1.25 MG/3 ML AMPUL NEB SCH ×4 (00:23→23:36)
[2019-08-25] MEDS: HEPARIN SOD (PORCINE) 5,000 UNIT/ML 1 ML VIAL SUBCUT SCH ×3 (06:45→21:43)
[2019-08-25] MEDS: CEFEPIME 1 GM/D5W RTU 1 GM/50 ML RTUPB IV SCH ×2 (06:45→17:13)
[2019-08-25] MEDS: HYDROCORTISONE SOD SUCCINATE INJ/PF 100 MG/2 ML SDV IV SCH ×3 (06:45→21:42)
[2019-08-25] MEDS: PANTOPRAZOLE SODIUM 40 MG TABLET.DR PO SCH (06:46)
[2019-08-25] MEDS: INSULIN REG, HUMAN 100 UNIT/ML 3 ML VIAL (PYX) SUBCUT SCH ×4 (07:30→21:43)
[2019-08-25 07:51] LABS: HEMATOCRIT 26.3 % (37.9-51.0); HEMOGLOBIN 9.1 g/dL (13.5-17.0); MEAN CORPUSCULAR HEMOGLOBIN 30.8 pg (27.0-33.4); MEAN CORPUSCULAR HGB CONC 34.7 g/dL (32.0-36.0); MEAN CORPUSCULAR VOLUME 89 fl (80-97); PLATELET COUNT 233 10^3/uL (150-450); RED BLOOD COUNT 2.97 10^6/uL (4.35-5.55); RED CELL DISTRIBUTION WIDTH 16.4 % (11.5-14.0); WHITE BLOOD COUNT 5.1 10^3/uL (4.0-10.5)
[2019-08-25 08:12] LABS: ALBUMIN 2.8 g/dL (3.5-5.0); ALKALINE PHOSPHATASE 56 U/L (38-126); ANION GAP 7 (5-19); ASPARTATE AMINO TRANSFERASE 20 U/L (17-59); BILIRUBIN,TOTAL 0.5 mg/dL (0.2-1.3); BLOOD UREA NITROGEN 34 mg/dL (7-20); CALCIUM 8.2 mg/dL (8.4-10.2); CARBON DIOXIDE 23 mmol/L (22-30); CHLORIDE 109 mmol/L (98-107); GLUCOSE 104 mg/dL (75-110); POTASSIUM 3.7 mmol/L (3.6-5.0); TOTAL PROTEIN 5.6 g/dL (6.3-8.2)
[2019-08-25 08:17] LABS: ABSOLUTE LYMPHOCYTES# (MANUAL) 0.7 10^3/uL (0.5-4.7); ABSOLUTE MONOCYTES # (MANUAL) 0.1 10^3/uL (0.1-1.4); BASOPHILS % (MANUAL) 0 % (0-2); EOSINOPHILS % (MANUAL) 2 % (0-6); LYMPHOCYTES % (MANUAL) 13 % (13-45); METAMYELOCYTES % (MANUAL) 1 % (0-1); MONOCYTES % (MANUAL) 1 % (3-13); SEGMENTED NEUTROPHILS % (MAN) 83 % (42-78); TOTAL CELLS COUNTED 100
[2019-08-25 08:18] LABS: ANISOCYTOSIS 1+; OVALOCYTES SLIGHT
[2019-08-25 08:19] LABS: PLATELET COMMENT ADEQUATE
--- NOTE | 2019-08-25 09:36 | PDOC PROGRESS REPORT ---
Subjective Progress Note for:: 08/25/19 Subjective:: 78 year old male who presents to the emergency room with a 4-day history of chest pain. He admits the intermittent presence of moderate nonradiating central chest pressure accompanied by fluttering palpitations, dyspnea worsened with exertion and orthopnea. His chest pain/pressure has been associated with generalized "pain all over my body". He admits a recent quadrupling of his Lasix dose for treatment of his chronic lower leg dependent edema due to venous stasis. He denies other associated or accompanying signs and symptoms. He denies prior similar episodes. He has not identified any additional aggravating or ameliorating factors for his chest pain. In the emergency room he was found to have a creatinine of 3.25 and was initially hypertensive. His cardiac enzymes and EKG showed no evidence of acute myocardial ischemia or injury. Patient was subsequently admitted to the hospital for further evaluation and treatment. 08/21/2019-morbidly obese male comfortably in the bed on CPAP. Denies any chest pains. Blood pressures are fluctuating. 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 Creatinine improved from 3.25-2.69 and his baseline creatinine is around 1.45. And is presently on IV fluids at 165 cc/h plan is to decrease the fluids to 50 cc/h. 08/22/2019-patient became hypotensive last night systolic blood pressure in the 70s 1 L of IV fluids was given blood pressure came up to 110/60. Patient is not on antihypertensive medications except for metoprolol. Comfortably in the bed communicating well complaining of right hip pain requesting pain medication. Is on IV morphine sliding scale. Plan is to increase the IV fluids 200 cc/h to watch for the fluid overload. P the labs tomorrow. Creatinine worsened from 2.69 to 3.24 today. 08/24/19-morbidly obese male comfortably in the bed communicating reasonably. Patient was transferred from medical floor to the ICU 2 days ago with hypotension. A-line confirmed that patient has hypotension. Patient is initially on vasopressin and IV fluids. Urine culture came back positive for E. coli and blood cultures are positive for gram-negative rods. Patient is presently on cefepime, afebrile. Patient is stable to go to the medical floor today. 08/25/2019-blood cultures came back positive for E. coli sensitivity to cefepime. Urine culture is also positive for E. coli. Patient is afebrile. He is on one-to-one observation this morning because he tried to pull off his BiPAP last night. Patient is requesting home oxygen at the time of discharge. uses CPAP at home. Reason For Visit: ACUTE KIDNEY INJURY,CHEST PAIN,PALPITATIONS,CHRONI Physical Exam Vital Signs: Temp Pulse Resp BP Pulse Ox 97.7 F 100 25 H 127/76 H 99 08/25/19 08:00 08/25/19 08:00 08/25/19 08:00 08/25/19 08:00 08/25/19 08:00 Intake & Output 08/24/19 08/25/19 08/26/19 06:59 06:59 06:59 Intake Total 5187 2000 Output Total 2100 1175 Balance 3087 825 Weight 159.1 kg 159.1 kg General appearance: PRESENT: no acute distress, morbidly obese Head exam: PRESENT: atraumatic Eye exam: PRESENT: PERRLA Mouth exam: PRESENT: moist, tongue midline Teeth exam: PRESENT: poor dentation Neck exam: ABSENT: carotid bruit, JVD, lymphadenopathy, thyromegaly Respiratory exam: PRESENT: decreased breath sounds Cardiovascular exam: PRESENT: RRR. ABSENT: diastolic murmur, rubs, systolic murmur GI/Abdominal exam: PRESENT: normal bowel sounds, soft. ABSENT: distended, guarding, mass, organolmegaly, rebound, tenderness Rectal exam: PRESENT: deferred Extremities exam: PRESENT: full ROM. ABSENT: calf tenderness, clubbing, pedal edema Neurological exam: PRESENT: alert, awake, oriented to person, oriented to place, oriented to time, oriented to situation, CN II-XII grossly intact. ABSENT: motor sensory deficit Psychiatric exam: PRESENT: appropriate affect, normal mood. ABSENT: homicidal ideation, suicidal ideation Results Laboratory Results: 08/25/19 07:30 08/25/19 07:30 08/25/19 08/25/19 07:30 07:30 WBC 5.1 RBC 2.97 L Hgb 9.1 L Hct 26.3 L MCV 89 MCH 30.8 MCHC 34.7 RDW 16.4 H Plt Count 233 Seg Neutrophils % Not Reportable Sodium 138.5 Potassium 3.7 Chloride 109 H Carbon Dioxide 23 Anion Gap 7 BUN 34 H Creatinine 1.07 Est GFR ( Amer) > 60 Glucose 104 Calcium 8.2 L Magnesium 2.1 Total Bilirubin 0.5 AST 20 Alkaline Phosphatase 56 Total Protein 5.6 L Albumin 2.8 L 08/23/19 02:24 Blood Blood Culture - Final Escherichia Coli 08/20/19 08/20/19 08/20/19 17:00 17:00 23:09 Creatine Kinase 91 CK-MB (CK-2) Troponin I < 0.012 NT-Pro-B Natriuret Pep 77 08/20/19 08/21/19 08/21/19 23:09 01:16 07:37 Creatine Kinase 78 CK-MB (CK-2) Cancelled 1.35 Troponin I Cancelled < 0.012 NT-Pro-B Natriuret Pep 08/21/19 08/21/19 08/21/19 07:37 13:12 13:12 Creatine Kinase 75 CK-MB (CK-2) 1.00 0.91 Troponin I < 0.012 < 0.012 NT-Pro-B Natriuret Pep 08/23/19 08/23/19 02:24 02:48 Creatine Kinase 357 H CK-MB (CK-2) 0.75 Troponin I < 0.012 NT-Pro-B Natriuret Pep Impressions: Chest CT 08/20/19 18:37 IMPRESSION: No acute abnormality within the chest. Enlarged subcarinal lymph node measuring 1.8 x 3.5 cm in size, indeterminate/nonspecific. TECHNICAL DOCUMENTATION: Quality ID # 436: Final reports with documentation of one or more dose reduction techniques (e.g., Automated exposure control, adjustment of the mA and/or kV according to patient size, use of iterative reconstruction technique) copyright 2011 [employer]- All Rights Reserved Renal Ultrasound 08/21/19 00:00 IMPRESSION: Limited ultrasound of the kidneys and urinary bladder due to the patient's body habitus. The left kidney and urinary bladder were not visualized. There is no right-sided hydronephrosis. Chest X-Ray 08/23/19 00:00 IMPRESSION: Interval placement a right-sided central line. No pneumothorax. Catheter tip overlies the SVC. Abdomen/Pelvis CT 08/23/19 02:08 IMPRESSION: No acute findings. Assessment and Plan - Diagnosis (1) Acute kidney injury (nontraumatic) Is this a current diagnosis for this admission?: Yes Plan: 08/21/2019-patient admitted with acute kidney injury most likely secondary to medications. Baseline creatinine is around 1.45, on admission creatinine is 3.25 with IV fluids improved to 2.69. Plan is to continue the IV fluids at the rate of 50 cc/h. Renal ultrasound is requested. Lasix, telmisartan on hold. plan is to repeat the labs tomorrow. 08/22/19-patient admitted with acute kidney injury creatinine at the time of admission is 3.25 with IV fluids it improved to 2.69 but it is back up to 3.24 today. Renal ultrasound was done is suboptimal study. 08/24/2019-serum creatinine today is 1.3 acute kidney injury resolving. 08/25/2019-serum creatinine today is 1.07 on admission creatinine is 3.25. Acute kidney injury resolved. (2) Essential hypertension Is this a current diagnosis for this admission?: Yes Plan: 08/21/2019-patient has history of chronic essential hypertension blood pressure is fluctuating. Latest blood pressure is 114/60. Stable. Presently on IV fluids at 50 cc/h. 08/22/19-blood pressure today is 110/60. Presently on IV fluids normal saline 100 cc/h. 08/24/2019-blood pressure today is 113/60 with heart rate of 89. Stable. Presently patient is off the IV fluids. 08/25/2019-blood pressure today is 144/73. Stable. Not on IV fluids at this time. (3) Morbid obesity Is this a current diagnosis for this admission?: Yes Plan: 08/21/2019-patient's BMI is more than 49 diet exercise weight loss lifestyle modif ications discussed with the patient. (4) Obstructive sleep apnea Is this a current diagnosis for this admission?: Yes Plan: The patient has his home CPAP device at his bedside. It should be used during any sleep and PRN. (5) Coronary artery disease Qualifiers: Coronary Disease-Associated Artery/Lesion type: [place] artery [place] vs. transplanted heart: [place] heart Associated angina: angina presence unspecified Qualified Code(s): I25.10 - Atherosclerotic heart disease of [place] coronary artery without angina pectoris Is this a current diagnosis for this admission?: Yes Plan: 08/21/2019-patient has history of coronary artery disease came in with chest pains and troponins or EKGs are negative. Cardiology consult was placed. (6) Sepsis Is this a current diagnosis for this admission?: Yes Plan: 08/24/2019-patient came in with acute kidney injury, became hypotensive requiring pressors in the ICU, urine culture is positive for E. coli and blood cultures are positive for gram-negative rods and the patient is on cephapirin. Meet the criteria for a sepsis. 08/25/19-blood cultures are positive for E. coli and urine cultures are positive for E. coli on cephapirin. Afebrile. JOHN resolved. Sepsis is resolving. - Plan Summary Summary: Patient will be admitted to [facility] where he will receive routine supportive and symptomatic cares. He will be treated with IV fluid and his renal functions and electrolytes will be followed closely. He will be continued on supplemental oxygen per the oxygen protocol during the day and CPAP at night and PRN. He will receive morphine sulfate 2 to 4 mg IV every 2 hours as needed for pain using a sliding scale for dosage. He will receive Ativan 1 mg IV every 4 hours as needed anxiety or restlessness. Serial cardiac enzymes will be obtained. He will be on a cardiac diet. CBCs, metabolic profiles, magnesium levels and additional radiography will be obtained as appropriate. Nephrology consultation will be obtained as appropriate. Patient will be continued on his usual home medications, as appropriate, once his medication list has been verified and reconciled.
[2019-08-25] MEDS ORDERED: (PENDING PHARMACY ID) (Telmisartan [Telmisartan] 80 MG) PO SCH (10:00)
--- NOTE | 2019-08-25 11:43 | PDOC PROGRESS REPORT ---
Subjective Progress Note for:: 08/25/19 Subjective:: Patient has been transferred out of the intensive care unit. In the interim he had right internal jugular triple-lumen catheter placed for infusion of intravenous antibiotics as well as vasopressors. Has been on cefepime for culture positive E. coli Reason For Visit: ACUTE KIDNEY INJURY,CHEST PAIN,PALPITATIONS,CHRONI Physical Exam Vital Signs: Temp Pulse Resp BP Pulse Ox 97.7 F 100 25 H 127/76 H 99 08/25/19 08:00 08/25/19 08:00 08/25/19 08:00 08/25/19 08:00 08/25/19 08:00 Intake & Output 08/24/19 08/25/19 08/26/19 06:59 06:59 06:59 Intake Total 5187 2000 Output Total 2100 1175 Balance 3087 825 Weight 159.1 kg 159.1 kg General appearance: PRESENT: no acute distress, cooperative, morbidly obese, well-developed, well-nourished Head exam: PRESENT: atraumatic, normocephalic Eye exam: PRESENT: EOMI Mouth exam: PRESENT: moist Respiratory exam: PRESENT: decreased breath sounds, symmetrical, unlabored Cardiovascular exam: PRESENT: RRR, +S1, +S2 GI/Abdominal exam: PRESENT: soft Rectal exam: PRESENT: deferred Neurological exam: PRESENT: alert, awake, oriented to person, oriented to place, oriented to time, oriented to situation Psychiatric exam: PRESENT: appropriate affect Skin exam: PRESENT: dry, intact, normal color Results Laboratory Results: 08/25/19 07:30 08/25/19 07:30 08/25/19 08/25/19 07:30 07:30 WBC 5.1 RBC 2.97 L Hgb 9.1 L Hct 26.3 L MCV 89 MCH 30.8 MCHC 34.7 RDW 16.4 H Plt Count 233 Seg Neutrophils % Not Reportable Sodium 138.5 Potassium 3.7 Chloride 109 H Carbon Dioxide 23 Anion Gap 7 BUN 34 H Creatinine 1.07 Est GFR ( Amer) > 60 Glucose 104 Calcium 8.2 L Magnesium 2.1 Total Bilirubin 0.5 AST 20 Alkaline Phosphatase 56 Total Protein 5.6 L Albumin 2.8 L 08/23/19 02:24 Blood Blood Culture - Final Escherichia Coli 08/20/19 08/20/19 08/20/19 17:00 17:00 23:09 Creatine Kinase 91 CK-MB (CK-2) Troponin I < 0.012 NT-Pro-B Natriuret Pep 77 08/20/19 08/21/19 08/21/19 23:09 01:16 07:37 Creatine Kinase 78 CK-MB (CK-2) Cancelled 1.35 Troponin I Cancelled < 0.012 NT-Pro-B Natriuret Pep 08/21/19 08/21/19 08/21/19 07:37 13:12 13:12 Creatine Kinase 75 CK-MB (CK-2) 1.00 0.91 Troponin I < 0.012 < 0.012 NT-Pro-B Natriuret Pep 08/23/19 08/23/19 02:24 02:48 Creatine Kinase 357 H CK-MB (CK-2) 0.75 Troponin I < 0.012 NT-Pro-B Natriuret Pep Impressions: Chest CT 08/20/19 18:37 IMPRESSION: No acute abnormality within the chest. Enlarged subcarinal lymph node measuring 1.8 x 3.5 cm in size, indeterminate/nonspecific. TECHNICAL DOCUMENTATION: Quality ID # 436: Final reports with documentation of one or more dose reduction techniques (e.g., Automated exposure control, adjustment of the mA and/or kV according to patient size, use of iterative reconstruction technique) copyright 2011 [employer] [facility]- All Rights Reserved Renal Ultrasound 08/21/19 00:00 IMPRESSION: Limited ultrasound of the kidneys and urinary bladder due to the patient's body habitus. The left kidney and urinary bladder were not visualized. There is no right-sided hydronephrosis. Chest X-Ray 08/23/19 00:00 IMPRESSION: Interval placement a right-sided central line. No pneumothorax. Catheter tip overlies the SVC. Abdomen/Pelvis CT 08/23/19 02:08 IMPRESSION: No acute findings. Assessment & Plan - Diagnosis (1) Acute kidney injury (nontraumatic) Is this a current diagnosis for this admission?: Yes Plan: Acute kidney injury. Likely multifactorial Had ongoing infection and sepsis Hypotension also. Creatinine is improving. (2) Chest pain Qualifiers: Chest pain type: unspecified Qualified Code(s): R07.9 - Chest pain, unspecified Is this a current diagnosis for this admission?: Yes Plan: Presently not complaining of chest pain. Continue to watch. (3) Essential hypertension Is this a current diagnosis for this admission?: Yes Plan: Had become hypotensive. Had to hold back on diuretics. Now we will continue to monitor especially given sepsis and recent hypotension. Consider discontinuing Imdur especially if hypotensive or low normal blood pressures given recent sepsis (4) Obstructive sleep apnea Is this a current diagnosis for this admission?: Yes Plan: CPAP - Notes Notes: Continue intravenous antibiotic Continue losartan for systemic hypertension Consider discontinuing Imdur especially if hypotensive.
[2019-08-25] MEDS: FUROSEMIDE 20 MG TABLET PO SCH (11:54)
[2019-08-25] MEDS: LOSARTAN POTASSIUM 50 MG TABLET PO SCH (11:54)
[2019-08-25] MEDS: ISOSORBIDE MONONITRATE 60 MG TAB.ER.24H PO SCH (11:54)
[2019-08-25] MEDS: DOCUSATE SODIUM 100 MG CAPSULE PO SCH ×2 (11:54→17:13)
[2019-08-25] MEDS: CLOPIDOGREL BISULFATE 75 MG TABLET PO SCH (11:55)
[2019-08-25] MEDS: MONTELUKAST SODIUM 10 MG TABLET PO SCH (11:55)
[2019-08-25] MEDS: POTASSIUM CHLORIDE 10 MEQ TABLET.ER PO SCH ×2 (11:55→21:42)
[2019-08-25] MEDS: CITALOPRAM HYDROBROMIDE 20 MG TABLET PO SCH (11:55)
[2019-08-25] MEDS: FERROUS SULFATE LIQUID 300 MG/5 ML UDC PO SCH (11:55)
[2019-08-25] MEDS: ACETAMINOPHEN 325 MG TABLET PO PRN (14:56)
[2019-08-25] MEDS ORDERED: OXYCODONE-ACETAMINOPHEN 5-325 MG TABLET PO PRN (15:28)
[2019-08-25] MEDS: TAMSULOSIN HCL 0.4 MG CAP.SR.24H PO SCH (17:13)
[2019-08-25] MEDS: ATORVASTATIN CALCIUM 20 MG TABLET PO SCH (21:42)
[2019-08-25] MEDS: INSULIN GLARGINE,HUM.REC.ANLOG 1,000 UNIT/10 ML VIAL SUBCUT SCH (21:42)
[2019-08-25] MEDS: ROPINIROLE HCL 1 MG TABLET PO SCH (21:45)
[2019-08-26] MEDS: OXYCODONE-ACETAMINOPHEN 5-325 MG TABLET PO PRN ×4 (02:47→21:30)
[2019-08-26] MEDS: ACETAMINOPHEN 325 MG TABLET PO PRN (05:08)
[2019-08-26] MEDS: HYDROCORTISONE SOD SUCCINATE INJ/PF 100 MG/2 ML SDV IV SCH ×3 (05:08→21:22)
[2019-08-26] MEDS: HEPARIN SOD (PORCINE) 5,000 UNIT/ML 1 ML VIAL SUBCUT SCH ×3 (05:08→21:23)
[2019-08-26] MEDS: PANTOPRAZOLE SODIUM 40 MG TABLET.DR PO SCH (05:09)
[2019-08-26] MEDS: CEFEPIME 1 GM/D5W RTU 1 GM/50 ML RTUPB IV SCH ×2 (05:09→17:30)
[2019-08-26 06:19] LABS: HEMOGLOBIN 8.7 g/dL (13.5-17.0); MEAN CORPUSCULAR HEMOGLOBIN 30.6 pg (27.0-33.4); MEAN CORPUSCULAR HGB CONC 34.9 g/dL (32.0-36.0); MEAN CORPUSCULAR VOLUME 88 fl (80-97); PLATELET COUNT 217 10^3/uL (150-450); RED BLOOD COUNT 2.85 10^6/uL (4.35-5.55); RED CELL DISTRIBUTION WIDTH 16.4 % (11.5-14.0); WHITE BLOOD COUNT 3.8 10^3/uL (4.0-10.5)
[2019-08-26 06:50] LABS: ALKALINE PHOSPHATASE 57 U/L (38-126); ANION GAP 6 (5-19); ASPARTATE AMINO TRANSFERASE 20 U/L (17-59); BILIRUBIN,TOTAL 0.4 mg/dL (0.2-1.3); BLOOD UREA NITROGEN 28 mg/dL (7-20); CALCIUM 8.3 mg/dL (8.4-10.2); CARBON DIOXIDE 25 mmol/L (22-30); CHLORIDE 107 mmol/L (98-107); GLUCOSE 129 mg/dL (75-110); POTASSIUM 4.4 mmol/L (3.6-5.0); TOTAL PROTEIN 5.8 g/dL (6.3-8.2)
[2019-08-26] MEDS: INSULIN REG, HUMAN 100 UNIT/ML 3 ML VIAL (PYX) SUBCUT SCH ×4 (07:25→21:23)
[2019-08-26 07:40] LABS: ABSOLUTE LYMPHOCYTES# (MANUAL) 0.4 10^3/uL (0.5-4.7); ABSOLUTE MONOCYTES # (MANUAL) 0.2 10^3/uL (0.1-1.4); BASOPHILS % (MANUAL) 0 % (0-2); EOSINOPHILS % (MANUAL) 0 % (0-6); LYMPHOCYTES % (MANUAL) 10 % (13-45); MONOCYTES % (MANUAL) 4 % (3-13); SEGMENTED NEUTROPHILS % (MAN) 86 % (42-78); TOTAL CELLS COUNTED 100
[2019-08-26 07:41] LABS: ANISOCYTOSIS 1+; PLATELET COMMENT ADEQUATE; PLATELET GIANT PRESENT
[2019-08-26] MEDS: IPRATROPIUM BROMIDE 0.02% NEB 0.5 MG/2.5 ML AMPUL NEB SCH ×2 (08:11→15:49)
[2019-08-26] MEDS: LEVALBUTEROL HCL NEB 1.25 MG/3 ML AMPUL NEB SCH ×2 (08:11→15:49)
[2019-08-26] MEDS: DOXAZOSIN MESYLATE 1 MG TABLET PO SCH (10:28)
[2019-08-26] MEDS: FERROUS SULFATE LIQUID 300 MG/5 ML UDC PO SCH (10:28)
[2019-08-26] MEDS: LOSARTAN POTASSIUM 50 MG TABLET PO SCH (10:29)
[2019-08-26] MEDS: CLOPIDOGREL BISULFATE 75 MG TABLET PO SCH (10:29)
[2019-08-26] MEDS: POTASSIUM CHLORIDE 10 MEQ TABLET.ER PO SCH ×2 (10:29→21:22)
[2019-08-26] MEDS: DOCUSATE SODIUM 100 MG CAPSULE PO SCH ×2 (10:29→17:30)
[2019-08-26] MEDS: MONTELUKAST SODIUM 10 MG TABLET PO SCH (10:30)
[2019-08-26] MEDS: FUROSEMIDE 20 MG TABLET PO SCH (10:30)
[2019-08-26] MEDS: CITALOPRAM HYDROBROMIDE 20 MG TABLET PO SCH (10:30)
[2019-08-26] MEDS: ISOSORBIDE MONONITRATE 60 MG TAB.ER.24H PO SCH (10:30)
--- NOTE | 2019-08-26 11:56 | PDOC PROGRESS REPORT ---
Subjective Progress Note for:: 08/26/19 Subjective:: No adverse events overnight. He is able to get up and ambulate with assistance. He said he would like to have physical therapy at home. He is on oxygen at night but has not been needing it during the day at home, he has been on it during the day here. He has been afebrile. He said good urine output. Reason For Visit: ACUTE KIDNEY INJURY,CHEST PAIN,PALPITATIONS,CHRONI Physical Exam Vital Signs: Temp Pulse Resp BP Pulse Ox 97.5 F 86 16 138/60 H 99 08/26/19 08:00 08/26/19 08:11 08/26/19 08:11 08/26/19 08:00 08/26/19 08:11 Intake & Output 08/25/19 08/26/19 08/27/19 06:59 06:59 06:59 Intake Total 1999 1055 Output Total 1175 600 Balance 825 455 Weight 159.1 kg 159.1 kg 159.1 kg General appearance: PRESENT: no acute distress, morbidly obese Teeth exam: PRESENT: poor dentation Neck exam: ABSENT: carotid bruit, JVD, lymphadenopathy, thyromegaly Respiratory exam: PRESENT: decreased breath sounds Cardiovascular exam: PRESENT: RRR. ABSENT: diastolic murmur, rubs, systolic murmur GI/Abdominal exam: PRESENT: normal bowel sounds, soft. ABSENT: distended, guarding, mass, organolmegaly, rebound, tenderness Rectal exam: PRESENT: deferred Extremities exam: PRESENT: full ROM. ABSENT: calf tenderness, clubbing, pedal edema Neurological exam: PRESENT: alert, awake, oriented to person, oriented to place, oriented to time, oriented to situation, CN II-XII grossly intact. ABSENT: motor sensory deficit Psychiatric exam: PRESENT: appropriate affect, normal mood. Results Laboratory Results: 08/26/19 05:21 08/26/19 05:21 08/26/19 08/26/19 05:21 05:21 WBC 3.8 L RBC 2.85 L Hgb 8.7 L Hct 25.0 L MCV 88 MCH 30.6 MCHC 34.9 RDW 16.4 H Plt Count 217 Seg Neutrophils % Not Reportable Sodium 138.0 Potassium 4.4 Chloride 107 Carbon Dioxide 25 Anion Gap 6 BUN 28 H Creatinine 0.96 Est GFR ( Amer) > 60 Glucose 129 H Calcium 8.3 L Magnesium 1.9 Total Bilirubin 0.4 AST 20 Alkaline Phosphatase 57 Total Protein 5.8 L Albumin 3.0 L 08/23/19 02:24 Blood Blood Culture - Final Escherichia Coli 08/20/19 08/20/19 08/20/19 17:00 17:00 23:09 Creatine Kinase 91 CK-MB (CK-2) Troponin I < 0.012 NT-Pro-B Natriuret Pep 77 08/20/19 08/21/19 08/21/19 23:09 01:16 07:37 Creatine Kinase 78 CK-MB (CK-2) Cancelled 1.35 Troponin I Cancelled < 0.012 NT-Pro-B Natriuret Pep 08/21/19 08/21/19 08/21/19 07:37 13:12 13:12 Creatine Kinase 75 CK-MB (CK-2) 1.00 0.91 Troponin I < 0.012 < 0.012 NT-Pro-B Natriuret Pep 08/23/19 08/23/19 02:24 02:48 Creatine Kinase 357 H CK-MB (CK-2) 0.75 Troponin I < 0.012 NT-Pro-B Natriuret Pep Impressions: Chest CT 08/20/19 18:37 IMPRESSION: No acute abnormality within the chest. Enlarged subcarinal lymph node measuring 1.8 x 3.5 cm in size, indeterminate/nonspecific. TECHNICAL DOCUMENTATION: Quality ID # 436: Final reports with documentation of one or more dose reduction techniques (e.g., Automated exposure control, adjustment of the mA and/or kV according to patient size, use of iterative reconstruction technique) copyright 2011 [employer]- All Rights Reserved Renal Ultrasound 08/21/19 00:00 IMPRESSION: Limited ultrasound of the kidneys and urinary bladder due to the patient's body habitus. The left kidney and urinary bladder were not v isualized. There is no right-sided hydronephrosis. Chest X-Ray 08/23/19 00:00 IMPRESSION: Interval placement a right-sided central line. No pneumothorax. Catheter tip overlies the SVC. Abdomen/Pelvis CT 08/23/19 02:08 IMPRESSION: No acute findings. Assessment and Plan - Diagnosis (1) E coli bacteremia Is this a current diagnosis for this admission?: Yes Plan: Due to his UTI. He is currently on cefepime. There is some antibiotic resistance but it looks like he would be able to take either a second or third generation oral cephalosporin to complete his treatment when he leaves the hospital. (2) Acute kidney injury (nontraumatic) Is this a current diagnosis for this admission?: Yes Plan: Resolved (3) Coronary artery disease Qualifiers: Coronary Disease-Associated Artery/Lesion type: [place] artery [place] vs. transplanted heart: [place] heart Associated angina: angina presence unspecified Qualified Code(s): I25.10 - Atherosclerotic heart disease of [place] coronary artery without angina pectoris Is this a current diagnosis for this admission?: Yes Plan: 08/21/2019-patient has history of coronary artery disease came in with chest pains and troponins or EKGs are negative. Cardiology consult was placed. (4) Essential hypertension Is this a current diagnosis for this admission?: Yes Plan: Stable. Not on IV fluids at this time. (5) Morbid obesity Is this a current diagnosis for this admission?: Yes Plan: patient's BMI is more than 49 diet exercise weight loss lifestyle modifications discussed with the patient. (6) Obstructive sleep apnea Is this a current diagnosis for this admission?: Yes Plan: The patient has his home CPAP device at his bedside. It should be used during any sleep and PRN. (7) Sepsis Qualifiers: Sepsis type: Escherichia coli Sepsis acute organ dysfunction status: with acute organ dysfunction Severe sepsis acute organ dysfunction type: acute renal failure Acute renal failure type: with other specified pathological lesion Severe sepsis shock status: without septic shock Qualified Code(s): A41.51 - Sepsis due to Escherichia coli [E. coli]; R65.20 - Severe sepsis without septic shock; N17.8 - Other acute kidney failure Is this a current diagnosis for this admission?: Yes Plan: Due to UTI and E. coli bacteremia. Acute organ failure has resolved. He is on cefepime. (8) Urinary tract infection with pyuria Is this a current diagnosis for this admission?: Yes Plan: Continue cefepime. Should be able to transition to an oral second or third generation cephalosporin at discharge. - Plan Summary Summary: Patient will be admitted to [facility] where he will receive routine supportive and symptomatic cares. He will be treated with IV fluid and his renal functions and electrolytes will be followed closely. He will be continued on supplemental oxygen per the oxygen protocol during the day and CPAP at night and PRN. He will receive morphine sulfate 2 to 4 mg IV every 2 hours as needed for pain using a sliding scale for dosage. He will receive Ativan 1 mg IV every 4 hours as needed anxiety or restlessness. Serial cardiac enzymes will be obtained. He will be on a cardiac diet. CBCs, metabolic profiles, magnesium levels and additional radiography will be obtained as appropriate. Nephrology consultation will be obtained as appropriate. Patient will be continued on his usual home medications, as appropriate, once his medication list has been verified and reconciled. - Time Time Spent with patient: 15-24 minutes
[2019-08-26] MEDS: NYSTATIN CREAM 15 GM TP SCH ×3 (14:28→17:28)
[2019-08-26] MEDS: TAMSULOSIN HCL 0.4 MG CAP.SR.24H PO SCH (17:30)
[2019-08-26] MEDS: ROPINIROLE HCL 1 MG TABLET PO SCH (21:22)
[2019-08-26] MEDS: ATORVASTATIN CALCIUM 20 MG TABLET PO SCH (21:22)
[2019-08-26] MEDS: INSULIN GLARGINE,HUM.REC.ANLOG 1,000 UNIT/10 ML VIAL SUBCUT SCH (21:23)
[2019-08-26] MEDS: ZOLPIDEM TARTRATE 5 MG TABLET PO PRN (21:30)
[2019-08-27] MEDS: LEVALBUTEROL HCL NEB 1.25 MG/3 ML AMPUL NEB SCH ×3 (00:26→16:33)
[2019-08-27] MEDS: IPRATROPIUM BROMIDE 0.02% NEB 0.5 MG/2.5 ML AMPUL NEB SCH ×3 (00:26→16:33)
[2019-08-27] MEDS: CEFEPIME 1 GM/D5W RTU 1 GM/50 ML RTUPB IV SCH (05:14)
[2019-08-27] MEDS: HEPARIN SOD (PORCINE) 5,000 UNIT/ML 1 ML VIAL SUBCUT SCH ×3 (05:14→22:26)
[2019-08-27] MEDS: HYDROCORTISONE SOD SUCCINATE INJ/PF 100 MG/2 ML SDV IV SCH ×3 (05:15→22:27)
[2019-08-27] MEDS: PANTOPRAZOLE SODIUM 40 MG TABLET.DR PO SCH (05:15)
[2019-08-27] MEDS: INSULIN REG, HUMAN 100 UNIT/ML 3 ML VIAL (PYX) SUBCUT SCH ×4 (07:31→22:25)
[2019-08-27] MEDS: FERROUS SULFATE LIQUID 300 MG/5 ML UDC PO SCH (09:11)
[2019-08-27] MEDS: CLOPIDOGREL BISULFATE 75 MG TABLET PO SCH (09:14)
[2019-08-27] MEDS: DOXAZOSIN MESYLATE 1 MG TABLET PO SCH (09:14)
[2019-08-27] MEDS: FUROSEMIDE 20 MG TABLET PO SCH (09:14)
[2019-08-27] MEDS: MONTELUKAST SODIUM 10 MG TABLET PO SCH (09:14)
[2019-08-27] MEDS: DOCUSATE SODIUM 100 MG CAPSULE PO SCH ×2 (09:14→17:33)
[2019-08-27] MEDS: LOSARTAN POTASSIUM 50 MG TABLET PO SCH (09:15)
[2019-08-27] MEDS: ISOSORBIDE MONONITRATE 60 MG TAB.ER.24H PO SCH (09:15)
[2019-08-27] MEDS: POTASSIUM CHLORIDE 10 MEQ TABLET.ER PO SCH ×2 (09:24→22:25)
[2019-08-27] MEDS: CITALOPRAM HYDROBROMIDE 20 MG TABLET PO SCH (09:24)
[2019-08-27] MEDS: NYSTATIN CREAM 15 GM TP SCH ×3 (11:59→17:45)
--- NOTE | 2019-08-27 12:47 | PDOC PROGRESS REPORT ---
Subjective Progress Note for:: 08/27/19 Subjective:: The patient is a 78-year-old male with history of CAD status post MIR to the mid LAD and left circumflex in December 2004, hyperlipidemia, hypertension, asthma, morbid obesity, sleep apnea on CPAP, diabetes, restrictive lung disease who was admitted to our institution on 08/20/2019 due to shortness of breath, chest pain and hypertension. He was initially consulted to my partner, Dr. Estrada, please review his notes for further details. In summary, the patient had developed significant lower extremity edema as well as significant dyspnea, orthopnea and PND reason why he self increased his outpatient Lasix dose. His condition continued to deteriorate therefore he came to the emergency room where he was found to have a creatinine of 3.25 consistent with acute kidney injury. He was initially admitted to the medical floor where he was given IV fluids. He eventually had an episode of hypotension and his creatinine went from 2.69 back to 3.24 and was again given IV fluids. In the meantime, it was noted that his blood pressure readings where unreliable given his body habitus and, because of clinical deterioration, he was transferred to the ICU where an arterial line was placed. He was also found to have a UTI and sepsis. He required vasopressin as well as significant amounts of IV fluid. He was transferred out of the ICU however he continues to complain of significant shortness of breath. Of note he is close to 11.5 L positive in his fluid balance. Physical exam on 08/27/2019: GENERAL: Pleasant and conversational. Oriented x3 with normal mood. Morbidly obese. Short of breath with minimal exertion. HEENT: Normocephalic, atraumatic. Pupils equal. Sclerae anicteric. Oropharynx moist. NECK: Very difficult to evaluate for JVD given his body habitus. EXTREMITIES: 3+ pitting edema bilaterally SKIN: Multiple skin bruises noted. MUSCULOSKELETAL: No chest tenderness to palpation. NEUROLOGIC: Nonfocal. No gross sensory or motor deficits bilateral upper or lower extremities. Cardiac studies: Echocardiogram on 08/22/2019 at [facility]: -Uninterpretable study. LHC on 07/11/2014: -Left main: No disease. -LAD: Widely patent stent in the mid LAD. Left circumflex: Dominant vessel, patent stent in the mid vessel, luminal irregu larities elsewhere. RCA: Nondominant vessel, moderate diffuse disease. Of note, the LVEDP was marke dly elevated. Echocardiogram on 03/02/2017: -Very poor study. -Study is essentially uninterpretable. -LV systolic function is grossly normal. -Valvular structures are not well visualized. Reason For Visit: ACUTE KIDNEY INJURY,CHEST PAIN,PALPITATIONS,CHRONI Physical Exam Vital Signs: Temp Pulse Resp BP Pulse Ox 98.3 F 77 18 177/85 H 98 08/27/19 07:47 08/27/19 07:55 08/27/19 07:55 08/27/19 07:47 08/27/19 07:55 Intake & Output 08/26/19 08/27/19 08/28/19 06:59 06:59 06:59 Intake Total 1055 1112 50 Output Total 600 1150 Balance 455 -38 50 Weight 159.1 kg 159.1 kg Results Laboratory Results: 08/26/19 05:21 08/26/19 05:21 08/20/19 08/20/19 08/20/19 17:00 17:00 23:09 Creatine Kinase 91 CK-MB (CK-2) Troponin I < 0.012 NT-Pro-B Natriuret Pep 77 08/20/19 08/21/19 08/21/19 23:09 01:16 07:37 Creatine Kinase 78 CK-MB (CK-2) Cancelled 1.35 Troponin I Cancelled < 0.012 NT-Pro-B Natriuret Pep 08/21/19 08/21/19 08/21/19 07:37 13:12 13:12 Creatine Kinase 75 CK-MB (CK-2) 1.00 0.91 Troponin I < 0.012 < 0.012 NT-Pro-B Natriuret Pep 08/23/19 08/23/19 02:24 02:48 Creatine Kinase 357 H CK-MB (CK-2) 0.75 Troponin I < 0.012 NT-Pro-B Natriuret Pep Impressions: Chest CT 08/20/19 18:37 IMPRESSION: No acute abnormality within the chest. Enlarged subcarinal lymph node measuring 1.8 x 3.5 cm in size, indeterminate/nonspecific. TECHNICAL DOCUMENTATION: Quality ID # 436: Final reports with documentation of one or more dose reduction techniques (e.g., Automated exposure control, adjustment of the mA and/or kV according to patient size, use of iterative reconstruction technique) copyright 2010 [employer]- All Rights Reserved Renal Ultrasound 08/21/19 00:00 IMPRESSION: Limited ultrasound of the kidneys and urinary bladder due to the patient's body habitus. The left kidney and urinary bladder were not visualized. There is no right-sided hydronephrosis. Chest X-Ray 08/23/19 00:00 IMPRESSION: Interval placement a right-sided central line. No pneumothorax. Catheter tip overlies the SVC. Abdomen/Pelvis CT 08/23/19 02:08 IMPRESSION: No acute findings. 08/26/19 05:21 08/26/19 05:21 MCV 88 fl (80-97) 08/26/19 05:21 MCH 30.6 pg (27.0-33.4) 08/26/19 05: MCHC 34.9 g/dL (32.0-36.0) 08/26/19 05: RDW 16.4 % (11.5-14.0) H 08/26/19 05:21 Seg Neutrophils % Not Reportable 08/26/19 05:21 Carbonic Acid 1.22 mmol/L (1.05-1.35) 08/23/19 02:18 HCO3/H2CO3 Ratio 16:1 08/23/19 02:18 ABG pH 7.32 (7.35-7.45) L 08/23/19 02:18 ABG pCO2 40.4 mmHg (35-45) 08/23/19 02:18 ABG pO2 67.8 mmHg (80-100) L 08/23/19 02:18 ABG HCO3 20.4 mmol/L (20-24) 08/23/19 02:18 ABG O2 Saturation 92.2 % (94-98) L 08/23/19 02:18 ABG Base Excess -5.3 mmol/L 08/23/19 02:18 FiO2 30% 08/23/19 02:18 Chloride 107 mmol/L (98-107) 08/26/19 05:21 Carbon Dioxide 25 mmol/L (22-30) 08/26/19 05:21 Anion Gap 6 (5-19) 08/26/19 05:21 Est GFR ( Amer) > 60 (>60) 08/26/19 05:21 Est GFR (Non-Af Amer) Cancelled 08/21/19 07:37 Glucose 129 mg/dL (75-110) H 08/26/19 05:21 Lactic Acid 0.9 mmol/L (0.7-2.1) 08/23/19 02:24 Calcium 8.3 mg/dL (8.4-10.2) L 08/26/19 05:21 Ionized Calcium [place] 1.03 mmol/L (1.14-1.30) L 08/23/19 02:24 Phosphorus 2.8 mg/dL (2.5-4.5) 08/24/19 05:45 Magnesium 1.9 mg/dL (1.6-2.3) 08/26/19 05:21 Total Bilirubin 0.4 mg/dL (0.2-1.3) 08/26/19 05:21 AST 20 U/L (17-59) 08/26/19 05:21 Alkaline Phosphatase 57 U/L (38-126) 08/26/19 05:21 Total Protein 5.8 g/dL (6.3-8.2) L 08/26/19 05:21 Albumin 3.0 g/dL (3.5-5.0) L 08/26/19 05:21 Triglycerides 201 mg/dL (<150) H 08/21/19 07:37 Cholesterol 89.92 mg/dL (0-200) 08/21/19 07:37 LDL Cholesterol Direct 39 mg/dL (<100) 08/21/19 07:37 VLDL Cholesterol 40.2 mg/dL (10-31) H 08/21/19 07:37 HDL Cholesterol 20 mg/dL (>40) L 08/21/19 07:37 TSH 4.61 uIU/mL (0.47-4.68) 08/21/19 07:37 Free T3 pg/mL 3.57 pg/mL (2.77-5.27) 08/21/19 07:37 Urine Color STRAW 08/20/19 23:39 Urine Appearance SLIGHTLY-CLOUDY 08/20/19 23:39 Urine pH 5.0 (5.0-9.0) 08/20/19 23:39 Ur Specific [place] 1.009 08/20/19 23:39 Urine Protein NEGATIVE mg/dL (NEGATIVE) 08/20/19 23:39 Urine Glucose (UA) NEGATIVE mg/dL (NEGATIVE) 08/20/19 23:39 Urine Ketones NEGATIVE mg/dL (NEGATIVE) 08/20/19 23:39 Urine Blood SMALL (NEGATIVE) H 08/20/19 23:39 Urine RBC (Auto) 0 /HPF 08/20/19 23:39 08/20/19 08/20/19 08/20/19 17:00 17:00 23:09 Creatine Kinase 91 CK-MB (CK-2) Troponin I < 0.012 NT-Pro-B Natriuret Pep 77 08/20/19 08/21/19 08/21/19 23:09 01:16 07:37 Creatine Kinase 78 CK-MB (CK-2) Cancelled 1.35 Troponin I Cancelled < 0.012 NT-Pro-B Natriuret Pep 08/21/19 08/21/19 08/21/19 07:37 13:12 13:12 Creatine Kinase 75 CK-MB (CK-2) 1.00 0.91 Troponin I < 0.012 < 0.012 NT-Pro-B Natriuret Pep 08/23/19 08/23/19 02:24 02:48 Creatine Kinase 357 H CK-MB (CK-2) 0.75 Troponin I < 0.012 NT-Pro-B Natriuret Pep Current Medication List Generic Name Dose Route Start Last Admin Trade Name Freq PRN Reason Stop Dose Admin Acetaminophen 650 mg 08/20/19 21:40 08/26/19 05:08 Tylenol 325 Mg Tablet PO 09/19/19 21:39 650 mg Q4HP PRN Administration For headache, pain or fever Al Hydrox/Mg Hydrox/Simethicone 30 ml 08/20/19 21:33 Maalox Plus Susp 30 Udcup PO 09/19/19 21:32 Q6HP PRN HEARTBURN Atorvastatin Calcium 20 mg 08/21/19 22:00 08/26/19 21:22 Lipitor 20 Mg Tablet PO 09/20/19 21:59 20 mg QHS ABIMBOLA Administration Cetirizine HCl 5 mg 08/21/19 09:27 Zyrtec 5 Mg Tablet PO 09/20/19 09:26 DAILYP PRN ALLERGIES Citalopram Hydrobromide 20 mg 08/21/19 10:00 08/27/19 09:24 Celexa 20 Mg Tablet PO 09/20/19 09:59 20 mg DAILY ABIMBOLA Administration Clopidogrel Bisulfate 75 mg 08/21/19 10:00 08/27/19 09:14 Plavix 75 Mg Tablet PO 09/20/19 09:59 75 mg DAILY ABIMBOLA Administration Dextrose 12.5 gm 08/21/19 09:40 Dextrose Inj 50% Syringe (25 Gm/50 Ml) IV 09/20/19 09:39 PRN PRN FOR BG 50-69 IN ALERT PATIENT Protocol Dextrose 25 gm 08/21/19 09:40 Dextrose Inj 50% Syringe (25 Gm/50 Ml) IV 09/20/19 09:39 PRN PRN PER PROTOCOL Protocol Docusate Sodium 100 mg 08/21/19 10:00 08/27/19 09:14 Colace 100 Mg Capsule PO 09/20/19 09:59 100 mg BID ABIMBOLA Administration Doxazosin Mesylate 1 mg 08/21/19 12:00 08/27/19 09:14 Cardura 1 Mg Tablet PO 09/20/19 11:59 1 mg DAILY ABIMBOLA Administration Ferrous Sulfate 142 mg 08/21/19 10:00 08/27/19 09:11 Ferrous Sulfate Liquid 300 Mg/5 Ml Udcup PO 09/20/19 09:59 142 mg DAILY ABIMBOLA Administration Fluticasone Propionate 1 spray 08/21/19 10:06 08/21/19 23:47 Flonase Nasal [place] 50 Mcg/[place] 16 Gm NASL 09/20/19 10:05 1 spr BIDP PRN Administration Furosemide 20 mg 08/25/19 10:00 08/27/19 09:14 Lasix 20 Mg Tablet PO 09/24/19 09:59 20 mg DAILY ABIMBOLA Administration Glucagon 1 mg 08/21/19 09:40 Glucagen Inj 1 Mg Vial IM 09/20/19 09:39 PRN PRN Evaluate for BG < 70 Protocol Glucose 15 gm 08/21/19 09:40 Glutose 40% Gel 15 Gm Tube PO 09/20/19 09:39 PRN PRN FOR BG 50-69 IN ALERT PATIENT Protocol Glucose 30 gm 08/21/19 09:40 Glutose 40% Gel 15 Gm Tube PO 09/20/19 09:39 PRN PRN FOR BG < 50 IN ALERT PATIENT Protocol Guaifenesin 200 mg 08/20/19 21:40 Robitussin Syrup 200 Mg/10 Ml Ud Cup PO 09/19/19 21:39 Q4HP PRN COUGH Heparin Sodium (Porcine) 5,000 unit 08/20/19 22:00 08/27/19 05:14 Heparin Inj 5,000 Units/Ml 1 Ml Vial SUBCUT 09/19/19 21:59 5,000 unit Q8 ABIMBOLA Administration Heparin Sodium (Porcine) 30 unit 08/24/19 06:00 08/27/19 05:15 Heparin Flush 10 Unit/Ml 5 Ml Disp.Syrg IV 09/23/19 05:59 30 unit Q8 ABIMBOLA Administration Heparin Sodium (Porcine) 30 unit 08/24/19 05:57 08/26/19 14:28 Heparin Flush 10 Unit/Ml 5 Ml Disp.Syrg IV 09/23/19 05:56 30 unit .AFTER EACH USE PRN Administration AFTER EACH INTERMITTENT USE Hydralazine HCl 20 mg 08/20/19 21:40 Apresoline Inj/Pf 20 Mg/1 Ml Sdv IV 09/19/19 21:39 Q4HP PRN Give For Sbp > 160 / Dbp > 100 Hydrocortisone Sodium Succinate 100 mg 08/23/19 07:45 08/27/19 05:15 Solu-Cortef Inj/Pf 100 Mg/ 2 Ml Sdv IV 09/22/19 07:44 100 mg Q8 ABIMBOLA Administration Cefepime HCl 1 gm in 50 mls @ 100 mls/hr 08/24/19 18:00 08/27/19 07:00 Maxipime Rtu 1 Gm/D5w 50 Ml Premix Bag IV 08/31/19 17:59 Infused Q12A ABIMBOLA Infusion Insulin Glargine 30 unit 08/23/19 22:00 08/26/19 21:23 Lantus Insulin 100 Unit/1 Ml 10 Ml SUBCUT 09/22/19 21:59 30 unit QHS ABIMBOLA Administration Insulin Human Regular 0 - 12 unit 08/21/19 11:00 08/27/19 11:57 Humulin R (Pyxis) Insulin 100 Unit/Ml 3ml SUBCUT 09/20/19 10:59 2 unit ACHS ABIMBOLA Administration Protocol Ipratropium [employer] 0.5 mg 08/21/19 00:00 08/27/19 07:49 Atrovent 0.02% Neb 0.5 Mg/2.5 Ml Ampul NEB 09/20/19 00:00 0.5 mg RTQ8 ABIMBOLA Administration Isosorbide Mononitrate 60 mg 08/21/19 10:00 08/27/19 09:15 Imdur 60 Mg Tablet.Er PO 09/20/19 09:59 60 mg DAILY ABIMBOLA Administration Levalbuterol HCl 0.63 mg 08/20/19 21:43 Xopenex Neb 0.63 Mg/3 Ml Ampul NEB 09/19/19 21:42 RTQ2HP PRN SHORTNESS OF BREATH Levalbuterol HCl 1.25 mg 08/21/19 00:00 08/27/19 07:49 Xopenex Neb 1.25 Mg/3 Ml Ampul NEB 09/20/19 00:00 1.25 mg RTQ8 ABIMBOLA Administration Losartan Potassium 100 mg 08/25/19 10:00 08/27/19 09:15 Cozaar 50 Mg Tablet PO 09/24/19 09:59 100 mg DAILY ABIMBOLA Administration Magnesium Hydroxide 30 ml 08/20/19 21:33 Milk Of Magnesia 30 Ml Udcup PO 09/19/19 21:32 HSP PRN FOR CONSTIPATION Metoprolol Tartrate 5 mg 08/20/19 21:40 Lopressor Inj/Pf 5 Mg/5 Ml Sdv IV 09/19/19 21:39 Q4HP PRN Give For Sbp > 160 / Dbp > 100 Montelukast Sodium 10 mg 08/21/19 10:00 08/27/19 09:14 Singulair 10 Mg Tablet PO 09/20/19 09:59 10 mg DAILY ABIMBOLA Administration Nystatin 1 applic 08/26/19 12:00 08/27/19 11:59 Mycostatin Cream 15 Gm TP 09/02/19 11:59 1 applic TID ABIMBOLA Administration Ondansetron HCl 4 mg 08/20/19 21:33 08/22/19 23:09 Zofran Inj/Pf 4 Mg/2 Ml Sdv IV 09/19/19 21:32 4 mg Q4HP PRN Administration FOR NAUSEA/VOMITING Oxycodone/Acetaminophen 1 tab 08/25/19 17:03 08/26/19 21:30 Percocet 5-325 Mg Tablet PO 09/01/19 17:02 1 tab Q4HP PRN Administration FOR BACK PAIN Pantoprazole Sodium 40 mg 08/21/19 06:00 08/27/19 05:[address] Tablet PO 09/20/19 05:59 40 mg Q6AM ABIMBOLA Administration Potassium Chloride 10 meq 08/25/19 10:00 08/27/19 09:24 Klor-Con 10 Meq Tablet Er PO 09/24/19 09:59 10 meq Q12 ABIMBOLA Administration Ropinirole HCl 1 mg 08/21/19 02:45 08/26/19 21:22 Requip 1 Mg Tablet PO 09/20/19 02:44 1 mg QHS ABIMBOLA Administration Sodium Chloride 2.5 ml 08/20/19 22:00 08/27/19 05:15 Saline Flush 2.5 Ml Monoject Prefil Syrin IV 09/19/19 21:59 Not Given Q8 ABIMBOLA Sodium Chloride 10 ml 08/24/19 05:57 Nacl 0.9% Inj/Pf 10 Ml Sdv IV 09/23/19 05:56 .AFTER EACH USE PRN AFTER EACH INTERMITTENT USE Tamsulosin HCl 0.4 mg 08/21/19 18:00 08/26/19 17:30 Flomax 0.4 Mg Cap.Sr PO 09/20/19 17:59 0.4 mg PCSUPPER ABIMBOLA Administration Zolpidem Tartrate 5 mg 08/21/19 22:00 08/26/19 21:30 Ambien 5 Mg Tablet PO 08/28/19 21:59 5 mg HSP PRN Administration INSOMNIA Discontinued Medications Generic Name Dose Route Start Last Admin Trade Name Freq PRN Reason Stop Dose Admin Aspirin 324 mg 08/20/19 16:34 08/20/19 17:02 Aspirin 81 Mg Chewable Tablet PO 08/20/19 16:35 324 mg NOW ONE Administration Aspirin 325 mg 08/20/19 20:15 08/20/19 20:31 Aspirin 325 Mg Tablet PO 08/20/19 20:16 325 mg NOW ONE Administration Sodium Chloride 1,000 mls @ 0 mls/hr 08/20/19 20:18 08/20/19 20:31 Nacl 0.9% 1000 Ml Iv Soln IV 08/20/19 20:19 999 mls/hr BOLUS ONE Administration Wide Open Lactated Ringer's 1,000 mls @ 167 mls/hr 08/20/19 21:33 08/21/19 10:21 Lactated Ringers 1000 Ml Iv Soln IV 09/19/19 21:32 Infused CONTINUOUS PRN Infusion THIS MED IS NOT "PRN" Lactated Ringer's 1,000 mls @ 100 mls/hr 08/21/19 09:29 08/23/19 12:21 Lactated Ringers 1000 Ml Iv Soln IV 09/19/19 21:32 Infused CONTINUOUS PRN Infusion THIS MED IS NOT "PRN" Sodium Chloride 500 mls @ 0 mls/hr 08/22/19 05:00 08/22/19 04:30 Nacl 0.9% 500 Ml Iv Soln IV 08/22/19 05:01 Infused BOLUS ONE Infusion Sodium Chloride 500 mls @ 0 mls/hr 08/22/19 06:15 08/22/19 05:25 Nacl 0.9% 500 Ml Iv Soln IV 08/22/19 06:16 Infused BOLUS ONE Infusion Sodium Chloride 1,000 mls @ 999 mls/hr 08/23/19 02:15 08/23/19 02:50 Nacl 0.9% 1000 Ml Iv Soln IV 08/23/19 03:15 Infused ONCE ONE Infusion Cefepime HCl 1 gm in 50 mls @ 100 mls/hr 08/23/19 02:30 08/23/19 03:28 Maxipime Rtu 1 Gm/D5w 50 Ml Premix Bag IV 08/30/19 02:29 Infused Q12H ABIMBOLA Infusion Sodium Chloride 1,000 mls @ 0 mls/hr 08/23/19 02:58 08/23/19 04:00 Nacl 0.9% 1000 Ml Iv Soln IV 08/23/19 02:59 Infused BOLUS ONE Infusion Wide Open Magnesium Sulfate/Dextrose 1 gm in 100 mls @ 100 mls/hr 08/23/19 03:00 08/23/19 06:07 Magnesium Sulfate Rtu-D5w 1 Gm/100 Ml Premix IV 08/23/19 06:59 200 mls/hr Q1H ABMIBOLA 200 mls/hr Administration Magnesium Sulfate/Dextrose Confirm 08/23/19 03:00 08/23/19 03:18 Magnesium Sulfate Rtu-D5w 1 Gm/100 Ml Premix Administered 08/23/19 03:01 Not Given Dose 1 gm in 100 mls @ ud IV .STK-MED ONE Lactated Ringer's 1,000 mls @ 200 mls/hr 08/23/19 04:01 Lactated Ringers 1000 Ml Iv Soln IV 09/19/19 21:32 CONTINUOUS PRN THIS MED IS NOT "PRN" Vancomycin HCl 2,000 mg/ 500 mls @ 250 mls/hr 08/23/19 05:00 08/23/19 07:50 Dextrose IV 08/23/19 06:59 Infused ONCE ONE Infusion Vasopressin 100 unit/ Dextrose 250 mls @ 0 mls/hr 08/23/19 05:30 08/23/19 15:35 IV 09/22/19 05:29 0 unit/min CONTINUOUS PRN 0 mls/hr THIS MED IS NOT "PRN" Titration Protocol As Directed Hard Fat/Phenylephrine 40 mg/ 250 mls @ 0 mls/hr 08/23/19 05:33 Dextrose IV 09/22/19 05:32 CONTINUOUS PRN THIS MED IS NOT "PRN" Protocol Titrate Cefepime HCl 1 gm in 50 mls @ 100 mls/hr 08/23/19 10:00 08/23/19 10:46 Maxipime Rtu 1 Gm/D5w 50 Ml Premix Bag IV 08/30/19 09:59 Infused Q12 ABIMBOLA Infusion Vancomycin HCl 1,500 mg/ 250 mls @ 166.667 mls/hr 08/24/19 06:00 08/24/19 07:35 Dextrose IV 08/31/19 05:59 Infused Q6AM ABIMBOLA Infusion Albumin Human 500 mls @ 4 mls/min 08/23/19 12:30 08/23/19 15:30 Albutein 5% Inj 25 Gm/500 Ml Premixed Bottle IV 08/23/19 14:34 Infused NOW ONE Infusion Sodium Chloride 1,000 mls @ 250 mls/hr 08/23/19 11:44 08/24/19 08:15 Nacl 0.9% 1000 Ml Iv Soln IV 09/22/19 11:43 Infused CONTINUOUS PRN Infusion THIS MED IS NOT "PRN" Piperacillin Sod/Tazobactam 50 mls @ 100 mls/hr 08/23/19 20:00 08/24/19 09:20 Sod 2.25 gm/ Sodium Chloride IV 08/30/19 19:59 100 mls/hr Q6A ABIMBOLA 100 mls/hr Administration Sodium Chloride 1,000 mls @ 100 mls/hr 08/24/19 15:34 Nacl 0.9% 1000 Ml Iv Soln IV 09/22/19 11:43 CONTINUOUS PRN THIS MED IS NOT "PRN" Lorazepam 1 mg 08/20/19 21:40 Ativan Inj 2 Mg/1 Ml Vial IV 08/27/19 21:39 Q4HP PRN ANXIETY/AGITATION Meloxicam 7.5 mg 08/21/19 10:00 08/22/19 18:34 Mobic 7.5 Mg Tablet PO 09/20/19 09:59 7.5 mg BID ABIMBOLA Administration Morphine Sulfate 2 mg 08/20/19 21:40 08/23/19 00:42 Morphine 10 Mg/Ml Inj IV 08/27/19 21:39 2 mg Q2HP PRN Administration FOR PAIN SCALE 1-2 Morphine Sulfate 3 mg 08/20/19 21:40 08/21/19 06:16 Morphine 10 Mg/Ml Inj IV 08/27/19 21:39 3 mg Q2HP PRN Administration FOR PAIN SCALE 3-4 Morphine Sulfate 4 mg 08/20/19 21:40 08/22/19 18:34 Morphine 10 Mg/Ml Inj IV 08/27/19 21:39 4 mg Q2HP PRN Administration PAIN SCALE OF 5 Morphine Sulfate 4 mg 08/23/19 05:30 08/23/19 20:32 Morphine 10 Mg/Ml Inj IV 08/30/19 05:29 4 mg Q2HP PRN Administration PAIN SCALE OF 5 Nitroglycerin 0.5 gm 08/20/19 17:15 08/20/19 17:21 Nitrol 2% Ointment 1gm Packet TP 08/20/19 17:16 0.5 gm NOW ONE Administration Oxycodone/Acetaminophen 1 tab 08/25/19 15:28 08/25/19 15:40 Percocet 5-325 Mg Tablet PO 09/01/19 15:27 1 tab Q6HP PRN Administration FOR BACK PAIN Vancomycin HCl Confirm 08/23/19 05:43 08/23/19 05:56 Vancocin Inj 1000 Mg Vial Administered 08/23/19 05:44 Not Given Dose 1,000 mg .ROUTE .STK-MED ONE Vancomycin HCl Confirm 08/24/19 05:49 08/24/19 06:15 Vancocin Inj 500 Mg Vial Administered 08/24/19 05:50 Not Given Dose 500 mg .ROUTE .STK-MED ONE Vancomycin HCl Confirm 08/24/19 05:49 08/24/19 06:15 Vancocin Inj 1000 Mg Vial Administered 08/24/19 05:50 Not Given Dose 1,000 mg .ROUTE .STK-MED ONE Vasopressin Confirm 08/23/19 05:19 08/23/19 06:17 Vasopressin Inj 20 Unit/1 Ml Vial Administered 08/23/19 05:20 Not Given Dose 20 unit .ROUTE .STK-MED ONE Zolpidem Tartrate 2.5 mg 08/21/19 02:31 08/21/19 03:17 Ambien 5 Mg Tablet PO 08/28/19 02:30 2.5 mg HSP PRN Administration SLEEP OR INSOMNIA Assessment & Plan - Diagnosis (1) Acute kidney injury (nontraumatic) Is this a current diagnosis for this admission?: Yes Plan: Secondary to outpatient overdiuresis. His renal function is now normal. Recommendations: -Continue with current medical management. (2) Coronary artery disease Qualifiers: Coronary Disease-Associated Artery/Lesion type: [place] artery [place] vs. transplanted heart: [place] heart Associated angina: angina presence unspecified Qualified Code(s): I25.10 - Atherosclerotic heart disease of [place] coronary artery without angina pectoris Is this a current diagnosis for this admission?: Yes Plan: The patient denies alva chest pain and angina. His shortness of breath is likely multifactorial however he is definitely fluid overloaded. He has not had any ischemic evaluation recently. Recommendations: -Continue with current medical management for now. -Ischemic assessment in the outpatient setting. (3) Essential hypertension Is this a current diagnosis for this admission?: Yes Plan: The patient had episodes of hypotension secondary to sepsis requiring vasopressin and admission to the ICU as well as volume expansion. His pressure is now at goal. Recommendations: -Continue with current medical management. (4) Heart failure Qualifiers: Heart failure chronicity: acute Is this a current diagnosis for this admission?: Yes Plan: The patient complains of significant shortness of breath and orthopnea this morning. Unfortunately his echocardiogram during this admission was nondiagnostic however a prior echocardiogram in February 2017 in the outpatient setting, although of very poor quality, demonstrated a grossly normal systolic function. He is currently fluid overloaded with a positive fluid balance of almost 11.5 L. Recommendations: -Discontinue Lasix 20 mg p.o. -Start Lasix 40 mg IV twice daily, first dose now with close attention to his blood pressure. -Consider discontinuing isosorbide if patient hypotensive. -Manual blood pressure with a large cuff. -BMP and proBNP tomorrow morning. -Restrict fluid intake to 1500 cc daily. -Low sodium diet, less than 1500 mg daily. -Strict intake and output. -Daily weights.
[2019-08-27] MEDS: NORMAL SALINE INJ/PF 0.9% 10 ML SDV IV PRN (14:50)
--- NOTE | 2019-08-27 15:36 | PDOC PROGRESS REPORT ---
Subjective Progress Note for:: 08/27/19 Subjective:: In brief, this is a 78-year-old male with multiple medical comorbidities who had, he felt, worsening lower extremity edema outside the hospital and so he increased his home dose of Lasix on his own without consulting his physician. He showed up in the hospital and renal failure. He wound up getting some IV fluids but they were having a hard time getting his blood pressure back up on the floor and so he was transferred to the ICU. He was also found to have a ur inary tract infection and a subsequent bacteremia. His antibiotics were initiated at that time. He got a lot of IV fluids and his blood pressures have recovered. His renal function has recovered as well. He has a very positive fluid balance overall as a result of his necessary fluid resuscitation. He has been started back on IV Lasix to try to remove some of the excess fluid. At this time, his exercise tolerance is very low. He only was able to walk about 15 feet yesterday before he had to sit down and it took him a long time to recover before he could walk 15 feet back to the bed. He is not on oxygen full- time at home allegedly, but he has been on 2 L here and is fairly comfortable while he is at rest. He initially wanted to go home, but I spoke to him about the potential benefits of going to a [facility] facility for rehab and he was amenable. Reason For Visit: ACUTE KIDNEY INJURY,CHEST PAIN,PALPITATIONS,CHRONI Physical Exam Vital Signs: Temp Pulse Resp BP Pulse Ox 98.5 F 78 24 H 113/94 H 100 08/27/19 11:32 08/27/19 11:32 08/27/19 11:32 08/27/19 11:32 08/27/19 11:32 Intake & Output 08/26/19 08/27/19 08/28/19 06:59 06:59 06:59 Intake Total 1055 1112 530 Output Total 600 1150 300 Balance 455 -38 230 Weight 159.1 kg 159.1 kg General appearance: PRESENT: no acute distress, morbidly obese Teeth exam: PRESENT: poor dentation Neck exam: ABSENT: carotid bruit, JVD, lymphadenopathy, thyromegaly Respiratory exam: PRESENT: decreased breath sounds Cardiovascular exam: PRESENT: RRR. ABSENT: diastolic murmur, rubs, systolic murmur GI/Abdominal exam: PRESENT: normal bowel sounds, soft. ABSENT: distended, guarding, mass, organolmegaly, rebound, tenderness Rectal exam: PRESENT: deferred Extremities exam: PRESENT: full ROM, 2+ leg edema. ABSENT: calf tenderness, clubbing, pedal edema Neurological exam: PRESENT: alert, awake, oriented to person, oriented to place, oriented to time, oriented to situation, CN II-XII grossly intact. ABSENT: motor sensory deficit Psychiatric exam: PRESENT: appropriate affect, normal mood. Results Laboratory Results: 08/26/19 05:21 08/26/19 05:21 08/20/19 08/20/19 08/20/19 17:00 17:00 23:09 Creatine Kinase 91 CK-MB (CK-2) Troponin I < 0.012 NT-Pro-B Natriuret Pep 77 08/20/19 08/21/19 08/21/19 23:09 01:16 07:37 Creatine Kinase 78 CK-MB (CK-2) Cancelled 1.35 Troponin I Cancelled < 0.012 NT-Pro-B Natriuret Pep 08/21/19 08/21/19 08/21/19 07:37 13:12 13:12 Creatine Kinase 75 CK-MB (CK-2) 1.00 0.91 Troponin I < 0.012 < 0.012 NT-Pro-B Natriuret Pep 08/23/19 08/23/19 02:24 02:48 Creatine Kinase 357 H CK-MB (CK-2) 0.75 Troponin I < 0.012 NT-Pro-B Natriuret Pep Impressions: Chest CT 08/20/19 18:37 IMPRESSION: No acute abnormality within the chest. Enlarged subcarinal lymph node measuring 1.8 x 3.5 cm in size, indeterminate/nonspecific. TECHNICAL DOCUMENTATION: Quality ID # [id number]: Final reports with documentation of one or more dose reduction techniques (e.g., Automated exposure control, adjustment of the mA and/or kV according to patient size, use of iterative reconstruction technique) copyright 2011 [employer]- All Rights Reserved Renal Ultrasound 08/21/19 00:00 IMPRESSION: Limited ultrasound of the kidneys and urinary bladder due to the patient's body habitus. The left kidney and urinary bladder were not visualized. There is no right-sided hydronephrosis. Chest X-Ray 08/23/19 00:00 IMPRESSION: Interval placement a right-sided central line. No pneumothorax. Catheter tip overlies the SVC. Abdomen/Pelvis CT 08/23/19 02:08 IMPRESSION: No acute findings. Assessment and Plan - Diagnosis (1) E coli bacteremia Is this a current diagnosis for this admission?: Yes Plan: Due to his UTI. He is currently on cefepime. There is some antibiotic resistance but it looks like he would be able to take either a second or third generation oral cephalosporin to complete his treatment when he leaves the hospital. (2) Acute kidney injury (nontraumatic) Is this a current diagnosis for this admission?: Yes Plan: Resolved (3) Coronary artery disease Qualifiers: Coronary Disease-Associated Artery/Lesion type: [place] artery [place] vs. transplanted heart: [place] heart Associated angina: angina presence unspecified Qualified Code(s): I25.10 - Atherosclerotic heart disease of [place] coronary artery without angina pectoris Is this a current diagnosis for this admission?: Yes Plan: 08/21/2019-patient has history of coronary artery disease came in with chest pains and troponins or EKGs are negative. Cardiology consult was placed. (4) Essential hypertension Is this a current diagnosis for this admission?: Yes Plan: Stable. Not on IV fluids at this time. (5) Morbid obesity Is this a current diagnosis for this admission?: Yes Plan: patient's BMI is more than 49 diet exercise weight loss lifestyle modifications discussed with the patient. (6) Obstructive sleep apnea Is this a current diagnosis for this admission?: Yes Plan: The patient has his home CPAP device at his bedside. It should be used during any sleep and PRN. (7) Sepsis Qualifiers: Sepsis type: Escherichia coli Sepsis acute organ dysfunction status: with acute organ dysfunction Severe sepsis acute organ dysfunction type: acute renal failure Acute renal failure type: with other specified pathological lesion Severe sepsis shock status: without septic shock Qualified Code(s): A41.51 - Sepsis due to Escherichia coli [E. coli]; R65.20 - Severe sepsis without septic shock; N17.8 - Other acute kidney failure Is this a current diagnosis for this admission?: Yes Plan: Due to UTI and E. coli bacteremia. Acute organ failure has resolved. He is on cefepime. (8) Urinary tract infection with pyuria Is this a current diagnosis for this admission?: Yes Plan: Continue cefepime. Should be able to transition to an oral second or third generation cephalosporin at discharge. (9) Heart failure Qualifiers: Heart failure type: unspecified Heart failure chronicity: acute Qualified Code(s): I50.9 - Heart failure, unspecified Is this a current diagnosis for this admission?: Yes Plan: The echocardiogram was nondiagnostic because the acoustic windows were very very poor. I am not sure about systolic function, but with his degree of sleep apnea I would not be surprised if he had some degree of pulmonary hypertension and diastolic dysfunction. Cardiology has been consulted. He is on IV Lasix for his volume overload. Were monitoring his urine output and creatinine. - Plan Summary Summary: Patient will be admitted to [facility] where he will receive routine supportive and symptomatic cares. He will be treated with IV fluid and his renal functions and electrolytes will be followed closely. He will be continued on supplemental oxygen per the oxygen protocol during the day and CPAP at night and PRN. He will receive morphine sulfate 2 to 4 mg IV every 2 hours as needed for pain using a sliding scale for dosage. He will receive Ativan 1 mg IV every 4 hours as needed anxiety or restlessness. Serial cardiac enzymes will be obtained. He will be on a cardiac diet. CBCs, metabolic profiles, magnesium levels and additional radiography will be obtained as appropriate. Nephrology consultation will be obtained as appropriate. Patient will be continued on his usual home medications, as appropriate, once his medication list has been verified and reconciled. - Time Time Spent with patient: 15-24 minutes
[2019-08-27] MEDS: OXYCODONE-ACETAMINOPHEN 5-325 MG TABLET PO PRN ×2 (16:03→22:24)
[2019-08-27] MEDS: TAMSULOSIN HCL 0.4 MG CAP.SR.24H PO SCH (17:33)
[2019-08-27] MEDS: CEFEPIME HCL 2 GM in DEXTROSE 5%-WATER 50 ML IV SCH (17:34)
[2019-08-27] MEDS: ROPINIROLE HCL 1 MG TABLET PO SCH (22:24)
[2019-08-27] MEDS: ATORVASTATIN CALCIUM 20 MG TABLET PO SCH (22:26)
[2019-08-27] MEDS: INSULIN GLARGINE,HUM.REC.ANLOG 1,000 UNIT/10 ML VIAL SUBCUT SCH (22:26)
[2019-08-28] MEDS: LEVALBUTEROL HCL NEB 1.25 MG/3 ML AMPUL NEB SCH ×3 (00:32→16:14)
[2019-08-28] MEDS: IPRATROPIUM BROMIDE 0.02% NEB 0.5 MG/2.5 ML AMPUL NEB SCH ×3 (00:32→16:14)
[2019-08-28] MEDS: ZOLPIDEM TARTRATE 5 MG TABLET PO PRN ×2 (00:48→23:39)
[2019-08-28] MEDS: HEPARIN SOD (PORCINE) 5,000 UNIT/ML 1 ML VIAL SUBCUT SCH ×3 (06:33→21:47)
[2019-08-28] MEDS: PANTOPRAZOLE SODIUM 40 MG TABLET.DR PO SCH (06:33)
[2019-08-28] MEDS: CEFEPIME HCL 2 GM in DEXTROSE 5%-WATER 50 ML IV SCH ×2 (06:33→17:46)
[2019-08-28] MEDS: HYDROCORTISONE SOD SUCCINATE INJ/PF 100 MG/2 ML SDV IV SCH ×3 (06:33→21:49)
[2019-08-28] MEDS: NORMAL SALINE INJ/PF 0.9% 10 ML SDV IV PRN ×2 (06:34→14:19)
[2019-08-28] MEDS: INSULIN REG, HUMAN 100 UNIT/ML 3 ML VIAL (PYX) SUBCUT SCH ×4 (08:28→21:47)
[2019-08-28] MEDS: FUROSEMIDE INJ/PF 40 MG/4 ML SDV IV SCH ×2 (08:47→21:46)
[2019-08-28 09:05] LABS: ANION GAP 7 (5-19); BLOOD UREA NITROGEN 31 mg/dL (7-20); CALCIUM 8.5 mg/dL (8.4-10.2); CARBON DIOXIDE 25 mmol/L (22-30); CHLORIDE 104 mmol/L (98-107); GLUCOSE 230 mg/dL (75-110); POTASSIUM 4.1 mmol/L (3.6-5.0)
--- NOTE | 2019-08-28 10:19 | RADIOLOGY REPORT (SQ) ---
EXAM DESCRIPTION: CHEST 2 VIEWS IMAGES COMPLETED DATE/TIME: 08/28/2019 9:57 am REASON FOR STUDY: Dyspnea COMPARISON: 08/23/2019 EXAM PARAMETERS: NUMBER OF VIEWS: two views TECHNIQUE: Digital Frontal and Lateral radiographic views of the chest acquired. RADIATION DOSE: NA LIMITATIONS: none FINDINGS: LUNGS AND PLEURA: Small pleural effusions. No consolidation. MEDIASTINUM AND HILAR STRUCTURES: No masses or contour abnormalities. HEART AND VASCULAR STRUCTURES: Stable in appearance. BONES: No acute findings. HARDWARE: Right-sided central line remains in place. OTHER: No other significant finding. IMPRESSION: Small bilateral pleural effusions. No interval change. TECHNICAL DOCUMENTATION: JOB ID: [id number] 2010 [employer]- All Rights Reserved Reading location - IP/workstation name: [email or web address]
--- NOTE | 2019-08-28 10:28 | PDOC PROGRESS REPORT ---
Subjective Progress Note for:: 08/28/19 Subjective:: The patient is a 78-year-old male with history of CAD status post MIR to the mid LAD and left circumflex in December 2004, hyperlipidemia, hypertension, asthma, morbid obesity, sleep apnea on CPAP, diabetes, restrictive lung disease who was admitted to our institution on 08/20/2019 due to shortness of breath, chest pain and hypertension. He was initially consulted to my partner, Dr. Estrada, please review his notes for further details. In summary, the patient had developed significant lower extremity edema as well as significant dyspnea, orthopnea and PND reason why he self increased his outpatient Lasix dose. His condition continued to deteriorate therefore he came to the emergency room where he was found to have a creatinine of 3.25 consistent with acute kidney injury. He was initially admitted to the medical floor where he was given IV fluids. He eventually had an episode of hypotension and his creatinine went from 2.69 back to 3.24 and was again given IV fluids. In the meantime, it was noted that his blood pressure readings where unreliable given his body habitus and, because of clinical deterioration, he was transferred to the ICU where an arterial line was placed. He was also found to have a UTI and sepsis. He required vasopressin as well as significant amounts of IV fluid. He was transferred out of the ICU however he continues to complain of significant shortness of breath. Of note he is close to 11.5 L positive in his fluid balance. 08/28/2019: The patient is found sitting up on his bed and complaining of shortness of breath and lower extremity edema. His hemoglobin has dropped from 10.9 to 8.7 which could be dilutional from volume expansion versus occult bleeding. Unfortunately he has not had any IV Lasix yet and continues to have a positive fluid balance. Physical exam on 08/28/2019: GENERAL: Pleasant and conversational. Oriented x3 with normal mood. Not in acute distress. Well groomed and well developed. Morbidly obese. HEENT: Normocephalic, atraumatic. Pupils equal. Sclerae anicteric. Darrell pharynx moist. NECK: Difficult to evaluate for JVD and bruit due to body habitus. There is a central line on the right side of the neck. LUNGS: Inspiratory and expiratory crackles in all pulmonary sheth.. Normal respiratory effort without the use of accessory muscles or intercostal retractions. CARDIOVASCULAR: Regular rate and rhythm, normal S1 and S2 without murmurs, rubs, or gallops. PMI not displaced. EXTREMITIES: 2-3+ pitting edema bilaterally, no cyanosis, no clubbing. +2 pulses femoral and pedal pulses bilaterally. MUSCULOSKELETAL: No chest tenderness to palpation. NEUROLOGIC: Nonfocal. No gross sensory or motor deficits bilateral upper or lower extremities. Cardiac studies: Echocardiogram on 08/22/2019 at [facility]: -Uninterpretable study. [facility] on 07/11/2014: -Left main: No disease. -LAD: Widely patent stent in the mid LAD. -Left circumflex: Dominant vessel, patent stent in the mid vessel, luminal irregularities elsewhere. -RCA: Nondominant vessel, moderate diffuse disease. Of note, the LVEDP was markedly elevated. Echocardiogram on 03/02/2017: -Very poor study. -Study is essentially uninterpretable. -LV systolic function is grossly normal. -Valvular structures are not well visualized. Reason For Visit: ACUTE KIDNEY INJURY,CHEST PAIN,PALPITATIONS,CHRONI Physical Exam Vital Signs: Temp Pulse Resp BP Pulse Ox 97.2 F 82 18 136/70 H 98 08/27/19 23:21 08/28/19 00:32 08/28/19 00:32 08/27/19 23:21 08/28/19 00:32 Intake & Output 08/27/19 08/28/19 08/29/19 06:59 06:59 06:59 Intake Total 1112 1720 Output Total 1150 1550 Balance -38 170 Weight 159.1 kg 159.5 kg Results Laboratory Results: 08/26/19 05:21 08/26/19 05:21 08/23/19 02:48 Blood Blood Culture - Final NO GROWTH IN 5 DAYS 08/20/19 08/20/19 08/20/19 17:00 17:00 23:09 Creatine Kinase 91 CK-MB (CK-2) Troponin I < 0.012 NT-Pro-B Natriuret Pep 77 08/20/19 08/21/19 08/21/19 23:09 01:16 07:37 Creatine Kinase 78 CK-MB (CK-2) Cancelled 1.35 Troponin I Cancelled < 0.012 NT-Pro-B Natriuret Pep 08/21/19 08/21/19 08/21/19 07:37 13:12 13:12 Creatine Kinase 75 CK-MB (CK-2) 1.00 0.91 Troponin I < 0.012 < 0.012 NT-Pro-B Natriuret Pep 08/23/19 08/23/19 02:24 02:48 Creatine Kinase 357 H CK-MB (CK-2) 0.75 Troponin I < 0.012 NT-Pro-B Natriuret Pep Impressions: Chest CT 08/20/19 18:37 IMPRESSION: No acute abnormality within the chest. Enlarged subcarinal lymph node measuring 1.8 x 3.5 cm in size, indeterminate/nonspecific. TECHNICAL DOCUMENTATION: Quality ID # 436: Final reports with documentation of one or more dose reduction techniques (e.g., Automated exposure control, adjustment of the mA and/or kV according to patient size, use of iterative reconstruction technique) copyright 2011 [employer]- All Rights Reserved Renal Ultrasound 08/21/19 00:00 IMPRESSION: Limited ultrasound of the kidneys and urinary bladder due to the patient's body habitus. The left kidney and urinary bladder were not visualized. There is no right-sided hydronephrosis. Chest X-Ray 08/23/19 00:00 IMPRESSION: Interval placement a right-sided central line. No pneumothorax. Catheter tip overlies the SVC. Abdomen/Pelvis CT 08/23/19 02:08 IMPRESSION: No acute findings. 08/26/19 05:21 08/26/19 05:21 MCV 88 fl (80-97) 08/26/19 05:21 MCH 30.6 pg (27.0-33.4) 08/26/19 05:21 MCHC 34.9 g/dL (32.0-36.0) 08/26/19 05:21 RDW 16.4 % (11.5-14.0) H 08/26/19 05:21 Seg Neutrophils % Not Reportable 08/26/19 05:21 Carbonic Acid 1.22 mmol/L (1.05-1.35) 08/23/19 02:18 HCO3/H2CO3 Ratio 16:1 08/23/19 02:18 ABG pH 7.32 (7.35-7.45) L 08/23/19 02:18 ABG pCO2 40.4 mmHg (35-45) 08/23/19 02:18 ABG pO2 67.8 mmHg (80-100) L 08/23/19 02:18 ABG HCO3 20.4 mmol/L (20-24) 08/23/19 02:18 ABG O2 Saturation 92.2 % (94-98) L 08/23/19 02:18 ABG Base Excess -5.3 mmol/L 08/23/19 02:18 FiO2 30% 08/23/19 02:18 Chloride 107 mmol/L (98-107) 08/26/19 05:21 Carbon Dioxide 25 mmol/L (22-30) 08/26/19 05:21 Anion Gap 6 (5-19) 08/26/19 05:21 Est GFR ( Amer) > 60 (>60) 08/26/19 05:21 Est GFR (Non-Af Amer) Cancelled 08/21/19 07:37 Glucose 129 mg/dL (75-110) H 08/26/19 05:21 Lactic Acid 0.9 mmol/L (0.7-2.1) 08/23/19 02:24 Calcium 8.3 mg/dL (8.4-10.2) L 08/26/19 05:21 Ionized Calcium [place] 1.03 mmol/L (1.14-1.30) L 08/23/19 02:24 Phosphorus 2.8 mg/dL (2.5-4.5) 08/24/19 05:45 Magnesium 1.9 mg/dL (1.6-2.3) 08/26/19 05:21 Total Bilirubin 0.4 mg/dL (0.2-1.3) 08/26/19 05:21 AST 20 U/L (17-59) 08/26/19 05:21 Alkaline Phosphatase 57 U/L (38-126) 08/26/19 05:21 Total Protein 5.8 g/dL (6.3-8.2) L 08/26/19 05:21 Albumin 3.0 g/dL (3.5-5.0) L 08/26/19 05:21 Triglycerides 201 mg/dL (<150) H 08/21/19 07:37 Cholesterol 89.92 mg/dL (0-200) 08/21/19 07:37 LDL Cholesterol Direct 39 mg/dL (<100) 05/05/20 07:37 VLDL Cholesterol 40.2 mg/dL (10-31) H 08/21/19 07:37 HDL Cholesterol 20 mg/dL (>40) L 08/21/19 07:37 TSH 4.61 uIU/mL (0.47-4.68) 08/21/19 07:37 Free T3 pg/mL 3.57 pg/mL (2.77-5.27) 08/21/19 07:37 Urine Color STRAW 08/20/19 23:39 Urine Appearance SLIGHTLY-CLOUDY 08/20/19 23:39 Urine pH 5.0 (5.0-9.0) 08/20/19 23:39 Ur Specific [place] 1.009 08/20/19 23:39 Urine Protein NEGATIVE mg/dL (NEGATIVE) 08/20/19 23:39 Urine Glucose (UA) NEGATIVE mg/dL (NEGATIVE) 08/20/19 23:39 Urine Ketones NEGATIVE mg/dL (NEGATIVE) 08/20/19 23:39 Urine Blood SMALL (NEGATIVE) H 08/20/19 23:39 Urine RBC (Auto) 0 /HPF 08/20/19 23:39 08/23/19 02:48 Blood Blood Culture - Final NO GROWTH IN 5 DAYS 08/20/19 08/20/19 08/20/19 17:00 17:00 23:09 Creatine Kinase 91 CK-MB (CK-2) Troponin I < 0.012 NT-Pro-B Natriuret Pep 77 08/20/19 08/21/19 08/21/19 23:09 01:16 07:37 Creatine Kinase 78 CK-MB (CK-2) Cancelled 1.35 Troponin I Cancelled < 0.012 NT-Pro-B Natriuret Pep 08/21/19 08/21/19 08/21/19 07:37 13:12 13:12 Creatine Kinase 75 CK-MB (CK-2) 1.00 0.91 Troponin I < 0.012 < 0.012 NT-Pro-B Natriuret Pep 08/23/19 08/23/19 02:24 02:48 Creatine Kinase 357 H CK-MB (CK-2) 0.75 Troponin I < 0.012 NT-Pro-B Natriuret Pep Current Medication List Generic Name Dose Route Start Last Admin Trade Name Freq PRN Reason Stop Dose Admin Acetaminophen 650 mg 08/20/19 21:40 08/26/19 05:08 Tylenol 325 Mg Tablet PO 09/19/19 21:39 650 mg Q4HP PRN Administration For headache, pain or fever Al Hydrox/Mg Hydrox/Simethicone 30 ml 08/20/19 21:33 Maalox Plus Susp 30 Udcup PO 09/19/19 21:32 Q6HP PRN HEARTBURN Atorvastatin Calcium 20 mg 08/21/19 22:00 08/27/19 22:26 Lipitor 20 Mg Tablet PO 09/20/19 21:59 20 mg QHS ABIMBOLA Administration Cetirizine HCl 5 mg 08/21/19 09:27 Zyrtec 5 Mg Tablet PO 09/20/19 09:26 DAILYP PRN ALLERGIES Citalopram Hydrobromide 20 mg 08/21/19 10:00 08/27/19 09:24 Celexa 20 Mg Tablet PO 09/20/19 09:59 20 mg DAILY ABIMBOLA Administration Clopidogrel Bisulfate 75 mg 08/21/19 10:00 08/27/19 09:14 Plavix 75 Mg Tablet PO 09/20/19 09:59 75 mg DAILY ABIMBOLA Administration Dextrose 12.5 gm 08/21/19 09:40 Dextrose Inj 50% Syringe (25 Gm/50 Ml) IV 09/20/19 09:39 PRN PRN FOR BG 50-69 IN ALERT PATIENT Protocol Dextrose 25 gm 08/21/19 09:40 Dextrose Inj 50% Syringe (25 Gm/50 Ml) IV 09/20/19 09:39 PRN PRN PER PROTOCOL Protocol Docusate Sodium 100 mg 08/21/19 10:00 08/27/19 17:33 Colace 100 Mg Capsule PO 09/20/19 09:59 100 mg BID ABIMBOLA Administration Doxazosin Mesylate 1 mg 08/21/19 12:00 08/27/19 09:14 Cardura 1 Mg Tablet PO 09/20/19 11:59 1 mg DAILY ABIMBOLA Administration Ferrous Sulfate 142 mg 08/21/19 10:00 08/27/19 09:11 Ferrous Sulfate Liquid 300 Mg/5 Ml Udcup PO 09/20/19 09:59 142 mg DAILY ABIMBOLA Administration Fluticasone Propionate 1 spray 08/21/19 10:06 08/21/19 23:47 Flonase Nasal [employer] 50 Mcg/[employer] 16 Gm NASL 06/04/20 10:05 1 spr BIDP PRN Administration Furosemide 20 mg 08/25/19 10:00 08/27/19 09:14 Lasix 20 Mg Tablet PO 09/24/19 09:59 20 mg DAILY ABIMBOLA Administration Glucagon 1 mg 08/21/19 09:40 Glucagen Inj 1 Mg Vial IM 09/20/19 09:39 PRN PRN Evaluate for BG < 70 Protocol Glucose 15 gm 08/21/19 09:40 Glutose 40% Gel 15 Gm Tube PO 09/20/19 09:39 PRN PRN FOR BG 50-69 IN ALERT PATIENT Protocol Glucose 30 gm 08/21/19 09:40 Glutose 40% Gel 15 Gm Tube PO 09/20/19 09:39 PRN PRN FOR BG < 50 IN ALERT PATIENT Protocol Guaifenesin 200 mg 08/20/19 21:40 Robitussin Syrup 200 Mg/10 Ml Ud Cup PO 09/19/19 21:39 Q4HP PRN COUGH Heparin Sodium (Porcine) 5,000 unit 08/20/19 22:00 08/28/19 06:33 Heparin Inj 5,000 Units/Ml 1 Ml Vial SUBCUT 09/19/19 21:59 5,000 unit Q8 ABIMBOLA Administration Heparin Sodium (Porcine) 30 unit 08/24/19 06:00 08/28/19 06:34 Heparin Flush 10 Unit/Ml 5 Ml Disp.Syrg IV 09/23/19 05:59 30 unit Q8 ABIMBOLA Administration Heparin Sodium (Porcine) 30 unit 08/24/19 05:57 08/26/19 14:28 Heparin Flush 10 Unit/Ml 5 Ml Disp.Syrg IV 09/23/19 05:56 30 unit .AFTER EACH USE PRN Administration AFTER EACH INTERMITTENT USE Hydralazine HCl 20 mg 08/20/19 21:40 Apresoline Inj/Pf 20 Mg/1 Ml Sdv IV 09/19/19 21:39 Q4HP PRN Give For Sbp > 160 / Dbp > 100 Hydrocortisone Sodium Succinate 100 mg 08/23/19 07:45 08/28/19 06:33 Solu-Cortef Inj/Pf 100 Mg/ 2 Ml Sdv IV 09/22/19 07:44 100 mg Q8 ABIMBOLA Administration Cefepime HCl 2 gm/ Dextrose 50 mls @ 100 mls/hr 08/27/19 18:00 08/28/19 06:33 IV 08/31/19 17:59 100 mls/hr Q12A ABIMBOLA 100 mls/hr Administration Insulin Glargine 30 unit 08/23/19 22:00 08/27/19 22:26 Lantus Insulin 100 Unit/1 Ml 10 Ml SUBCUT 09/22/19 21:59 30 unit QHS ABIMBOLA Administration Insulin Human Regular 0 - 12 unit 08/21/19 11:00 08/27/19 22:25 Humulin R (Pyxis) Insulin 100 Unit/Ml 3ml SUBCUT 09/20/19 10:59 2 unit ACHS ABIMBOLA Administration Protocol Ipratropium [place] 0.5 mg 08/21/19 00:00 08/28/19 00:32 Atrovent 0.02% Neb 0.5 Mg/2.5 Ml Ampul NEB 09/20/19 00:00 0.5 mg RTQ8 ABIMBOLA Administration Isosorbide Mononitrate 60 mg 08/21/19 10:00 08/27/19 09:15 Imdur 60 Mg Tablet.Er PO 09/20/19 09:59 60 mg DAILY ABIMBOLA Administration Levalbuterol HCl 0.63 mg 08/20/19 21:43 Xopenex Neb 0.63 Mg/3 Ml Ampul NEB 09/19/19 21:42 RTQ2HP PRN SHORTNESS OF BREATH Levalbuterol HCl 1.25 mg 08/21/19 00:00 08/28/19 00:32 Xopenex Neb 1.25 Mg/3 Ml Ampul NEB 09/20/19 00:00 1.25 mg RTQ8 ABIMBOLA Administration Losartan Potassium 100 mg 08/25/19 10:00 08/27/19 09:15 Cozaar 50 Mg Tablet PO 09/24/19 09:59 100 mg DAILY ABIMBOLA Administration Magnesium Hydroxide 30 ml 08/20/19 21:33 Milk Of Magnesia 30 Ml Udcup PO 09/19/19 21:32 HSP PRN FOR CONSTIPATION Metoprolol Tartrate 5 mg 08/20/19 21:40 Lopressor Inj/Pf 5 Mg/5 Ml Sdv IV 09/19/19 21:39 Q4HP PRN Give For Sbp > 160 / Dbp > 100 Montelukast Sodium 10 mg 08/21/19 10:00 08/27/19 09:14 Singulair 10 Mg Tablet PO 09/20/19 09:59 10 mg DAILY ABIMBOLA Administration Nystatin 1 applic 08/26/19 12:00 08/27/19 17:45 Mycostatin Cream 15 Gm TP 09/02/19 11:59 Not Given TID ABIMBOLA Ondansetron HCl 4 mg 08/20/19 21:33 08/22/19 23:09 Zofran Inj/Pf 4 Mg/2 Ml Sdv IV 09/19/19 21:32 4 mg Q4HP PRN Administration FOR NAUSEA/VOMITING Oxycodone/Acetaminophen 1 tab 08/25/19 17:03 08/27/19 22:24 Percocet 5-325 Mg Tablet PO 09/01/19 17:02 1 tab Q4HP PRN Administration FOR BACK PAIN Pantoprazole Sodium 40 mg 08/21/19 06:00 08/28/19 06:[address] Tablet PO 09/20/19 05:59 40 mg Q6AM ABIMBOLA Administration Potassium Chloride 10 meq 08/25/19 10:00 08/27/19 22:25 Klor-Con 10 Meq Tablet Er PO 09/24/19 09:59 10 meq Q12 ABIMBOLA Administration Ropinirole HCl 1 mg 08/21/19 02:45 08/27/19 22:24 Requip 1 Mg Tablet PO 09/20/19 02:44 1 mg QHS ABIMBOLA Administration Sodium Chloride 2.5 ml 08/20/19 22:00 08/28/19 06:34 Saline Flush 2.5 Ml Monoject Prefil Syrin IV 09/19/19 21:59 Not Given Q8 ABIMBOLA Sodium Chloride 10 ml 08/24/19 05:57 08/28/19 06:34 Nacl 0.9% Inj/Pf 10 Ml Sdv IV 09/23/19 05:56 10 ml .AFTER EACH USE PRN Administration AFTER EACH INTERMITTENT USE Tamsulosin HCl 0.4 mg 08/21/19 18:00 08/27/19 17:33 Flomax 0.4 Mg Cap.Sr PO 09/20/19 17:59 0.4 mg PCSUPPER ABIMBOLA Administration Zolpidem Tartrate 5 mg 08/21/19 22:00 08/28/19 00:48 Ambien 5 Mg Tablet PO 08/28/19 21:59 5 mg HSP PRN Administration INSOMNIA Discontinued Medications Generic Name Dose Route Start Last Admin Trade Name Freq PRN Reason Stop Dose Admin Aspirin 324 mg 08/20/19 16:34 08/20/19 17:02 Aspirin 81 Mg Chewable Tablet PO 08/20/19 16:35 324 mg NOW ONE Administration Aspirin 325 mg 08/20/19 20:15 08/20/19 20:31 Aspirin 325 Mg Tablet PO 08/20/19 20:16 325 mg NOW ONE Administration Sodium Chloride 1,000 mls @ 0 mls/hr 08/20/19 20:18 08/20/19 20:31 Nacl 0.9% 1000 Ml Iv Soln IV 08/20/19 20:19 999 mls/hr BOLUS ONE Administration Wide Open Lactated Ringer's 1,000 mls @ 167 mls/hr 08/20/19 21:33 08/21/19 10:21 Lactated Ringers 1000 Ml Iv Soln IV 09/19/19 21:32 Infused CONTINUOUS PRN Infusion THIS MED IS NOT "PRN" Lactated Ringer's 1,000 mls @ 100 mls/hr 08/21/19 09:29 08/23/19 12:21 Lactated Ringers 1000 Ml Iv Soln IV 09/19/19 21:32 Infused CONTINUOUS PRN Infusion THIS MED IS NOT "PRN" Sodium Chloride 500 mls @ 0 mls/hr 08/22/19 05:00 08/22/19 04:30 Nacl 0.9% 500 Ml Iv Soln IV 08/22/19 05:01 Infused BOLUS ONE Infusion Sodium Chloride 500 mls @ 0 mls/hr 08/22/19 06:15 08/22/19 05:25 Nacl 0.9% 500 Ml Iv Soln IV 08/22/19 06:16 Infused BOLUS ONE Infusion Sodium Chloride 1,000 mls @ 999 mls/hr 08/23/19 02:15 08/23/19 02:50 Nacl 0.9% 1000 Ml Iv Soln IV 08/23/19 03:15 Infused ONCE ONE Infusion Cefepime HCl 1 gm in 50 mls @ 100 mls/hr 08/23/19 02:30 08/23/19 03:28 Maxipime Rtu 1 Gm/D5w 50 Ml Premix Bag IV 08/30/19 02:29 Infused Q12H ABIMBOLA Infusion Sodium Chloride 1,000 mls @ 0 mls/hr 08/23/19 02:58 08/23/19 04:00 Nacl 0.9% 1000 Ml Iv Soln IV 08/23/19 02:59 Infused BOLUS ONE Infusion Wide Open Magnesium Sulfate/Dextrose 1 gm in 100 mls @ 100 mls/hr 08/23/19 03:00 08/23/19 06:07 Magnesium Sulfate Rtu-D5w 1 Gm/100 Ml Premix IV 08/23/19 06:59 200 mls/hr Q1H ABIMBOLA 200 mls/hr Administration Magnesium Sulfate/Dextrose Confirm 08/23/19 03:00 08/23/19 03:18 Magnesium Sulfate Rtu-D5w 1 Gm/100 Ml Premix Administered 08/23/19 03:01 Not Given Dose 1 gm in 100 mls @ ud IV .STK-MED ONE Lactated Ringer's 1,000 mls @ 200 mls/hr 08/23/19 04:01 Lactated Ringers 1000 Ml Iv Soln IV 09/19/19 21:32 CONTINUOUS PRN THIS MED IS NOT "PRN" Vancomycin HCl 2,000 mg/ 500 mls @ 250 mls/hr 08/23/19 05:00 08/23/19 07:50 Dextrose IV 08/23/19 06:59 Infused ONCE ONE Infusion Vasopressin 100 unit/ Dextrose 250 mls @ 0 mls/hr 08/23/19 05:30 08/23/19 15:35 IV 09/22/19 05:29 0 unit/min CONTINUOUS PRN 0 mls/hr THIS MED IS NOT "PRN" Titration Protocol As Directed Hard Fat/Phenylephrine 40 mg/ 250 mls @ 0 mls/hr 08/23/19 05:33 Dextrose IV 09/22/19 05:32 CONTINUOUS PRN THIS MED IS NOT "PRN" Protocol Titrate Cefepime HCl 1 gm in 50 mls @ 100 mls/hr 08/23/19 10:00 08/23/19 10:46 Maxipime Rtu 1 Gm/D5w 50 Ml Premix Bag IV 08/30/19 09:59 Infused Q12 ABIMBOLA Infusion Vancomycin HCl 1,500 mg/ 250 mls @ 166.667 mls/hr 08/24/19 06:00 08/24/19 07:35 Dextrose IV 08/31/19 05:59 Infused Q6AM ABIMBOLA Infusion Albumin Human 500 mls @ 4 mls/min 08/23/19 12:30 08/23/19 15:30 Albutein 5% Inj 25 Gm/500 Ml Premixed Bottle IV 08/23/19 14:34 Infused NOW ONE Infusion Sodium Chloride 1,000 mls @ 250 mls/hr 08/23/19 11:44 08/24/19 08:15 Nacl 0.9% 1000 Ml Iv Soln IV 09/22/19 11:43 Infused CONTINUOUS PRN Infusion THIS MED IS NOT "PRN" Piperacillin Sod/Tazobactam 50 mls @ 100 mls/hr 08/23/19 20:00 08/24/19 09:20 Sod 2.25 gm/ Sodium Chloride IV 08/30/19 19:59 100 mls/hr Q6A ABIMBOLA 100 mls/hr Administration Cefepime HCl 1 gm in 50 mls @ 100 mls/hr 08/24/19 18:00 08/27/19 07:00 Maxipime Rtu 1 Gm/D5w 50 Ml Premix Bag IV 08/31/19 17:59 Infused Q12A ABIMBOLA Infusion Sodium Chloride 1,000 mls @ 100 mls/hr 08/24/19 15:34 Nacl 0.9% 1000 Ml Iv Soln IV 09/22/19 11:43 CONTINUOUS PRN THIS MED IS NOT "PRN" Lorazepam 1 mg 08/20/19 21:40 Ativan Inj 2 Mg/1 Ml Vial IV 08/27/19 21:39 Q4HP PRN ANXIETY/AGITATION Meloxicam 7.5 mg 08/21/19 10:00 08/22/19 18:34 Mobic 7.5 Mg Tablet PO 09/20/19 09:59 7.5 mg BID ABIMBOLA Administration Morphine Sulfate 2 mg 08/20/19 21:40 08/23/19 00:42 Morphine 10 Mg/Ml Inj IV 08/27/19 21:39 2 mg Q2HP PRN Administration FOR PAIN SCALE 1-2 Morphine Sulfate 3 mg 08/20/19 21:40 08/21/19 06:16 Morphine 10 Mg/Ml Inj IV 08/27/19 21:39 3 mg Q2HP PRN Administration FOR PAIN SCALE 3-4 Morphine Sulfate 4 mg 08/20/19 21:40 08/22/19 18:34 Morphine 10 Mg/Ml Inj IV 08/27/19 21:39 4 mg Q2HP PRN Administration PAIN SCALE OF 5 Morphine Sulfate 4 mg 08/23/19 05:30 08/23/19 20:32 Morphine 10 Mg/Ml Inj IV 08/30/19 05:29 4 mg Q2HP PRN Administration PAIN SCALE OF 5 Nitroglycerin 0.5 gm 08/20/19 17:15 08/20/19 17:21 Nitrol 2% Ointment 1gm Packet TP 08/20/19 17:16 0.5 gm NOW ONE Administration Oxycodone/Acetaminophen 1 tab 08/25/19 15:28 08/25/19 15:40 Percocet 5-325 Mg Tablet PO 09/01/19 15:27 1 tab Q6HP PRN Administration FOR BACK PAIN Vancomycin HCl Confirm 08/23/19 05:43 08/23/19 05:56 Vancocin Inj 1000 Mg Vial Administered 08/23/19 05:44 Not Given Dose 1,000 mg .ROUTE .STK-MED ONE Vancomycin HCl Confirm 08/24/19 05:49 08/24/19 06:15 Vancocin Inj 500 Mg Vial Administered 08/24/19 05:50 Not Given Dose 500 mg .ROUTE .STK-MED ONE Vancomycin HCl Confirm 08/24/19 05:49 08/24/19 06:15 Vancocin Inj 1000 Mg Vial Administered 08/24/19 05:50 Not Given Dose 1,000 mg .ROUTE .STK-MED ONE Vasopressin Confirm 08/23/19 05:19 08/23/19 06:17 Vasopressin Inj 20 Unit/1 Ml Vial Administered 08/23/19 05:20 Not Given Dose 20 unit .ROUTE .STK-MED ONE Zolpidem Tartrate 2.5 mg 08/21/19 02:31 08/21/19 03:17 Ambien 5 Mg Tablet PO 08/28/19 02:30 2.5 mg HSP PRN Administration SLEEP OR INSOMNIA Assessment & Plan - Diagnosis (1) Acute kidney injury (nontraumatic) Is this a current diagnosis for this admission?: Yes Plan: Secondary to outpatient overdiuresis. His renal function is now normal. Recommendations: -Continue with current medical management. (2) Coronary artery disease Qualifiers: Coronary Disease-Associated Artery/Lesion type: [place] artery [place] vs. transplanted heart: [place] heart Associated angina: angina presence unspecified Qualified Code(s): I25.10 - Atherosclerotic heart disease of [place] coronary artery without angina pectoris Plan: The patient denies alva chest pain and angina. His shortness of breath is likely multifactorial however he is definitely fluid overloaded. He has not had any ischemic evaluation recently. Recommendations: -Continue with current medical management for now. -Ischemic assessment in the outpatient setting. (3) Essential hypertension Is this a current diagnosis for this admission?: Yes Plan: The patient had episodes of hypotension secondary to sepsis requiring vasopressin and admission to the ICU as well as volume expansion. His pressure is now at goal. Recommendations: -Continue with current medical management. (4) Heart failure Qualifiers: Heart failure type: unspecified Heart failure chronicity: acute Qualified Code(s): I50.9 - Heart failure, unspecified Plan: The patient complains of significant shortness of breath and orthopnea this m orning, he continues to be fluid overloaded. Unfortunately his echocardiogram during this admission was nondiagnostic however a prior echocardiogram in February 2017 in the outpatient setting, although of very poor quality, demonstrated a grossly normal systolic function. He is currently fluid ove rloaded with a positive fluid balance of almost 11.5 L with a proBNP of 7880. Unfortunately he has not gotten any IV Lasix yet. I discussed the case with his nurse and we ordered IV Lasix as well as stopping p.o. Lasix. Recommendations: -Discontinue Lasix 20 mg p.o. -Start Lasix 40 mg IV twice daily, first dose now with close attention to his blood pressure. -Consider discontinuing isosorbide if patient hypotensive. -Manual blood pressure with a large cuff. -BMP tomorrow morning. -Restrict fluid intake to 1500 cc daily. -Low sodium diet, less than 1500 mg daily. -Strict intake and output. -Daily weights. -Replace electrolytes as needed.
[2019-08-28] MEDS: DOXAZOSIN MESYLATE 1 MG TABLET PO SCH (10:29)
[2019-08-28] MEDS: LOSARTAN POTASSIUM 50 MG TABLET PO SCH (10:29)
[2019-08-28] MEDS: CLOPIDOGREL BISULFATE 75 MG TABLET PO SCH (10:29)
[2019-08-28] MEDS: DOCUSATE SODIUM 100 MG CAPSULE PO SCH ×2 (10:29→17:46)
[2019-08-28] MEDS: ISOSORBIDE MONONITRATE 60 MG TAB.ER.24H PO SCH (10:30)
[2019-08-28] MEDS: FERROUS SULFATE LIQUID 300 MG/5 ML UDC PO SCH (10:30)
[2019-08-28] MEDS: CITALOPRAM HYDROBROMIDE 20 MG TABLET PO SCH (10:30)
[2019-08-28] MEDS: POTASSIUM CHLORIDE 10 MEQ TABLET.ER PO SCH ×2 (10:30→21:48)
[2019-08-28] MEDS: MONTELUKAST SODIUM 10 MG TABLET PO SCH (10:30)
[2019-08-28] MEDS: NYSTATIN CREAM 15 GM TP SCH ×3 (11:11→17:47)
[2019-08-28] MEDS: OXYCODONE-ACETAMINOPHEN 5-325 MG TABLET PO PRN ×2 (12:49→23:39)
--- NOTE | 2019-08-28 15:28 | PDOC PROGRESS REPORT ---
Subjective Progress Note for:: 08/28/19 Subjective:: Patient was seen and evaluated this morning. Chart reviewed. Patient is currently being treated for UTI, sepsis hypotension and apparently received vasopressin and IV fluids while he was in ICU the patient so he is currently on IV Lasix. Patient has been put on a fluid restriction And had an echo done on August 21 which apparently is uninterpretable. Reason For Visit: ACUTE KIDNEY INJURY,CHEST PAIN,PALPITATIONS,CHRONI Physical Exam Vital Signs: Temp Pulse Resp BP Pulse Ox 97.7 F 83 19 143/70 H 99 08/28/19 11:30 08/28/19 11:30 08/28/19 11:30 08/28/19 11:30 08/28/19 11:30 Intake & Output 08/27/19 08/28/19 08/29/19 06:59 06:59 06:59 Intake Total 1112 1720 530 Output Total 1150 1550 500 Balance -38 170 30 Weight 159.1 kg 159.5 kg General appearance: PRESENT: no acute distress, well-developed, well-nourished Head exam: PRESENT: atraumatic, normocephalic Eye exam: PRESENT: conjunctiva pink, EOMI, PERRLA. ABSENT: scleral icterus Ear exam: PRESENT: normal external ear exam Mouth exam: PRESENT: moist, tongue midline Neck exam: ABSENT: carotid bruit, JVD, lymphadenopathy, thyromegaly Respiratory exam: PRESENT: crackles, unlabored. ABSENT: rales, rhonchi, wheezes Cardiovascular exam: PRESENT: RRR. ABSENT: diastolic murmur, rubs, systolic murmur Pulses: PRESENT: normal dorsalis pedis pul Vascular exam: PRESENT: normal capillary refill GI/Abdominal exam: PRESENT: normal bowel sounds, soft. ABSENT: distended, guarding, mass, organolmegaly, rebound, tenderness Rectal exam: PRESENT: deferred Extremities exam: PRESENT: full ROM, other - anasarca. ABSENT: calf tenderness, clubbing, pedal edema Neurological exam: PRESENT: alert, awake, oriented to person, oriented to place, oriented to time, oriented to situation, CN II-XII grossly intact. ABSENT: motor sensory deficit Psychiatric exam: PRESENT: normal mood. ABSENT: homicidal ideation, suicidal ideation Skin exam: PRESENT: dry, intact, warm. ABSENT: cyanosis, rash Results Laboratory Results: 08/26/19 05:21 08/28/19 08:26 08/28/19 08:26 Sodium 135.8 L Potassium 4.1 Chloride 104 Carbon Dioxide 25 Anion Gap 7 BUN 31 H Creatinine 1.14 Est GFR ( Amer) > 60 Glucose 230 H Calcium 8.5 08/23/19 02:48 Blood Blood Culture - Final NO GROWTH IN 5 DAYS 08/20/19 08/20/19 08/20/19 17:00 17:00 23:09 Creatine Kinase 91 CK-MB (CK-2) Troponin I < 0.012 NT-Pro-B Natriuret Pep 77 08/20/19 08/21/19 08/21/19 23:09 01:16 07:37 Creatine Kinase 78 CK-MB (CK-2) Cancelled 1.35 Troponin I Cancelled < 0.012 NT-Pro-B Natriuret Pep 08/21/19 08/21/19 08/21/19 07:37 13:12 13:12 Creatine Kinase 75 CK-MB (CK-2) 1.00 0.91 Troponin I < 0.012 < 0.012 NT-Pro-B Natriuret Pep 08/23/19 08/23/19 08/28/19 02:24 02:48 08:26 Creatine Kinase 357 H CK-MB (CK-2) 0.75 Troponin I < 0.012 NT-Pro-B Natriuret Pep 7880 H Impressions: Chest CT 08/20/19 18:37 IMPRESSION: No acute abnormality within the chest. Enlarged subcarinal lymph node measuring 1.8 x 3.5 cm in size, indeterminate/nonspecific. TECHNICAL DOCUMENTATION: Quality ID # [id number]: Final reports with documentation of one or more dose reduction techniques (e.g., Automated exposure control, adjustment of the mA and/or kV according to patient size, use of iterative reconstruction technique) copyright 2011 [employer]- All Rights Reserved Renal Ultrasound 08/21/19 00:00 IMPRESSION: Limited ultrasound of the kidneys and urinary bladder due to the patient's body habitus. The left kidney and urinary bladder were not visualized. There is no right-sided hydronephrosis. Abdomen/Pelvis CT 08/23/19 02:08 IMPRESSION: No acute findings. Chest X-Ray 08/28/19 07:29 IMPRESSION: Small bilateral pleural effusions. No interval change. Assessment and Plan - Diagnosis (1) Acute kidney injury (nontraumatic) Is this a current diagnosis for this admission?: Yes Plan: Resolved (2) Coronary artery disease Qualifiers: Coronary Disease-Associated Artery/Lesion type: [place] artery [place] vs. transplanted heart: hopi heart Associated angina: angina presence unspecified Qualified Code(s): I25.10 - Atherosclerotic heart disease of [place] coronary artery without angina pectoris Is this a current diagnosis for this admission?: Yes Plan: 08/28/2019-Appreciate Cardiology consult (3) Essential hypertension Is this a current diagnosis for this admission?: Yes (4) Heart failure Qualifiers: Heart failure type: unspecified Heart failure chronicity: acute Qualified Code(s): I50.9 - Heart failure, unspecified Is this a current diagnosis for this admission?: Yes Plan: The echocardiogram was nondiagnostic because the acoustic windows were very very poor. I am not sure about systolic function, but with his degree of sleep apnea I would not be surprised if he had some degree of pulmonary hypertension and diastolic dysfunction. Cardiology comments noted Continue IV Lasix (5) Morbid obesity Is this a current diagnosis for this admission?: Yes Plan: patient's BMI is more than 49 diet exercise weight loss lifestyle modifications discussed with the patient. (6) Urinary tract infection with pyuria Is this a current diagnosis for this admission?: Yes Plan: Continue cefepime. (7) E coli bacteremia Is this a current diagnosis for this admission?: Yes Plan: Due to his UTI. He is currently on cefepime. - Plan Summary Summary: 08/27 Acute kidney injury likely secondary to overdiuresis. We will continue to monitor closely CAD- ischemic assessment in the outpatient setting Essential hypertension blood pressures currently at goal Cardiomyopathy CHF with had type unspecified due to poor echo. His last echocardiogram from 2017 apparently showed a grossly normal systolic function. Plan is to continue Lasix IV, restrict fluid intake - Time Time Spent with patient: 15-24 minutes
[2019-08-28] MEDS: TAMSULOSIN HCL 0.4 MG CAP.SR.24H PO SCH (17:46)
[2019-08-28] MEDS: ATORVASTATIN CALCIUM 20 MG TABLET PO SCH (21:48)
[2019-08-28] MEDS: INSULIN GLARGINE,HUM.REC.ANLOG 1,000 UNIT/10 ML VIAL SUBCUT SCH (21:48)
[2019-08-28] MEDS: ROPINIROLE HCL 1 MG TABLET PO SCH (21:50)
[2019-08-29] MEDS: LEVALBUTEROL HCL NEB 1.25 MG/3 ML AMPUL NEB SCH ×3 (00:10→16:16)
[2019-08-29] MEDS: IPRATROPIUM BROMIDE 0.02% NEB 0.5 MG/2.5 ML AMPUL NEB SCH ×3 (00:10→16:16)
[2019-08-29] MEDS: HEPARIN SOD (PORCINE) 5,000 UNIT/ML 1 ML VIAL SUBCUT SCH ×3 (05:10→21:54)
[2019-08-29] MEDS: CEFEPIME HCL 2 GM in DEXTROSE 5%-WATER 50 ML IV SCH ×2 (05:10→18:49)
[2019-08-29] MEDS: HYDROCORTISONE SOD SUCCINATE INJ/PF 100 MG/2 ML SDV IV SCH ×3 (05:10→21:54)
[2019-08-29] MEDS: PANTOPRAZOLE SODIUM 40 MG TABLET.DR PO SCH (05:11)
[2019-08-29 06:01] LABS: HEMATOCRIT 26.2 % (37.9-51.0); MEAN CORPUSCULAR HEMOGLOBIN 30.5 pg (27.0-33.4); MEAN CORPUSCULAR HGB CONC 34.4 g/dL (32.0-36.0); MEAN CORPUSCULAR VOLUME 89 fl (80-97); PLATELET COUNT 220 10^3/uL (150-450); RED BLOOD COUNT 2.96 10^6/uL (4.35-5.55); RED CELL DISTRIBUTION WIDTH 16.1 % (11.5-14.0); WHITE BLOOD COUNT 6.2 10^3/uL (4.0-10.5)
[2019-08-29 07:00] LABS: ANION GAP 8 (5-19); BLOOD UREA NITROGEN 36 mg/dL (7-20); CALCIUM 8.8 mg/dL (8.4-10.2); CARBON DIOXIDE 30 mmol/L (22-30); CHLORIDE 101 mmol/L (98-107); GLUCOSE 154 mg/dL (75-110); POTASSIUM 3.6 mmol/L (3.6-5.0)
[2019-08-29 07:16] LABS: EOSINOPHILS % (MANUAL) 0 % (0-6)
[2019-08-29 07:27] LABS: BASOPHILS % (MANUAL) 0 % (0-2); TOTAL CELLS COUNTED 100
[2019-08-29 07:49] LABS: ABSOLUTE LYMPHOCYTES# (MANUAL) 0.4 10^3/uL (0.5-4.7); ABSOLUTE MONOCYTES # (MANUAL) 0.2 10^3/uL (0.1-1.4); LYMPHOCYTES % (MANUAL) 6 % (13-45); MONOCYTES % (MANUAL) 4 % (3-13); NUCLEATED RED BLOOD CELLS 1 /100 WBC (0); SEGMENTED NEUTROPHILS % (MAN) 85 % (42-78)
[2019-08-29 07:51] LABS: ANISOCYTOSIS 1+; OVALOCYTES SLIGHT; POIKILOCYTOSIS SLIGHT; POLYCHROMASIA 1+; TEAR DROP CELLS SLIGHT; TOXIC GRANULATION 1+
[2019-08-29 07:52] LABS: METAMYELOCYTES % (MANUAL) 3 % (0-1); MYELOCYTES % (MANUAL) 1 % (0); PLATELET COMMENT ADEQUATE
[2019-08-29] MEDS: FERROUS SULFATE LIQUID 300 MG/5 ML UDC PO SCH (09:05)
[2019-08-29] MEDS: LOSARTAN POTASSIUM 50 MG TABLET PO SCH (09:06)
[2019-08-29] MEDS: MONTELUKAST SODIUM 10 MG TABLET PO SCH (09:07)
[2019-08-29] MEDS: ISOSORBIDE MONONITRATE 60 MG TAB.ER.24H PO SCH (09:07)
[2019-08-29] MEDS: DOCUSATE SODIUM 100 MG CAPSULE PO SCH ×3 (09:07→18:49)
[2019-08-29] MEDS: DOXAZOSIN MESYLATE 1 MG TABLET PO SCH (09:07)
[2019-08-29] MEDS: CLOPIDOGREL BISULFATE 75 MG TABLET PO SCH (09:07)
[2019-08-29] MEDS: CITALOPRAM HYDROBROMIDE 20 MG TABLET PO SCH (09:07)
[2019-08-29] MEDS: FUROSEMIDE INJ/PF 40 MG/4 ML SDV IV SCH ×2 (09:08→21:54)
[2019-08-29] MEDS: POTASSIUM CHLORIDE 10 MEQ TABLET.ER PO SCH ×2 (09:08→21:54)
[2019-08-29] MEDS: INSULIN REG, HUMAN 100 UNIT/ML 3 ML VIAL (PYX) SUBCUT SCH ×4 (09:09→21:54)
--- NOTE | 2019-08-29 11:59 | PDOC PROGRESS REPORT ---
Subjective Progress Note for:: 08/29/19 Subjective:: The patient is a 78-year-old male with history of CAD status post MIR to the mid LAD and left circumflex in December 2004, hyperlipidemia, hypertension, asthma, morbid obesity, sleep apnea on CPAP, diabetes, restrictive lung disease who was admitted to our institution on 08/20/2019 due to shortness of breath, chest pain and hypertension. He was initially consulted to my partner, Dr. Estrada, please review his notes for further details. In summary, the patient had developed significant lower extremity edema as well as significant dyspnea, orthopnea and PND reason why he self increased his outpatient Lasix dose. His condition continued to deteriorate therefore he came to the emergency room where he was found to have a creatinine of 3.25 consistent with acute kidney injury. He was initially admitted to the medical floor where he was given IV fluids. He eventually had an episode of hypotension and his creatinine went from 2.69 back to 3.24 and was again given IV fluids. In the meantime, it was noted that his blood pressure readings where unreliable given his body habitus and, because of clinical deterioration, he was transferred to the ICU where an arterial line was placed. He was also found to have a UTI and sepsis. He required vasopressin as well as significant amounts of IV fluid. He was transferred out of the ICU however he continues to complain of significant shortness of breath. Of note he is close to 11.5 L positive in his fluid balance. 08/29/2019: The patient is found sitting up feeling slightly better. He has no new cardiac complaints this morning. Physical exam on 08/29/2019: GENERAL: Pleasant and conversational. Oriented x3 with normal mood. Not in acute distress. Well groomed and well developed. Morbidly obese. HEENT: Normocephalic, atraumatic. Pupils equal. Sclerae anicteric. Oropharynx moist. NECK: Difficult to evaluate for JVD and bruit due to body habitus. There is a central line on the right side of the neck. LUNGS: Inspiratory and expiratory crackles in all pulmonary sheth.. Normal respiratory effort without the use of accessory muscles or intercostal retractions. CARDIOVASCULAR: Regular rate and rhythm, normal S1 and S2 without murmurs, rubs, or gallops. PMI not displaced. EXTREMITIES: 2-3+ pitting edema bilaterally, no cyanosis, no clubbing. +2 pulses femoral and pedal pulses bilaterally. MUSCULOSKELETAL: No chest tenderness to palpation. NEUROLOGIC: Nonfocal. No gross sensory or motor deficits bilateral upper or lower extremities. Cardiac studies: Echocardiogram on 08/22/2019 at [facility]: -Uninterpretable study. [facility] on 07/11/2014: -Left main: No disease. -LAD: Widely patent stent in the mid LAD. -Left circumflex: Dominant vessel, patent stent in the mid vessel, luminal irregularities elsewhere. -RCA: Nondominant vessel, moderate diffuse disease. Of note, the LVEDP was markedly elevated. Echocardiogram on 03/02/2017: -Very poor study. -Study is essentially uninterpretable. -LV systolic function is grossly normal. -Valvular structures are not well visualized. Reason For Visit: ACUTE KIDNEY INJURY,CHEST PAIN,PALPITATIONS,CHRONI Physical Exam Vital Signs: Temp Pulse Resp BP Pulse Ox 98.7 F 68 16 153/82 H 100 08/28/19 23:17 08/29/19 00:13 08/29/19 00:13 08/28/19 23:17 08/29/19 00:13 Intake & Output 08/28/19 08/29/19 08/30/19 06:59 06:59 06:59 Intake Total 1720 1410 Output Total 1550 1975 Balance 170 -565 Weight 159.5 kg 155 kg Results Laboratory Results: 08/29/19 05:08 08/28/19 08/29/19 08/29/19 08:26 05:08 05:08 Seg Neutrophils % Not Reportable Sodium 135.8 L 138.5 Potassium 4.1 3.6 Chloride 104 101 Carbon Dioxide 25 30 Anion Gap 7 8 BUN 31 H 36 H Creatinine 1.14 1.10 Est GFR ( Amer) > 60 > 60 Glucose 230 H 154 H Calcium 8.5 8.8 08/20/19 08/20/19 08/20/19 17:00 17:00 23:09 Creatine Kinase 91 CK-MB (CK-2) Troponin I < 0.012 NT-Pro-B Natriuret Pep 77 08/20/19 08/21/19 08/21/19 23:09 01:16 07:37 Creatine Kinase 78 CK-MB (CK-2) Cancelled 1.35 Troponin I Cancelled < 0.012 NT-Pro-B Natriuret Pep 08/21/19 08/21/19 08/21/19 07:37 13:12 13:12 Creatine Kinase 75 CK-MB (CK-2) 1.00 0.91 Troponin I < 0.012 < 0.012 NT-Pro-B Natriuret Pep 08/23/19 08/23/19 08/28/19 02:24 02:48 08:26 Creatine Kinase 357 H CK-MB (CK-2) 0.75 Troponin I < 0.012 NT-Pro-B Natriuret Pep 7880 H Impressions: Chest CT 08/20/19 18:37 IMPRESSION: No acute abnormality within the chest. Enlarged subcarinal lymph node measuring 1.8 x 3.5 cm in size, indeterminate/nonspecific. TECHNICAL DOCUMENTATION: Quality ID # [id number]: Final reports with documentation of one or more dose reduction techniques (e.g., Automated exposure control, adjustment of the mA and/or kV according to patient size, use of iterative reconstruction technique) copyright 2011 [employer]- All Rights Reserved Renal Ultrasound 08/21/19 00:00 IMPRESSION: Limited ultrasound of the kidneys and urinary bladder due to the patient's body habitus. The left kidney and urinary bladder were not visualized. There is no right-sided hydronephrosis. Abdomen/Pelvis CT 08/23/19 02:08 IMPRESSION: No acute findings. Chest X-Ray 08/28/19 07:29 IMPRESSION: Small bilateral pleural effusions. No interval change. 08/29/19 05:08 MCV 88 fl (80-97) 08/26/19 05:21 MCH 30.6 pg (27.0-33.4) 08/26/19 05: MCHC 34.9 g/dL (32.0-36.0) 08/26/19 05:21 RDW 16.4 % (11.5-14.0) H 08/26/19 05:21 Seg Neutrophils % Not Reportable 08/29/19 05:08 Carbonic Acid 1.22 mmol/L (1.05-1.35) 08/23/19 02:18 HCO3/H2CO3 Ratio 16:1 08/23/19 02:18 ABG pH 7.32 (7.35-7.45) L 08/23/19 02:18 ABG pCO2 40.4 mmHg (35-45) 08/23/19 02:18 ABG pO2 67.8 mmHg (80-100) L 08/23/19 02:18 ABG HCO3 20.4 mmol/L (20-24) 08/23/19 02:18 ABG O2 Saturation 92.2 % (94-98) L 08/23/19 02:18 ABG Base Excess -5.3 mmol/L 08/23/19 02:18 FiO2 30% 08/23/19 02:18 Chloride 101 mmol/L (98-107) 08/29/19 05:08 Carbon Dioxide 30 mmol/L (22-30) 08/29/19 05:08 Anion Gap 8 (5-19) 08/29/19 05:08 Est GFR ( Amer) > 60 (>60) 08/29/19 05:08 Est GFR (Non-Af Amer) Cancelled 08/21/19 07:37 Glucose 154 mg/dL (75-110) H 08/29/19 05:08 Lactic Acid 0.9 mmol/L (0.7-2.1) 08/23/19 02:24 Calcium 8.8 mg/dL (8.4-10.2) 08/29/19 05:08 Ionized Calcium [place] 1.03 mmol/L (1.14-1.30) L 08/23/19 02:24 Phosphorus 2.8 mg/dL (2.5-4.5) 08/24/19 05:45 Magnesium 1.9 mg/dL (1.6-2.3) 08/26/19 05:21 Total Bilirubin 0.4 mg/dL (0.2-1.3) 08/26/19 05:21 AST 20 U/L (17-59) 08/26/19 05:21 Alkaline Phosphatase 57 U/L (38-126) 08/26/19 05:21 Total Protein 5.8 g/dL (6.3-8.2) L 08/26/19 05:21 Albumin 3.0 g/dL (3.5-5.0) L 08/26/19 05:21 Triglycerides 201 mg/dL (<150) H 08/21/19 07:37 Cholesterol 89.92 mg/dL (0-200) 08/21/19 07:37 LDL Cholesterol Direct 39 mg/dL (<100) 08/21/19 07:37 VLDL Cholesterol 40.2 mg/dL (10-31) H 08/21/19 07:37 HDL Cholesterol 20 mg/dL (>40) L 08/21/19 07:37 TSH 4.61 uIU/mL (0.47-4.68) 08/21/19 07:37 Free T3 pg/mL 3.57 pg/mL (2.77-5.27) 08/21/19 07:37 Urine Color STRAW 08/20/19 23:39 Urine Appearance SLIGHTLY-CLOUDY 08/20/19 23:39 Urine pH 5.0 (5.0-9.0) 08/20/19 23:39 Ur Specific [place] 1.009 08/20/19 23:39 Urine Protein NEGATIVE mg/dL (NEGATIVE) 08/20/19 23:39 Urine Glucose (UA) NEGATIVE mg/dL (NEGATIVE) 08/20/19 23:39 Urine Ketones NEGATIVE mg/dL (NEGATIVE) 08/20/19 23:39 Urine Blood SMALL (NEGATIVE) H 08/20/19 23:39 Urine RBC (Auto) 0 /HPF 08/20/19 23:39 08/20/19 08/20/19 08/20/19 17:00 17:00 23:09 Creatine Kinase 91 CK-MB (CK-2) Troponin I < 0.012 NT-Pro-B Natriuret Pep 77 08/20/19 08/21/19 08/21/19 23:09 01:16 07:37 Creatine Kinase 78 CK-MB (CK-2) Cancelled 1.35 Troponin I Cancelled < 0.012 NT-Pro-B Natriuret Pep 08/21/19 08/21/19 08/21/19 07:37 13:12 13:12 Creatine Kinase 75 CK-MB (CK-2) 1.00 0.91 Troponin I < 0.012 < 0.012 NT-Pro-B Natriuret Pep 08/23/19 08/23/19 08/28/19 02:24 02:48 08:26 Creatine Kinase 357 H CK-MB (CK-2) 0.75 Troponin I < 0.012 NT-Pro-B Natriuret Pep 7880 H Current Medication List Generic Name Dose Route Start Last Admin Trade Name Freq PRN Reason Stop Dose Admin Acetaminophen 650 mg 08/20/19 21:40 08/26/19 05:08 Tylenol 325 Mg Tablet PO 09/19/19 21:39 650 mg Q4HP PRN Administration For headache, pain or fever Al Hydrox/Mg Hydrox/Simethicone 30 ml 08/20/19 21:33 Maalox Plus Susp 30 Udcup PO 09/19/19 21:32 Q6HP PRN HEARTBURN Atorvastatin Calcium 20 mg 08/21/19 22:00 08/28/19 21:48 Lipitor 20 Mg Tablet PO 09/20/19 21:59 20 mg QHS ABIMBOLA Administration Cetirizine HCl 5 mg 08/21/19 09:27 Zyrtec 5 Mg Tablet PO 09/20/19 09:26 DAILYP PRN ALLERGIES Citalopram Hydrobromide 20 mg 08/21/19 10:00 08/28/19 10:30 Celexa 20 Mg Tablet PO 09/20/19 09:59 20 mg DAILY ABIMBOLA Administration Clopidogrel Bisulfate 75 mg 08/21/19 10:00 08/28/19 10:29 Plavix 75 Mg Tablet PO 09/20/19 09:59 75 mg DAILY ABIMBOLA Administration Dextrose 12.5 gm 08/21/19 09:40 Dextrose Inj 50% Syringe (25 Gm/50 Ml) IV 09/20/19 09:39 PRN PRN FOR BG 50-69 IN ALERT PATIENT Protocol Dextrose 25 gm 08/21/19 09:40 Dextrose Inj 50% Syringe (25 Gm/50 Ml) IV 09/20/19 09:39 PRN PRN PER PROTOCOL Protocol Docusate Sodium 100 mg 08/21/19 10:00 08/28/19 17:46 Colace 100 Mg Capsule PO 09/20/19 09:59 100 mg BID ABIMBOLA Administration Doxazosin Mesylate 1 mg 08/21/19 12:00 08/28/19 10:29 Cardura 1 Mg Tablet PO 09/20/19 11:59 1 mg DAILY ABIMBOLA Administration Ferrous Sulfate 142 mg 08/21/19 10:00 08/28/19 10:30 Ferrous Sulfate Liquid 300 Mg/5 Ml Udcup PO 09/20/19 09:59 142 mg DAILY ABIMBOLA Administration Fluticasone Propionate 1 spray 08/21/19 10:06 08/21/19 23:47 Flonase Nasal [place] 50 Mcg/[place] 16 Gm NASL 06/04/20 10:05 1 spr BIDP PRN Administration Furosemide 40 mg 08/28/19 09:00 08/28/19 21:46 Lasix Inj/Pf 40 Mg/4 Ml Sdv IV 09/27/19 08:59 40 mg Q12 ABIMBOLA Administration Glucagon 1 mg 08/21/19 09:40 Glucagen Inj 1 Mg Vial IM 09/20/19 09:39 PRN PRN Evaluate for BG < 70 Protocol Glucose 15 gm 08/21/19 09:40 Glutose 40% Gel 15 Gm Tube PO 09/20/19 09:39 PRN PRN FOR BG 50-69 IN ALERT PATIENT Protocol Glucose 30 gm 08/21/19 09:40 Glutose 40% Gel 15 Gm Tube PO 09/20/19 09:39 PRN PRN FOR BG < 50 IN ALERT PATIENT Protocol Guaifenesin 200 mg 08/20/19 21:40 Robitussin Syrup 200 Mg/10 Ml Ud Cup PO 09/19/19 21:39 Q4HP PRN COUGH Heparin Sodium (Porcine) 5,000 unit 08/20/19 22:00 08/29/19 05:10 Heparin Inj 5,000 Units/Ml 1 Ml Vial SUBCUT 09/19/19 21:59 5,000 unit Q8 ABIMBOLA Administration Heparin Sodium (Porcine) 30 unit 08/24/19 06:00 08/29/19 05:10 Heparin Flush 10 Unit/Ml 5 Ml Disp.Syrg IV 09/23/19 05:59 30 unit Q8 ABIMBOLA Administration Heparin Sodium (Porcine) 30 unit 08/24/19 05:57 08/26/19 14:28 Heparin Flush 10 Unit/Ml 5 Ml Disp.Syrg IV 09/23/19 05:56 30 unit .AFTER EACH USE PRN Administration AFTER EACH INTERMITTENT USE Hydralazine HCl 20 mg 08/20/19 21:40 Apresoline Inj/Pf 20 Mg/1 Ml Sdv IV 09/19/19 21:39 Q4HP PRN Give For Sbp > 160 / Dbp > 100 Hydrocortisone Sodium Succinate 100 mg 08/23/19 07:45 08/29/19 05:10 Solu-Cortef Inj/Pf 100 Mg/ 2 Ml Sdv IV 09/22/19 07:44 100 mg Q8 ABIMBOLA Administration Cefepime HCl 2 gm/ Dextrose 50 mls @ 100 mls/hr 08/27/19 18:00 08/29/19 05:40 IV 08/31/19 17:59 Infused Q12A ABIMBOLA Infusion Insulin Glargine 30 unit 08/23/19 22:00 08/28/19 21:48 Lantus Insulin 100 Unit/1 Ml 10 Ml SUBCUT 09/22/19 21:59 30 unit QHS ABIMBOLA Administration Insulin Human Regular 0 - 12 unit 08/21/19 11:00 08/28/19 21:47 Humulin R (Pyxis) Insulin 100 Unit/Ml 3ml SUBCUT 09/20/19 10:59 4 unit ACHS ABIMBOLA Administration Protocol Ipratropium [place] 0.5 mg 08/21/19 00:00 08/29/19 00:10 Atrovent 0.02% Neb 0.5 Mg/2.5 Ml Ampul NEB 09/20/19 00:00 0.5 mg RTQ8 ABIMBOLA Administration Isosorbide Mononitrate 60 mg 08/21/19 10:00 08/28/19 10:30 Imdur 60 Mg Tablet.Er PO 09/20/19 09:59 60 mg DAILY ABIMBOLA Administration Levalbuterol HCl 0.63 mg 08/20/19 21:43 Xopenex Neb 0.63 Mg/3 Ml Ampul NEB 09/19/19 21:42 RTQ2HP PRN SHORTNESS OF BREATH Levalbuterol HCl 1.25 mg 08/21/19 00:00 08/29/19 00:10 Xopenex Neb 1.25 Mg/3 Ml Ampul NEB 09/20/19 00:00 1.25 mg RTQ8 ABIMBOLA Administration Losartan Potassium 100 mg 08/25/19 10:00 08/28/19 10:29 Cozaar 50 Mg Tablet PO 09/24/19 09:59 100 mg DAILY ABIMBOLA Administration Magnesium Hydroxide 30 ml 08/20/19 21:33 Milk Of Magnesia 30 Ml Udcup PO 09/19/19 21:32 HSP PRN FOR CONSTIPATION Metoprolol Tartrate 5 mg 08/20/19 21:40 Lopressor Inj/Pf 5 Mg/5 Ml Sdv IV 09/19/19 21:39 Q4HP PRN Give For Sbp > 160 / Dbp > 100 Montelukast Sodium 10 mg 08/21/19 10:00 08/28/19 10:30 Singulair 10 Mg Tablet PO 09/20/19 09:59 10 mg DAILY ABIMBOLA Administration Nystatin 1 applic 08/26/19 12:00 08/28/19 17:47 Mycostatin Cream 15 Gm TP 09/02/19 11:59 1 applic TID ABIMBOLA Administration Ondansetron HCl 4 mg 08/20/19 21:33 08/22/19 23:09 Zofran Inj/Pf 4 Mg/2 Ml Sdv IV 09/19/19 21:32 4 mg Q4HP PRN Administration FOR NAUSEA/VOMITING Oxycodone/Acetaminophen 1 tab 08/25/19 17:03 08/28/19 23:39 Percocet 5-325 Mg Tablet PO 09/01/19 17:02 1 tab Q4HP PRN Administration FOR BACK PAIN Pantoprazole Sodium 40 mg 08/21/19 06:00 08/29/19 05:[address] Tablet PO 09/20/19 05:59 40 mg Q6AM ABIMBOLA Administration Potassium Chloride 10 meq 08/25/19 10:00 08/28/19 21:48 Klor-Con 10 Meq Tablet Er PO 09/24/19 09:59 10 meq Q12 ABIMBOLA Administration Ropinirole HCl 1 mg 08/21/19 02:45 08/28/19 21:50 Requip 1 Mg Tablet PO 09/20/19 02:44 1 mg QHS ABIMBOLA Administration Sodium Chloride 2.5 ml 08/20/19 22:00 08/29/19 05:11 Saline Flush 2.5 Ml Monoject Prefil Syrin IV 09/19/19 21:59 Not Given Q8 ABIMBOLA Sodium Chloride 10 ml 08/24/19 05:57 08/28/19 14:19 Nacl 0.9% Inj/Pf 10 Ml Sdv IV 09/23/19 05:56 10 ml .AFTER EACH USE PRN Administration AFTER EACH INTERMITTENT USE Tamsulosin HCl 0.4 mg 08/21/19 18:00 08/28/19 17:46 Flomax 0.4 Mg Cap.Sr PO 09/20/19 17:59 0.4 mg PCSUPPER ABIMBOLA Administration Zolpidem Tartrate 5 mg 08/28/19 22:00 08/28/19 23:39 Ambien 5 Mg Tablet PO 09/04/19 21:59 5 mg HSP PRN Administration INSOMNIA Discontinued Medications Generic Name Dose Route Start Last Admin Trade Name Ludwigq PRN Reason Stop Dose Admin Aspirin 324 mg 08/20/19 16:34 08/20/19 17:02 Aspirin 81 Mg Chewable Tablet PO 08/20/19 16:35 324 mg NOW ONE Administration Aspirin 325 mg 08/20/19 20:15 08/20/19 20:31 Aspirin 325 Mg Tablet PO 08/20/19 20:16 325 mg NOW ONE Administration Furosemide 20 mg 08/25/19 10:00 08/27/19 09:14 Lasix 20 Mg Tablet PO 09/24/19 09:59 20 mg DAILY ABIMBOLA Administration Sodium Chloride 1,000 mls @ 0 mls/hr 08/20/19 20:18 08/20/19 20:31 Nacl 0.9% 1000 Ml Iv Soln IV 08/20/19 20:19 999 mls/hr BOLUS ONE Administration Wide Open Lactated Ringer's 1,000 mls @ 167 mls/hr 08/20/19 21:33 08/21/19 10:21 Lactated Ringers 1000 Ml Iv Soln IV 09/19/19 21:32 Infused CONTINUOUS PRN Infusion THIS MED IS NOT "PRN" Lactated Ringer's 1,000 mls @ 100 mls/hr 08/21/19 09:29 08/23/19 12:21 Lactated Ringers 1000 Ml Iv Soln IV 09/19/19 21:32 Infused CONTINUOUS PRN Infusion THIS MED IS NOT "PRN" Sodium Chloride 500 mls @ 0 mls/hr 08/22/19 05:00 08/22/19 04:30 Nacl 0.9% 500 Ml Iv Soln IV 08/22/19 05:01 Infused BOLUS ONE Infusion Sodium Chloride 500 mls @ 0 mls/hr 08/22/19 06:15 08/22/19 05:25 Nacl 0.9% 500 Ml Iv Soln IV 08/22/19 06:16 Infused BOLUS ONE Infusion Sodium Chloride 1,000 mls @ 999 mls/hr 08/23/19 02:15 08/23/19 02:50 Nacl 0.9% 1000 Ml Iv Soln IV 08/23/19 03:15 Infused ONCE ONE Infusion Cefepime HCl 1 gm in 50 mls @ 100 mls/hr 08/23/19 02:30 08/23/19 03:28 Maxipime Rtu 1 Gm/D5w 50 Ml Premix Bag IV 08/30/19 02:29 Infused Q12H ABIMBOLA Infusion Sodium Chloride 1,000 mls @ 0 mls/hr 08/23/19 02:58 08/23/19 04:00 Nacl 0.9% 1000 Ml Iv Soln IV 08/23/19 02:59 Infused BOLUS ONE Infusion Wide Open Magnesium Sulfate/Dextrose 1 gm in 100 mls @ 100 mls/hr 08/23/19 03:00 08/23/19 06:07 Magnesium Sulfate Rtu-D5w 1 Gm/100 Ml Premix IV 08/23/19 06:59 200 mls/hr Q1H ABIMBOLA 200 mls/hr Administration Magnesium Sulfate/Dextrose Confirm 08/23/19 03:00 08/23/19 03:18 Magnesium Sulfate Rtu-D5w 1 Gm/100 Ml Premix Administered 08/23/19 03:01 Not Given Dose 1 gm in 100 mls @ ud IV .STK-MED ONE Lactated Ringer's 1,000 mls @ 200 mls/hr 08/23/19 04:01 Lactated Ringers 1000 Ml Iv Soln IV 09/19/19 21:32 CONTINUOUS PRN THIS MED IS NOT "PRN" Vancomycin HCl 2,000 mg/ 500 mls @ 250 mls/hr 08/23/19 05:00 08/23/19 07:50 Dextrose IV 08/23/19 06:59 Infused ONCE ONE Infusion Vasopressin 100 unit/ Dextrose 250 mls @ 0 mls/hr 08/23/19 05:30 08/23/19 15:35 IV 09/22/19 05:29 0 unit/min CONTINUOUS PRN 0 mls/hr THIS MED IS NOT "PRN" Titration Protocol As Directed Hard Fat/Phenylephrine 40 mg/ 250 mls @ 0 mls/hr 08/23/19 05:33 Dextrose IV 09/22/19 05:32 CONTINUOUS PRN THIS MED IS NOT "PRN" Protocol Titrate Cefepime HCl 1 gm in 50 mls @ 100 mls/hr 08/23/19 10:00 08/23/19 10:46 Maxipime Rtu 1 Gm/D5w 50 Ml Premix Bag IV 08/30/19 09:59 Infused Q12 ABIMBOLA Infusion Vancomycin HCl 1,500 mg/ 250 mls @ 166.667 mls/hr 08/24/19 06:00 08/24/19 07:35 Dextrose IV 08/31/19 05:59 Infused Q6AM ABIMBOLA Infusion Albumin Human 500 mls @ 4 mls/min 08/23/19 12:30 08/23/19 15:30 Albutein 5% Inj 25 Gm/500 Ml Premixed Bottle IV 08/23/19 14:34 Infused NOW ONE Infusion Sodium Chloride 1,000 mls @ 250 mls/hr 08/23/19 11:44 08/24/19 08:15 Nacl 0.9% 1000 Ml Iv Soln IV 09/22/19 11:43 Infused CONTINUOUS PRN Infusion THIS MED IS NOT "PRN" Piperacillin Sod/Tazobactam 50 mls @ 100 mls/hr 08/23/19 20:00 08/24/19 09:20 Sod 2.25 gm/ Sodium Chloride IV 08/30/19 19:59 100 mls/hr Q6A ABIMBOLA 100 mls/hr Administration Cefepime HCl 1 gm in 50 mls @ 100 mls/hr 08/24/19 18:00 08/27/19 07:00 Maxipime Rtu 1 Gm/D5w 50 Ml Premix Bag IV 08/31/19 17:59 Infused Q12A ABIMBOLA Infusion Sodium Chloride 1,000 mls @ 100 mls/hr 08/24/19 15:34 Nacl 0.9% 1000 Ml Iv Soln IV 09/22/19 11:43 CONTINUOUS PRN THIS MED IS NOT "PRN" Lorazepam 1 mg 08/20/19 21:40 Ativan Inj 2 Mg/1 Ml Vial IV 08/27/19 21:39 Q4HP PRN ANXIETY/AGITATION Meloxicam 7.5 mg 08/21/19 10:00 08/22/19 18:34 Mobic 7.5 Mg Tablet PO 09/20/19 09:59 7.5 mg BID ABIMBOLA Administration Morphine Sulfate 2 mg 08/20/19 21:40 08/23/19 00:42 Morphine 10 Mg/Ml Inj IV 08/27/19 21:39 2 mg Q2HP PRN Administration FOR PAIN SCALE 1-2 Morphine Sulfate 3 mg 08/20/19 21:40 08/21/19 06:16 Morphine 10 Mg/Ml Inj IV 08/27/19 21:39 3 mg Q2HP PRN Administration FOR PAIN SCALE 3-4 Morphine Sulfate 4 mg 08/20/19 21:40 08/22/19 18:34 Morphine 10 Mg/Ml Inj IV 08/27/19 21:39 4 mg Q2HP PRN Administration PAIN SCALE OF 5 Morphine Sulfate 4 mg 08/23/19 05:30 08/23/19 20:32 Morphine 10 Mg/Ml Inj IV 08/30/19 05:29 4 mg Q2HP PRN Administration PAIN SCALE OF 5 Nitroglycerin 0.5 gm 08/20/19 17:15 08/20/19 17:21 Nitrol 2% Ointment 1gm Packet TP 08/20/19 17:16 0.5 gm NOW ONE Administration Oxycodone/Acetaminophen 1 tab 08/25/19 15:28 08/25/19 15:40 Percocet 5-325 Mg Tablet PO 09/01/19 15:27 1 tab Q6HP PRN Administration FOR BACK PAIN Vancomycin HCl Confirm 08/23/19 05:43 08/23/19 05:56 Vancocin Inj 1000 Mg Vial Administered 08/23/19 05:44 Not Given Dose 1,000 mg .ROUTE .STK-MED ONE Vancomycin HCl Confirm 08/24/19 05:49 08/24/19 06:15 Vancocin Inj 500 Mg Vial Administered 08/24/19 05:50 Not Given Dose 500 mg .ROUTE .STK-MED ONE Vancomycin HCl Confirm 08/24/19 05:49 08/24/19 06:15 Vancocin Inj 1000 Mg Vial Administered 08/24/19 05:50 Not Given Dose 1,000 mg .ROUTE .STK-MED ONE Vasopressin Confirm 08/23/19 05:19 08/23/19 06:17 Vasopressin Inj 20 Unit/1 Ml Vial Administered 08/23/19 05:20 Not Given Dose 20 unit .ROUTE .STK-MED ONE Zolpidem Tartrate 2.5 mg 08/21/19 02:31 08/21/19 03:17 Ambien 5 Mg Tablet PO 08/28/19 02:30 2.5 mg HSP PRN Administration SLEEP OR INSOMNIA Zolpidem Tartrate 5 mg 08/21/19 22:00 08/28/19 00:48 Ambien 5 Mg Tablet PO 08/28/19 21:59 5 mg HSP PRN Administration INSOMNIA Assessment & Plan - Diagnosis (1) Acute kidney injury (nontraumatic) Is this a current diagnosis for this admission?: Yes Plan: Secondary to outpatient overdiuresis. His renal function is now normal. Recommendations: -Continue with current medical management. (2) Coronary artery disease Qualifiers: Coronary Disease-Associated Artery/Lesion type: [place] artery [place] vs. transplanted heart: [place] heart Associated angina: angina presence unspecified Qualified Code(s): I25.10 - Atherosclerotic heart disease of [place] coronary artery without angina pectoris Plan: The patient denies alva chest pain and angina. His shortness of breath is likely multifactorial however he is definitely fluid overloaded. He has not had any ischemic evaluation recently. Recommendations: -Continue with current medical management for now. -Ischemic assessment in the outpatient setting. (3) Essential hypertension Is this a current diagnosis for this admission?: Yes Plan: The patient had episodes of hypotension secondary to sepsis requiring vasopressin and admission to the ICU as well as volume expansion. His pressure is now slightly above goal however they expect it to go down as we diurese him. Recommendations: -Continue with current medical management. (4) Heart failure Qualifiers: Heart failure type: unspecified Heart failure chronicity: acute Qualified Code(s): I50.9 - Heart failure, unspecified Plan: The patient feels slightly better this morning although his response to 40 mg of Lasix IV twice daily is not adequate. He continues to be fluid overloaded. Unfortunately his echocardiogram during this admission was nondiagnostic however a prior echocardiogram in February 2017 in the outpatient setting, although of very poor quality, demonstrated a grossly normal systolic function. Recommendations: -Increase Lasix to 80 mg IV twice daily with close attention to his blood pressure and renal function. -Consider discontinuing isosorbide if patient hypotensive. -Manual blood pressure with a large cuff. -BMP daily. -Restrict fluid intake to 1500 cc daily. -Low sodium diet, less than 1500 mg daily. -Strict intake and output. -Daily weights. -Replace electrolytes as needed.
[2019-08-29] MEDS: NYSTATIN CREAM 15 GM TP SCH ×3 (13:12→18:49)
[2019-08-29] MEDS ORDERED: ALPRAZOLAM 0.5 MG TABLET PO PRN (14:02)
--- NOTE | 2019-08-29 14:11 | PDOC PROGRESS REPORT ---
Subjective Progress Note for:: 08/29/19 Subjective:: Patient was seen and evaluated this morning. Chart reviewed. Patient is currently being treated for UTI, sepsis hypotension and apparently received vasopressin and IV fluids while he was in ICU the patient so he is currently on IV Lasix. Patient has been put on a fluid restriction And had an echo done on August 21 which apparently is uninterpretable. 08/28 patient does state that he feels better. He has lost about 10 kg and has noticed to be putting out more urine now Reason For Visit: ACUTE KIDNEY INJURY,CHEST PAIN,PALPITATIONS,CHRONI Physical Exam Vital Signs: Temp Pulse Resp BP Pulse Ox 98.7 F 71 18 153/82 H 95 08/28/19 23:17 08/29/19 08:42 08/29/19 08:42 08/28/19 23:17 08/29/19 08:42 Intake & Output 08/28/19 08/29/19 08/30/19 06:59 06:59 06:59 Intake Total 1720 1410 Output Total 1550 1975 Balance 170 -565 Weight 159.5 kg 155 kg General appearance: PRESENT: no acute distress, well-developed, well-nourished Head exam: PRESENT: atraumatic, normocephalic Eye exam: PRESENT: conjunctiva pink, EOMI, PERRLA. ABSENT: scleral icterus Ear exam: PRESENT: normal external ear exam Mouth exam: PRESENT: moist, tongue midline Neck exam: ABSENT: carotid bruit, JVD, lymphadenopathy, thyromegaly Respiratory exam: PRESENT: rhonchi, unlabored. ABSENT: rales, wheezes Cardiovascular exam: PRESENT: RRR, +S1, +S2. ABSENT: diastolic murmur, rubs, systolic murmur Pulses: PRESENT: normal dorsalis pedis pul Vascular exam: PRESENT: normal capillary refill GI/Abdominal exam: PRESENT: normal bowel sounds, soft. ABSENT: distended, guarding, mass, organolmegaly, rebound, tenderness Rectal exam: PRESENT: deferred Extremities exam: PRESENT: full ROM, other - anasarca. ABSENT: calf tenderness, clubbing, pedal edema Neurological exam: PRESENT: alert, awake, oriented to person, oriented to place, oriented to time, oriented to situation, CN II-XII grossly intact. ABSENT: mot or sensory deficit Psychiatric exam: PRESENT: appropriate affect, normal mood. ABSENT: homicidal ideation, suicidal ideation Skin exam: PRESENT: dry, intact, warm. ABSENT: cyanosis, rash Results Laboratory Results: 08/29/19 05:08 08/29/19 05:08 08/29/19 08/29/19 05:08 05:08 WBC 6.2 RBC 2.96 L Hgb 9.0 L Hct 26.2 L MCV 89 MCH 30.5 MCHC 34.4 RDW 16.1 H Plt Count 220 Seg Neutrophils % Not Reportable Sodium 138.5 Potassium 3.6 Chloride 101 Carbon Dioxide 30 Anion Gap 8 BUN 36 H Creatinine 1.10 Est GFR ( Amer) > 60 Glucose 154 H Calcium 8.8 08/20/19 08/20/19 08/20/19 17:00 17:00 23:09 Creatine Kinase 91 CK-MB (CK-2) Troponin I < 0.012 NT-Pro-B Natriuret Pep 77 08/20/19 08/21/19 08/21/19 23:09 01:16 07:37 Creatine Kinase 78 CK-MB (CK-2) Cancelled 1.35 Troponin I Cancelled < 0.012 NT-Pro-B Natriuret Pep 08/21/19 08/21/19 08/21/19 07:37 13:12 13:12 Creatine Kinase 75 CK-MB (CK-2) 1.00 0.91 Troponin I < 0.012 < 0.012 NT-Pro-B Natriuret Pep 08/23/19 08/23/19 08/28/19 02:24 02:48 08:26 Creatine Kinase 357 H CK-MB (CK-2) 0.75 Troponin I < 0.012 NT-Pro-B Natriuret Pep 7880 H Impressions: Chest CT 08/20/19 18:37 IMPRESSION: No acute abnormality within the chest. Enlarged subcarinal lymph node measuring 1.8 x 3.5 cm in size, indeterminate/nonspecific. TECHNICAL DOCUMENTATION: Quality ID # [id number]: Final reports with documentation of one or more dose reduction techniques (e.g., Automated exposure control, adjustment of the mA and/or kV according to patient size, use of iterative reconstruction technique) copyright 2011 [employer]- All Rights Reserved Renal Ultrasound 08/21/19 00:00 IMPRESSION: Limited ultrasound of the kidneys and urinary bladder due to the patient's body habitus. The left kidney and urinary bladder were not visualized. There is no right-sided hydronephrosis. Abdomen/Pelvis CT 08/23/19 02:08 IMPRESSION: No acute findings. Chest X-Ray 08/28/19 07:29 IMPRESSION: Small bilateral pleural effusions. No interval change. Assessment and Plan - Diagnosis (1) Acute kidney injury (nontraumatic) Is this a current diagnosis for this admission?: Yes (2) Coronary artery disease Qualifiers: Coronary Disease-Associated Artery/Lesion type: [place] artery [place] vs. transplanted heart: [place] heart Associated angina: angina presence unspecified Qualified Code(s): I25.10 - Atherosclerotic heart disease of [place] coronary artery without angina pectoris Is this a current diagnosis for this admission?: Yes (3) Essential hypertension Is this a current diagnosis for this admission?: Yes (4) Heart failure Qualifiers: Heart failure type: unspecified Heart failure chronicity: acute Qualified Code(s): I50.9 - Heart failure, unspecified Is this a current diagnosis for this admission?: Yes (5) Morbid obesity Is this a current diagnosis for this admission?: Yes (6) Urinary tract infection with pyuria Is this a current diagnosis for this admission?: Yes (7) E coli bacteremia Is this a current diagnosis for this admission?: Yes - Plan Summary Summary: 08/27 Acute kidney injury likely secondary to overdiuresis. We will continue to monitor closely CAD- ischemic assessment in the outpatient setting Essential hypertension blood pressures currently at goal Cardiomyopathy CHF with had type unspecified due to poor echo. His last echocardiogram from 2016 apparently showed a grossly normal systolic function. Plan is to continue Lasix IV, restrict fluid intake 08/28 we will continue with this. We will also order CHF education as patient seems to lack some knowledge about his disease
[2019-08-29 15:22] LABS: PATH REVIEW PATHOLOGIST REVIEWED
[2019-08-29] MEDS: TAMSULOSIN HCL 0.4 MG CAP.SR.24H PO SCH (18:48)
[2019-08-29] MEDS: ATORVASTATIN CALCIUM 20 MG TABLET PO SCH (21:53)
[2019-08-29] MEDS: ROPINIROLE HCL 1 MG TABLET PO SCH (21:55)
[2019-08-29] MEDS: INSULIN GLARGINE,HUM.REC.ANLOG 1,000 UNIT/10 ML VIAL SUBCUT SCH (21:55)
[2019-08-30] MEDS: LEVALBUTEROL HCL NEB 1.25 MG/3 ML AMPUL NEB SCH ×4 (00:18→23:59)
[2019-08-30] MEDS: IPRATROPIUM BROMIDE 0.02% NEB 0.5 MG/2.5 ML AMPUL NEB SCH ×4 (00:18→23:59)
[2019-08-30] MEDS: OXYCODONE-ACETAMINOPHEN 5-325 MG TABLET PO PRN ×3 (00:43→23:58)
[2019-08-30] MEDS: ZOLPIDEM TARTRATE 5 MG TABLET PO PRN ×2 (00:43→23:59)
[2019-08-30] MEDS: HYDROCORTISONE SOD SUCCINATE INJ/PF 100 MG/2 ML SDV IV SCH ×2 (05:06→13:34)
[2019-08-30] MEDS: HEPARIN SOD (PORCINE) 5,000 UNIT/ML 1 ML VIAL SUBCUT SCH ×3 (05:06→22:26)
[2019-08-30] MEDS: PANTOPRAZOLE SODIUM 40 MG TABLET.DR PO SCH (05:07)
[2019-08-30] MEDS: CEFEPIME HCL 2 GM in DEXTROSE 5%-WATER 50 ML IV SCH ×2 (05:07→17:10)
[2019-08-30] MEDS: INSULIN REG, HUMAN 100 UNIT/ML 3 ML VIAL (PYX) SUBCUT SCH ×4 (07:52→22:23)
[2019-08-30 08:42] LABS: ANION GAP 7 (5-19); BLOOD UREA NITROGEN 37 mg/dL (7-20); CALCIUM 8.7 mg/dL (8.4-10.2); CARBON DIOXIDE 33 mmol/L (22-30); CHLORIDE 98 mmol/L (98-107); GLUCOSE 135 mg/dL (75-110); POTASSIUM 3.4 mmol/L (3.6-5.0)
--- NOTE | 2019-08-30 10:25 | PDOC PROGRESS REPORT ---
Subjective Progress Note for:: 08/30/19 Subjective:: The patient is a 78-year-old male with history of CAD status post MIR to the mid LAD and left circumflex in December 2004, hyperlipidemia, hypertension, asthma, morbid obesity, sleep apnea on CPAP, diabetes, restrictive lung disease who was admitted to our institution on 08/20/2019 due to shortness of breath, chest pain and hypertension. He was initially consulted to my partner, Dr. Estrada, please review his notes for further details. In summary, the patient had developed significant lower extremity edema as well as significant dyspnea, orthopnea and PND reason why he self increased his outpatient Lasix dose. His condition continued to deteriorate therefore he came to the emergency room where he was found to have a creatinine of 3.25 consistent with acute kidney injury. He was initially admitted to the medical floor where he was given IV fluids. He eventually had an episode of hypotension and his creatinine went from 2.69 back to 3.24 and was again given IV fluids. In the meantime, it was noted that his blood pressure readings where unreliable given his body habitus and, because of clinical deterioration, he was transferred to the ICU where an arterial line was placed. He was also found to have a UTI and sepsis. He required vasopressin as well as significant amounts of IV fluid. He was transferred out of the ICU however he continues to complain of significant shortness of breath. Of note he is close to 11.5 L positive in his fluid balance. 08/30/2019: The patient is found sitting up feeling slightly better. He has no new cardiac complaints this morning. He had a good urine output yesterday and his fluid balance although still +8.4 L, it is better than in the past few days. Physical exam on 08/30/2019: GENERAL: Pleasant and conversational. Oriented x3 with normal mood. Not in acute distress. Well groomed and well developed. Morbidly obese. HEENT: Normocephalic, atraumatic. Pupils equal. Sclerae anicteric. Oropharynx moist. NECK: Difficult to evaluate for JVD and bruit due to body habitus. There is a central line on the right side of the neck. LUNGS: Inspiratory and expiratory crackles in all pulmonary sheth although improved from yesterday, normal respiratory effort without the use of accessory muscles or intercostal retractions. CARDIOVASCULAR: Regular rate and rhythm, normal S1 and S2 without murmurs, rubs, or gallops. PMI not displaced. EXTREMITIES: 2+ pitting edema bilaterally, no cyanosis, no clubbing. +2 pulses femoral and pedal pulses bilaterally. MUSCULOSKELETAL: No chest tenderness to palpation. NEUROLOGIC: Nonfocal. No gross sensory or motor deficits bilateral upper or lower extremities. Cardiac studies: Echocardiogram on 08/22/2019 at [facility]: -Uninterpretable study. [facility] on 07/11/2014: -Left main: No disease. -LAD: Widely patent stent in the mid LAD. -Left circumflex: Dominant vessel, patent stent in the mid vessel, luminal irregularities elsewhere. -RCA: Nondominant vessel, moderate diffuse disease. Of note, the LVEDP was markedly elevated. Echocardiogram on 03/02/2017: -Very poor study. -Study is essentially uninterpretable. -LV systolic function is grossly normal. -Valvular structures are not well visualized. Reason For Visit: ACUTE KIDNEY INJURY,CHEST PAIN,PALPITATIONS,CHRONI Physical Exam Vital Signs: Temp Pulse Resp BP Pulse Ox 97.9 F 72 20 141/60 H 95 08/29/19 23:43 08/30/19 00:21 08/30/19 00:21 08/29/19 23:43 08/30/19 05:52 Intake & Output 08/29/19 08/30/19 08/31/19 06:59 06:59 06:59 Intake Total 1410 930 Output Total 1585 3500 Balance -565 -2570 Weight 155 kg 155.6 kg Results Laboratory Results: 08/29/19 05:08 08/29/19 05:08 08/29/19 05:08 WBC 6.2 RBC 2.96 L Hgb 9.0 L Hct 26.2 L MCV 89 MCH 30.5 MCHC 34.4 RDW 16.1 H Plt Count 220 08/20/19 08/20/19 08/20/19 17:00 17:00 23:09 Creatine Kinase 91 CK-MB (CK-2) Troponin I < 0.012 NT-Pro-B Natriuret Pep 77 08/20/19 08/21/19 08/21/19 23:09 01:16 07:37 Creatine Kinase 78 CK-MB (CK-2) Cancelled 1.35 Troponin I Cancelled < 0.012 NT-Pro-B Natriuret Pep 08/21/19 08/21/19 08/21/19 07:37 13:12 13:12 Creatine Kinase 75 CK-MB (CK-2) 1.00 0.91 Troponin I < 0.012 < 0.012 NT-Pro-B Natriuret Pep 08/23/19 08/23/19 08/28/19 02:24 02:48 08:26 Creatine Kinase 357 H CK-MB (CK-2) 0.75 Troponin I < 0.012 NT-Pro-B Natriuret Pep 7880 H Impressions: Chest CT 08/20/19 18:37 IMPRESSION: No acute abnormality within the chest. Enlarged subcarinal lymph node measuring 1.8 x 3.5 cm in size, indeterminate/nonspecific. TECHNICAL DOCUMENTATION: Quality ID # [id number]: Final reports with documentation of one or more dose reduction techniques (e.g., Automated exposure control, adjustment of the mA and/or kV according to patient size, use of iterative reconstruction technique) copyright 2011 [employer]- All Rights Reserved Renal Ultrasound 08/21/19 00:00 IMPRESSION: Limited ultrasound of the kidneys and urinary bladder due to the patient's body habitus. The left kidney and urinary bladder were not visualized. There is no right-sided hydronephrosis. Abdomen/Pelvis CT 08/23/19 02:08 IMPRESSION: No acute findings. Chest X-Ray 08/28/19 07:29 IMPRESSION: Small bilateral pleural effusions. No interval change. 08/29/19 05:08 08/29/19 05:08 MCV 89 fl (80-97) 08/29/19 05:08 MCH 30.5 pg (27.0-33.4) 08/29/19 05:08 MCHC 34.4 g/dL (32.0-36.0) 08/29/19 05:08 RDW 16.1 % (11.5-14.0) H 08/29/19 05:08 Seg Neutrophils % Not Reportable 08/29/19 05:08 Carbonic Acid 1.22 mmol/L (1.05-1.35) 08/23/19 02:18 HCO3/H2CO3 Ratio 16:1 08/23/19 02:18 ABG pH 7.32 (7.35-7.45) L 08/23/19 02:18 ABG pCO2 40.4 mmHg (35-45) 08/23/19 02:18 ABG pO2 67.8 mmHg (80-100) L 08/23/19 02:18 ABG HCO3 20.4 mmol/L (20-24) 08/23/19 02:18 ABG O2 Saturation 92.2 % (94-98) L 08/23/19 02:18 ABG Base Excess -5.3 mmol/L 08/23/19 02:18 FiO2 30% 08/23/19 02:18 Chloride 101 mmol/L (98-107) 08/29/19 05:08 Carbon Dioxide 30 mmol/L (22-30) 08/29/19 05:08 Anion Gap 8 (5-19) 08/29/19 05:08 Est GFR ( Amer) > 60 (>60) 08/29/19 05:08 Est GFR (Non-Af Amer) Cancelled 08/21/19 07:37 Glucose 154 mg/dL (75-110) H 08/29/19 05:08 Lactic Acid 0.9 mmol/L (0.7-2.1) 08/23/19 02:24 Calcium 8.8 mg/dL (8.4-10.2) 08/29/19 05:08 Ionized Calcium [place] 1.03 mmol/L (1.14-1.30) L 08/23/19 02:24 Phosphorus 2.8 mg/dL (2.5-4.5) 08/24/19 05:45 Magnesium 1.9 mg/dL (1.6-2.3) 08/26/19 05:21 Total Bilirubin 0.4 mg/dL (0.2-1.3) 08/26/19 05:21 AST 20 U/L (17-59) 08/26/19 05:21 Alkaline Phosphatase 57 U/L (38-126) 08/26/19 05:21 Total Protein 5.8 g/dL (6.3-8.2) L 08/26/19 05:21 Albumin 3.0 g/dL (3.5-5.0) L 08/26/19 05:21 Triglycerides 201 mg/dL (<150) H 08/21/19 07:37 Cholesterol 89.92 mg/dL (0-200) 08/21/19 07:37 LDL Cholesterol Direct 39 mg/dL (<100) 08/21/19 07:37 VLDL Cholesterol 40.2 mg/dL (10-31) H 08/21/19 07:37 HDL Cholesterol 20 mg/dL (>40) L 08/21/19 07:37 TSH 4.61 uIU/mL (0.47-4.68) 08/21/19 07:37 Free T3 pg/mL 3.57 pg/mL (2.77-5.27) 08/21/19 07:37 Urine Color STRAW 08/20/19 23:39 Urine Appearance SLIGHTLY-CLOUDY 08/20/19 23:39 Urine pH 5.0 (5.0-9.0) 08/20/19 23:39 Ur Specific [place] 1.009 08/20/19 23:39 Urine Protein NEGATIVE mg/dL (NEGATIVE) 08/20/19 23:39 Urine Glucose (UA) NEGATIVE mg/dL (NEGATIVE) 08/20/19 23:39 Urine Ketones NEGATIVE mg/dL (NEGATIVE) 08/20/19 23:39 Urine Blood SMALL (NEGATIVE) H 08/20/19 23:39 Urine RBC (Auto) 0 /HPF 08/20/19 23:39 08/20/19 08/20/19 08/20/19 17:00 17:00 23:09 Creatine Kinase 91 CK-MB (CK-2) Troponin I < 0.012 NT-Pro-B Natriuret Pep 77 08/20/19 08/21/19 08/21/19 23:09 01:16 07:37 Creatine Kinase 78 CK-MB (CK-2) Cancelled 1.35 Troponin I Cancelled < 0.012 NT-Pro-B Natriuret Pep 08/21/19 08/21/19 08/21/19 07:37 13:12 13:12 Creatine Kinase 75 CK-MB (CK-2) 1.00 0.91 Troponin I < 0.012 < 0.012 NT-Pro-B Natriuret Pep 08/23/19 08/23/19 08/28/19 02:24 02:48 08:26 Creatine Kinase 357 H CK-MB (CK-2) 0.75 Troponin I < 0.012 NT-Pro-B Natriuret Pep 7880 H Current Medication List Generic Name Dose Route Start Last Admin Trade Name Freq PRN Reason Stop Dose Admin Acetaminophen 650 mg 08/20/19 21:40 08/26/19 05:08 Tylenol 325 Mg Tablet PO 09/19/19 21:39 650 mg Q4HP PRN Administration For headache, pain or fever Al Hydrox/Mg Hydrox/Simethicone 30 ml 08/20/19 21:33 Maalox Plus Susp 30 Udcup PO 09/19/19 21:32 Q6HP PRN HEARTBURN Alprazolam 0.5 mg 08/29/19 14:02 Xanax 0.5 Mg Tablet PO 09/05/19 14:01 Q8HP PRN ANXIETY Atorvastatin Calcium 20 mg 08/21/19 22:00 08/29/19 21:53 Lipitor 20 Mg Tablet PO 09/20/19 21:59 20 mg QHS ABIMBOLA Administration Cetirizine HCl 5 mg 08/21/19 09:27 Zyrtec 5 Mg Tablet PO 09/20/19 09:26 DAILYP PRN ALLERGIES Citalopram Hydrobromide 20 mg 08/21/19 10:00 08/29/19 09:07 Celexa 20 Mg Tablet PO 09/20/19 09:59 20 mg DAILY ABIMBOLA Administration Clopidogrel Bisulfate 75 mg 08/21/19 10:00 08/29/19 09:07 Plavix 75 Mg Tablet PO 09/20/19 09:59 75 mg DAILY ABIMBOLA Administration Dextrose 12.5 gm 08/21/19 09:40 Dextrose Inj 50% Syringe (25 Gm/50 Ml) IV 09/20/19 09:39 PRN PRN FOR BG 50-69 IN ALERT PATIENT Protocol Dextrose 25 gm 08/21/19 09:40 Dextrose Inj 50% Syringe (25 Gm/50 Ml) IV 09/20/19 09:39 PRN PRN PER PROTOCOL Protocol Docusate Sodium 100 mg 08/21/19 10:00 08/29/19 18:49 Colace 100 Mg Capsule PO 09/20/19 09:59 Not Given BID ABIMBOLA Doxazosin Mesylate 1 mg 08/21/19 12:00 08/29/19 09:07 Cardura 1 Mg Tablet PO 09/20/19 11:59 1 mg DAILY ABIMBOLA Administration Ferrous Sulfate 142 mg 08/21/19 10:00 08/29/19 09:05 Ferrous Sulfate Liquid 300 Mg/5 Ml Udcup PO 09/20/19 09:59 142 mg DAILY ABIMBOLA Administration Fluticasone Propionate 1 spray 08/21/19 10:06 08/21/19 23:47 Flonase Nasal [place] 50 Mcg/[place] 16 Gm NASL 09/20/19 10:05 1 spr BIDP PRN Administration Furosemide 40 mg 08/28/19 09:00 08/29/19 21:54 Lasix Inj/Pf 40 Mg/4 Ml Sdv IV 09/27/19 08:59 40 mg Q12 ABIMBOLA Administration Glucagon 1 mg 08/21/19 09:40 Glucagen Inj 1 Mg Vial IM 09/20/19 09:39 PRN PRN Evaluate for BG < 70 Protocol Glucose 15 gm 08/21/19 09:40 Glutose 40% Gel 15 Gm Tube PO 09/20/19 09:39 PRN PRN FOR BG 50-69 IN ALERT PATIENT Protocol Glucose 30 gm 08/21/19 09:40 Glutose 40% Gel 15 Gm Tube PO 09/20/19 09:39 PRN PRN FOR BG < 50 IN ALERT PATIENT Protocol Guaifenesin 200 mg 08/20/19 21:40 Robitussin Syrup 200 Mg/10 Ml Ud Cup PO 09/19/19 21:39 Q4HP PRN COUGH Heparin Sodium (Porcine) 5,000 unit 08/20/19 22:00 08/30/19 05:06 Heparin Inj 5,000 Units/Ml 1 Ml Vial SUBCUT 09/19/19 21:59 5,000 unit Q8 ABIMBOLA Administration Heparin Sodium (Porcine) 30 unit 08/24/19 06:00 08/30/19 05:07 Heparin Flush 10 Unit/Ml 5 Ml Disp.Syrg IV 09/23/19 05:59 30 unit Q8 ABIMBOLA Administration Heparin Sodium (Porcine) 30 unit 08/24/19 05:57 08/26/19 14:28 Heparin Flush 10 Unit/Ml 5 Ml Disp.Syrg IV 09/23/19 05:56 30 unit .AFTER EACH USE PRN Administration AFTER EACH INTERMITTENT USE Hydralazine HCl 20 mg 08/20/19 21:40 Apresoline Inj/Pf 20 Mg/1 Ml Sdv IV 09/19/19 21:39 Q4HP PRN Give For Sbp > 160 / Dbp > 100 Hydrocortisone Sodium Succinate 100 mg 08/23/19 07:45 08/30/19 05:06 Solu-Cortef Inj/Pf 100 Mg/ 2 Ml Sdv IV 09/22/19 07:44 100 mg Q8 ABIMBOLA Administration Cefepime HCl 2 gm/ Dextrose 50 mls @ 100 mls/hr 08/27/19 18:00 08/30/19 05:37 IV 08/31/19 17:59 Infused Q12A ABIMBOLA Infusion Insulin Glargine 30 unit 08/23/19 22:00 08/29/19 21:55 Lantus Insulin 100 Unit/1 Ml 10 Ml SUBCUT 09/22/19 21:59 30 unit QHS ABIMBOLA Administration Insulin Human Regular 0 - 12 unit 08/21/19 11:00 08/29/19 21:54 Humulin R (Pyxis) Insulin 100 Unit/Ml 3ml SUBCUT 09/20/19 10:59 4 unit ACHS ABIMBOLA Administration Protocol Ipratropium [place] 0.5 mg 08/21/19 00:00 08/30/19 00:18 Atrovent 0.02% Neb 0.5 Mg/2.5 Ml Ampul NEB 09/20/19 00:00 0.5 mg RTQ8 ABIMBOLA Administration Isosorbide Mononitrate 60 mg 08/21/19 10:00 08/29/19 09:07 Imdur 60 Mg Tablet.Er PO 09/20/19 09:59 60 mg DAILY ABIMBOLA Administration Levalbuterol HCl 0.63 mg 08/20/19 21:43 Xopenex Neb 0.63 Mg/3 Ml Ampul NEB 09/19/19 21:42 RTQ2HP PRN SHORTNESS OF BREATH Levalbuterol HCl 1.25 mg 08/21/19 00:00 08/30/19 00:18 Xopenex Neb 1.25 Mg/3 Ml Ampul NEB 09/20/19 00:00 1.25 mg RTQ8 ABIMBOLA Administration Losartan Potassium 100 mg 08/25/19 10:00 08/29/19 09:06 Cozaar 50 Mg Tablet PO 09/24/19 09:59 100 mg DAILY ABIMBOLA Administration Magnesium Hydroxide 30 ml 08/20/19 21:33 Milk Of Magnesia 30 Ml Udcup PO 09/19/19 21:32 HSP PRN FOR CONSTIPATION Metoprolol Tartrate 5 mg 08/20/19 21:40 Lopressor Inj/Pf 5 Mg/5 Ml Sdv IV 09/19/19 21:39 Q4HP PRN Give For Sbp > 160 / Dbp > 100 Montelukast Sodium 10 mg 08/21/19 10:00 08/29/19 09:07 Singulair 10 Mg Tablet PO 09/20/19 09:59 10 mg DAILY ABIMBOLA Administration Nystatin 1 applic 08/26/19 12:00 08/29/19 18:49 Mycostatin Cream 15 Gm TP 09/02/19 11:59 1 applic TID ABIMBOLA Administration Ondansetron HCl 4 mg 08/20/19 21:33 08/22/19 23:09 Zofran Inj/Pf 4 Mg/2 Ml Sdv IV 09/19/19 21:32 4 mg Q4HP PRN Administration FOR NAUSEA/VOMITING Oxycodone/Acetaminophen 1 tab 08/25/19 17:03 08/30/19 00:43 Percocet 5-325 Mg Tablet PO 09/01/19 17:02 1 tab Q4HP PRN Administration FOR BACK PAIN Pantoprazole Sodium 40 mg 08/21/19 06:00 08/30/19 05:[address] Tablet PO 09/20/19 05:59 40 mg Q6AM ABIMBOLA Administration Potassium Chloride 10 meq 08/25/19 10:00 08/29/19 21:54 Klor-Con 10 Meq Tablet Er PO 09/24/19 09:59 10 meq Q12 ABIMBOLA Administration Ropinirole HCl 1 mg 08/21/19 02:45 08/29/19 21:55 Requip 1 Mg Tablet PO 09/20/19 02:44 1 mg QHS ABIMBOLA Administration Sodium Chloride 2.5 ml 08/20/19 22:00 08/30/19 05:07 Saline Flush 2.5 Ml Monoject Prefil Syrin IV 09/19/19 21:59 Not Given Q8 ABIMBOLA Sodium Chloride 10 ml 08/24/19 05:57 08/28/19 14:19 Nacl 0.9% Inj/Pf 10 Ml Sdv IV 09/23/19 05:56 10 ml .AFTER EACH USE PRN Administration AFTER EACH INTERMITTENT USE Tamsulosin HCl 0.4 mg 08/21/19 18:00 08/29/19 18:48 Flomax 0.4 Mg Cap.Sr PO 09/20/19 17:59 0.4 mg PCSUPPER ABIMBOLA Administration Zolpidem Tartrate 5 mg 08/28/19 22:00 08/30/19 00:43 Ambien 5 Mg Tablet PO 09/04/19 21:59 5 mg HSP PRN Administration INSOMNIA Discontinued Medications Generic Name Dose Route Start Last Admin Trade Name Lucy PRN Reason Stop Dose Admin Aspirin 324 mg 08/20/19 16:34 08/20/19 17:02 Aspirin 81 Mg Chewable Tablet PO 08/20/19 16:35 324 mg NOW ONE Administration Aspirin 325 mg 08/20/19 20:15 08/20/19 20:31 Aspirin 325 Mg Tablet PO 08/20/19 20:16 325 mg NOW ONE Administration Furosemide 20 mg 08/25/19 10:00 08/27/19 09:14 Lasix 20 Mg Tablet PO 09/24/19 09:59 20 mg DAILY ABIMBOLA Administration Sodium Chloride 1,000 mls @ 0 mls/hr 08/20/19 20:18 08/20/19 20:31 Nacl 0.9% 1000 Ml Iv Soln IV 08/20/19 20:19 999 mls/hr BOLUS ONE Administration Wide Open Lactated Ringer's 1,000 mls @ 167 mls/hr 08/20/19 21:33 08/21/19 10:21 Lactated Ringers 1000 Ml Iv Soln IV 09/19/19 21:32 Infused CONTINUOUS PRN Infusion THIS MED IS NOT "PRN" Lactated Ringer's 1,000 mls @ 100 mls/hr 08/21/19 09:29 08/23/19 12:21 Lactated Ringers 1000 Ml Iv Soln IV 09/19/19 21:32 Infused CONTINUOUS PRN Infusion THIS MED IS NOT "PRN" Sodium Chloride 500 mls @ 0 mls/hr 08/22/19 05:00 08/22/19 04:30 Nacl 0.9% 500 Ml Iv Soln IV 08/22/19 05:01 Infused BOLUS ONE Infusion Sodium Chloride 500 mls @ 0 mls/hr 08/22/19 06:15 08/22/19 05:25 Nacl 0.9% 500 Ml Iv Soln IV 08/22/19 06:16 Infused BOLUS ONE Infusion Sodium Chloride 1,000 mls @ 999 mls/hr 08/23/19 02:15 08/23/19 02:50 Nacl 0.9% 1000 Ml Iv Soln IV 08/23/19 03:15 Infused ONCE ONE Infusion Cefepime HCl 1 gm in 50 mls @ 100 mls/hr 08/23/19 02:30 08/23/19 03:28 Maxipime Rtu 1 Gm/D5w 50 Ml Premix Bag IV 08/30/19 02:29 Infused Q12H ABIMBOLA Infusion Sodium Chloride 1,000 mls @ 0 mls/hr 08/23/19 02:58 08/23/19 04:00 Nacl 0.9% 1000 Ml Iv Soln IV 08/23/19 02:59 Infused BOLUS ONE Infusion Wide Open Magnesium Sulfate/Dextrose 1 gm in 100 mls @ 100 mls/hr 08/23/19 03:00 08/23/19 06:07 Magnesium Sulfate Rtu-D5w 1 Gm/100 Ml Premix IV 08/23/19 06:59 200 mls/hr Q1H ABIMBOLA 200 mls/hr Administration Magnesium Sulfate/Dextrose Confirm 08/23/19 03:00 08/23/19 03:18 Magnesium Sulfate Rtu-D5w 1 Gm/100 Ml Premix Administered 08/23/19 03:01 Not Given Dose 1 gm in 100 mls @ ud IV .STK-MED ONE Lactated Ringer's 1,000 mls @ 200 mls/hr 08/23/19 04:01 Lactated Ringers 1000 Ml Iv Soln IV 09/19/19 21:32 CONTINUOUS PRN THIS MED IS NOT "PRN" Vancomycin HCl 2,000 mg/ 500 mls @ 250 mls/hr 08/23/19 05:00 08/23/19 07:50 Dextrose IV 08/23/19 06:59 Infused ONCE ONE Infusion Vasopressin 100 unit/ Dextrose 250 mls @ 0 mls/hr 08/23/19 05:30 08/23/19 15:35 IV 09/22/19 05:29 0 unit/min CONTINUOUS PRN 0 mls/hr THIS MED IS NOT "PRN" Titration Protocol As Directed Hard Fat/Phenylephrine 40 mg/ 250 mls @ 0 mls/hr 08/23/19 05:33 Dextrose IV 09/22/19 05:32 CONTINUOUS PRN THIS MED IS NOT "PRN" Protocol Titrate Cefepime HCl 1 gm in 50 mls @ 100 mls/hr 08/23/19 10:00 08/23/19 10:46 Maxipime Rtu 1 Gm/D5w 50 Ml Premix Bag IV 08/30/19 09:59 Infused Q12 ABIMBOLA Infusion Vancomycin HCl 1,500 mg/ 250 mls @ 166.667 mls/hr 08/24/19 06:00 08/24/19 07:35 Dextrose IV 08/31/19 05:59 Infused Q6AM ABIMBOLA Infusion Albumin Human 500 mls @ 4 mls/min 08/23/19 12:30 08/23/19 15:30 Albutein 5% Inj 25 Gm/500 Ml Premixed Bottle IV 08/23/19 14:34 Infused NOW ONE Infusion Sodium Chloride 1,000 mls @ 250 mls/hr 08/23/19 11:44 08/24/19 08:15 Nacl 0.9% 1000 Ml Iv Soln IV 09/22/19 11:43 Infused CONTINUOUS PRN Infusion THIS MED IS NOT "PRN" Piperacillin Sod/Tazobactam 50 mls @ 100 mls/hr 08/23/19 20:00 08/24/19 09:20 Sod 2.25 gm/ Sodium Chloride IV 08/30/19 19:59 100 mls/hr Q6A ABIMBOLA 100 mls/hr Administration Cefepime HCl 1 gm in 50 mls @ 100 mls/hr 08/24/19 18:00 08/27/19 07:00 Maxipime Rtu 1 Gm/D5w 50 Ml Premix Bag IV 08/31/19 17:59 Infused Q12A ABIMBOLA Infusion Sodium Chloride 1,000 mls @ 100 mls/hr 08/24/19 15:34 Nacl 0.9% 1000 Ml Iv Soln IV 09/22/19 11:43 CONTINUOUS PRN THIS MED IS NOT "PRN" Lorazepam 1 mg 08/20/19 21:40 Ativan Inj 2 Mg/1 Ml Vial IV 08/27/19 21:39 Q4HP PRN ANXIETY/AGITATION Meloxicam 7.5 mg 08/21/19 10:00 08/22/19 18:34 Mobic 7.5 Mg Tablet PO 09/20/19 09:59 7.5 mg BID ABIMBOLA Administration Morphine Sulfate 2 mg 08/20/19 21:40 08/23/19 00:42 Morphine 10 Mg/Ml Inj IV 08/27/19 21:39 2 mg Q2HP PRN Administration FOR PAIN SCALE 1-2 Morphine Sulfate 3 mg 08/20/19 21:40 08/21/19 06:16 Morphine 10 Mg/Ml Inj IV 08/27/19 21:39 3 mg Q2HP PRN Administration FOR PAIN SCALE 3-4 Morphine Sulfate 4 mg 08/20/19 21:40 08/22/19 18:34 Morphine 10 Mg/Ml Inj IV 08/27/19 21:39 4 mg Q2HP PRN Administration PAIN SCALE OF 5 Morphine Sulfate 4 mg 08/23/19 05:30 08/23/19 20:32 Morphine 10 Mg/Ml Inj IV 08/30/19 05:29 4 mg Q2HP PRN Administration PAIN SCALE OF 5 Nitroglycerin 0.5 gm 08/20/19 17:15 08/20/19 17:21 Nitrol 2% Ointment 1gm Packet TP 08/20/19 17:16 0.5 gm NOW ONE Administration Oxycodone/Acetaminophen 1 tab 08/25/19 15:28 08/25/19 15:40 Percocet 5-325 Mg Tablet PO 09/01/19 15:27 1 tab Q6HP PRN Administration FOR BACK PAIN Vancomycin HCl Confirm 08/23/19 05:43 08/23/19 05:56 Vancocin Inj 1000 Mg Vial Administered 08/23/19 05:44 Not Given Dose 1,000 mg .ROUTE .STK-MED ONE Vancomycin HCl Confirm 08/24/19 05:49 08/24/19 06:15 Vancocin Inj 500 Mg Vial Administered 08/24/19 05:50 Not Given Dose 500 mg .ROUTE .STK-MED ONE Vancomycin HCl Confirm 08/24/19 05:49 08/24/19 06:15 Vancocin Inj 1000 Mg Vial Administered 08/24/19 05:50 Not Given Dose 1,000 mg .ROUTE .STK-MED ONE Vasopressin Confirm 08/23/19 05:19 08/23/19 06:17 Vasopressin Inj 20 Unit/1 Ml Vial Administered 08/23/19 05:20 Not Given Dose 20 unit .ROUTE .STK-MED ONE Zolpidem Tartrate 2.5 mg 08/21/19 02:31 08/21/19 03:17 Ambien 5 Mg Tablet PO 08/28/19 02:30 2.5 mg HSP PRN Administration SLEEP OR INSOMNIA Zolpidem Tartrate 5 mg 08/21/19 22:00 08/28/19 00:48 Ambien 5 Mg Tablet PO 08/28/19 21:59 5 mg HSP PRN Administration INSOMNIA Assessment & Plan - Diagnosis (1) Acute kidney injury (nontraumatic) Is this a current diagnosis for this admission?: Yes Plan: Secondary to outpatient overdiuresis. His renal function is now normal. Recommendations: -Continue with current medical management. (2) Coronary artery disease Qualifiers: Coronary Disease-Associated Artery/Lesion type: [place] artery [place] vs. transplanted heart: [place] heart Associated angina: angina presence unspecified Qualified Code(s): I25.10 - Atherosclerotic heart disease of [place] coronary artery without angina pectoris Is this a current diagnosis for this admission?: Yes Plan: The patient denies alva chest pain and angina. His shortness of breath is li kimberly multifactorial however he is definitely fluid overloaded. He has not had any ischemic evaluation recently. Recommendations: -Continue with current medical management for now. -Ischemic assessment in the outpatient setting. (3) Essential hypertension Is this a current diagnosis for this admission?: Yes Plan: The patient had episodes of hypotension secondary to sepsis requiring vasopressin and admission to the ICU as well as volume expansion. His pressure is now slightly above goal however I expect it to go down as we diurese him. Recommendations: -Continue with current medical management. (4) Heart failure Qualifiers: Heart failure type: unspecified Heart failure chronicity: acute Qualified Code(s): I50.9 - Heart failure, unspecified Is this a current diagnosis for this admission?: Yes Plan: The patient feels slightly better this morning. He did have a good urinary output however his fluid balance continues to be +8.4 L. Fortunately enough, his renal function is normal. He is still mildly short of breath when speaking. Unfortunately his echocardiogram during this admission was nondiagnostic however a prior echocardiogram in February 2017 in the outpatient setting, although of very poor quality, demonstrated a grossly normal systolic function. Recommendations: -Increase Lasix to 80 mg IV twice daily with close attention to his blood pressure and renal function. -Consider discontinuing isosorbide if patient hypotensive. -Manual blood pressure with a large cuff. -BMP daily. -Restrict fluid intake to 1500 cc daily. -Low sodium diet, less than 1500 mg daily. -Strict intake and output. -Daily weights. -Replace electrolytes as needed.
[2019-08-30] MEDS ORDERED: ONDANSETRON HCL INJ/PF 4 MG/2 ML SDV IV PRN (10:30)
[2019-08-30] MEDS: LOSARTAN POTASSIUM 50 MG TABLET PO SCH (10:37)
[2019-08-30] MEDS: CLOPIDOGREL BISULFATE 75 MG TABLET PO SCH (10:37)
[2019-08-30] MEDS: POTASSIUM CHLORIDE 10 MEQ TABLET.ER PO SCH ×2 (10:37→22:23)
[2019-08-30] MEDS: ISOSORBIDE MONONITRATE 60 MG TAB.ER.24H PO SCH (10:38)
[2019-08-30] MEDS: CITALOPRAM HYDROBROMIDE 20 MG TABLET PO SCH (10:38)
[2019-08-30] MEDS: FUROSEMIDE INJ/PF 40 MG/4 ML SDV IV SCH ×2 (10:38→22:24)
[2019-08-30] MEDS: DOCUSATE SODIUM 100 MG CAPSULE PO SCH ×2 (10:38→17:59)
[2019-08-30] MEDS: MONTELUKAST SODIUM 10 MG TABLET PO SCH (10:38)
[2019-08-30] MEDS: FERROUS SULFATE LIQUID 300 MG/5 ML UDC PO SCH (10:39)
[2019-08-30] MEDS: DOXAZOSIN MESYLATE 1 MG TABLET PO SCH (10:39)
[2019-08-30] MEDS: NYSTATIN CREAM 15 GM TP SCH ×3 (10:57→19:00)
--- NOTE | 2019-08-30 14:16 | PDOC PROGRESS REPORT ---
Subjective Progress Note for:: 08/30/19 Subjective:: Patient was seen and evaluated this morning. Chart reviewed. Patient is currently being treated for UTI, sepsis hypotension and apparently received vasopressin and IV fluids while he was in ICU the patient so he is currently on IV Lasix. Patient has been put on a fluid restriction And had an echo done on August 21 which apparently is uninterpretable. 08/28 patient does state that he feels better. He has lost about 10 kg and has noticed to be putting out more urine now 08/29 continues to have no new complaints. He did receive CHF teaching and he has a packet in hand. He has been advised on the need to be a compliant with his instructions, lifestyle modification as well as dietary and fluid intake restrictions Reason For Visit: ACUTE KIDNEY INJURY,CHEST PAIN,PALPITATIONS,CHRONI Physical Exam Vital Signs: Temp Pulse Resp BP Pulse Ox 97.5 F 69 17 130/54 H 97 08/30/19 11:45 08/30/19 11:45 08/30/19 11:45 08/30/19 11:45 08/30/19 11:45 Intake & Output 08/29/19 08/30/19 08/31/19 06:59 06:59 06:59 Intake Total 1410 930 620 Output Total 1975 3500 600 Balance -565 -1070 20 Weight 155 kg 155.6 kg General appearance: PRESENT: no acute distress, morbidly obese Head exam: PRESENT: atraumatic, normocephalic Eye exam: PRESENT: conjunctiva pink, EOMI, PERRLA. ABSENT: scleral icterus Ear exam: PRESENT: normal external ear exam Mouth exam: PRESENT: tongue midline Neck exam: ABSENT: carotid bruit, JVD, lymphadenopathy, thyromegaly Respiratory exam: PRESENT: crackles. ABSENT: rales, rhonchi, wheezes Cardiovascular exam: PRESENT: RRR. ABSENT: diastolic murmur, rubs, systolic murmur Pulses: PRESENT: normal dorsalis pedis pul Vascular exam: PRESENT: normal capillary refill GI/Abdominal exam: PRESENT: normal bowel sounds, soft. ABSENT: distended, guarding, mass, organolmegaly, rebound, tenderness Rectal exam: PRESENT: deferred Extremities exam: PRESENT: full ROM. ABSENT: calf tenderness, clubbing, pedal edema Musculoskeletal exam: PRESENT: other - anasarca Neurological exam: PRESENT: alert, awake, oriented to person, oriented to place, oriented to time, oriented to situation, CN II-XII grossly intact. ABSENT: motor sensory deficit Psychiatric exam: PRESENT: appropriate affect, normal mood. ABSENT: homicidal ideation, suicidal ideation Skin exam: PRESENT: dry, intact, warm. ABSENT: cyanosis, rash Results Laboratory Results: 08/29/19 05:08 08/30/19 08:04 08/30/19 08:04 Sodium 138.3 Potassium 3.4 L Chloride 98 Carbon Dioxide 33 H Anion Gap 7 BUN 37 H Creatinine 1.12 Est GFR ( Amer) > 60 Glucose 135 H Calcium 8.7 08/20/19 08/20/19 08/20/19 17:00 17:00 23:09 Creatine Kinase 91 CK-MB (CK-2) Troponin I < 0.012 NT-Pro-B Natriuret Pep 77 08/20/19 08/21/19 08/21/19 23:09 01:16 07:37 Creatine Kinase 78 CK-MB (CK-2) Cancelled 1.35 Troponin I Cancelled < 0.012 NT-Pro-B Natriuret Pep 08/21/19 08/21/19 08/21/19 07:37 13:12 13:12 Creatine Kinase 75 CK-MB (CK-2) 1.00 0.91 Troponin I < 0.012 < 0.012 NT-Pro-B Natriuret Pep 08/23/19 08/23/19 08/28/19 02:24 02:48 08:26 Creatine Kinase 357 H CK-MB (CK-2) 0.75 Troponin I < 0.012 NT-Pro-B Natriuret Pep 7880 H Impressions: Chest CT 08/20/19 18:37 IMPRESSION: No acute abnormality within the chest. Enlarged subcarinal lymph node measuring 1.8 x 3.5 cm in size, indeterminate/nonspecific. TECHNICAL DOCUMENTATION: Quality ID # [id number]: Final reports with documentation of one or more dose reduction techniques (e.g., Automated exposure control, adjustment of the mA and/or kV according to patient size, use of iterative reconstruction technique) copyright 2011 [employer]- All Rights Reserved Renal Ultrasound 08/21/19 00:00 IMPRESSION: Limited ultrasound of the kidneys and urinary bladder due to the patient's body habitus. The left kidney and urinary bladder were not visualized. There is no right-sided hydronephrosis. Abdomen/Pelvis CT 08/23/19 02:08 IMPRESSION: No acute findings. Chest X-Ray 08/28/19 07:29 IMPRESSION: Small bilateral pleural effusions. No interval change. Assessment and Plan - Diagnosis (1) Acute kidney injury (nontraumatic) Is this a current diagnosis for this admission?: Yes Plan: Resolved. Will continue to monitor due to diuretics (2) Coronary artery disease Qualifiers: Coronary Disease-Associated Artery/Lesion type: [place] artery [place] vs. transplanted heart: [place] heart Associated angina: angina presence unspecified Qualified Code(s): I25.10 - Atherosclerotic heart disease of [place] coronary artery without angina pectoris Is this a current diagnosis for this admission?: Yes Plan: 08/31/2019-Appreciate Cardiology consult (3) Essential hypertension Is this a current diagnosis for this admission?: Yes Plan: Stable. Pressure relatively controlled (4) Heart failure Qualifiers: Heart failure type: unspecified Heart failure chronicity: acute Qualified Code(s): I50.9 - Heart failure, unspecified Is this a current diagnosis for this admission?: Yes Plan: The echocardiogram was nondiagnostic because the acoustic windows were very very poor. I am not sure about systolic function, but with his degree of sleep apnea I would not be surprised if he had some degree of pulmonary hypertension and diastolic dysfunction. Cardiology comments noted Continue IV Lasix at an increased dose, 80 mg twice daily. Continue to monitor his blood pressure and adjust his medications as needed. Anticipate maybe another day or 2 and if patient remains stable he can then be discharged (5) Morbid obesity Is this a current diagnosis for this admission?: Yes (6) Urinary tract infection with pyuria Is this a current diagnosis for this admission?: Yes Plan: Continue cefepime through August 30. The bacteremia also secondary to E. coli likely from UTI (7) E coli bacteremia Is this a current diagnosis for this admission?: Yes Plan: Due to his UTI. He is currently on cefepime until August 30 - Plan Summary Summary: 08/27 Acute kidney injury likely secondary to overdiuresis. We will continue to monitor closely CAD- ischemic assessment in the outpatient setting Essential hypertension blood pressures currently at goal Cardiomyopathy CHF with had type unspecified due to poor echo. His last echocardiogram from 2016 apparently showed a grossly normal systolic function. Plan is to continue Lasix IV, restrict fluid intake 08/28 we will continue with this. We will also order CHF education as patient seems to lack some knowledge about his disease - Time Medications reviewed and adjusted accordingly: Yes Anticipated discharge: Home Within: within 48 hours - Inpatient Certification Based on my medical assessment, after consideration of the patient's comorbidities, presenting symptoms, or acuity I expect that the services needed warrant INPATIENT care.: Yes Medical Necessity: Risk of Complication if Not Cared For in Hospital
[2019-08-30] MEDS: TAMSULOSIN HCL 0.4 MG CAP.SR.24H PO SCH (17:12)
[2019-08-30] MEDS: PREDNISONE 20 MG TABLET PO SCH (17:59)
[2019-08-30] MEDS: ROPINIROLE HCL 1 MG TABLET PO SCH (22:23)
[2019-08-30] MEDS: ATORVASTATIN CALCIUM 20 MG TABLET PO SCH (22:24)
[2019-08-30] MEDS: INSULIN GLARGINE,HUM.REC.ANLOG 1,000 UNIT/10 ML VIAL SUBCUT SCH (22:24)
[2019-08-31] MEDS: PANTOPRAZOLE SODIUM 40 MG TABLET.DR PO SCH (05:29)
[2019-08-31] MEDS: HEPARIN SOD (PORCINE) 5,000 UNIT/ML 1 ML VIAL SUBCUT SCH ×3 (05:29→21:36)
[2019-08-31] MEDS: CEFEPIME HCL 2 GM in DEXTROSE 5%-WATER 50 ML IV SCH (05:29)
[2019-08-31 06:13] LABS: HEMATOCRIT 28.2 % (37.9-51.0); HEMOGLOBIN 9.8 g/dL (13.5-17.0); MEAN CORPUSCULAR HGB CONC 34.9 g/dL (32.0-36.0); MEAN CORPUSCULAR VOLUME 89 fl (80-97); PLATELET COUNT 205 10^3/uL (150-450); RED BLOOD COUNT 3.17 10^6/uL (4.35-5.55); RED CELL DISTRIBUTION WIDTH 16.2 % (11.5-14.0); WHITE BLOOD COUNT 5.2 10^3/uL (4.0-10.5)
[2019-08-31 06:34] LABS: ANION GAP 7 (5-19); BLOOD UREA NITROGEN 41 mg/dL (7-20); CALCIUM 8.6 mg/dL (8.4-10.2); CARBON DIOXIDE 36 mmol/L (22-30); CHLORIDE 95 mmol/L (98-107); GLUCOSE 124 mg/dL (75-110)
[2019-08-31 06:35] LABS: ABSOLUTE LYMPHOCYTES# (MANUAL) 0.8 10^3/uL (0.5-4.7); ABSOLUTE MONOCYTES # (MANUAL) 0.3 10^3/uL (0.1-1.4); ANISOCYTOSIS 1+; BAND NEUTROPHILS % (MANUAL) 4 % (3-5); BASOPHILS % (MANUAL) 0 % (0-2); EOSINOPHILS % (MANUAL) 0 % (0-6); LYMPHOCYTES % (MANUAL) 15 % (13-45); MONOCYTES % (MANUAL) 6 % (3-13); PLATELET COMMENT ADEQUATE; SEGMENTED NEUTROPHILS % (MAN) 75 % (42-78); TOTAL CELLS COUNTED 100
[2019-08-31 06:41] LABS: POTASSIUM 2.9 mmol/L (3.6-5.0)
[2019-08-31] MEDS: LEVALBUTEROL HCL NEB 1.25 MG/3 ML AMPUL NEB SCH ×2 (07:42→15:59)
[2019-08-31] MEDS: IPRATROPIUM BROMIDE 0.02% NEB 0.5 MG/2.5 ML AMPUL NEB SCH ×2 (07:42→15:59)
[2019-08-31] MEDS: INSULIN REG, HUMAN 100 UNIT/ML 3 ML VIAL (PYX) SUBCUT SCH ×4 (07:51→21:34)
[2019-08-31] MEDS: POTASSIUM CHLORIDE 20 MEQ/50 ML RTU IV SCH ×3 (07:55→11:15)
--- NOTE | 2019-08-31 09:03 | PDOC PROGRESS REPORT ---
Subjective Progress Note for:: 08/31/19 Subjective:: The patient is a 78-year-old male with history of CAD status post MIR to the mid LAD and left circumflex in December 2004, hyperlipidemia, hypertension, asthma, morbid obesity, sleep apnea on CPAP, diabetes, restrictive lung disease who was admitted to our institution on 08/20/2019 due to shortness of breath, chest pain and hypertension. He was initially consulted to my partner, Dr. Estrada, please review his notes for further details. In summary, the patient had developed significant lower extremity edema as well as significant dyspnea, orthopnea and PND reason why he self increased his outpatient Lasix dose. His condition continued to deteriorate therefore he came to the emergency room where he was found to have a creatinine of 3.25 consistent with acute kidney injury. He was initially admitted to the medical floor where he was given IV fluids. He eventually had an episode of hypotension and his creatinine went from 2.69 back to 3.24 and was again given IV fluids. In the meantime, it was noted that his blood pressure readings where unreliable given his body habitus and, because of clinical deterioration, he was transferred to the ICU where an arterial line was placed. He was also found to have a UTI and sepsis. He required vasopressin as well as significant amounts of IV fluid. He was transferred out of the ICU however he continues to complain of significant shortness of breath. Of note he is close to 11.5 L positive in his fluid balance. 08/31/2019: The patient had an uneventful night and continues to improve clinically. He only put out approximately 900 cc of urine yesterday however he states that on several occasions he was not able to record his urine output. His fluid balance is +7.5 L. He was hypokalemic and was given potassium IV. Physical exam on 08/31/2019: GENERAL: Pleasant and conversational. Oriented x3 with normal mood. Not in acute distress. Well groomed and well developed. Morbidly obese. HEENT: Normocephalic, atraumatic. Pupils equal. Sclerae anicteric. Oropharynx moist. NECK: Difficult to evaluate for JVD and bruit due to body habitus. There is a central line on the right side of the neck. LUNGS: Inspiratory and expiratory crackles in all pulmonary sheth although improved from yesterday, normal respiratory effort without the use of accessory muscles or intercostal retractions. CARDIOVASCULAR: Regular rate and rhythm, normal S1 and S2 without murmurs, rubs, or gallops. PMI not displaced. EXTREMITIES: 2+ pitting edema bilaterally, no cyanosis, no clubbing. +2 pulses femoral and pedal pulses bilaterally. MUSCULOSKELETAL: No chest tenderness to palpation. NEUROLOGIC: Nonfocal. No gross sensory or motor deficits bilateral upper or lower extremities. Cardiac studies: Echocardiogram on 08/22/2019 at [facility]: -Uninterpretable study. [facility] on 07/11/2014: -Left main: No disease. -LAD: Widely patent stent in the mid LAD. -Left circumflex: Dominant vessel, patent stent in the mid vessel, luminal irregularities elsewhere. -RCA: Nondominant vessel, moderate diffuse disease. Of note, the LVEDP was markedly elevated. Echocardiogram on 03/02/2017: -Very poor study. -Study is essentially uninterpretable. -LV systolic function is grossly normal. -Valvular structures are not well visualized. Reason For Visit: ACUTE KIDNEY INJURY,CHEST PAIN,PALPITATIONS,CHRONI Physical Exam Vital Signs: Temp Pulse Resp BP Pulse Ox 98.7 F 62 16 127/57 H 97 08/31/19 00:07 08/31/19 07:47 08/31/19 07:47 08/31/19 00:07 08/31/19 07:47 Intake & Output 08/30/19 08/31/19 09/01/19 06:59 06:59 06:59 Intake Total 930 1496 Output Total 3500 2400 Balance -2570 -904 Weight 155.6 kg 155.6 kg Results Laboratory Results: 08/31/19 05:35 08/31/19 05:35 08/30/19 08/31/19 08/31/19 08:04 05:35 05:35 WBC 5.2 RBC 3.17 L Hgb 9.8 L Hct 28.2 L MCV 89 MCH 31.0 MCHC 34.9 RDW 16.2 H Plt Count 205 Seg Neutrophils % Not Reportable Sodium 138.3 137.6 Potassium 3.4 L 2.9 L* Chloride 98 95 L Carbon Dioxide 33 H 36 H Anion Gap 7 7 BUN 37 H 41 H Creatinine 1.12 1.15 Est GFR ( Amer) > 60 > 60 Glucose 135 H 124 H Calcium 8.7 8.6 08/20/19 08/20/19 08/20/19 17:00 17:00 23:09 Creatine Kinase 91 CK-MB (CK-2) Troponin I < 0.012 NT-Pro-B Natriuret Pep 77 08/20/19 08/21/19 08/21/19 23:09 01:16 07:37 Creatine Kinase 78 CK-MB (CK-2) Cancelled 1.35 Troponin I Cancelled < 0.012 NT-Pro-B Natriuret Pep 08/21/19 08/21/19 08/21/19 07:37 13:12 13:12 Creatine Kinase 75 CK-MB (CK-2) 1.00 0.91 Troponin I < 0.012 < 0.012 NT-Pro-B Natriuret Pep 08/23/19 08/23/19 08/28/19 02:24 02:48 08:26 Creatine Kinase 357 H CK-MB (CK-2) 0.75 Troponin I < 0.012 NT-Pro-B Natriuret Pep 7880 H Impressions: Chest CT 08/20/19 18:37 IMPRESSION: No acute abnormality within the chest. Enlarged subcarinal lymph node measuring 1.8 x 3.5 cm in size, indeterminate/nonspecific. TECHNICAL DOCUMENTATION: Quality ID # 436: Final reports with documentation of one or more dose reduction techniques (e.g., Automated exposure control, adjustment of the mA and/or kV according to patient size, use of iterative reconstruction technique) copyright 2011 [employer]- All Rights Reserved Renal Ultrasound 08/21/19 00:00 IMPRESSION: Limited ultrasound of the kidneys and urinary bladder due to the patient's body habitus. The left kidney and urinary bladder were not visualized. There is no right-sided hydronephrosis. Abdomen/Pelvis CT 08/23/19 02:08 IMPRESSION: No acute findings. Chest X-Ray 08/28/19 07:29 IMPRESSION: Small bilateral pleural effusions. No interval change. 08/31/19 05:35 08/31/19 05:35 MCV 89 fl (80-97) 08/31/19 05:35 MCH 31.0 pg (27.0-33.4) 08/31/19 05:35 MCHC 34.9 g/dL (32.0-36.0) 08/31/19 05:35 RDW 16.2 % (11.5-14.0) H 08/31/19 05:35 Seg Neutrophils % Not Reportable 08/31/19 05:35 Carbonic Acid 1.22 mmol/L (1.05-1.35) 08/23/19 02:18 HCO3/H2CO3 Ratio 16:1 08/23/19 02:18 ABG pH 7.32 (7.35-7.45) L 08/23/19 02:18 ABG pCO2 40.4 mmHg (35-45) 08/23/19 02:18 ABG pO2 67.8 mmHg (80-100) L 08/23/19 02:18 ABG HCO3 20.4 mmol/L (20-24) 08/23/19 02:18 ABG O2 Saturation 92.2 % (94-98) L 08/23/19 02:18 ABG Base Excess -5.3 mmol/L 08/23/19 02:18 FiO2 30% 08/23/19 02:18 Chloride 95 mmol/L (98-107) L 08/31/19 05:35 Carbon Dioxide 36 mmol/L (22-30) H 08/31/19 05:35 Anion Gap 7 (5-19) 08/31/19 05:35 Est GFR ( Amer) > 60 (>60) 08/31/19 05:35 Est GFR (Non-Af Amer) Cancelled 08/21/19 07:37 Glucose 124 mg/dL (75-110) H 08/31/19 05:35 Lactic Acid 0.9 mmol/L (0.7-2.1) 08/23/19 02:24 Calcium 8.6 mg/dL (8.4-10.2) 08/31/19 05:35 Ionized Calcium [place] 1.03 mmol/L (1.14-1.30) L 08/23/19 02:24 Phosphorus 2.8 mg/dL (2.5-4.5) 08/24/19 05:45 Magnesium 1.9 mg/dL (1.6-2.3) 08/26/19 05:21 Total Bilirubin 0.4 mg/dL (0.2-1.3) 08/26/19 05:21 AST 20 U/L (17-59) 08/26/19 05:21 Alkaline Phosphatase 57 U/L (38-126) 08/26/19 05:21 Total Protein 5.8 g/dL (6.3-8.2) L 08/26/19 05:21 Albumin 3.0 g/dL (3.5-5.0) L 08/26/19 05:21 Triglycerides 201 mg/dL (<150) H 08/21/19 07:37 Cholesterol 89.92 mg/dL (0-200) 08/21/19 07:37 LDL Cholesterol Direct 39 mg/dL (<100) 08/21/19 07:37 VLDL Cholesterol 40.2 mg/dL (10-31) H 08/21/19 07:37 HDL Cholesterol 20 mg/dL (>40) L 08/21/19 07:37 TSH 4.61 uIU/mL (0.47-4.68) 08/21/19 07:37 Free T3 pg/mL 3.57 pg/mL (2.77-5.27) 08/21/19 07:37 Urine Color STRAW 08/20/19 23:39 Urine Appearance SLIGHTLY-CLOUDY 08/20/19 23:39 Urine pH 5.0 (5.0-9.0) 08/20/19 23:39 Ur Specific [place] 1.009 08/20/19 23:39 Urine Protein NEGATIVE mg/dL (NEGATIVE) 08/20/19 23:39 Urine Glucose (UA) NEGATIVE mg/dL (NEGATIVE) 08/20/19 23:39 Urine Ketones NEGATIVE mg/dL (NEGATIVE) 08/20/19 23:39 Urine Blood SMALL (NEGATIVE) H 08/20/19 23:39 Urine RBC (Auto) 0 /HPF 08/20/19 23:39 08/20/19 08/20/19 08/20/19 17:00 17:00 23:09 Creatine Kinase 91 CK-MB (CK-2) Troponin I < 0.012 NT-Pro-B Natriuret Pep 77 08/20/19 08/21/19 08/21/19 23:09 01:16 07:37 Creatine Kinase 78 CK-MB (CK-2) Cancelled 1.35 Troponin I Cancelled < 0.012 NT-Pro-B Natriuret Pep 08/21/19 08/21/19 08/21/19 07:37 13:12 13:12 Creatine Kinase 75 CK-MB (CK-2) 1.00 0.91 Troponin I < 0.012 < 0.012 NT-Pro-B Natriuret Pep 08/23/19 08/23/19 08/28/19 02:24 02:48 08:26 Creatine Kinase 357 H CK-MB (CK-2) 0.75 Troponin I < 0.012 NT-Pro-B Natriuret Pep 7880 H Current Medication List Generic Name Dose Route Start Last Admin Trade Name Freq PRN Reason Stop Dose Admin Acetaminophen 650 mg 08/20/19 21:40 08/26/19 05:08 Tylenol 325 Mg Tablet PO 09/19/19 21:39 650 mg Q4HP PRN Administration For headache, pain or fever Al Hydrox/Mg Hydrox/Simethicone 30 ml 08/20/19 21:33 Maalox Plus Susp 30 Udcup PO 09/19/19 21:32 Q6HP PRN HEARTBURN Alprazolam 0.5 mg 08/29/19 14:02 Xanax 0.5 Mg Tablet PO 09/05/19 14:01 Q8HP PRN ANXIETY Atorvastatin Calcium 20 mg 08/21/19 22:00 08/30/19 22:24 Lipitor 20 Mg Tablet PO 09/20/19 21:59 20 mg QHS ABIMBOLA Administration Cetirizine HCl 5 mg 08/21/19 09:27 Zyrtec 5 Mg Tablet PO 09/20/19 09:26 DAILYP PRN ALLERGIES Citalopram Hydrobromide 20 mg 08/21/19 10:00 08/30/19 10:38 Celexa 20 Mg Tablet PO 09/20/19 09:59 20 mg DAILY ABIMBOLA Administration Clopidogrel Bisulfate 75 mg 08/21/19 10:00 08/30/19 10:37 Plavix 75 Mg Tablet PO 09/20/19 09:59 75 mg DAILY ABIMBOLA Administration Dextrose 12.5 gm 08/21/19 09:40 Dextrose Inj 50% Syringe (25 Gm/50 Ml) IV 09/20/19 09:39 PRN PRN FOR BG 50-69 IN ALERT PATIENT Protocol Dextrose 25 gm 08/21/19 09:40 Dextrose Inj 50% Syringe (25 Gm/50 Ml) IV 09/20/19 09:39 PRN PRN PER PROTOCOL Protocol Docusate Sodium 100 mg 08/21/19 10:00 08/30/19 17:59 Colace 100 Mg Capsule PO 09/20/19 09:59 Not Given BID ABIMBOLA Doxazosin Mesylate 1 mg 08/21/19 12:00 08/30/19 10:39 Cardura 1 Mg Tablet PO 09/20/19 11:59 1 mg DAILY ABIMBOLA Administration Ferrous Sulfate 142 mg 08/21/19 10:00 08/30/19 10:39 Ferrous Sulfate Liquid 300 Mg/5 Ml Udcup PO 09/20/19 09:59 142 mg DAILY ABIMBOLA Administration Fluticasone Propionate 1 spray 08/21/19 10:06 08/21/19 23:47 Flonase Nasal [place] 50 Mcg/[place] 16 Gm NASL 09/20/19 10:05 1 spr BIDP PRN Administration Furosemide 80 mg 08/30/19 10:00 08/30/19 22:24 Lasix Inj/Pf 40 Mg/4 Ml Sdv IV 09/29/19 09:59 80 mg Q12 ABIMBOLA Administration Glucagon 1 mg 08/21/19 09:40 Glucagen Inj 1 Mg Vial IM 09/20/19 09:39 PRN PRN Evaluate for BG < 70 Protocol Glucose 15 gm 08/21/19 09:40 Glutose 40% Gel 15 Gm Tube PO 09/20/19 09:39 PRN PRN FOR BG 50-69 IN ALERT PATIENT Protocol Glucose 30 gm 08/21/19 09:40 Glutose 40% Gel 15 Gm Tube PO 09/20/19 09:39 PRN PRN FOR BG < 50 IN ALERT PATIENT Protocol Guaifenesin 200 mg 08/20/19 21:40 Robitussin Syrup 200 Mg/10 Ml Ud Cup PO 09/19/19 21:39 Q4HP PRN COUGH Heparin Sodium (Porcine) 5,000 unit 08/20/19 22:00 08/31/19 05:29 Heparin Inj 5,000 Units/Ml 1 Ml Vial SUBCUT 09/19/19 21:59 5,000 unit Q8 ABIMBOLA Administration Heparin Sodium (Porcine) 30 unit 08/24/19 06:00 08/31/19 05:30 Heparin Flush 10 Unit/Ml 5 Ml Disp.Syrg IV 09/23/19 05:59 30 unit Q8 ABIMBOLA Administration Heparin Sodium (Porcine) 30 unit 08/24/19 05:57 08/26/19 14:28 Heparin Flush 10 Unit/Ml 5 Ml Disp.Syrg IV 09/23/19 05:56 30 unit .AFTER EACH USE PRN Administration AFTER EACH INTERMITTENT USE Hydralazine HCl 20 mg 08/20/19 21:40 Apresoline Inj/Pf 20 Mg/1 Ml Sdv IV 09/19/19 21:39 Q4HP PRN Give For Sbp > 160 / Dbp > 100 Cefepime HCl 2 gm/ Dextrose 50 mls @ 100 mls/hr 08/27/19 18:00 08/31/19 06:13 IV 08/31/19 17:59 Infused Q12A ABIMBOLA Infusion Potassium Chloride/Water 20 meq in 50 mls @ 25 mls/hr 08/31/19 08:00 08/31/19 07:55 Potassium Chloride [place] Alber[place] 20 Meq/50 Ml IV 08/31/19 13:59 25 mls/hr Q2H ABIMBOLA 25 mls/hr Administration Insulin Glargine 30 unit 08/23/19 22:00 08/30/19 22:24 Lantus Insulin 100 Unit/1 Ml 10 Ml SUBCUT 09/22/19 21:59 30 unit QHS ABIMBOLA Administration Insulin Human Regular 0 - 12 unit 08/21/19 11:00 08/31/19 07:51 Humulin R (Pyxis) Insulin 100 Unit/Ml 3ml SUBCUT 09/20/19 10:59 Not Given ACHS [facility] Protocol Ipratropium [place] 0.5 mg 08/21/19 00:00 08/31/19 07:42 Atrovent 0.02% Neb 0.5 Mg/2.5 Ml Ampul NEB 09/20/19 00:00 0.5 mg RTQ8 ABIMBOLA Administration Isosorbide Mononitrate 60 mg 08/21/19 10:00 08/30/19 10:38 Imdur 60 Mg Tablet.Er PO 09/20/19 09:59 60 mg DAILY ABIMBOLA Administration Levalbuterol HCl 0.63 mg 08/20/19 21:43 Xopenex Neb 0.63 Mg/3 Ml Ampul NEB 09/19/19 21:42 RTQ2HP PRN SHORTNESS OF BREATH Levalbuterol HCl 1.25 mg 08/21/19 00:00 08/31/19 07:42 Xopenex Neb 1.25 Mg/3 Ml Ampul NEB 09/20/19 00:00 1.25 mg RTQ8 ABIMBOLA Administration Losartan Potassium 100 mg 08/25/19 10:00 08/30/19 10:37 Cozaar 50 Mg Tablet PO 09/24/19 09:59 100 mg DAILY ABIMBOLA Administration Magnesium Hydroxide 30 ml 08/20/19 21:33 Milk Of Magnesia 30 Ml Udcup PO 09/19/19 21:32 HSP PRN FOR CONSTIPATION Metoprolol Tartrate 5 mg 08/20/19 21:40 Lopressor Inj/Pf 5 Mg/5 Ml Sdv IV 09/19/19 21:39 Q4HP PRN Give For Sbp > 160 / Dbp > 100 Montelukast Sodium 10 mg 08/21/19 10:00 08/30/19 10:38 Singulair 10 Mg Tablet PO 09/20/19 09:59 10 mg DAILY ABIMBOLA Administration Nystatin 1 applic 08/26/19 12:00 08/30/19 19:00 Mycostatin Cream 15 Gm TP 09/02/19 11:59 1 applic TID ABIMBOLA Administration Ondansetron HCl 4 mg 08/30/19 10:30 Zofran Inj/Pf 4 Mg/2 Ml Sdv IV 09/19/19 21:32 Q4HP PRN FOR NAUSEA/VOMITING Oxycodone/Acetaminophen 1 tab 08/25/19 17:03 08/30/19 23:58 Percocet 5-325 Mg Tablet PO 09/01/19 17:02 1 tab Q4HP PRN Administration FOR BACK PAIN Pantoprazole Sodium 40 mg 08/21/19 06:00 08/31/19 05:[address] Tablet PO 09/20/19 05:59 40 mg Q6AM ABIMBOLA Administration Potassium Chloride 20 meq 08/30/19 22:00 08/30/19 22:23 Klor-Con 10 Meq Tablet Er PO 09/29/19 21:59 20 meq Q12 ABIMBOLA Administration Prednisone 20 mg 08/30/19 18:00 08/30/19 17:59 Deltasone 20 Mg Tablet PO 09/29/19 17:59 20 mg BID ABIMBOLA Administration Ropinirole HCl 1 mg 08/21/19 02:45 08/30/19 22:23 Requip 1 Mg Tablet PO 09/20/19 02:44 1 mg QHS ABIMBOLA Administration Sodium Chloride 2.5 ml 08/20/19 22:00 08/31/19 05:30 Saline Flush 2.5 Ml Monoject Prefil Syrin IV 09/19/19 21:59 Not Given Q8 ABIMBOLA Sodium Chloride 10 ml 08/24/19 05:57 08/28/19 14:19 Nacl 0.9% Inj/Pf 10 Ml Sdv IV 09/23/19 05:56 10 ml .AFTER EACH USE PRN Administration AFTER EACH INTERMITTENT USE Tamsulosin HCl 0.4 mg 08/21/19 18:00 08/30/19 17:12 Flomax 0.4 Mg Cap.Sr PO 09/20/19 17:59 0.4 mg PCSUPPER ABIMBOLA Administration Zolpidem Tartrate 5 mg 08/28/19 22:00 08/30/19 23:59 Ambien 5 Mg Tablet PO 09/04/19 21:59 5 mg HSP PRN Administration INSOMNIA Discontinued Medications Generic Name Dose Route Start Last Admin Trade Name Freq PRN Reason Stop Dose Admin Aspirin 324 mg 08/20/19 16:34 08/20/19 17:02 Aspirin 81 Mg Chewable Tablet PO 08/20/19 16:35 324 mg NOW ONE Administration Aspirin 325 mg 08/20/19 20:15 08/20/19 20:31 Aspirin 325 Mg Tablet PO 08/20/19 20:16 325 mg NOW ONE Administration Furosemide 20 mg 08/25/19 10:00 08/27/19 09:14 Lasix 20 Mg Tablet PO 09/24/19 09:59 20 mg DAILY ABIMBOLA Administration Furosemide 40 mg 08/28/19 09:00 08/29/19 21:54 Lasix Inj/Pf 40 Mg/4 Ml Sdv IV 09/27/19 08:59 40 mg Q12 ABIMBOLA Administration Hydrocortisone Sodium Succinate 100 mg 08/23/19 07:45 08/30/19 13:34 Solu-Cortef Inj/Pf 100 Mg/ 2 Ml Sdv IV 09/22/19 07:44 100 mg Q8 ABIMOBLA Administration Sodium Chloride 1,000 mls @ 0 mls/hr 08/20/19 20:18 08/20/19 20:31 Nacl 0.9% 1000 Ml Iv Soln IV 08/20/19 20:19 999 mls/hr BOLUS ONE Administration Wide Open Lactated Ringer's 1,000 mls @ 167 mls/hr 08/20/19 21:33 08/21/19 10:21 Lactated Ringers 1000 Ml Iv Soln IV 09/19/19 21:32 Infused CONTINUOUS PRN Infusion THIS MED IS NOT "PRN" Lactated Ringer's 1,000 mls @ 100 mls/hr 08/21/19 09:29 08/23/19 12:21 Lactated Ringers 1000 Ml Iv Soln IV 09/19/19 21:32 Infused CONTINUOUS PRN Infusion THIS MED IS NOT "PRN" Sodium Chloride 500 mls @ 0 mls/hr 08/22/19 05:00 08/22/19 04:30 Nacl 0.9% 500 Ml Iv Soln IV 08/22/19 05:01 Infused BOLUS ONE Infusion Sodium Chloride 500 mls @ 0 mls/hr 08/22/19 06:15 08/22/19 05:25 Nacl 0.9% 500 Ml Iv Soln IV 08/22/19 06:16 Infused BOLUS ONE Infusion Sodium Chloride 1,000 mls @ 999 mls/hr 08/23/19 02:15 08/23/19 02:50 Nacl 0.9% 1000 Ml Iv Soln IV 08/23/19 03:15 Infused ONCE ONE Infusion Cefepime HCl 1 gm in 50 mls @ 100 mls/hr 08/23/19 02:30 08/23/19 03:28 Maxipime Rtu 1 Gm/D5w 50 Ml Premix Bag IV 08/30/19 02:29 Infused Q12H ABIMBOLA Infusion Sodium Chloride 1,000 mls @ 0 mls/hr 08/23/19 02:58 08/23/19 04:00 Nacl 0.9% 1000 Ml Iv Soln IV 08/23/19 02:59 Infused BOLUS ONE Infusion Wide Open Magnesium Sulfate/Dextrose 1 gm in 100 mls @ 100 mls/hr 08/23/19 03:00 08/23/19 06:07 Magnesium Sulfate Rtu-D5w 1 Gm/100 Ml Premix IV 08/23/19 06:59 200 mls/hr Q1H ABIMBOLA 200 mls/hr Administration Magnesium Sulfate/Dextrose Confirm 08/23/19 03:00 08/23/19 03:18 Magnesium Sulfate Rtu-D5w 1 Gm/100 Ml Premix Administered 08/23/19 03:01 Not Given Dose 1 gm in 100 mls @ ud IV .STK-MED ONE Lactated Ringer's 1,000 mls @ 200 mls/hr 08/23/19 04:01 Lactated Ringers 1000 Ml Iv Soln IV 09/19/19 21:32 CONTINUOUS PRN THIS MED IS NOT "PRN" Vancomycin HCl 2,000 mg/ 500 mls @ 250 mls/hr 08/23/19 05:00 08/23/19 07:50 Dextrose IV 08/23/19 06:59 Infused ONCE ONE Infusion Vasopressin 100 unit/ Dextrose 250 mls @ 0 mls/hr 08/23/19 05:30 08/23/19 15:35 IV 09/22/19 05:29 0 unit/min CONTINUOUS PRN 0 mls/hr THIS MED IS NOT "PRN" Titration Protocol As Directed Hard Fat/Phenylephrine 40 mg/ 250 mls @ 0 mls/hr 08/23/19 05:33 Dextrose IV 09/22/19 05:32 CONTINUOUS PRN THIS MED IS NOT "PRN" Protocol Titrate Cefepime HCl 1 gm in 50 mls @ 100 mls/hr 08/23/19 10:00 08/23/19 10:46 Maxipime Rtu 1 Gm/D5w 50 Ml Premix Bag IV 08/30/19 09:59 Infused Q12 ABIMBOLA Infusion Vancomycin HCl 1,500 mg/ 250 mls @ 166.667 mls/hr 08/24/19 06:00 08/24/19 07:35 Dextrose IV 08/31/19 05:59 Infused Q6AM ABIMBOLA Infusion Albumin Human 500 mls @ 4 mls/min 08/23/19 12:30 08/23/19 15:30 Albutein 5% Inj 25 Gm/500 Ml Premixed Bottle IV 08/23/19 14:34 Infused NOW ONE Infusion Sodium Chloride 1,000 mls @ 250 mls/hr 08/23/19 11:44 08/24/19 08:15 Nacl 0.9% 1000 Ml Iv Soln IV 09/22/19 11:43 Infused CONTINUOUS PRN Infusion THIS MED IS NOT "PRN" Piperacillin Sod/Tazobactam 50 mls @ 100 mls/hr 08/23/19 20:00 08/24/19 09:20 Sod 2.25 gm/ Sodium Chloride IV 08/30/19 19:59 100 mls/hr Q6A ABIMBOLA 100 mls/hr Administration Cefepime HCl 1 gm in 50 mls @ 100 mls/hr 08/24/19 18:00 08/27/19 07:00 Maxipime Rtu 1 Gm/D5w 50 Ml Premix Bag IV 08/31/19 17:59 Infused Q12A ABIMBOLA Infusion Sodium Chloride 1,000 mls @ 100 mls/hr 08/24/19 15:34 Nacl 0.9% 1000 Ml Iv Soln IV 09/22/19 11:43 CONTINUOUS PRN THIS MED IS NOT "PRN" Lorazepam 1 mg 08/20/19 21:40 Ativan Inj 2 Mg/1 Ml Vial IV 08/27/19 21:39 Q4HP PRN ANXIETY/AGITATION Meloxicam 7.5 mg 08/21/19 10:00 08/22/19 18:34 Mobic 7.5 Mg Tablet PO 09/20/19 09:59 7.5 mg BID ABIMBOLA Administration Morphine Sulfate 2 mg 08/20/19 21:40 08/23/19 00:42 Morphine 10 Mg/Ml Inj IV 08/27/19 21:39 2 mg Q2HP PRN Administration FOR PAIN SCALE 1-2 Morphine Sulfate 3 mg 08/20/19 21:40 08/21/19 06:16 Morphine 10 Mg/Ml Inj IV 08/27/19 21:39 3 mg Q2HP PRN Administration FOR PAIN SCALE 3-4 Morphine Sulfate 4 mg 08/20/19 21:40 08/22/19 18:34 Morphine 10 Mg/Ml Inj IV 08/27/19 21:39 4 mg Q2HP PRN Administration PAIN SCALE OF 5 Morphine Sulfate 4 mg 08/23/19 05:30 08/23/19 20:32 Morphine 10 Mg/Ml Inj IV 08/30/19 05:29 4 mg Q2HP PRN Administration PAIN SCALE OF 5 Nitroglycerin 0.5 gm 08/20/19 17:15 08/20/19 17:21 Nitrol 2% Ointment 1gm Packet TP 08/20/19 17:16 0.5 gm NOW ONE Administration Ondansetron HCl 4 mg 08/20/19 21:33 08/22/19 23:09 Zofran Inj/Pf 4 Mg/2 Ml Sdv IV 09/19/19 21:32 4 mg Q4HP PRN Administration FOR NAUSEA/VOMITING Oxycodone/Acetaminophen 1 tab 08/25/19 15:28 08/25/19 15:40 Percocet 5-325 Mg Tablet PO 09/01/19 15:27 1 tab Q6HP PRN Administration FOR BACK PAIN Potassium Chloride 10 meq 08/25/19 10:00 08/30/19 10:37 Klor-Con 10 Meq Tablet Er PO 09/24/19 09:59 10 meq Q12 ABIMBOLA Administration Vancomycin HCl Confirm 08/23/19 05:43 08/23/19 05:56 Vancocin Inj 1000 Mg Vial Administered 08/23/19 05:44 Not Given Dose 1,000 mg .ROUTE .STK-MED ONE Vancomycin HCl Confirm 08/24/19 05:49 08/24/19 06:15 Vancocin Inj 500 Mg Vial Administered 08/24/19 05:50 Not Given Dose 500 mg .ROUTE .STK-MED ONE Vancomycin HCl Confirm 08/24/19 05:49 08/24/19 06:15 Vancocin Inj 1000 Mg Vial Administered 08/24/19 05:50 Not Given Dose 1,000 mg .ROUTE .STK-MED ONE Vasopressin Confirm 08/23/19 05:19 08/23/19 06:17 Vasopressin Inj 20 Unit/1 Ml Vial Administered 08/23/19 05:20 Not Given Dose 20 unit .ROUTE .STK-MED ONE Zolpidem Tartrate 2.5 mg 08/21/19 02:31 08/21/19 03:17 Ambien 5 Mg Tablet PO 08/28/19 02:30 2.5 mg HSP PRN Administration SLEEP OR INSOMNIA Zolpidem Tartrate 5 mg 08/21/19 22:00 08/28/19 00:48 Ambien 5 Mg Tablet PO 08/28/19 21:59 5 mg HSP PRN Administration INSOMNIA Assessment & Plan - Diagnosis (1) Acute kidney injury (nontraumatic) Is this a current diagnosis for this admission?: Yes Plan: Secondary to outpatient overdiuresis. His renal function continues to be stable. Recommendations: -Continue with current medical management. (2) Coronary artery disease Qualifiers: Coronary Disease-Associated Artery/Lesion type: [place] artery [place] vs. transplanted heart: [place] heart Associated angina: angina presence unspecified Qualified Code(s): I25.10 - Atherosclerotic heart disease of [place] coronary artery without angina pectoris Is this a current diagnosis for this admission?: Yes Plan: The patient denies alva chest pain and angina. His shortness of breath is likely multifactorial however he is definitely fluid overloaded. He has not had any ischemic evaluation recently. Recommendations: -Continue with current medical management for now. -Ischemic assessment in the outpatient setting. (3) Essential hypertension Is this a current diagnosis for this admission?: Yes Plan: The patient had episodes of hypotension secondary to sepsis requiring vasopressin and admission to the ICU as well as volume expansion. His pressure is now at goal. Recommendations: -Continue with current medical management. (4) Heart failure Qualifiers: Heart failure type: unspecified Heart failure chronicity: acute Qualified Code(s): I50.9 - Heart failure, unspecified Is this a current diagnosis for this admission?: Yes Plan: The patient continues to improve clinically and symptomatically. He only put out approximately 900 cc of urine yesterday however he was not able to record all of his urine output as "the urine was just coming out". He still fluid overloaded with lower extremity edema and a positive fluid balance of 7.5 L. He is still not ready to transition to outpatient care as he continues to be fluid overloaded and now hypokalemic. Unfortunately his echocardiogram during this admission was nondiagnostic however a prior echocardiogram in February 2017 in the outpatient setting, although of very poor quality, demonstrated a grossly normal systolic function. Recommendations: -Continue with Lasix to 80 mg IV twice daily with close attention to his blood pressure and renal function. -Start potassium chloride 40 mg p.o. daily. -Manual blood pressure with a large cuff. -BMP daily. -Restrict fluid intake to 1500 cc daily. -Low sodium diet, less than 1500 mg daily. -Strict intake and output. -Daily weights.
[2019-08-31] MEDS: FUROSEMIDE INJ/PF 40 MG/4 ML SDV IV SCH ×2 (09:12→21:37)
[2019-08-31] MEDS: DOCUSATE SODIUM 100 MG CAPSULE PO SCH ×2 (09:13→17:41)
[2019-08-31] MEDS: POTASSIUM CHLORIDE 10 MEQ TABLET.ER PO SCH ×2 (09:13→21:37)
[2019-08-31] MEDS: FERROUS SULFATE LIQUID 300 MG/5 ML UDC PO SCH (09:13)
[2019-08-31] MEDS: LOSARTAN POTASSIUM 50 MG TABLET PO SCH (09:13)
[2019-08-31] MEDS: CITALOPRAM HYDROBROMIDE 20 MG TABLET PO SCH (09:14)
[2019-08-31] MEDS: ISOSORBIDE MONONITRATE 60 MG TAB.ER.24H PO SCH (09:14)
[2019-08-31] MEDS: CLOPIDOGREL BISULFATE 75 MG TABLET PO SCH (09:14)
[2019-08-31] MEDS: DOXAZOSIN MESYLATE 1 MG TABLET PO SCH (09:14)
[2019-08-31] MEDS: PREDNISONE 20 MG TABLET PO SCH (09:14)
[2019-08-31] MEDS: MONTELUKAST SODIUM 10 MG TABLET PO SCH (09:14)
[2019-08-31] MEDS: NYSTATIN CREAM 15 GM TP SCH ×3 (09:23→17:39)
--- NOTE | 2019-08-31 12:06 | PDOC PROGRESS REPORT ---
Subjective Progress Note for:: 08/31/19 Subjective:: Patient was seen and evaluated this morning. Chart reviewed. Patient is currently being treated for UTI, sepsis hypotension and apparently received vasopressin and IV fluids while he was in ICU the patient so he is currently on IV Lasix. Patient has been put on a fluid restriction And had an echo done on August 21 which apparently is uninterpretable. 08/28 patient does state that he feels better. He has lost about 10 kg and has noticed to be putting out more urine now 08/29 continues to have no new complaints. He did receive CHF teaching and he has a packet in hand. He has been advised on the need to be a compliant with his instructions, lifestyle modification as well as dietary and fluid intake restrictions 08/30 patient would like to go home in a.m. as he has some dizziness details that he needs to complete. He said he feels better. He did mention the constant urination from his diuresis and some weakness. Reason For Visit: ACUTE KIDNEY INJURY,CHEST PAIN,PALPITATIONS,CHRONI Physical Exam Vital Signs: Temp Pulse Resp BP Pulse Ox 98.7 F 62 16 127/57 H 97 08/31/19 00:07 08/31/19 07:47 08/31/19 07:47 08/31/19 00:07 08/31/19 07:47 Intake & Output 08/30/19 08/31/19 09/01/19 06:59 06:59 06:59 Intake Total 930 1496 82 Output Total 3500 2400 Balance -2570 -904 82 Weight 155.6 kg 155.6 kg General appearance: PRESENT: no acute distress, morbidly obese, well-nourished Head exam: PRESENT: atraumatic, normocephalic Eye exam: PRESENT: conjunctiva pink, EOMI. ABSENT: scleral icterus Ear exam: PRESENT: normal external ear exam Mouth exam: PRESENT: moist, tongue midline Neck exam: ABSENT: carotid bruit, JVD, lymphadenopathy, thyromegaly Respiratory exam: PRESENT: rhonchi, unlabored. ABSENT: rales, wheezes Cardiovascular exam: PRESENT: RRR, +S1, +S2. ABSENT: diastolic murmur, rubs, systolic murmur Pulses: PRESENT: normal dorsalis pedis pul Vascular exam: PRESENT: normal capillary refill GI/Abdominal exam: PRESENT: normal bowel sounds, soft. ABSENT: distended, guarding, mass, organolmegaly, rebound, tenderness Rectal exam: PRESENT: deferred Extremities exam: PRESENT: full ROM, other - anasarca. ABSENT: calf tenderness, clubbing, pedal edema Neurological exam: PRESENT: alert, awake, oriented to person, oriented to place, oriented to time, oriented to situation, CN II-XII grossly intact. ABSENT: motor sensory deficit Psychiatric exam: PRESENT: appropriate affect, normal mood. ABSENT: homicidal ideation, suicidal ideation Skin exam: PRESENT: dry, intact, warm. ABSENT: cyanosis, rash Results Laboratory Results: 08/31/19 05:35 08/31/19 05:35 08/31/19 08/31/19 05:35 05:35 WBC 5.2 RBC 3.17 L Hgb 9.8 L Hct 28.2 L MCV 89 MCH 31.0 MCHC 34.9 RDW 16.2 H Plt Count 205 Seg Neutrophils % Not Reportable Sodium 137.6 Potassium 2.9 L* Chloride 95 L Carbon Dioxide 36 H Anion Gap 7 BUN 41 H Creatinine 1.15 Est GFR ( Amer) > 60 Glucose 124 H Calcium 8.6 08/20/19 08/20/19 08/20/19 17:00 17:00 23:09 Creatine Kinase 91 CK-MB (CK-2) Troponin I < 0.012 NT-Pro-B Natriuret Pep 77 08/20/19 08/21/19 08/21/19 23:09 01:16 07:37 Creatine Kinase 78 CK-MB (CK-2) Cancelled 1.35 Troponin I Cancelled < 0.012 NT-Pro-B Natriuret Pep 08/21/19 08/21/19 08/21/19 07:37 13:12 13:12 Creatine Kinase 75 CK-MB (CK-2) 1.00 0.91 Troponin I < 0.012 < 0.012 NT-Pro-B Natriuret Pep 08/23/19 08/23/19 08/28/19 02:24 02:48 08:26 Creatine Kinase 357 H CK-MB (CK-2) 0.75 Troponin I < 0.012 NT-Pro-B Natriuret Pep 7880 H Impressions: Chest CT 08/20/19 18:37 IMPRESSION: No acute abnormality within the chest. Enlarged subcarinal lymph node measuring 1.8 x 3.5 cm in size, indeterminate/nonspecific. TECHNICAL DOCUMENTATION: Quality ID # [id number]: Final reports with documentation of one or more dose reduction techniques (e.g., Automated exposure control, adjustment of the mA and/or kV according to patient size, use of iterative reconstruction technique) copyright 2011 [employer]- All Rights Reserved Renal Ultrasound 08/21/19 00:00 IMPRESSION: Limited ultrasound of the kidneys and urinary bladder due to the patient's body habitus. The left kidney and urinary bladder were not visualized. There is no right-sided hydronephrosis. Abdomen/Pelvis CT 08/23/19 02:08 IMPRESSION: No acute findings. Chest X-Ray 08/28/19 07:29 IMPRESSION: Small bilateral pleural effusions. No interval change. Assessment and Plan - Diagnosis (1) Acute kidney injury (nontraumatic) Is this a current diagnosis for this admission?: Yes Plan: Resolved. Will continue to monitor due to diuretics (2) Coronary artery disease Qualifiers: Coronary Disease-Associated Artery/Lesion type: [place] artery [place] vs. transplanted heart: [place] heart Associated angina: angina presence unspecified Qualified Code(s): I25.10 - Atherosclerotic heart disease of [place] coronary artery without angina pectoris Is this a current diagnosis for this admission?: Yes Plan: 08/31/2019-Appreciate Cardiology consult (3) Essential hypertension Is this a current diagnosis for this admission?: Yes Plan: Stable. Pressure relatively controlled (4) Heart failure Qualifiers: Heart failure type: unspecified Heart failure chronicity: acute Qualified Code(s): I50.9 - Heart failure, unspecified Is this a current diagnosis for this admission?: Yes Plan: The echocardiogram was nondiagnostic because the acoustic windows were very very poor. I am not sure about systolic function, but with his degree of sleep apnea I would not be surprised if he had some degree of pulmonary hypertension and diastolic dysfunction. Cardiology comments noted Continue IV Lasix at an increased dose, 80 mg twice daily. Continue to monitor his blood pressure and adjust his medications as needed. Anticipate maybe dc in am if stable (5) Morbid obesity Is this a current diagnosis for this admission?: Yes (6) Urinary tract infection with pyuria Is this a current diagnosis for this admission?: Yes Plan: Continue cefepime through today. The bacteremia also secondary to E. coli likely from UTI (7) E coli bacteremia Is this a current diagnosis for this admission?: Yes Plan: Due to his UTI. He is currently on cefepime until August 30 (8) Hypokalemia due to excessive renal loss of potassium Is this a current diagnosis for this admission?: Yes Plan: Replace and recheck this pm Continue oral KCL - Plan Summary Summary: 08/27 Acute kidney injury likely secondary to overdiuresis. We will continue to monitor closely CAD- ischemic assessment in the outpatient setting Essential hypertension blood pressures currently at goal Cardiomyopathy CHF with had type unspecified due to poor echo. His last echocardiogram from 2016 apparently showed a grossly normal systolic function. Plan is to continue Lasix IV, restrict fluid intake 08/28 we will continue with this. We will also order CHF education as patient seems to lack some knowledge about his disease - Time Time Spent with patient: 15-24 minutes Anticipated discharge: Home Within: within 24 hours
[2019-08-31] MEDS: TAMSULOSIN HCL 0.4 MG CAP.SR.24H PO SCH (17:41)
[2019-08-31] MEDS: INSULIN GLARGINE,HUM.REC.ANLOG 1,000 UNIT/10 ML VIAL SUBCUT SCH (21:35)
[2019-08-31] MEDS: ATORVASTATIN CALCIUM 20 MG TABLET PO SCH (21:37)
[2019-08-31] MEDS: ACETAMINOPHEN 325 MG TABLET PO PRN (21:38)
[2019-08-31] MEDS: ROPINIROLE HCL 1 MG TABLET PO SCH (21:39)
[2019-08-31] MEDS: ZOLPIDEM TARTRATE 5 MG TABLET PO PRN (23:24)
[2019-08-31] MEDS: OXYCODONE-ACETAMINOPHEN 5-325 MG TABLET PO PRN (23:24)
[2019-09-01] MEDS: IPRATROPIUM BROMIDE 0.02% NEB 0.5 MG/2.5 ML AMPUL NEB SCH ×3 (00:30→15:35)
[2019-09-01] MEDS: LEVALBUTEROL HCL NEB 1.25 MG/3 ML AMPUL NEB SCH ×3 (00:30→15:35)
[2019-09-01] MEDS: PANTOPRAZOLE SODIUM 40 MG TABLET.DR PO SCH (05:29)
[2019-09-01] MEDS: HEPARIN SOD (PORCINE) 5,000 UNIT/ML 1 ML VIAL SUBCUT SCH ×2 (05:29→13:05)
[2019-09-01] MEDS: INSULIN REG, HUMAN 100 UNIT/ML 3 ML VIAL (PYX) SUBCUT SCH ×3 (07:59→16:31)
--- NOTE | 2019-09-01 08:04 | PDOC PROGRESS REPORT ---
Subjective Progress Note for:: 09/01/19 Subjective:: The patient is a 78-year-old male with history of CAD status post MIR to the mid LAD and left circumflex in December 2004, hyperlipidemia, hypertension, asthma, morbid obesity, sleep apnea on CPAP, diabetes, restrictive lung disease who was admitted to our institution on 08/20/2019 due to shortness of breath, chest pain and hypertension. He was initially consulted to my partner, Dr. Estrada, please review his notes for further details. In summary, the patient had developed significant lower extremity edema as well as significant dyspnea, orthopnea and PND reason why he self increased his outpatient Lasix dose. His condition continued to deteriorate therefore he came to the emergency room where he was found to have a creatinine of 3.25 consistent with acute kidney injury. He was initially admitted to the medical floor where he was given IV fluids. He eventually had an episode of hypotension and his creatinine went from 2.69 back to 3.24 and was again given IV fluids. In the meantime, it was noted that his blood pressure readings where unreliable given his body habitus and, because of clinical deterioration, he was transferred to the ICU where an arterial line was placed. He was also found to have a UTI and sepsis. He required vasopressin as well as significant amounts of IV fluid. He was transferred out of the ICU however he continues to complain of significant shortness of breath. Of note he is close to 11.5 L positive in his fluid balance. 09/01/2019: The patient had an uneventful night and continues to improve clinically. He feels 100% better this morning and his fluid balance continues to decrease although he continues to be positive. Of note, his intake and output is not completely accurate as he has had a total of 18 unmeasured voids because "the urine just come out" he has no cardiac complaints today and wishes to go home. Per my calculations, he is still +5.8 L however, once again, he had at least 18 unmeasured voids that he described as significant "amount of urine came out". Physical exam on : GENERAL: Pleasant and conversational. Oriented x3 with normal mood. Not in acute distress. Well groomed and well developed. Morbidly obese. HEENT: Normocephalic, atraumatic. Pupils equal. Sclerae anicteric. Oropharynx moist. NECK: Difficult to evaluate for JVD and bruit due to body habitus. There is a central line on the right side of the neck. LUNGS: Clear to auscultation bilaterally, normal respiratory effort without the use of accessory muscles or intercostal retractions. CARDIOVASCULAR: Regular rate and rhythm, normal S1 and S2 without murmurs, rubs, or gallops. PMI not displaced. EXTREMITIES: 1-2 + pitting edema bilaterally, no cyanosis, no clubbing. +2 pulses femoral and pedal pulses bilaterally. MUSCULOSKELETAL: No chest tenderness to palpation. NEUROLOGIC: Nonfocal. No gross sensory or motor deficits bilateral upper or lower extremities. Cardiac studies: Echocardiogram on 08/22/2019 at [facility]: -Uninterpretable study. [facility] on 07/11/2014: -Left main: No disease. -LAD: Widely patent stent in the mid LAD. -Left circumflex: Dominant vessel, patent stent in the mid vessel, luminal irregularities elsewhere. -RCA: Nondominant vessel, moderate diffuse disease. Of note, the LVEDP was markedly elevated. Echocardiogram on 03/02/2017: -Very poor study. -Study is essentially uninterpretable. -LV systolic function is grossly normal. -Valvular structures are not well visualized. Reason For Visit: ACUTE KIDNEY INJURY,CHEST PAIN,PALPITATIONS,CHRONI Physical Exam Vital Signs: Temp Pulse Resp BP Pulse Ox 98.1 F 69 20 139/59 H 100 08/31/19 19:46 08/31/19 19:46 08/31/19 19:46 08/31/19 19:46 08/31/19 19:46 Intake & Output 08/30/19 08/31/19 09/01/19 06:59 06:59 06:59 Intake Total 930 1496 1242 Output Total 3500 2400 2960 Balance -5783 -763 -6396 Weight 155.6 kg 155.6 kg 155.4 kg Results Laboratory Results: 08/31/19 05:35 08/31/19 18:30 08/31/19 08/31/19 08/31/19 05:35 05:35 18:30 WBC 5.2 RBC 3.17 L Hgb 9.8 L Hct 28.2 L MCV 89 MCH 31.0 MCHC 34.9 RDW 16.2 H Plt Count 205 Sodium 137.6 Potassium 2.9 L* 3.5 L Chloride 95 L Carbon Dioxide 36 H Anion Gap 7 BUN 41 H Creatinine 1.15 Est GFR ( Amer) > 60 Glucose 124 H Calcium 8.6 08/20/19 08/20/19 08/20/19 17:00 17:00 23:09 Creatine Kinase 91 CK-MB (CK-2) Troponin I < 0.012 NT-Pro-B Natriuret Pep 77 08/20/19 08/21/19 08/21/19 23:09 01:16 07:37 Creatine Kinase 78 CK-MB (CK-2) Cancelled 1.35 Troponin I Cancelled < 0.012 NT-Pro-B Natriuret Pep 08/21/19 08/21/19 08/21/19 07:37 13:12 13:12 Creatine Kinase 75 CK-MB (CK-2) 1.00 0.91 Troponin I < 0.012 < 0.012 NT-Pro-B Natriuret Pep 08/23/19 08/23/19 08/28/19 02:24 02:48 08:26 Creatine Kinase 357 H CK-MB (CK-2) 0.75 Troponin I < 0.012 NT-Pro-B Natriuret Pep 7880 H Impressions: Chest CT 08/20/19 18:37 IMPRESSION: No acute abnormality within the chest. Enlarged subcarinal lymph node measuring 1.8 x 3.5 cm in size, indeterminate/nonspecific. TECHNICAL DOCUMENTATION: Quality ID # 436: Final reports with documentation of one or more dose reduction techniques (e.g., Automated exposure control, adjustment of the mA and/or kV according to patient size, use of iterative reconstruction technique) copyright 2011 [employer]- All Rights Reserved Renal Ultrasound 08/21/19 00:00 IMPRESSION: Limited ultrasound of the kidneys and urinary bladder due to the patient's body habitus. The left kidney and urinary bladder were not visualized. There is no right-sided hydronephrosis. Abdomen/Pelvis CT 08/23/19 02:08 IMPRESSION: No acute findings. Chest X-Ray 08/28/19 07:29 IMPRESSION: Small bilateral pleural effusions. No interval change. 08/31/19 05:35 08/31/19 18:30 MCV 89 fl (80-97) 08/31/19 05:35 MCH 31.0 pg (27.0-33.4) 08/31/19 05:35 MCHC 34.9 g/dL (32.0-36.0) 08/31/19 05:35 RDW 16.2 % (11.5-14.0) H 08/31/19 05:35 Seg Neutrophils % Not Reportable 08/31/19 05:35 Carbonic Acid 1.22 mmol/L (1.05-1.35) 08/23/19 02:18 HCO3/H2CO3 Ratio 16:1 08/23/19 02:18 ABG pH 7.32 (7.35-7.45) L 08/23/19 02:18 ABG pCO2 40.4 mmHg (35-45) 08/23/19 02:18 ABG pO2 67.8 mmHg (80-100) L 08/23/19 02:18 ABG HCO3 20.4 mmol/L (20-24) 08/23/19 02:18 ABG O2 Saturation 92.2 % (94-98) L 08/23/19 02:18 ABG Base Excess -5.3 mmol/L 08/23/19 02:18 FiO2 30% 08/23/19 02:18 Chloride 95 mmol/L (98-107) L 08/31/19 05:35 Carbon Dioxide 36 mmol/L (22-30) H 08/31/19 05:35 Anion Gap 7 (5-19) 08/31/19 05:35 Est GFR ( Amer) > 60 (>60) 08/31/19 05:35 Est GFR (Non-Af Amer) Cancelled 08/21/19 07:37 Glucose 124 mg/dL (75-110) H 08/31/19 05:35 Lactic Acid 0.9 mmol/L (0.7-2.1) 08/23/19 02:24 Calcium 8.6 mg/dL (8.4-10.2) 08/31/19 05:35 Ionized Calcium [place] 1.03 mmol/L (1.14-1.30) L 08/23/19 02:24 Phosphorus 2.8 mg/dL (2.5-4.5) 08/24/19 05:45 Magnesium 1.9 mg/dL (1.6-2.3) 08/26/19 05:21 Total Bilirubin 0.4 mg/dL (0.2-1.3) 08/26/19 05:21 AST 20 U/L (17-59) 08/26/19 05:21 Alkaline Phosphatase 57 U/L (38-126) 08/26/19 05:21 Total Protein 5.8 g/dL (6.3-8.2) L 08/26/19 05:21 Albumin 3.0 g/dL (3.5-5.0) L 08/26/19 05:21 Triglycerides 201 mg/dL (<150) H 08/21/19 07:37 Cholesterol 89.92 mg/dL (0-200) 08/21/19 07:37 LDL Cholesterol Direct 39 mg/dL (<100) 08/21/19 07:37 VLDL Cholesterol 40.2 mg/dL (10-31) H 08/21/19 07:37 HDL Cholesterol 20 mg/dL (>40) L 08/21/19 07:37 TSH 4.61 uIU/mL (0.47-4.68) 08/21/19 07:37 Free T3 pg/mL 3.57 pg/mL (2.77-5.27) 08/21/19 07:37 Urine Color STRAW 08/20/19 23:39 Urine Appearance SLIGHTLY-CLOUDY 08/20/19 23:39 Urine pH 5.0 (5.0-9.0) 08/20/19 23:39 Ur Specific [place] 1.009 08/20/19 23:39 Urine Protein NEGATIVE mg/dL (NEGATIVE) 08/20/19 23:39 Urine Glucose (UA) NEGATIVE mg/dL (NEGATIVE) 08/20/19 23:39 Urine Ketones NEGATIVE mg/dL (NEGATIVE) 08/20/19 23:39 Urine Blood SMALL (NEGATIVE) H 08/20/19 23:39 Urine RBC (Auto) 0 /HPF 08/20/19 23:39 08/20/19 08/20/19 08/20/19 17:00 17:00 23:09 Creatine Kinase 91 CK-MB (CK-2) Troponin I < 0.012 NT-Pro-B Natriuret Pep 77 08/20/19 08/21/19 08/21/19 23:09 01:16 07:37 Creatine Kinase 78 CK-MB (CK-2) Cancelled 1.35 Troponin I Cancelled < 0.012 NT-Pro-B Natriuret Pep 08/21/19 08/21/19 08/21/19 07:37 13:12 13:12 Creatine Kinase 75 CK-MB (CK-2) 1.00 0.91 Troponin I < 0.012 < 0.012 NT-Pro-B Natriuret Pep 08/23/19 08/23/19 08/28/19 02:24 02:48 08:26 Creatine Kinase 357 H CK-MB (CK-2) 0.75 Troponin I < 0.012 NT-Pro-B Natriuret Pep 7880 H Current Medication List Generic Name Dose Route Start Last Admin Trade Name Freq PRN Reason Stop Dose Admin Acetaminophen 650 mg 08/20/19 21:40 08/31/19 21:38 Tylenol 325 Mg Tablet PO 09/19/19 21:39 650 mg Q4HP PRN Administration For headache, pain or fever Al Hydrox/Mg Hydrox/Simethicone 30 ml 08/20/19 21:33 Maalox Plus Susp 30 Udcup PO 09/19/19 21:32 Q6HP PRN HEARTBURN Alprazolam 0.5 mg 08/29/19 14:02 Xanax 0.5 Mg Tablet PO 09/05/19 14:01 Q8HP PRN ANXIETY Atorvastatin Calcium 20 mg 08/21/19 22:00 08/31/19 21:37 Lipitor 20 Mg Tablet PO 09/20/19 21:59 20 mg QHS ABIMBOLA Administration Cetirizine HCl 5 mg 08/21/19 09:27 Zyrtec 5 Mg Tablet PO 09/20/19 09:26 DAILYP PRN ALLERGIES Citalopram Hydrobromide 20 mg 08/21/19 10:00 08/31/19 09:14 Celexa 20 Mg Tablet PO 09/20/19 09:59 20 mg DAILY ABIMBOLA Administration Clopidogrel Bisulfate 75 mg 08/21/19 10:00 08/31/19 09:14 Plavix 75 Mg Tablet PO 09/20/19 09:59 75 mg DAILY ABIMBOLA Administration Dextrose 12.5 gm 08/21/19 09:40 Dextrose Inj 50% Syringe (25 Gm/50 Ml) IV 09/20/19 09:39 PRN PRN FOR BG 50-69 IN ALERT PATIENT Protocol Dextrose 25 gm 08/21/19 09:40 Dextrose Inj 50% Syringe (25 Gm/50 Ml) IV 09/20/19 09:39 PRN PRN PER PROTOCOL Protocol Docusate Sodium 100 mg 08/21/19 10:00 08/31/19 17:41 Colace 100 Mg Capsule PO 09/20/19 09:59 100 mg BID ABIMBOLA Administration Doxazosin Mesylate 1 mg 08/21/19 12:00 08/31/19 09:14 Cardura 1 Mg Tablet PO 09/20/19 11:59 1 mg DAILY ABIMBOLA Administration Ferrous Sulfate 142 mg 08/21/19 10:00 08/31/19 09:13 Ferrous Sulfate Liquid 300 Mg/5 Ml Udcup PO 09/20/19 09:59 142 mg DAILY ABIMBOLA Administration Fluticasone Propionate 1 spray 08/21/19 10:06 08/21/19 23:47 Flonase Nasal [place] 50 Mcg/[place] 16 Gm NASL 09/20/19 10:05 1 spr BIDP PRN Administration Furosemide 80 mg 08/30/19 10:00 08/31/19 21:37 Lasix Inj/Pf 40 Mg/4 Ml Sdv IV 09/29/19 09:59 80 mg Q12 ABIMBOLA Administration Glucagon 1 mg 08/21/19 09:40 Glucagen Inj 1 Mg Vial IM 09/20/19 09:39 PRN PRN Evaluate for BG < 70 Protocol Glucose 15 gm 08/21/19 09:40 Glutose 40% Gel 15 Gm Tube PO 09/20/19 09:39 PRN PRN FOR BG 50-69 IN ALERT PATIENT Protocol Glucose 30 gm 08/21/19 09:40 Glutose 40% Gel 15 Gm Tube PO 09/20/19 09:39 PRN PRN FOR BG < 50 IN ALERT PATIENT Protocol Guaifenesin 200 mg 08/20/19 21:40 Robitussin Syrup 200 Mg/10 Ml Ud Cup PO 09/19/19 21:39 Q4HP PRN COUGH Heparin Sodium (Porcine) 5,000 unit 08/20/19 22:00 09/01/19 05:29 Heparin Inj 5,000 Units/Ml 1 Ml Vial SUBCUT 09/19/19 21:59 5,000 unit Q8 ABIMBOLA Administration Heparin Sodium (Porcine) 30 unit 08/24/19 06:00 09/01/19 05:30 Heparin Flush 10 Unit/Ml 5 Ml Disp.Syrg IV 09/23/19 05:59 Not Given Q8 ABIMBOLA Heparin Sodium (Porcine) 30 unit 08/24/19 05:57 08/31/19 21:36 Heparin Flush 10 Unit/Ml 5 Ml Disp.Syrg IV 09/23/19 05:56 30 unit .AFTER EACH USE PRN Administration AFTER EACH INTERMITTENT USE Hydralazine HCl 20 mg 08/20/19 21:40 Apresoline Inj/Pf 20 Mg/1 Ml Sdv IV 09/19/19 21:39 Q4HP PRN Give For Sbp > 160 / Dbp > 100 Insulin Glargine 30 unit 08/23/19 22:00 08/31/19 21:35 Lantus Insulin 100 Unit/1 Ml 10 Ml SUBCUT 09/22/19 21:59 30 unit QHS ABMIBOLA Administration Insulin Human Regular 0 - 12 unit 08/21/19 11:00 08/31/19 21:34 Humulin R (Pyxis) Insulin 100 Unit/Ml 3ml SUBCUT 09/20/19 10:59 2 unit ACHS ABIMBOLA Administration Protocol Ipratropium [place] 0.5 mg 08/21/19 00:00 09/01/19 00:30 Atrovent 0.02% Neb 0.5 Mg/2.5 Ml Ampul NEB 09/20/19 00:00 0.5 mg RTQ8 ABIMBOLA Administration Isosorbide Mononitrate 60 mg 08/21/19 10:00 08/31/19 09:14 Imdur 60 Mg Tablet.Er PO 09/20/19 09:59 60 mg DAILY ABIMBOLA Administration Levalbuterol HCl 0.63 mg 08/20/19 21:43 Xopenex Neb 0.63 Mg/3 Ml Ampul NEB 09/19/19 21:42 RTQ2HP PRN SHORTNESS OF BREATH Levalbuterol HCl 1.25 mg 08/21/19 00:00 09/01/19 00:30 Xopenex Neb 1.25 Mg/3 Ml Ampul NEB 09/20/19 00:00 1.25 mg RTQ8 ABIMBOLA Administration Losartan Potassium 100 mg 08/25/19 10:00 08/31/19 09:13 Cozaar 50 Mg Tablet PO 09/24/19 09:59 100 mg DAILY ABIMBOLA Administration Magnesium Hydroxide 30 ml 08/20/19 21:33 Milk Of Magnesia 30 Ml Udcup PO 09/19/19 21:32 HSP PRN FOR CONSTIPATION Metoprolol Tartrate 5 mg 08/20/19 21:40 Lopressor Inj/Pf 5 Mg/5 Ml Sdv IV 09/19/19 21:39 Q4HP PRN Give For Sbp > 160 / Dbp > 100 Montelukast Sodium 10 mg 08/21/19 10:00 08/31/19 09:14 Singulair 10 Mg Tablet PO 09/20/19 09:59 10 mg DAILY ABIMBOLA Administration Nystatin 1 applic 08/26/19 12:00 08/31/19 17:39 Mycostatin Cream 15 Gm TP 09/02/19 11:59 Not Given TID ABIMBOLA Ondansetron HCl 4 mg 08/30/19 10:30 Zofran Inj/Pf 4 Mg/2 Ml Sdv IV 09/19/19 21:32 Q4HP PRN FOR NAUSEA/VOMITING Oxycodone/Acetaminophen 1 tab 08/25/19 17:03 08/31/19 23:24 Percocet 5-325 Mg Tablet PO 09/01/19 17:02 1 tab Q4HP PRN Administration FOR BACK PAIN Pantoprazole Sodium 40 mg 08/21/19 06:00 09/01/19 05:[address] Tablet PO 09/20/19 05:59 40 mg Q6AM ABIMBOLA Administration Potassium Chloride 20 meq 08/30/19 22:00 08/31/19 21:37 Klor-Con 10 Meq Tablet Er PO 09/29/19 21:59 20 meq Q12 ABIMBOLA Administration Prednisone 20 mg 09/01/19 10:00 Deltasone 20 Mg Tablet PO 10/01/19 09:59 DAILY ABIMBOLA Ropinirole HCl 1 mg 08/21/19 02:45 08/31/19 21:39 Requip 1 Mg Tablet PO 09/20/19 02:44 1 mg QHS ABIMBOLA Administration Sodium Chloride 2.5 ml 08/20/19 22:00 09/01/19 05:29 Saline Flush 2.5 Ml Monoject Prefil Syrin IV 09/19/19 21:59 Not Given Q8 ABIMBOLA Sodium Chloride 10 ml 08/24/19 05:57 08/28/19 14:19 Nacl 0.9% Inj/Pf 10 Ml Sdv IV 09/23/19 05:56 10 ml .AFTER EACH USE PRN Administration AFTER EACH INTERMITTENT USE Tamsulosin HCl 0.4 mg 08/21/19 18:00 08/31/19 17:41 Flomax 0.4 Mg Cap.Sr PO 09/20/19 17:59 0.4 mg PCSUPPER ABIMBOLA Administration Zolpidem Tartrate 5 mg 08/28/19 22:00 08/31/19 23:24 Ambien 5 Mg Tablet PO 09/04/19 21:59 5 mg HSP PRN Administration INSOMNIA Discontinued Medications Generic Name Dose Route Start Last Admin Trade Name Freq PRN Reason Stop Dose Admin Aspirin 324 mg 08/20/19 16:34 08/20/19 17:02 Aspirin 81 Mg Chewable Tablet PO 08/20/19 16:35 324 mg NOW ONE Administration Aspirin 325 mg 08/20/19 20:15 08/20/19 20:31 Aspirin 325 Mg Tablet PO 08/20/19 20:16 325 mg NOW ONE Administration Furosemide 20 mg 08/25/19 10:00 08/27/19 09:14 Lasix 20 Mg Tablet PO 09/24/19 09:59 20 mg DAILY ABIMBOLA Administration Furosemide 40 mg 08/28/19 09:00 08/29/19 21:54 Lasix Inj/Pf 40 Mg/4 Ml Sdv IV 09/27/19 08:59 40 mg Q12 ABIMBOLA Administration Hydrocortisone Sodium Succinate 100 mg 08/23/19 07:45 08/30/19 13:34 Solu-Cortef Inj/Pf 100 Mg/ 2 Ml Sdv IV 09/22/19 07:44 100 mg Q8 ABIMBOLA Administration Sodium Chloride 1,000 mls @ 0 mls/hr 08/20/19 20:18 08/20/19 20:31 Nacl 0.9% 1000 Ml Iv Soln IV 08/20/19 20:19 999 mls/hr BOLUS ONE Administration Wide Open Lactated Ringer's 1,000 mls @ 167 mls/hr 08/20/19 21:33 08/21/19 10:21 Lactated Ringers 1000 Ml Iv Soln IV 09/19/19 21:32 Infused CONTINUOUS PRN Infusion THIS MED IS NOT "PRN" Lactated Ringer's 1,000 mls @ 100 mls/hr 08/21/19 09:29 08/23/19 12:21 Lactated Ringers 1000 Ml Iv Soln IV 09/19/19 21:32 Infused CONTINUOUS PRN Infusion THIS MED IS NOT "PRN" Sodium Chloride 500 mls @ 0 mls/hr 08/22/19 05:00 08/22/19 04:30 Nacl 0.9% 500 Ml Iv Soln IV 08/22/19 05:01 Infused BOLUS ONE Infusion Sodium Chloride 500 mls @ 0 mls/hr 08/22/19 06:15 08/22/19 05:25 Nacl 0.9% 500 Ml Iv Soln IV 08/22/19 06:16 Infused BOLUS ONE Infusion Sodium Chloride 1,000 mls @ 999 mls/hr 08/23/19 02:15 08/23/19 02:50 Nacl 0.9% 1000 Ml Iv Soln IV 08/23/19 03:15 Infused ONCE ONE Infusion Cefepime HCl 1 gm in 50 mls @ 100 mls/hr 08/23/19 02:30 08/23/19 03:28 Maxipime Rtu 1 Gm/D5w 50 Ml Premix Bag IV 08/30/19 02:29 Infused Q12H ABIMBOLA Infusion Sodium Chloride 1,000 mls @ 0 mls/hr 08/23/19 02:58 08/23/19 04:00 Nacl 0.9% 1000 Ml Iv Soln IV 08/23/19 02:59 Infused BOLUS ONE Infusion Wide Open Magnesium Sulfate/Dextrose 1 gm in 100 mls @ 100 mls/hr 08/23/19 03:00 08/23/19 06:07 Magnesium Sulfate Rtu-D5w 1 Gm/100 Ml Premix IV 08/23/19 06:59 200 mls/hr Q1H ABIMBOLA 200 mls/hr Administration Magnesium Sulfate/Dextrose Confirm 08/23/19 03:00 08/23/19 03:18 Magnesium Sulfate Rtu-D5w 1 Gm/100 Ml Premix Administered 08/23/19 03:01 Not Given Dose 1 gm in 100 mls @ ud IV .STK-MED ONE Lactated Ringer's 1,000 mls @ 200 mls/hr 08/23/19 04:01 Lactated Ringers 1000 Ml Iv Soln IV 09/19/19 21:32 CONTINUOUS PRN THIS MED IS NOT "PRN" Vancomycin HCl 2,000 mg/ 500 mls @ 250 mls/hr 08/23/19 05:00 08/23/19 07:50 Dextrose IV 08/23/19 06:59 Infused ONCE ONE Infusion Vasopressin 100 unit/ Dextrose 250 mls @ 0 mls/hr 08/23/19 05:30 08/23/19 15:35 IV 09/22/19 05:29 0 unit/min CONTINUOUS PRN 0 mls/hr THIS MED IS NOT "PRN" Titration Protocol As Directed Hard Fat/Phenylephrine 40 mg/ 250 mls @ 0 mls/hr 08/23/19 05:33 Dextrose IV 09/22/19 05:32 CONTINUOUS PRN THIS MED IS NOT "PRN" Protocol Titrate Cefepime HCl 1 gm in 50 mls @ 100 mls/hr 08/23/19 10:00 08/23/19 10:46 Maxipime Rtu 1 Gm/D5w 50 Ml Premix Bag IV 08/30/19 09:59 Infused Q12 ABIMBOLA Infusion Vancomycin HCl 1,500 mg/ 250 mls @ 166.667 mls/hr 08/24/19 06:00 08/24/19 07:35 Dextrose IV 08/31/19 05:59 Infused Q6AM ABIMBOLA Infusion Albumin Human 500 mls @ 4 mls/min 08/23/19 12:30 08/23/19 15:30 Albutein 5% Inj 25 Gm/500 Ml Premixed Bottle IV 08/23/19 14:34 Infused NOW ONE Infusion Sodium Chloride 1,000 mls @ 250 mls/hr 08/23/19 11:44 08/24/19 08:15 Nacl 0.9% 1000 Ml Iv Soln IV 09/22/19 11:43 Infused CONTINUOUS PRN Infusion THIS MED IS NOT "PRN" Piperacillin Sod/Tazobactam 50 mls @ 100 mls/hr 08/23/19 20:00 08/24/19 09:20 Sod 2.25 gm/ Sodium Chloride IV 08/30/19 19:59 100 mls/hr Q6A ABIMBOLA 100 mls/hr Administration Cefepime HCl 1 gm in 50 mls @ 100 mls/hr 08/24/19 18:00 08/27/19 07:00 Maxipime Rtu 1 Gm/D5w 50 Ml Premix Bag IV 08/31/19 17:59 Infused Q12A ABIMBOLA Infusion Sodium Chloride 1,000 mls @ 100 mls/hr 08/24/19 15:34 Nacl 0.9% 1000 Ml Iv Soln IV 09/22/19 11:43 CONTINUOUS PRN THIS MED IS NOT "PRN" Cefepime HCl 2 gm/ Dextrose 50 mls @ 100 mls/hr 08/27/19 18:00 08/31/19 06:13 IV 08/31/19 17:59 Infused Q12A ABIMBOLA Infusion Potassium Chloride/Water 20 meq in 50 mls @ 25 mls/hr 08/31/19 08:00 08/31/19 13:15 Potassium Chloride Luis Alberto 20 Meq/50 Ml IV 08/31/19 13:59 Infused Q2H ABIMBOLA Infusion Lorazepam 1 mg 08/20/19 21:40 Ativan Inj 2 Mg/1 Ml Vial IV 08/27/19 21:39 Q4HP PRN ANXIETY/AGITATION Meloxicam 7.5 mg 08/21/19 10:00 08/22/19 18:34 Mobic 7.5 Mg Tablet PO 09/20/19 09:59 7.5 mg BID ABIMBOLA Administration Morphine Sulfate 2 mg 08/20/19 21:40 08/23/19 00:42 Morphine 10 Mg/Ml Inj IV 08/27/19 21:39 2 mg Q2HP PRN Administration FOR PAIN SCALE 1-2 Morphine Sulfate 3 mg 08/20/19 21:40 08/21/19 06:16 Morphine 10 Mg/Ml Inj IV 08/27/19 21:39 3 mg Q2HP PRN Administration FOR PAIN SCALE 3-4 Morphine Sulfate 4 mg 08/20/19 21:40 08/22/19 18:34 Morphine 10 Mg/Ml Inj IV 08/27/19 21:39 4 mg Q2HP PRN Administration PAIN SCALE OF 5 Morphine Sulfate 4 mg 08/23/19 05:30 08/23/19 20:32 Morphine 10 Mg/Ml Inj IV 08/30/19 05:29 4 mg Q2HP PRN Administration PAIN SCALE OF 5 Nitroglycerin 0.5 gm 08/20/19 17:15 08/20/19 17:21 Nitrol 2% Ointment 1gm Packet TP 08/20/19 17:16 0.5 gm NOW ONE Administration Ondansetron HCl 4 mg 08/20/19 21:33 08/22/19 23:09 Zofran Inj/Pf 4 Mg/2 Ml Sdv IV 09/19/19 21:32 4 mg Q4HP PRN Administration FOR NAUSEA/VOMITING Oxycodone/Acetaminophen 1 tab 08/25/19 15:28 08/25/19 15:40 Percocet 5-325 Mg Tablet PO 09/01/19 15:27 1 tab Q6HP PRN Administration FOR BACK PAIN Potassium Chloride 10 meq 08/25/19 10:00 08/30/19 10:37 Klor-Con 10 Meq Tablet Er PO 09/24/19 09:59 10 meq Q12 ABIMBOLA Administration Prednisone 20 mg 08/30/19 18:00 08/31/19 09:14 Deltasone 20 Mg Tablet PO 09/29/19 17:59 20 mg BID ABIMBOLA Administration Vancomycin HCl Confirm 08/23/19 05:43 08/23/19 05:56 Vancocin Inj 1000 Mg Vial Administered 08/23/19 05:44 Not Given Dose 1,000 mg .ROUTE .STK-MED ONE Vancomycin HCl Confirm 08/24/19 05:49 08/24/19 06:15 Vancocin Inj 500 Mg Vial Administered 08/24/19 05:50 Not Given Dose 500 mg .ROUTE .STK-MED ONE Vancomycin HCl Confirm 08/24/19 05:49 08/24/19 06:15 Vancocin Inj 1000 Mg Vial Administered 08/24/19 05:50 Not Given Dose 1,000 mg .ROUTE .STK-MED ONE Vasopressin Confirm 08/23/19 05:19 08/23/19 06:17 Vasopressin Inj 20 Unit/1 Ml Vial Administered 08/23/19 05:20 Not Given Dose 20 unit .ROUTE .STK-MED ONE Zolpidem Tartrate 2.5 mg 08/21/19 02:31 08/21/19 03:17 Ambien 5 Mg Tablet PO 08/28/19 02:30 2.5 mg HSP PRN Administration SLEEP OR INSOMNIA Zolpidem Tartrate 5 mg 08/21/19 22:00 08/28/19 00:48 Ambien 5 Mg Tablet PO 08/28/19 21:59 5 mg HSP PRN Administration INSOMNIA Assessment & Plan - Diagnosis (1) Acute kidney injury (nontraumatic) Is this a current diagnosis for this admission?: Yes Plan: Secondary to outpatient overdiuresis. His renal function continues to be stable. Recommendations: -Continue with current medical management. (2) Coronary artery disease Qualifiers: Coronary Disease-Associated Artery/Lesion type: [place] artery [place] vs. transplanted heart: [place] heart Associated angina: angina presence unspecified Qualified Code(s): I25.10 - Atherosclerotic heart disease of [place] coronary artery without angina pectoris Is this a current diagnosis for this admission?: Yes Plan: The patient denies alva chest pain and angina. His shortness of breath is likely multifactorial however he is definitely fluid overloaded. He has not had any ischemic evaluation recently. Recommendations: -Continue with current medical management for now. -Ischemic assessment in the outpatient setting. (3) Essential hypertension Is this a current diagnosis for this admission?: Yes Plan: The patient had episodes of hypotension secondary to sepsis requiring vasopressin and admission to the ICU as well as volume expansion. His pressure is now at goal. Recommendations: -Continue with current medical management. (4) Heart failure Qualifiers: Heart failure type: unspecified Heart failure chronicity: acute Qualified Code(s): I50.9 - Heart failure, unspecified Is this a current diagnosis for this admission?: Yes Plan: He feels 100% better and has improved significantly clinically. He has no complaints this morning. Although by my calculations his fluid balance is still +5.8 L, he did have 18 voids that were not measured during this hospitalization therefore his fluid balance may be less than my calculations. Regardless, he feels much better and I believe he is ready to be discharged with outpatient follow-up within 1 week. We discussed the importance of low-sodium diet and keeping his fluid intake to less than 1.5 L daily. Unfortunately his echocardiogram during this admission was nondiagnostic however a prior echocardiogram in February 2017 in the outpatient setting, although of very poor quality, demonstrated a grossly normal systolic function. Recommendations: -The patient may be discharged home today from the cardiovascular standpoint. -Continue with potassium chloride 40 mg p.o. daily. -Discharge patient on torsemide 40 mg twice daily. -BMP prior to discharge. -Daily weights and call the office at [phone] if weight gain of 3 pounds overnight or 5 pounds in 1 week. -Follow-up with Dr. Adams in 1 week, I will arrange for that follow-up visit. -Restrict fluid intake to 1500 cc daily. -Low sodium diet, less than 1500 mg of sodium daily.
[2019-09-01] MEDS: OXYCODONE-ACETAMINOPHEN 5-325 MG TABLET PO PRN (08:21)
[2019-09-01] MEDS: FERROUS SULFATE LIQUID 300 MG/5 ML UDC PO SCH (10:00)
[2019-09-01] MEDS: FUROSEMIDE INJ/PF 40 MG/4 ML SDV IV SCH (10:00)
[2019-09-01] MEDS ORDERED: PREDNISONE 20 MG TABLET PO SCH (10:00)
[2019-09-01] MEDS: MONTELUKAST SODIUM 10 MG TABLET PO SCH (10:01)
[2019-09-01] MEDS: DOXAZOSIN MESYLATE 1 MG TABLET PO SCH (10:01)
[2019-09-01] MEDS: CITALOPRAM HYDROBROMIDE 20 MG TABLET PO SCH (10:02)
[2019-09-01] MEDS: POTASSIUM CHLORIDE 10 MEQ TABLET.ER PO SCH (10:02)
[2019-09-01] MEDS: CLOPIDOGREL BISULFATE 75 MG TABLET PO SCH (10:02)
[2019-09-01] MEDS: ISOSORBIDE MONONITRATE 60 MG TAB.ER.24H PO SCH (10:02)
[2019-09-01] MEDS: LOSARTAN POTASSIUM 50 MG TABLET PO SCH (10:02)
[2019-09-01] MEDS: NYSTATIN CREAM 15 GM TP SCH ×3 (10:02→18:20)
[2019-09-01] MEDS: DOCUSATE SODIUM 100 MG CAPSULE PO SCH ×2 (10:02→18:22)
[2019-09-01 10:43] LABS: ANION GAP 6 (5-19); BLOOD UREA NITROGEN 37 mg/dL (7-20); CALCIUM 8.6 mg/dL (8.4-10.2); CARBON DIOXIDE 37 mmol/L (22-30); CHLORIDE 93 mmol/L (98-107); GLUCOSE 114 mg/dL (75-110)
--- NOTE | 2019-09-01 12:08 | PDOC DISCHARGE SUMMARY ---
Impression - Admit/DC Date/PCP Admission Date/Primary Care Provider: 08/20/19 20:24 WAI MOULTON MD Discharge Date: 09/01/19 - Discharge Diagnosis (1) Acute kidney injury (nontraumatic) Is this a current diagnosis for this admission?: Yes (2) Coronary artery disease Is this a current diagnosis for this admission?: Yes (3) Essential hypertension Is this a current diagnosis for this admission?: Yes (4) Heart failure Is this a current diagnosis for this admission?: Yes (5) Morbid obesity Is this a current diagnosis for this admission?: Yes (6) Urinary tract infection with pyuria Is this a current diagnosis for this admission?: Yes (7) E coli bacteremia Is this a current diagnosis for this admission?: Yes (8) Hypokalemia due to excessive renal loss of potassium Is this a current diagnosis for this admission?: Yes - Assessment Summary: 08/27 Acute kidney injury likely secondary to overdiuresis. We will continue to monitor closely CAD- ischemic assessment in the outpatient setting Essential hypertension blood pressures currently at goal Cardiomyopathy CHF with had type unspecified due to poor echo. His last echocardiogram from 2016 apparently showed a grossly normal systolic function. Plan is to continue Lasix IV, restrict fluid intake 08/28 we will continue with this. We will also order CHF education as patient seems to lack some knowledge about his disease - Additional Information Resuscitation Status: Full Code Discharge Diet: Cardiac, Diabetic, Other (Comments) Discharge Activity: Activity As Tolerated, Balance Activity w/Rest, Weigh Daily Referrals: WAI MOULTON MD [Primary Care Provider] - PERCY COREA MD [ACTIVE PROVISIONAL STAFF] - (F/u post hospitalization, ) Prescriptions: Torsemide [Demadex 20 mg Tablet] 40 mg PO BID #120 tablet Potassium Chloride [Klor-Con 10 Meq Tablet ER] 20 meq PO Q12 #100 Home Medications: Clopidogrel Bisulfate [Plavix] 75 mg PO DAILY 10/08/13 Montelukast Sodium 10 mg PO DAILY 10/08/13 Terazosin HCl 1 mg PO DAILY 10/08/13 Zolpidem Tartrate 5 mg PO HSP PRN 10/08/13 Atorvastatin Calcium [Lipitor 20 mg Tablet] 20 mg PO QHS 08/21/19 Cetirizine HCl [Zyrtec 5 mg Tablet] 5 mg PO DAILYP PRN 08/21/19 Citalopram Hydrobromide [Celexa 20 mg Tablet] 20 mg PO DAILY 08/21/19 Ferrous Sulfate [Slow Fe] 142 mg PO DAILY 08/21/19 Fluticasone Propionate [Flonase Allergy Relief] 9.9 ml NS BIDP PRN 08/21/19 Insulin Degludec [Tresiba Flextouch U-100] 30 units SUBCUT QHS 08/21/19 Isosorbide Mononitrate [Imdur 60 mg Tablet.er] 60 mg PO DAILY 08/21/19 Meloxicam [Mobic 7.5 mg Tablet] 7.5 mg PO BID 08/21/19 Ropinirole HCl 1 mg PO QHS 08/21/19 Tamsulosin HCl [Flomax 0.4 mg Cap.sr] 0.4 mg PO DAILY 08/21/19 Telmisartan 80 mg PO DAILY 08/21/19 Potassium Chloride [Klor-Con 10 Meq Tablet ER] 20 meq PO Q12 #100 09/01/19 Torsemide [Demadex 20 mg Tablet] 40 mg PO BID #120 tablet 09/01/19 History of Present Illiness History of Present Illness: ERIBERTO RAMIREZ is a 78 year old male Patient was originally admitted to the hospital on August 19 with complaints of shortness of breath, chest pain and hypertension. He was initially admitted to the medical unit. Was thought to be in acute kidney injury with a creatinine of 3.25. Please see admitting history and physical for full details. Hospital Course Hospital Course: Patient was being managed on the medical floor however he became hypotensive and so he was transferred to the intensive care unit. He was found to have a UTI as well as sepsis and initially required vasopressin as well as numerous IV fluid resuscitation. He continues to complain of significant shortness of breath and was felt that this was likely due to fluid overload. He was continued on diuretics and this had to be increased and adjusted as patient still remained in cumulative positive fluid balance. He however has made progress over the last few days. He has noticed a lot of diuresis and he has lost about 10 pounds with continued fluid output. Is breathing has improved. Echocardiogram done reveale d a poor study with on interpretable results he of course was seen by cardiology who helped to manage his illness. He was treated with cefepime throughout his hospital course for E. coli UTI as well as bacteremia. He has completed his antibiotic course and does not need further antibiotics at this time. He has been sent home with oxygen. He also received CHF education and is to follow-up with cardiology in 1 week. His medications will need to be adjusted. He received KCl supplementation due to hypokalemia likely from the diuresis. This time patient is felt to be stable for discharge so he has been discharged home in stable condition his blood pressure is currently better controlled. Physical Exam Vital Signs: Temp Pulse Resp BP Pulse Ox 97.8 F 77 20 144/56 H 97 09/01/19 07:20 09/01/19 08:09 09/01/19 08:09 09/01/19 07:20 09/01/19 08:09 Intake & Output 08/31/19 09/01/19 09/02/19 06:59 06:59 06:59 Intake Total 1496 1242 Output Total 2400 3685 Balance -904 -2443 Weight 155.6 kg 155.6 kg General appearance: PRESENT: no acute distress, morbidly obese, well-developed, well-nourished Head exam: PRESENT: atraumatic, normocephalic Eye exam: PRESENT: conjunctiva pink, EOMI, PERRLA. ABSENT: scleral icterus Ear exam: PRESENT: normal external ear exam Mouth exam: PRESENT: moist, tongue midline Neck exam: ABSENT: carotid bruit, JVD, lymphadenopathy, thyromegaly Respiratory exam: PRESENT: clear to auscultation darrius. ABSENT: rales, rhonchi, wheezes Cardiovascular exam: PRESENT: RRR, +S1, +S2. ABSENT: diastolic murmur, rubs, systolic murmur Pulses: PRESENT: normal dorsalis pedis pul Vascular exam: PRESENT: normal capillary refill GI/Abdominal exam: PRESENT: normal bowel sounds, soft. ABSENT: distended, guarding, mass, organolmegaly, rebound, tenderness Rectal exam: PRESENT: deferred Extremities exam: PRESENT: full ROM, +2 edema. ABSENT: calf tenderness, clubbing, pedal edema Neurological exam: PRESENT: alert, awake, oriented to person, oriented to place, oriented to time, oriented to situation, CN II-XII grossly intact. ABSENT: motor sensory deficit Psychiatric exam: PRESENT: appropriate affect, normal mood. ABSENT: homicidal ideation, suicidal ideation Skin exam: PRESENT: dry, intact, warm. ABSENT: cyanosis, rash Results Laboratory Results: WBC 5.2 10^3/uL (4.0-10.5) 08/31/19 05:35 RBC 3.17 10^6/uL (4.35-5.55) L 08/31/19 05:35 Hgb 9.8 g/dL (13.5-17.0) L 08/31/19 05:35 Hct 28.2 % (37.9-51.0) L 08/31/19 05:35 MCV 89 fl (80-97) 08/31/19 05:35 MCH 31.0 pg (27.0-33.4) 08/31/19 05:35 MCHC 34.9 g/dL (32.0-36.0) 08/31/19 05:35 RDW 16.2 % (11.5-14.0) H 08/31/19 05:35 Plt Count 205 10^3/uL (150-450) 08/31/19 05:35 Lymph % (Auto) Not Reportable 08/31/19 05:35 [place] % (Auto) Not Reportable 08/31/19 05:35 Eos % (Auto) Not Reportable 08/31/19 05:35 Baso % (Auto) Not Reportable 08/31/19 05:35 Absolute Neuts (auto) Not Reportable 08/31/19 05:35 Absolute Lymphs (auto) Not Reportable 08/31/19 05:35 Absolute Monos (auto) Not Reportable 08/31/19 05:35 Absolute Eos (auto) Not Reportable 08/31/19 05:35 Absolute Basos (auto) Not Reportable 08/31/19 05:35 Total Counted 100 08/31/19 05:35 Seg Neutrophils % Not Reportable 08/31/19 05:35 Seg Neuts % (Manual) 75 % (42-78) 08/31/19 05:35 Band Neutrophils % 4 % (3-5) 08/31/19 05:35 Lymphocytes % (Manual) 15 % (13-45) 08/31/19 05:35 Atypical Lymphs % 1 % (0) 08/29/19 05:08 Monocytes % (Manual) 6 % (3-13) 08/31/19 05:35 Eosinophils % (Manual) 0 % (0-6) 08/31/19 05:35 Basophils % (Manual) 0 % (0-2) 08/31/19 05:35 Metamyelocytes % 3 % (0-1) H 08/29/19 05:08 Myelocytes % 1 % (0) H 08/29/19 05:08 Abs Neuts (Manual) 4.1 10^3/uL (1.7-8.2) 08/31/19 05:35 Abs Lymphs (Manual) 0.8 10^3/uL (0.5-4.7) 08/31/19 05:35 Abs Monocytes (Manual) 0.3 10^3/uL (0.1-1.4) 08/31/19 05:35 Absolute Eos (Manual) 0.0 10^3/uL (0.0-0.6) 08/31/19 05:35 Abs Basophils (Manual) 0.0 10^3/uL (0.0-0.2) 08/31/19 05:35 Nucleated RBCs 1 /100 WBC (0) 08/29/19 05:08 Toxic Granulation 1+ 08/29/19 05:08 Giant Platelets PRESENT 08/26/19 05:21 Platelet Comment ADEQUATE 08/31/19 05:35 Polychromasia 1+ 08/29/19 05:08 Poikilocytosis SLIGHT 08/29/19 05:08 Basophilic Stippling PRESENT 08/29/19 05:08 Anisocytosis 1+ 08/31/19 05:35 Tear Drop Cells SLIGHT 08/29/19 05:08 Ovalocytes SLIGHT 08/29/19 05:08 PT 14.6 SEC (11.4-15.4) 08/20/19 17:00 INR 1.13 08/20/19 17:00 APTT Cancelled 08/20/19 17:00 Carbonic Acid 1.22 mmol/L (1.05-1.35) 08/23/19 02:18 HCO3/H2CO3 Ratio 16:1 08/23/19 02:18 ABG pH 7.32 (7.35-7.45) L 08/23/19 02:18 ABG pCO2 40.4 mmHg (35-45) 08/23/19 02:18 ABG pO2 67.8 mmHg (80-100) L 08/23/19 02:18 ABG HCO3 20.4 mmol/L (20-24) 08/23/19 02:18 ABG Total CO2 21.6 mmol/L (23-27) L 08/23/19 02:18 ABG O2 Saturation 92.2 % (94-98) L 08/23/19 02:18 ABG Base Excess -5.3 mmol/L 08/23/19 02:18 FiO2 30% 08/23/19 02:18 Sodium 135.9 mmol/L (137-145) L 09/01/19 10:05 Potassium 3.0 mmol/L (3.6-5.0) L* 09/01/19 10:05 Chloride 93 mmol/L (98-107) L 09/01/19 10:05 Carbon Dioxide 37 mmol/L (22-30) H 09/01/19 10:05 Anion Gap 6 (5-19) 09/01/19 10:05 BUN 37 mg/dL (7-20) H 09/01/19 10:05 Creatinine 1.00 mg/dL (0.52-1.25) 09/01/19 10:05 Est GFR ( Amer) > 60 (>60) 09/01/19 10:05 Est GFR (Non-Af Amer) Cancelled 08/21/19 07:37 Est GFR (MDRD) Non-Af > 60 (>60) 09/01/19 10:05 Glucose 114 mg/dL (75-110) H 09/01/19 10:05 POC Glucose 119 mg/dL (70-110) H 09/01/19 11:10 Hemoglobin A1c % 6.1 % (4.7-6.0) H 08/23/19 02:24 Lactic Acid 0.9 mmol/L (0.7-2.1) 08/23/19 02:24 Calcium 8.6 mg/dL (8.4-10.2) 09/01/19 10:05 Ionized Calcium [place] 1.03 mmol/L (1.14-1.30) L 08/23/19 02:24 Phosphorus 2.8 mg/dL (2.5-4.5) 08/24/19 05:45 Magnesium 1.9 mg/dL (1.6-2.3) 08/26/19 05:21 Total Bilirubin 0.4 mg/dL (0.2-1.3) 08/26/19 05:21 Direct Bilirubin 0.0 mg/dL (0.0-0.4) 08/26/19 05:21 Neonat Total Bilirubin Not Reportable 08/26/19 05:21 Neonat Direct Bilirubin Not Reportable 08/26/19 05:21 Neonat Indirect Bili Not Reportable 08/26/19 05:21 AST 20 U/L (17-59) 08/26/19 05:21 ALT 16 U/L (<50) 08/26/19 05:21 Alkaline Phosphatase 57 U/L (38-126) 08/26/19 05:21 Creatine Kinase 357 U/L (55-170) H 08/23/19 02:24 CK-MB (CK-2) 0.75 ng/mL (<4.55) 08/23/19 02:48 Troponin I < 0.012 ng/mL 08/23/19 02:48 NT-Pro-B Natriuret Pep 7880 pg/mL (<450) H 08/28/19 08:26 Total Protein 5.8 g/dL (6.3-8.2) L 08/26/19 05:21 Albumin 3.0 g/dL (3.5-5.0) L 08/26/19 05:21 Triglycerides 201 mg/dL (<150) H 08/21/19 07:37 Cholesterol 89.92 mg/dL (0-200) 08/21/19 07:37 LDL Cholesterol Direct 39 mg/dL (<100) 08/21/19 07:37 VLDL Cholesterol 40.2 mg/dL (10-31) H 08/21/19 07:37 HDL Cholesterol 20 mg/dL (>40) L 08/21/19 07:37 EGFR Cancelled 08/21/19 07:37 TSH 4.61 uIU/mL (0.47-4.68) 08/21/19 07:37 Free T3 pg/mL 3.57 pg/mL (2.77-5.27) 08/21/19 07:37 Random Cortisol 7.35 ug/dL (None Established) 08/23/19 06:05 Urine Color STRAW 08/20/19 23:39 Urine Appearance SLIGHTLY-CLOUDY 08/20/19 23:39 Urine pH 5.0 (5.0-9.0) 08/20/19 23:39 Ur Specific [place] 1.009 08/20/19 23:39 Urine Protein NEGATIVE mg/dL (NEGATIVE) 08/20/19 23:39 Urine Glucose (UA) NEGATIVE mg/dL (NEGATIVE) 08/20/19 23:39 Urine Ketones NEGATIVE mg/dL (NEGATIVE) 08/20/19 23:39 Urine Blood SMALL (NEGATIVE) H 08/20/19 23:39 Urine Nitrite (Reflex) NEGATIVE (NEGATIVE) 08/20/19 23:39 Urine Bilirubin NEGATIVE (NEGATIVE) 08/20/19 23:39 Urine Urobilinogen NEGATIVE mg/dL (<2.0) 08/20/19 23:39 Leukocyte Esterase Rfl SMALL (NEGATIVE) H 08/20/19 23:39 Urine RBC (Auto) 0 /HPF 08/20/19 23:39 Urine Bacteria (Auto) 1+ /HPF 08/20/19 23:39 Urine WBC (Reflex) 62 /HPF 08/20/19 23:39 Squamous Epi Cells Auto 3 /HPF 08/20/19 23:39 Urine Mucus (Auto) RARE /LPF 08/20/19 23:39 Urine Ascorbic Acid NEGATIVE (NEGATIVE) 08/20/19 23:39 Slides for Path Review PATHOLOGIST REVIEWED 08/29/19 05:08 08/20/19 08/20/19 08/20/19 17:00 17:00 23:09 CK-MB (CK-2) Cancelled Troponin I < 0.012 Cancelled NT-Pro-B Natriuret Pep 77 08/21/19 08/21/19 08/21/19 01:16 07:37 13:12 CK-MB (CK-2) 1.35 1.00 0.91 Troponin I < 0.012 < 0.012 < 0.012 NT-Pro-B Natriuret Pep 08/23/19 08/28/19 02:48 08:26 CK-MB (CK-2) 0.75 Troponin I < 0.012 NT-Pro-B Natriuret Pep 7880 H Impressions: Chest X-Ray 08/20/19 16:34 IMPRESSION: CARDIAC ENLARGEMENT. VASCULAR CONGESTION. Chest CT 08/20/19 18:37 IMPRESSION: No acute abnormality within the chest. Enlarged subcarinal lymph node measuring 1.8 x 3.5 cm in size, indeterminate/nonspecific. TECHNICAL DOCUMENTATION: Quality ID # [id number]: Final reports with documentation of one or more dose reduction techniques (e.g., Automated exposure control, adjustment of the mA and/or kV according to patient size, use of iterative reconstruction technique) copyright 2011 [employer]- All Rights Reserved Renal Ultrasound 08/21/19 00:00 IMPRESSION: Limited ultrasound of the kidneys and urinary bladder due to the patient's body habitus. The left kidney and urinary bladder were not visualized. There is no right-sided hydronephrosis. Chest X-Ray 08/23/19 00:00 IMPRESSION: Interval placement a right-sided central line. No pneumothorax. Catheter tip overlies the SVC. Abdomen/Pelvis CT 08/23/19 02:08 IMPRESSION: No acute findings. Chest X-Ray 08/28/19 07:29 IMPRESSION: Small bilateral pleural effusions. No interval change. Stroke Is this a Stroke Patient?: No Acute Heart Failure - Is this a Heart Failure Patient?: Yes Documentation of LVEF assessment?: Yes LVEF < 40%?: No- if no continue to question #3 3. Anticoagulant therapy for permanect/persistent/paraoxysmal Afib or Aflutter: N/A Follow-up Appointment scheduled within 7 days?: Yes
[2019-09-01] MEDS: POTASSI CL 20 MEQ/50 ML RIDER 20 MEQ/50 ML RTUPB IV SCH ×2 (12:32→15:11)
[2019-09-01 16:28] VITALS: BP 116/53
[2019-09-01] MEDS: TAMSULOSIN HCL 0.4 MG CAP.SR.24H PO SCH (18:22)
== END 2019-09-01 18:55 | disposition home or self-care (01) | DRG 872 ==
LOC: ER 15:50 → EH 20:24 → 3S 22:48 → ICU 08-23 03:49 → 4N 08-24 15:52
PROVIDERS: ADMIT Emergency Medicine; ATTEND Internal Medicine
PROC: 03HC33Z Insertion of Infusion Device into Left Radial Artery, Percutaneous Approach (ICD-10-PCS; principal; 2019-08-23)
PROC: 02HV33Z Insertion of Infusion Device into Superior Vena Cava, Percutaneous Approach (ICD-10-PCS; 2019-08-23)
PROC: B548ZZA Ultrasonography of Superior Vena Cava, Guidance (ICD-10-PCS; 2019-08-23)
DX: A41.51 Sepsis due to Escherichia coli [E. coli] (principal); N17.9 Acute kidney failure, unspecified; N39.0 Urinary tract infection, site not specified; J96.11 Chronic respiratory failure with hypoxia; Z68.42 Body mass index [BMI] 45.0-49.9, adult; R65.20 Severe sepsis without septic shock; I48.91 Unspecified atrial fibrillation; I12.9 Hypertensive chronic kidney disease with stage 1 through stage 4 chronic kidney disease, or unspecified chronic kidney disease; N18.9 Chronic kidney disease, unspecified; I25.10 Atherosclerotic heart disease of native coronary artery without angina pectoris; E86.0 Dehydration; I50.9 Heart failure, unspecified; E87.6 Hypokalemia; G47.33 Obstructive sleep apnea (adult) (pediatric); K20.9 Esophagitis, unspecified; J44.9 Chronic obstructive pulmonary disease, unspecified; K21.9 Gastro-esophageal reflux disease without esophagitis; B96.20 Unspecified Escherichia coli [E. coli] as the cause of diseases classified elsewhere; N40.0 Benign prostatic hyperplasia without lower urinary tract symptoms; G25.81 Restless legs syndrome; E66.01 Morbid (severe) obesity due to excess calories; Z99.81 Dependence on supplemental oxygen; Z86.14 Personal history of Methicillin resistant Staphylococcus aureus infection; Z95.5 Presence of coronary angioplasty implant and graft; Z98.84 Bariatric surgery status; Z79.01 Long term (current) use of anticoagulants; Z79.82 Long term (current) use of aspirin; Z79.891 Long term (current) use of opiate analgesic; Z79.899 Other long term (current) drug therapy
CPT/HCPCS: 36415; 36556; 36600; 36620; 71045; 71046; 71250; 74176; 76770; 80048; 80053; 80061; 81001; 82040; 82330; 82533; 82550; 82553; 82803; 82962; 83036; 83605; 83735; 83880; 84100; 84132; 84443; 84481; 84484; 85025; 85027; 85610; 87040; 87070; 87077; 87086; 87088; 87186; 93005; 93010; 93306; 94640; 99285; 99291; 99292; J0692; J1642; J1644; J1720; J1815; J1940; J2270; J2405; J2543; J3370; J3475; J3480; J3490; J7030; J7040; J7060; J7120; J7512; P9041